=== PATIENT | male | born 1950 | race Caucasian/White ===

== ENCOUNTER 2021-04-14 07:21 | Emergency (ER) | payer OTHER, MEDICARE, SELFPAY ==
[2021-04-14 07:31] VITALS: BP 102/47; BP 138/64; PULSE 68; PULSE 86; RESP 16; TEMP 36.7; O2SAT 94; O2SAT 96; BMI 29.5
--- NOTE | 2021-04-14 08:14 | ECG_ITS ---
Test Reason : CHEST PAIN Blood Pressure : / mmHG Vent. Rate : 064 BPM Atrial Rate : 064 BPM P-R Int : 140 ms QRS Dur : 134 ms QT Int : 452 ms P-R-T Axes : 007 241 -01 degrees QTc Int : 466 ms Sinus rhythm with marked sinus arrhythmia Right bundle branch block Abnormal ECG No previous ECGs available Referred By: Mildred Nina Electronically Signed By:Aime Winn
--- NOTE | 2021-04-14 08:14 | ED_ITS ---
HPI - Chest Pain General Chief Complaint: Chest Pain Stated Complaint: CHEEST PRESSURE Time Seen by Provider: 04/14/21 08:05 Source: patient and EMS Mode of arrival: EMS Limitations: no limitations History of Present Illness HPI narrative: patient comes emergency room complaining of chest pain /chest pressure. 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 Patient states he has had multiple episodes in the past, patient took immediately nitroglycerin which is prescribed to him. Patient called EMS, they gave him a 2nd dose of nitroglycerin and full-dose aspirin. At the time, patient states that the pressure is still present but feeling much better overall. patient states that he does feel mildly lightheaded Related Data Allergies Allergy/AdvReac Type Severity Reaction Status Date / Time povidone-iodine Allergy Unknown Unknown Verified 04/14/21 08:13 Review of Systems Review of Systems: Constitutional : No Weight loss, No Fever, No Chills, No Night Sweats, No Fatigue, No Malaise ENT/Mouth : No Hearing loss, No Ear Pain, No Nasal Congestion, No Sinus Pain, No Hoarseness, No sore throat, No Rhinorrhea, No Swallowing Difficulty Eyes: No Eye Pain, No Swelling, No Redness, No Foreign Body, No Discharge, No Vision Changes Cardiovascular : Complaining of Chest Pain, No SOB, No Dyspnea on Exertion, No Orthopnea, No Edema, No Palpitations Respiratory : No Cough, No Sputum, No Wheezing, No Smoke Exposure, No Dyspnea Gastrointestinal : No Nausea, No Vomiting, No Diarrhea, No Constipation, No abdominal Pain, No Hematochezia, No Melena Genitourinary : no irregular bleeding, No Dysuria, No Urinary Frequency, No Hematuria, No Urinary Incontinence, No Urgency, No Flank Pain, No Urinary Flow Changes, No Hesitancy Musculoskeletal : No joint pain, No Myalgias, No Joint Swelling Skin : No Skin Lesions, No rash Neuro : No Weakness, No Numbness, No Paresthesias, No Loss of Consciousness, No Dizziness, No Headache Psych : No Anxiety/Panic, No Depression, No SI/HI/AH/VH, No Social Issues, Heme/Lymph: No Bruising, No Bleeding,No Lymphadenopathy Endocrine : No Polyuria, No Polydipsia, No Temperature Intolerance [facility] Past Medical History Medical History (Updated 04/14/21 @ 12:17 by Mildred Nina MD) Anxiety Aortic stenosis Bipolar disorder Hypertension Social History Social History Alcohol intake: current Alcohol intake frequency: a few times a week Patient Tobacco Use Status: Never used Tobacco Use of substances other than those prescribed or required for medical reasons: No Advance Directives: No Advance Directives Information Provided: No Physical Exam Vital Signs: Vital Signs: Last Vital Signs Temp 98.1 F 04/14/21 07:31 Pulse 59 04/14/21 08:55 Resp 15 04/14/21 08:55 BP 117/45 L 04/14/21 08:55 Pulse Ox 98 04/14/21 08:55 BMI result Body Mass Index 29.5 Const: Other: Appearance: Alert. Oriented X3. No acute distress. well-appearing Eyes: Pupils equal, round and reactive to light. ENT: Pharynx normal. Neck: Normal inspection. Neck supple. No lymph nodes noted. No crepitus CVS: Normal heart rate and rhythm. Pulses normal. Normal S1 and S2, loud systolic murmur, right sternal border Respiratory: No respiratory distress. Breath sounds normal. No Wheezing. No rales Abdomen: Soft and nontender. No rigidity. No distention. good BS x4 Skin: Skin warm and dry. Normal skin color. Normal skin turgor. Extremities: No lower extremity edema. No lower extremity edema. No Lacerations . No Rash Neuro: Oriented X 3. No motor deficit. No sensory deficit. Moving all extermities. No slurred speech. Course Course Course Narrative: Patient is asymptomatic, troponin 2. Is less than delta 50. patient states that he feels well, has no chest pain/pressure. Likely patient had muscu loskeletal pain as he was changing a tire. 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 Patient would benefit from a stress test. Patient will be given information to follow-up with our tool and die maker/designer. I discussed with the patient that his EKG showed right bundle-branch block, patient states that he is known to have an RBBB for several years, we do not have previous EKGs for comparison MDM - Chest Pain Lab Data Result diagrams: 04/14/21 08:39 04/14/21 08:39 Labs: Lab Results 04/14/21 04/14/21 04/14/21 Range/Units 08:39 08:39 08:39 WBC 9.4 (4.8-10.8) X10*3/uL RBC 4.71 (4.60-5.80) X10*6/uL Hgb 13.9 L (14.0-18.0) g/dl Hct 40.5 L (42.0-52.0) % MCV 86.0 (80.0-98.0) fL MCH 29.5 (27.0-33.0) pg MCHC 34.3 (31.0-36.0) g/dl RDW 13.3 (11.0-16.0) % Plt Count 260 (160-400) X10*3/uL MPV 9.5 (9.4-12.4) fL Immature Gran % (Auto) 0.6 H (0.0-0.4) % Neut % (Auto) 77.5 H (45-73) % Lymph % (Auto) 9.0 L (20-40) % [place] % (Auto) 11.2 H (2-11) % Eos % (Auto) 1.4 (0-4) % Baso % (Auto) 0.3 (0-2) % Lymph # (Auto) 0.9 L (1.2-4.9) X10*3/uL [place] # (Auto) 1.1 (0.1-1.2) X10*3/uL Eos # (Auto) 0.1 (0.0-0.4) X10*3/uL Baso # (Auto) 0.0 (0.0-0.2) X10*3/uL Abs Immat Gran (auto) 0.06 H (0.00-0.03) X10*3/uL Absolute Neuts (auto) 7.3 (2.0-8.3) x10*3/uL Absolute Nucleated RBC 0.000 (0.0-0.012) X10*3/uL Nucleated RBC % (auto) 0.0 (0.0-0.2) /100WBC PT 14.4 H (9.9-13.0) SEC INR 1.3 H (0.9-1.1) Sodium 140 (135-145) mmol/L Potassium 4.0 (3.3-5.1) mmol/L Chloride 108 (96-108) mmol/L Carbon Dioxide 24 (22-29) mmol/L Anion Gap 12 (12-20) BUN 14 (9-16) mg/dL Creatinine 0.86 (0.5-1.4) mg/dL Estim Creat Clear Calc 87.6 Estimated GFR > 60 Random Glucose 120 H (60-115) mg/dL Calcium 9.4 (8.4-10.2) mg/dL Total Bilirubin 1.1 H (0.0-1.0) mg/dL Direct Bilirubin 0.5 (0.0-0.5) mg/dL AST 19 (5-37) U/L ALT 18 (0-40) U/L Alkaline Phosphatase 96 (39-117) U/L Troponin I High Sens (<3.5-35.0) ng/L Total Protein 5.9 L (6.5-8.0) g/dL Albumin 3.9 (3.5-5.0) g/dL 04/14/21 04/14/21 Range/Units 08:39 11:35 WBC (4.8-10.8) X10*3/uL RBC (4.60-5.80) X10*6/uL Hgb (14.0-18.0) g/dl Hct (42.0-52.0) % MCV (80.0-98.0) fL MCH (27.0-33.0) pg MCHC (31.0-36.0) g/dl RDW (11.0-16.0) % Plt Count (160-400) X10*3/uL MPV (9.4-12.4) fL Immature Gran % (Auto) (0.0-0.4) % Neut % (Auto) (45-73) % Lymph % (Auto) (20-40) % [place] % (Auto) (2-11) % Eos % (Auto) (0-4) % Baso % (Auto) (0-2) % Lymph # (Auto) (1.2-4.9) X10*3/uL [place] # (Auto) (0.1-1.2) X10*3/uL Eos # (Auto) (0.0-0.4) X10*3/uL Baso # (Auto) (0.0-0.2) X10*3/uL Abs Immat Gran (auto) (0.00-0.03) X10*3/uL Absolute Neuts (auto) (2.0-8.3) x10*3/uL Absolute Nucleated RBC (0.0-0.012) X10*3/uL Nucleated RBC % (auto) (0.0-0.2) /100WBC PT (9.9-13.0) SEC INR (0.9-1.1) Sodium (135-145) mmol/L Potassium (3.3-5.1) mmol/L Chloride (96-108) mmol/L Carbon Dioxide (22-29) mmol/L Anion Gap (12-20) BUN (9-16) mg/dL Creatinine (0.5-1.4) mg/dL Estim Creat Clear Calc Estimated GFR Random Glucose (60-115) mg/dL Calcium (8.4-10.2) mg/dL Total Bilirubin (0.0-1.0) mg/dL Direct Bilirubin (0.0-0.5) mg/dL AST (5-37) U/L ALT (0-40) U/L Alkaline Phosphatase (39-117) U/L Troponin I High Sens 8.0 11.2 (<3.5-35.0) ng/L Total Protein (6.5-8.0) g/dL Albumin (3.5-5.0) g/dL ECG Data ECG #1: Attestation: I personally reviewed and interpreted this ECG as follows: ( sinus rhythm, heart rate 64, right bundle branch block, QTC 466, nonspecific T- wave inversion in lead 3) Discharge Plan Discharge Clinical Impression: Atypical chest pain Patient Disposition: Home, Self-Care Instructions: Chest Pain (DC) Additional Instructions: Please follow-up with your primary care physician tomorrow. If you have any worsening or new symptoms, please return to the emergency room or call 911 Referrals: Aime Winn MD [Physician] - 2 days
[2021-04-14 08:44] VITALS: BP 107/45; PULSE 57
[2021-04-14 08:44] LABS: MANUAL DIFF FLAG NO
[2021-04-14 08:49] LABS: Basophils Percent Auto 0.3 % (0-2); Eosinophils Absolute Auto 0.1 X10*3/uL (0.0-0.4); Eosinophils Percent Auto 1.4 % (0-4); Hematocrit 40.5 % (42.0-52.0); Hemoglobin 13.9 g/dl (14.0-18.0); Imm Gran Abs Auto 0.06 X10*3/uL (0.00-0.03); Imm Gran Pct Auto 0.6 % (0.0-0.4); Lymphocytes Absolute Auto 0.9 X10*3/uL (1.2-4.9); Mean Corpuscular HGB Conc 34.3 g/dl (31.0-36.0); Mean Corpuscular Hemoglobin 29.5 pg (27.0-33.0); Mean Platelet Volume 9.5 fL (9.4-12.4); Monocytes Absolute Auto 1.1 X10*3/uL (0.1-1.2); Monocytes Percent Auto 11.2 % (2-11); Neutrophils Absolute Auto 7.3 x10*3/uL (2.0-8.3); Neutrophils Percent Auto 77.5 % (45-73); Platelet Count 260 X10*3/uL (160-400); Red Blood Count 4.71 X10*6/uL (4.60-5.80); Red Cell Distribution Width 13.3 % (11.0-16.0); White Blood Count 9.4 X10*3/uL (4.8-10.8)
[2021-04-14 08:50] VITALS: BP 114/44; PULSE 62
[2021-04-14 08:52] VITALS: BP 117/45; PULSE 62
[2021-04-14 08:54] LABS: INTERNATIONAL NORM RATIO 1.3 (0.9-1.1); Prothrombin Time 14.4 SEC (9.9-13.0)
[2021-04-14 08:55] VITALS: BP 117/45; PULSE 59; RESP 15; O2SAT 98
[2021-04-14 09:03] LABS: Alanine Aminotransferase 18 U/L (0-40); Albumin Level 3.9 g/dL (3.5-5.0); Alkaline Phosphatase 96 U/L (39-117); Anion Gap 12 (12-20); Aspartate Amino Transferase 19 U/L (5-37); Bilirubin Direct 0.5 mg/dL (0.0-0.5); Bilirubin Total 1.1 mg/dL (0.0-1.0); Blood Urea Nitrogen 14 mg/dL (9-16); Calcium 9.4 mg/dL (8.4-10.2); Carbon Dioxide 24 mmol/L (22-29); Chloride 108 mmol/L (96-108); Creatinine Clr Calc Pharmacy 87.6; Estimated Glomerular Filt Rate > 60; Glucose Random 120 mg/dL (60-115); Sodium 140 mmol/L (135-145); Total Protein 5.9 g/dL (6.5-8.0)
[2021-04-14 11:58] LABS: Troponin-I High Sensitivity 11.2 ng/L (<3.5-35.0)
== END 2021-04-14 12:31 | disposition home or self-care (01) ==
PROVIDERS: Emergency Provider Emergency Medicine
DX: R07.89 Other chest pain (principal); Z79.899 Other long term (current) drug therapy
CPT/HCPCS: 36415; 80048; 80076; 84484; 85025; 85610; 93005; 99284; 99285

== ENCOUNTER → 2021-08-07 14:13 | Outpatient (BNVA) | payer OTHER, MEDICARE, SELFPAY | PROVIDERS: Visit Provider Internal Medicine Cardiovascular Disease | DX: R07.9 Chest pain, unspecified (principal); I35.0 Nonrheumatic aortic (valve) stenosis; I45.10 Unspecified right bundle-branch block | CPT/HCPCS: 93005 ==

== ENCOUNTER → 2021-10-10 10:58 | Outpatient (REF) | payer OTHER, SELFPAY ==
--- NOTE | 2021-10-10 11:05 | CA_ITS ---
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 The calculated ejection fraction is 66% by biplane method. - The basal inferior segment is hypokinetic. - There is moderate to severe aortic valve stenosis. Findings Left Ventricle Normal left ventricular cavity size. There is mildly increased left ventricular wall thickness. The left ventricular systolic function is normal. The calculated ejection fraction is 66% by biplane method. E/E prime ratio is >15, consistent with elevated filling pressures. Evidence suggests grade II (moderate) diastolic dysfunction. Wall Motion Rest Echo Findings The basal inferior segment is hypokinetic. Right Ventricle Normal right ventricular cavity size and systolic function. Atria Both atria are normal in size. Aortic Valve There is moderate calcification of the aortic valve. There is moderate to severe aortic valve stenosis. The mean gradient is 37 mmHg. The aortic valve area is 0.84 cm2. There is trace (trivial) aortic valve regurgitation. Dimensionless index 0.25. Stroke volume index 42ml/m2. Mitral Valve The mitral valve appears normal. There is mild mitral annular calcification. There is trace mitral valve regurgitation. There is no mitral valve stenosis. Pulmonic Valve The pulmonic valve was not well visualized. Tricuspid Valve Normal tricuspid valve structure. There is trace tricuspid valve regurgitation. The right ventricular systolic pressure is 42 mmHg. Mild pulmonary hypertension is present. Great Vessels The asc aorta is normal in size. Venous The inferior vena cava is normal in size and collapses less than 50% with inspiration. Pericardium/Pleural There is no evidence of pericardial effusion. Prior Study Comparison No prior study available for comparison. Measurements 2D Linear Measurements IVSd: 1.20 0.6-0.9/0.6-1.0 cm LVIDd: 4.82 3.9-5.3/4.2-5.9 cm LVIDd Index: 2.35 2.4-3.2/2.2-3.1 cm/m2 LVIDs: 3.55 2.0-3.6 cm LVPWd: 1.11 0.7-1.1 cm LA Diam: 3.90 2.7-3.8/3.0-4.0 cm LAIDs Index: 1.90 1.5-2.3 cm/m2 LV Mass: 260.51 67-162/88-224 g LV Mass Index: 127.08 43-95/49-115 g/m2 LVOT Diam: 2.10 3.0+(-)1.3 cm 2D Systolic Function EF 4C: 62.20 >55% EF 2C: 69.40 >55% EF BiP: 66.40 >55% Mitral Valve MV Pk E: 1.03 MV PK A: 0.64 MV Decel Time: 232.00 E/A: 1.60 E'Lateral: 5.44 E'Medial: 5.55 E/E' Med: 18.60 E/E' Lat: 18.90 PHT: 68.00 MVA PHT: 3.24 Decel Sutter: 4.44 Aortic Valve AoV Pk Shen: 3.92 AoV Mn Shen: 2.88 AoV VTI: 1.02 AoV Pk Grad: 61.00 Aov Mn Grad: 37.00 KAREEM Cont.VTI: 0.84 LVOT LVOT Pk Shen: 0.98 LVOT Mn Shen: 0.58 LVOT VTI: 0.25 LVOT Pk Grad: 4.00 LVOT Mn Grad: 2.00 LVOT Diam: 2.10 LVOT Area: 3.46 Diastolic Function MV Pk E: 1.03 MV Pk A: 0.64 E/A: 1.60 E'Medial: 5.55 E/E' Med: 18.60 E' Laterial: 5.44 E/E' Lat: 18.90 Right Ventricle TAPSE (mm): 20.80 TVS' Shen: 9.03 Tricuspid Valve TR Pk Shen: 2.91 TR Pk Grad: 34.00 RA Press: 8.00 RVSP: 42.00 Great Vessels Aorta Sinus of Valsalva: 3.52 2.0-3.[address] [place]: 2.34 1.7-3.4 cm Ao Asc: 3.50 2.1-3.4 cm Updated in Other Vendor System with Status of Final Harpreet Sapp MD electronically signed on 10/12/2021 11:22:35 AM with status of Final
== END ==
LOC: HO.CARD 10:58
PROVIDERS: Visit Provider Internal Medicine Cardiovascular Disease
DX: I35.0 Nonrheumatic aortic (valve) stenosis (principal)
CPT/HCPCS: 93306

== ENCOUNTER 2021-11-05 08:27 | Outpatient (REF) | payer OTHER, SELFPAY ==
[2021-11-05 09:18] LABS: Hematocrit 49.4 % (42.0-52.0); Hemoglobin 15.8 g/dl (14.0-18.0); Mean Corpuscular Hemoglobin 27.3 pg (27.0-33.0); Mean Corpuscular Volume 85.5 fL (80.0-98.0); Mean Platelet Volume 9.7 fL (9.4-12.4); Platelet Count 264 X10*3/uL (160-400); Red Blood Count 5.78 X10*6/uL (4.60-5.80); Red Cell Distribution Width 13.4 % (11.0-16.0); White Blood Count 8.6 X10*3/uL (4.8-10.8)
[2021-11-05 09:24] LABS: INTERNATIONAL NORM RATIO 1.1 (0.9-1.1)
[2021-11-05 09:44] LABS: Anion Gap 15 (12-20); Blood Urea Nitrogen 20 mg/dL (9-16); Calcium 9.5 mg/dL (8.4-10.2); Carbon Dioxide 26 mmol/L (22-29); Chloride 107 mmol/L (96-108); Estimated Glomerular Filt Rate > 60; Glucose Random 97 mg/dL (60-115); Potassium 4.8 mmol/L (3.3-5.1); Sodium 143 mmol/L (135-145)
== END 2021-11-05 08:28 | disposition home or self-care (01) ==
LOC: HO.LAB 08:27
PROVIDERS: Visit Provider Internal Medicine Cardiovascular Disease
DX: R07.9 Chest pain, unspecified (principal); I45.10 Unspecified right bundle-branch block; I35.0 Nonrheumatic aortic (valve) stenosis
CPT/HCPCS: 36415; 80048; 83880; 85027; 85610

== ENCOUNTER 2021-11-16 10:15 | Inpatient (IN) | payer OTHER, SELFPAY ==
--- NOTE | 2021-11-16 08:08 | ECG_ITS ---
Test Reason : REFER OM ORDERFOR DIRECTION/FREQUENCY/TIMIMG Blood Pressure : / mmHG Vent. Rate : 063 BPM Atrial Rate : 063 BPM P-R Int : 156 ms QRS Dur : 142 ms QT Int : 454 ms P-R-T Axes : 028 081 006 degrees QTc Int : 464 ms Sinus rhythm with frequent Premature ventricular complexes Right bundle branch block Abnormal ECG When compared with ECG of 16-NOV-2021 10:18, No significant change was found Referred By: Toñito Suarez Electronically Signed By:SHANTA LAGOS
[2021-11-16 10:17] VITALS: BP 104/58; PULSE 60; RESP 18; TEMP 36.1; O2SAT 99; BMI 28.6
--- NOTE | 2021-11-16 10:19 | ECG_ITS ---
Test Reason : chest pain Blood Pressure : / mmHG Vent. Rate : 063 BPM Atrial Rate : 063 BPM P-R Int : 162 ms QRS Dur : 144 ms QT Int : 444 ms P-R-T Axes : 036 072 008 degrees QTc Int : 454 ms Sinus rhythm with frequent Premature ventricular complexes Right bundle branch block Abnormal ECG When compared with ECG of 14-APR-2021 08:14, Premature ventricular complexes are now Present Questionable change in QRS axis Referred By: Generic ED Physician Electronically Signed By:SHANTA LAGOS
--- NOTE | 2021-11-16 10:56 | ED.CHESTPAIN ---
HPI - Chest Pain General Chief Complaint: Chest Pain Stated Complaint: chest pain sob Time Seen by Provider: 11/16/21 10:56 Source: patient Mode of arrival: ambulatory Limitations: no limitations History of Present Illness HPI narrative: Patient is 71 years old with history of hypertension, hyperlipidemia, right bundle-branch block, aortic stenosis with multivessel disease status post angiogram done on 11/14 which showed severe 2 vessel disease with calcification in RCA and LAD plan for CABG/AVR vs TAVR/PCI been having chest pain off and on with exertional dyspnea today around 10:00 while sitting at rest noticed similar pain which was more severe than the past took nitroglycerin sublingual which subsided the pain significantly but still has some pain also complaining of shortness of breath on arrival patient blood pressure was 104/58 saturating 99% at room air with pulse rate of 60 Related Data Home Medications Medication Instructions Recorded Confirmed aspirin 81 mg chewable tablet 81 mg PO DAILY 08/07/21 11/16/21 atorvastatin 80 mg tablet 80 mg PO BEDTIME 08/07/21 11/16/21 clonazepam 0.5 mg tablet 1.5 mg PO BEDTIME 08/07/21 11/16/21 diazepam 2 mg tablet 2 mg PO DAILY PRN Anxiety 08/07/21 11/16/21 lamotrigine 150 mg tablet 150 mg PO BID 08/07/21 11/16/21 levothyroxine 125 mcg capsule 125 mcg PO DAILY@0600 08/07/21 11/16/21 methylphenidate HCl 20 mg tablet 40 mg PO DAILY 08/07/21 11/16/21 metoprolol succinate 50 mg 50 mg PO DAILY 08/07/21 11/16/21 tablet,extended release 24 hr nitroglycerin 0.3 mg sublingual 0.3 mg sublingual Q5M PRN Chest 08/07/21 11/16/21 tablet Pain quetiapine 25 mg tablet (Seroquel) 75 mg PO BEDTIME 08/07/21 11/16/21 ramipril 10 mg capsule 10 mg PO DAILY 08/07/21 11/16/21 cholecalciferol (vitamin D3) 50 100 mcg PO DAILY 11/16/21 11/16/21 mcg (2,000 unit) tablet (Vitamin D3) epinephrine 0.3 mg/0.3 mL 0.3 mg IM ONCE PRN Anaphylaxis 11/16/21 11/16/21 injection, auto-injector ibuprofen 200 mg tablet 400 mg PO Q8H PRN Pain 11/16/21 11/16/21 lactobacillus comb no.10 20 20,000 mmu cells PO DAILY 11/16/21 11/16/21 billion cell capsule (Probiotic) vitamin B comp and C no.3 15 mg-10 1 cap PO DAILY 11/16/21 11/16/21 mg-50 mg-5 mg-300 mg capsule (B Complex Plus Vitamin C) Allergies Allergy/AdvReac Type Severity Reaction Status Date / Time povidone-iodine Allergy Unknown Unknown Verified 08/07/21 14:46 seafood Allergy Unknown Verified 11/16/21 14:21 [facility] Past Medical History Medical History (Updated 11/16/21 @ 13:53 by Toñito Suarez MD) Anxiety Aortic stenosis Bipolar disorder Hypertension Surgical History (Updated 08/07/21 @ 15:07 by Ileana Emerson) History of left shoulder replacement History of total right knee replacement Hx of appendectomy Hx of cardiac catheterization Hx of colonoscopy Hx of endoscopy Hx of radical prostatectomy Hx of repair of right rotator cuff Hx of vasectomy Family History Family History (Updated 08/07/21 @ 15:12 by Ileana Emerson) Sister Heart attack Coronary artery disease Arthritis Lupus Sleep apnea Mother Lupus Heart attack Father Heart attack Coronary artery disease Social History Social History (Updated 08/07/21 @ 15:12 by Ileana Emerson) Household Members: Family Alcohol intake: current Alcohol intake frequency: a few times a week Patient Tobacco Use Status: Never used Tobacco Use of substances other than those prescribed or required for medical reasons: No Advance Directives: Yes Advance Directives Information Provided: No Advance Directives on File: No Physical Exam Vital Signs: Vital Signs: Last Vital Signs Temp 97 F 11/16/21 10:17 Pulse 59 11/16/21 13:13 Resp 18 11/16/21 13:13 BP 160/62 H 11/16/21 13:13 Pulse Ox 99 11/16/21 10:17 O2 Del Method 11/16/21 10:17 BMI result Body Mass Index 29.8 MDM - Chest Pain MDM Narrative Medical decision making narrative: 1400 Patient with resting angina with history of aortic stenosis with significant 2 vessel coronary artery disease plan to admit IV heparin plan for transfer to [facility] for plastic parts designer Dr. Johnson likely tomorrow. For now patient will be admitted started on heparin drip and Cardiology will follow patient does not have any chest pain at this time Medical Records Data Attestation: I reviewed the patient's medical records. Lab Data Attestation: I reviewed the patient's lab results. Result diagrams: 11/16/21 11:12 11/16/21 11:12 Labs: Lab Results 11/16/21 11/16/21 11/16/21 Range/Units 11:12 11:12 11:12 WBC 6.9 (4.8-10.8) X10*3/uL RBC 5.07 (4.60-5.80) X10*6/uL Hgb 13.7 L (14.0-18.0) g/dl Hct 42.0 (42.0-52.0) % MCV 82.8 (80.0-98.0) fL MCH 27.0 (27.0-33.0) pg MCHC 32.6 (31.0-36.0) g/dl RDW 13.2 (11.0-16.0) % Plt Count 207 (160-400) X10*3/uL MPV 9.9 (9.4-12.4) fL Immature Gran % (Auto) 0.7 H (0.0-0.4) % Neut % (Auto) 67.0 (45-73) % Lymph % (Auto) 18.0 L (20-40) % [place] % (Auto) 10.5 (2-11) % Eos % (Auto) 3.2 (0-4) % Baso % (Auto) 0.6 (0-2) % Lymph # (Auto) 1.2 (1.2-4.9) X10*3/uL [place] # (Auto) 0.7 (0.1-1.2) X10*3/uL Eos # (Auto) 0.2 (0.0-0.4) X10*3/uL Baso # (Auto) 0.0 (0.0-0.2) X10*3/uL Abs Immat Gran (auto) 0.05 H (0.00-0.03) X10*3/uL Absolute Neuts (auto) 4.6 (2.0-8.3) x10*3/uL Absolute Nucleated RBC 0.000 (0.0-0.012) X10*3/uL Nucleated RBC % (auto) 0.0 (0.0-0.2) /100WBC PT (10.0-13.1) SEC INR (0.9-1.1) APTT (26.0-36.4) SEC Sodium 142 (135-145) mmol/L Potassium 4.5 (3.3-5.1) mmol/L Chloride 108 (96-108) mmol/L Carbon Dioxide 24 (22-29) mmol/L Anion Gap 15 (12-20) BUN 19 H (9-16) mg/dL Creatinine 0.84 (0.5-1.4) mg/dL Estim Creat Clear Calc 87.2 Estimated GFR > 60 Random Glucose 110 (60-115) mg/dL Calcium 8.5 D (8.4-10.2) mg/dL Total Bilirubin 0.6 (0.0-1.0) mg/dL AST 24 (5-37) U/L ALT 23 (0-40) U/L Alkaline Phosphatase 93 (39-117) U/L Troponin I High Sens 7.2 (<3.5-35.0) ng/L B-Natriuretic Peptide (<100) pg/mL Total Protein 5.6 L (6.5-8.0) g/dL Albumin 3.7 (3.5-5.0) g/dL COVID-19 (ELIDA) (Negative) COVID-19 Clin Com 11/16/21 11/16/21 11/16/21 Range/Units 11:36 11:47 11:47 WBC (4.8-10.8) X10*3/uL RBC (4.60-5.80) X10*6/uL Hgb (14.0-18.0) g/dl Hct (42.0-52.0) % MCV (80.0-98.0) fL MCH (27.0-33.0) pg MCHC (31.0-36.0) g/dl RDW (11.0-16.0) % Plt Count (160-400) X10*3/uL MPV (9.4-12.4) fL Immature Gran % (Auto) (0.0-0.4) % Neut % (Auto) (45-73) % Lymph % (Auto) (20-40) % [place] % (Auto) (2-11) % Eos % (Auto) (0-4) % Baso % (Auto) (0-2) % Lymph # (Auto) (1.2-4.9) X10*3/uL [place] # (Auto) (0.1-1.2) X10*3/uL Eos # (Auto) (0.0-0.4) X10*3/uL Baso # (Auto) (0.0-0.2) X10*3/uL Abs Immat Gran (auto) (0.00-0.03) X10*3/uL Absolute Neuts (auto) (2.0-8.3) x10*3/uL Absolute Nucleated RBC (0.0-0.012) X10*3/uL Nucleated RBC % (auto) (0.0-0.2) /100WBC PT 13.2 H (10.0-13.1) SEC INR 1.1 (0.9-1.1) APTT 32.5 (26.0-36.4) SEC Sodium (135-145) mmol/L Potassium (3.3-5.1) mmol/L Chloride (96-108) mmol/L Carbon Dioxide (22-29) mmol/L Anion Gap (12-20) BUN (9-16) mg/dL Creatinine (0.5-1.4) mg/dL Estim Creat Clear Calc Estimated GFR Random Glucose (60-115) mg/dL Calcium (8.4-10.2) mg/dL Total Bilirubin (0.0-1.0) mg/dL AST (5-37) U/L ALT (0-40) U/L Alkaline Phosphatase (39-117) U/L Troponin I High Sens (<3.5-35.0) ng/L B-Natriuretic Peptide 228 H (<100) pg/mL Total Protein (6.5-8.0) g/dL Albumin (3.5-5.0) g/dL COVID-19 (ELIDA) Negative (Negative) COVID-19 Clin Com See Note ECG Data ECG #1: Attestation: I personally reviewed and interpreted this ECG as follows: Interpretation: Normal sinus rhythm with frequent PVCs heart rate of 63 beats per minute red-brown block no acute ST T wave changes no acute ischemia as compared to old EKG PVC are new Critical Care Time Critical Care Time Critical Care Time: Yes Total Critical Care Time: 55 Attestation: I spent 55 minutes of critical care, with interventions, assessments, speaking to patient, consultants, and family. Discharge Plan Discharge Clinical Impression: Unstable angina pectoris, Aortic stenosis Patient Disposition: Admitted As Inpatient
[2021-11-16 11:15] LABS: MANUAL DIFF FLAG NO
[2021-11-16 11:24] LABS: Basophils Percent Auto 0.6 % (0-2); Eosinophils Absolute Auto 0.2 X10*3/uL (0.0-0.4); Eosinophils Percent Auto 3.2 % (0-4); Hemoglobin 13.7 g/dl (14.0-18.0); Imm Gran Abs Auto 0.05 X10*3/uL (0.00-0.03); Imm Gran Pct Auto 0.7 % (0.0-0.4); Lymphocytes Absolute Auto 1.2 X10*3/uL (1.2-4.9); Mean Corpuscular HGB Conc 32.6 g/dl (31.0-36.0); Mean Corpuscular Volume 82.8 fL (80.0-98.0); Mean Platelet Volume 9.9 fL (9.4-12.4); Monocytes Absolute Auto 0.7 X10*3/uL (0.1-1.2); Monocytes Percent Auto 10.5 % (2-11); Neutrophils Absolute Auto 4.6 x10*3/uL (2.0-8.3); Platelet Count 207 X10*3/uL (160-400); Red Blood Count 5.07 X10*6/uL (4.60-5.80); Red Cell Distribution Width 13.2 % (11.0-16.0); White Blood Count 6.9 X10*3/uL (4.8-10.8)
[2021-11-16 11:39] LABS: Alanine Aminotransferase 23 U/L (0-40); Albumin Level 3.7 g/dL (3.5-5.0); Alkaline Phosphatase 93 U/L (39-117); Anion Gap 15 (12-20); Aspartate Amino Transferase 24 U/L (5-37); Bilirubin Total 0.6 mg/dL (0.0-1.0); Blood Urea Nitrogen 19 mg/dL (9-16); Calcium 8.5 mg/dL (8.4-10.2); Carbon Dioxide 24 mmol/L (22-29); Chloride 108 mmol/L (96-108); Creatinine Clr Calc Pharmacy 87.2; Estimated Glomerular Filt Rate > 60; Glucose Random 110 mg/dL (60-115); Potassium 4.5 mmol/L (3.3-5.1); Sodium 142 mmol/L (135-145); Total Protein 5.6 g/dL (6.5-8.0)
[2021-11-16 11:45] LABS: Troponin-I High Sensitivity 7.2 ng/L (<3.5-35.0)
[2021-11-16 11:51] VITALS: BP 138/58; PULSE 58
[2021-11-16] MEDS: Nitroglycerin 2 % Oint 1 GM Packet 1 INCH TRANSDERMA (11:51)
[2021-11-16] MEDS: Heparin Sodium,Porcine 5,000 UNIT/ML VIAL 5000 UNIT IVPUSH (11:53)
[2021-11-16 11:58] LABS: COVID-19 Test Negative (Negative)
[2021-11-16 12:05] VITALS: BMI 29.5
[2021-11-16 12:05] LABS: INTERNATIONAL NORM RATIO 1.1 (0.9-1.1); Prothrombin Time 13.2 SEC (10.0-13.1)
[2021-11-16 12:07] LABS: Partial Thromboplastin Time 32.5 SEC (26.0-36.4)
[2021-11-16 12:27] LABS: B Type Natriuretic Peptide 228 pg/mL (<100)
[2021-11-16 13:08] VITALS: BMI 29.8
[2021-11-16 13:13] VITALS: BP 160/62; PULSE 59; RESP 18
[2021-11-16] MEDS: Heparin Sodium,Porcine/1/2NS 25,000 UNIT/250 ML IV.SOLN 10 UNIT IVCONT (13:19)
--- NOTE | 2021-11-16 13:51 | PC.NURSE ---
t/w completed pt med rec- medication list sent to pharmacy to review
--- NOTE | 2021-11-16 14:38 | PHA.MEDREC ---
Pharmacy Consult ? Medication Reconciliation Pharmacy has completed the medication reconciliation. Used med list acquired from nurse (Marilu) and claim history to verify meds. Spoke with patient as well to confirm ibuprofen (400 mg po q8h prn) and lamotrigine (150mg po bid) doses.
--- NOTE | 2021-11-16 15:05 | PM.IMHP ---
History of Present Illness Date of Service: 11/16/21 Chief Complaint: Chest pain, sob 71-year-old man presenting with complaints of chest pain on and off with exertional dyspnea while at rest. He took sublingual nitroglycerin which did help the pain subside significantly but could still persist and he also had some shortness of breath. He has known coronary artery disease and as a matter fact had a CABG consult on 11/12/2021 at [facility] it appears that the plan is to do 2 vessel bypass. His labs are all within acceptable limits, vital signs are stable. Bank Note Designer is aware and has recommended starting patient on IV heparin drip and plan for transfer to [facility] tomorrow or Thursday. The IV heparin drip was started in the ER and he also received topical nitroglycerin. He will be admitted for further management and treatment of unstable angina Review of Systems Review of Systems: Denies any recent fever chills or decrease in appetite respiratory denies any shortness of breath coverage production cardiovascular see above/HPI gastrointestinal denies any dysphagia abdominal pain nausea vomiting or diarrhea genitourinary denies any dysuria frequency or hematuria musculoskeletal denies any joint pain or swelling neuropsych denies any weakness or seizures all other systems reviewed are negative [facility] Medical History (Updated 11/16/21 @ 15:40 by Merary Drake NP) Anxiety Aortic stenosis Bipolar disorder Hypertension Prostate cancer Pulmonary hypertension TIA (transient ischemic attack) Family History (Updated 08/07/21 @ 15:12 by Ileana Emerson) Sister Heart attack Coronary artery disease Arthritis Lupus Sleep apnea Mother Lupus Heart attack Father Heart attack Coronary artery disease Surgical History (Updated 11/16/21 @ 15:40 by Merary Drake NP) History of left shoulder replacement History of total right knee replacement Hx of appendectomy Hx of cardiac catheterization Hx of colonoscopy Hx of endoscopy Hx of radical prostatectomy Hx of repair of right rotator cuff Hx of tonsillectomy Hx of vasectomy Social History (Updated 08/07/21 @ 15:12 by Ileana Emerson) Household Members: Family Alcohol intake: current Alcohol intake frequency: a few times a week Patient Tobacco Use Status: Never used Tobacco Use of substances other than those prescribed or required for medical reasons: No Advance Directives: Yes Advance Directives Information Provided: No Advance Directives on File: No Meds Allergies Allergy/AdvReac Type Severity Reaction Status Date / Time povidone-iodine Allergy Unknown Unknown Verified 08/07/21 14:46 seafood Allergy Unknown Verified 11/16/21 14:21 Active Medications: Current Medications Acetaminophen (Acetaminophen 325 Mg Tablet) 650 mg PO Q6H PRN PRN Reason: Pain, Mild (Pain Scale 1-3) Aspirin (Aspirin 81 Mg Tab.Chew) 81 mg PO DAILY [facility] Atorvastatin Calcium (Atorvastatin Calcium 80 Mg Tablet) 80 mg PO BEDTIME [facility] Clonazepam (Clonazepam 0.5 Mg Tablet) 1.5 mg PO BEDTIME [facility] Diazepam (Diazepam 2 Mg Tablet) 2 mg PO DAILY PRN PRN Reason: Anxiety Heparin Sodium (Porcine) (Heparin Sodium,Porcine 5,000 Unit/Ml Vial) 3,700 unit 40 unit/kg (3700 unit) IVPUSH PROTOCOL BOLUS PRN; Protocol PRN Reason: 40 unit/kg - Heparin Protocol Heparin Sodium (Porcine) (Heparin Sodium,Porcine 5,000 Unit/Ml Vial) 7,300 unit 80 unit/kg (7300 unit) IVPUSH PROTOCOL BOLUS PRN; Protocol PRN Reason: 80 unit/kg - Heparin Protocol Heparin Sodium/Sodium Chloride (Heparin Sodium,Porcine/1/2ns) 25,000 unit in 250 mls @ 0 mls/hr IVCONT .Q0M [facility]; Protocol Last Admin: 11/16/21 13:19 Dose: 10.92 units/kg/hr, 10 mls/hr Lamotrigine (Lamotrigine 25 Mg Tablet) 150 mg PO BID [facility] Levothyroxine Sodium (Levothyroxine Sodium 125 Mcg Tablet) 125 mcg PO DAILY@0600 [facility] Methylphenidate HCl (Methylphenidate Hcl 5 Mg Tablet) 40 mg PO DAILY [facility] Metoprolol Succinate (Metoprolol Succinate Er 50 Mg Tab.Er.24h) 50 mg PO DAILY [facility]; Protocol Non-Formulary Medication (Ramipril) 10 mg PO DAILY [facility] Ondansetron HCl (Ondansetron Hcl 4 Mg/2 Ml Vial) 4 mg IVPUSH Q8H PRN PRN Reason: Nausea and Vomiting Pharmacy Consult (Consult Rx Perform Med Rec) 1 each MISCELLANE ONCE PRN PRN Reason: Consult order Pharmacy Consult (Consult Rx Perform Med Rec) 1 each MISCELLANE ONCE PRN PRN Reason: Consult order Quetiapine Fumarate (Quetiapine Fumarate 25 Mg Tablet) 75 mg PO BEDTIME [facility] Sodium Chloride (0.9 % Sodium Chloride Flush 3 Ml Syringe) 3 ml IVFLUSH QSHIFT [facility] Vitamin D (Cholecalciferol (Vitamin D3) 25 Mcg Tablet) 100 mcg PO DAILY [facility] Home Medications Medication Instructions Recorded Confirmed Last Taken Type aspirin 81 mg chewable tablet 81 mg PO DAILY 08/07/21 11/16/21 11/16/21 09:00 History atorvastatin 80 mg tablet 80 mg PO BEDTIME 08/07/21 11/16/21 11/15/21 20:30 History clonazepam 0.5 mg tablet 1.5 mg PO BEDTIME 08/07/21 11/16/21 11/15/21 22:30 History diazepam 2 mg tablet 2 mg PO DAILY PRN Anxiety 08/07/21 11/16/21 Unknown History lamotrigine 150 mg tablet 150 mg PO BID 08/07/21 11/16/21 11/16/21 08:00 History levothyroxine 125 mcg capsule 125 mcg PO DAILY@0600 08/07/21 11/16/21 11/16/21 06:00 History methylphenidate HCl 20 mg tablet 40 mg PO DAILY 08/07/21 11/16/21 11/16/21 08:00 History metoprolol succinate 50 mg 50 mg PO DAILY 08/07/21 11/16/21 11/16/21 09:00 History tablet,extended release 24 hr nitroglycerin 0.3 mg sublingual 0.3 mg sublingual Q5M PRN Chest 08/07/21 11/16/21 11/16/21 09:00 History tablet Pain quetiapine 25 mg tablet (Seroquel) 75 mg PO BEDTIME 08/07/21 11/16/21 11/15/21 22:30 History ramipril 10 mg capsule 10 mg PO DAILY 08/07/21 11/16/21 11/16/21 09:00 History cholecalciferol (vitamin D3) 50 100 mcg PO DAILY 11/16/21 11/16/21 11/16/21 History mcg (2,000 unit) tablet (Vitamin D3) epinephrine 0.3 mg/0.3 mL 0.3 mg IM ONCE PRN Anaphylaxis 11/16/21 11/16/21 Unknown History injection, auto-injector ibuprofen 200 mg tablet 400 mg PO Q8H PRN Pain 11/16/21 11/16/21 Unknown History lactobacillus comb no.10 20 20,000 mmu cells PO DAILY 11/16/21 11/16/21 Unknown History billion cell capsule (Probiotic) vitamin B comp and C no.3 15 mg-10 1 cap PO DAILY 11/16/21 11/16/21 Unknown History mg-50 mg-5 mg-300 mg capsule (B Complex Plus Vitamin C) Physical Exam Vital Signs and Narrative: Vital Signs: Last Vital Signs Temp 97 F 11/16/21 10:17 Pulse 59 11/16/21 13:13 Resp 18 11/16/21 13:13 BP 160/62 H 11/16/21 13:13 Pulse Ox 99 11/16/21 10:17 O2 Del Method 11/16/21 10:17 BMI result Body Mass Index 29.8 Appearing in no acute distress head is normocephalic atraumatic eyes pupils are PERRLA sclera is anicteric mouth throat mucous membranes are intact and moist neck is supple no lymphadenopathy, no JVD noted lung sounds are clear to auscultation heart regular rate rhythm, clear S1, S2 positive bowel sounds, abdomen is soft, nontender neuro patient is alert x3, no focal deficits Results Labs CBC and Chem 7: 11/17/21 04:15 11/17/21 04:15 Labs: Laboratory Results - last 24 hr 11/16/21 11/16/21 11/16/21 11:12 11:12 11:36 MCV 82.8 MCH 27.0 MCHC 32.6 RDW 13.2 Plt Count 207 MPV 9.9 Immature Gran % (Auto) 0.7 H Neut % (Auto) 67.0 Lymph % (Auto) 18.0 L [place] % (Auto) 10.5 Eos % (Auto) 3.2 Baso % (Auto) 0.6 Lymph # (Auto) 1.2 [place] # (Auto) 0.7 Eos # (Auto) 0.2 Baso # (Auto) 0.0 Abs Immat Gran (auto) 0.05 H Absolute Neuts (auto) 4.6 Absolute Nucleated RBC 0.000 Nucleated RBC % (auto) 0.0 PT INR APTT Anion Gap 15 Estim Creat Clear Calc 87.2 Estimated GFR > 60 Random Glucose 110 Calcium 8.5 D Total Bilirubin 0.6 AST 24 ALT 23 Alkaline Phosphatase 93 B-Natriuretic Peptide Total Protein 5.6 L Albumin 3.7 COVID-19 (ELIDA) Negative COVID-19 Clin Com See Note 11/16/21 11/16/21 11:47 11:47 MCV MCH MCHC RDW Plt Count MPV Immature Gran % (Auto) Neut % (Auto) Lymph % (Auto) [place] % (Auto) Eos % (Auto) Baso % (Auto) Lymph # (Auto) [place] # (Auto) Eos # (Auto) Baso # (Auto) Abs Immat Gran (auto) Absolute Neuts (auto) Absolute Nucleated RBC Nucleated RBC % (auto) PT 13.2 H INR 1.1 APTT 32.5 Anion Gap Estim Creat Clear Calc Estimated GFR Random Glucose Calcium Total Bilirubin AST ALT Alkaline Phosphatase B-Natriuretic Peptide 228 H Total Protein Albumin COVID-19 (ELIDA) COVID-19 Clin Com Assessment and Plan (1) Unstable angina pectoris: Status: Acute Plan 71-year-old man admitted with chest pain and shortness of breath along with dyspnea with exertion likely related to unstable angina history of coronary artery disease Unstable angina/NSTEMI Will start heparin drip Continue aspirin, statin, beta-camille Cardiology aware Plan will likely be for transfer to [facility] at some point Mental health Continue home medications DVT prophylaxis with IV heparin Attending Dr. Thomas Full code Patient likely requires 2 midnights in the hospitalfor treatment of unstable angina NSTEMI requiring IV heparin and likely transfer to tertiary facility Quality Stroke Does the patient have a stroke diagnosis?: No VTE Prior VTE?: No VTE Risk Level:: Medical - moderate - high VTE Device Contraindication: Treatment Not Indicated VTE Drug Contraindication: N/A - Med Ordered
[2021-11-16 17:15] VITALS: BP 122/49; PULSE 56; RESP 12; O2SAT 98
[2021-11-16] MEDS: 0.9 % Sodium Chloride Flush 3 ML SYRINGE IVFLUSH (17:18)
[2021-11-16] MEDS: Acetaminophen 325 MG TABLET 650 MG PO (18:21)
[2021-11-16 20:01] VITALS: BP 131/58; PULSE 53; RESP 18; O2SAT 96
[2021-11-16 20:04] LABS: PTT Heparin Drip 127.9 SEC (53-77.9)
[2021-11-16] MEDS: QUEtiapine Fumarate 25 MG TABLET 75 MG PO (21:15)
[2021-11-16] MEDS: lamoTRIgine 25 MG TABLET 150 MG PO (21:15)
[2021-11-16] MEDS: clonazePAM 0.5 MG TABLET 1.5 MG PO (21:17)
[2021-11-16] MEDS: Atorvastatin Calcium 80 MG TABLET PO (21:17)
[2021-11-16 21:47] LABS: PTT Heparin Drip 63.8 SEC (53-77.9)
--- NOTE | 2021-11-16 22:05 | PC.NURSE ---
Contact made to Lab regarding PTTHD result time being over an hour. Per Margot- lab is extended. Further contact made to pharmacy. in argeement to continue to hold heparin gtt.
--- NOTE | 2021-11-16 22:14 | ECG_ITS ---
Test Reason : REPEAT Blood Pressure : / mmHG Vent. Rate : 048 BPM Atrial Rate : 048 BPM P-R Int : 148 ms QRS Dur : 142 ms QT Int : 492 ms P-R-T Axes : 032 085 013 degrees QTc Int : 439 ms Sinus bradycardia Right bundle branch block Abnormal ECG When compared with ECG of 16-NOV-2021 11:05, Premature ventricular complexes are no longer Present Heart rate has decreased Referred By: Roshan Pagan Electronically Signed By:SHANTA LAGOS
--- NOTE | 2021-11-16 22:16 | PC.NURSE ---
REPORTED SUDDEN ONSET OF CP. NIGHT HOSPITALIST TO BEDSIDE. PLAN ORDER STAT EKG, NITRO X 3 SUB LINGUAL, STAT TROP
--- NOTE | 2021-11-16 22:25 | PC.NURSE ---
1ST NITRO ADMINISTRATION 154/61, hr 50 SPO2 97% RA. VERBAL ORDER FROM DR. ALATORRE
--- NOTE | 2021-11-16 22:26 | PC.NURSE ---
PT REPORTS IMMEDIATE RELIEF OF CP S/P NITRO ADMINISTRATION .
[2021-11-16 22:27] VITALS: BP 153/51; PULSE 50; RESP 18; O2SAT 96
[2021-11-17] VITALS (9 sets, daily range): BP systolic 115–159; BP diastolic 41–70; PULSE 53–68; RESP 15–16; TEMP 36.4–36.8; O2SAT 95–99
[2021-11-17] MEDS: 0.9 % Sodium Chloride Flush 3 ML SYRINGE IVFLUSH ×2 (02:04→08:09)
[2021-11-17 04:20] LABS: MANUAL DIFF FLAG NO
[2021-11-17 04:21] LABS: Basophils Percent Auto 0.4 % (0-2); Eosinophils Absolute Auto 0.3 X10*3/uL (0.0-0.4); Eosinophils Percent Auto 4.4 % (0-4); Hematocrit 40.2 % (42.0-52.0); Hemoglobin 13.1 g/dl (14.0-18.0); Imm Gran Abs Auto 0.04 X10*3/uL (0.00-0.03); Imm Gran Pct Auto 0.6 % (0.0-0.4); Lymphocytes Absolute Auto 2.1 X10*3/uL (1.2-4.9); Lymphocytes Percent Auto 30.2 % (20-40); Mean Corpuscular HGB Conc 32.6 g/dl (31.0-36.0); Mean Corpuscular Volume 82.9 fL (80.0-98.0); Mean Platelet Volume 9.8 fL (9.4-12.4); Monocytes Absolute Auto 0.7 X10*3/uL (0.1-1.2); Monocytes Percent Auto 9.7 % (2-11); Neutrophils Absolute Auto 3.7 x10*3/uL (2.0-8.3); Neutrophils Percent Auto 54.7 % (45-73); Platelet Count 201 X10*3/uL (160-400); Red Blood Count 4.85 X10*6/uL (4.60-5.80); Red Cell Distribution Width 13.2 % (11.0-16.0); White Blood Count 6.8 X10*3/uL (4.8-10.8)
[2021-11-17 04:32] LABS: PTT Heparin Drip 65.4 SEC (53-77.9)
[2021-11-17 04:41] LABS: Anion Gap 12 (12-20); Blood Urea Nitrogen 12 mg/dL (9-16); Calcium 8.5 mg/dL (8.4-10.2); Carbon Dioxide 25 mmol/L (22-29); Chloride 110 mmol/L (96-108); Creatinine Clr Calc Pharmacy 94.5; Estimated Glomerular Filt Rate > 60; Glucose Random 100 mg/dL (60-115); Potassium 3.8 mmol/L (3.3-5.1); Sodium 143 mmol/L (135-145)
--- NOTE | 2021-11-17 04:42 | PC.NURSE ---
PTT HD juan at 4:10 by a sueding machine operator-65.4-no change in rate o heparin drip indicted at this time-continue heparin drip at 6.92 unit/kg/hr per protocol.
[2021-11-17] MEDS: Levothyroxine Sodium 125 MCG TABLET PO (07:18)
[2021-11-17] MEDS: Aspirin 81 MG TAB.CHEW PO (08:06)
[2021-11-17] MEDS: Methylphenidate HCl 10 MG TABLET 40 MG PO (08:07)
[2021-11-17] MEDS: Cholecalciferol (Vitamin D3) 25 MCG TABLET 100 MCG PO (08:07)
[2021-11-17] MEDS: Metoprolol Succinate ER 50 MG TAB.ER.24H PO (08:08)
[2021-11-17] MEDS: lamoTRIgine 25 MG TABLET 150 MG PO (08:08)
[2021-11-17] MEDS: lisinopriL 40 MG TABLET PO (08:09)
--- NOTE | 2021-11-17 10:20 | PC.NURSE ---
Patient reporting chest tightness to this RN and is requesting PRN Tylenol. SECURITY AUDITOR Merary Drake made aware.
[2021-11-17] MEDS: Acetaminophen 325 MG TABLET 650 MG PO (10:24)
[2021-11-17 10:27] LABS: PTT Heparin Drip 59.5 SEC (53-77.9)
--- NOTE | 2021-11-17 10:29 | P.PNIM_ITS ---
Subjective Subjective Date of Service: 11/17/21 Review of Systems Follow-up chest pain/unstable angina Still with chest heaviness across his chest Denies shortness breath, nausea, vomiting, diarrhea Physical Exam Vital Signs: Vital Signs: Last Vital Signs Temp 97.6 F 11/17/21 08:05 Pulse 68 11/17/21 09:39 Resp 16 11/17/21 09:39 BP 147/65 H 11/17/21 09:39 Pulse Ox 98 11/17/21 09:39 O2 Del Method 11/17/21 09:39 BMI result Body Mass Index 29.8 Appearing in no acute distress lung sounds are clear to auscultation heart regular rate rhythm, clear S1, S2 positive bowel sounds, abdomen is soft, nontender neuro patient is alert x3, no focal deficits Objective Data Active Medications Acetaminophen (Acetaminophen 325 Mg Tablet) 650 mg PO Q6H PRN PRN Reason: Pain, Mild (Pain Scale 1-3) Last Admin: 11/17/21 10:24 Dose: 650 mg Documented By: FRANCINE Aspirin (Aspirin 81 Mg Tab.Chew) 81 mg PO DAILY [facility] Last Admin: 11/17/21 08:06 Dose: 81 mg Documented By: REJI Atorvastatin Calcium (Atorvastatin Calcium 80 Mg Tablet) 80 mg PO BEDTIME [facility] Last Admin: 11/16/21 21:17 Dose: 80 mg Documented By: JORGE LUIS Clonazepam (Clonazepam 0.5 Mg Tablet) 1.5 mg PO BEDTIME [facility] Last Admin: 11/16/21 21:17 Dose: 1.5 mg Documented By: JORGE LUIS Diazepam (Diazepam 2 Mg Tablet) 2 mg PO DAILY PRN PRN Reason: Anxiety Heparin Sodium (Porcine) (Heparin Sodium,Porcine 5,000 Unit/Ml Vial) 3,700 unit 40 unit/kg (3700 unit) IVPUSH PROTOCOL BOLUS PRN; Protocol PRN Reason: 40 unit/kg - Heparin Protocol Heparin Sodium (Porcine) (Heparin Sodium,Porcine 5,000 Unit/Ml Vial) 7,300 unit 80 unit/kg (7300 unit) IVPUSH PROTOCOL BOLUS PRN; Protocol PRN Reason: 80 unit/kg - Heparin Protocol Heparin Sodium/Sodium Chloride (Heparin Sodium,Porcine/1/2ns) 25,000 unit in 250 mls @ 0 mls/hr IVCONT .Q0M [facility]; Protocol Last Titration: 11/16/21 22:10 Dose: 6.92 units/kg/hr, 6.34 mls/hr Documented By: JORGE LUIS Co-signed By: ASHLEY Lamotrigine (Lamotrigine 25 Mg Tablet) 150 mg PO BID [facility] Last Admin: 11/17/21 08:08 Dose: 150 mg Documented By: REJI Levothyroxine Sodium (Levothyroxine Sodium 125 Mcg Tablet) 125 mcg PO DAILY@0600 [facility] Last Admin: 11/17/21 07:18 Dose: 125 mcg Documented By: FRANCINE Lisinopril (Lisinopril 40 Mg Tablet) 40 mg PO DAILY [facility] Last Admin: 11/17/21 08:09 Dose: 40 mg Documented By: REJI Methylphenidate HCl (Methylphenidate Hcl 10 Mg Tablet) 40 mg PO DAILY [facility] Last Admin: 11/17/21 08:07 Dose: 40 mg Documented By: REJI Metoprolol Succinate (Metoprolol Succinate Er 50 Mg Tab.Er.24h) 50 mg PO DAILY [facility]; Protocol Last Admin: 11/17/21 08:08 Dose: 50 mg Documented By: REJI Nitroglycerin (Nitroglycerin 0.4 Mg Tab.Subl) 0.4 mg SUBLINGUAL Q5MX3 PRN PRN Reason: Chest Pain Ondansetron HCl (Ondansetron Hcl 4 Mg/2 Ml Vial) 4 mg IVPUSH Q8H PRN PRN Reason: Nausea and Vomiting Pharmacy Consult (Consult Rx Perform Med Rec) 1 each MISCELLANE ONCE PRN PRN Reason: Consult order Quetiapine Fumarate (Quetiapine Fumarate 25 Mg Tablet) 75 mg PO BEDTIME [facility] Last Admin: 11/16/21 21:15 Dose: 75 mg Documented By: JORGE LUIS Sodium Chloride (0.9 % Sodium Chloride Flush 3 Ml Syringe) 3 ml IVFLUSH QSHIFT [facility] Last Admin: 11/17/21 08:09 Dose: 3 ml Documented By: REJI Vitamin D (Cholecalciferol (Vitamin D3) 25 Mcg Tablet) 100 mcg PO DAILY [facility] Last Admin: 11/17/21 08:07 Dose: 100 mcg Documented By: REJI Labs CBC & Chem 7: 11/17/21 04:15 11/17/21 04:15 Labs: Laboratory Results - last 24 hr 11/16/21 11/16/21 11/16/21 11:12 11:12 11:36 MCV 82.8 MCH 27.0 MCHC 32.6 RDW 13.2 Plt Count 207 MPV 9.9 Immature Gran % (Auto) 0.7 H Neut % (Auto) 67.0 Lymph % (Auto) 18.0 L [place] % (Auto) 10.5 Eos % (Auto) 3.2 Baso % (Auto) 0.6 Lymph # (Auto) 1.2 [place] # (Auto) 0.7 Eos # (Auto) 0.2 Baso # (Auto) 0.0 Abs Immat Gran (auto) 0.05 H Absolute Neuts (auto) 4.6 Absolute Nucleated RBC 0.000 Nucleated RBC % (auto) 0.0 PT INR APTT aPTT Heparin Protocol Anion Gap 15 Estim Creat Clear Calc 87.2 Estimated GFR > 60 Random Glucose 110 Calcium 8.5 D Total Bilirubin 0.6 AST 24 ALT 23 Alkaline Phosphatase 93 B-Natriuretic Peptide Total Protein 5.6 L Albumin 3.7 COVID-19 (ELIDA) Negative COVID-19 Clin Com See Note 11/16/21 11/16/21 11/16/21 11:47 11:47 19:20 MCV MCH MCHC RDW Plt Count MPV Immature Gran % (Auto) Neut % (Auto) Lymph % (Auto) [place] % (Auto) Eos % (Auto) Baso % (Auto) Lymph # (Auto) [place] # (Auto) Eos # (Auto) Baso # (Auto) Abs Immat Gran (auto) Absolute Neuts (auto) Absolute Nucleated RBC Nucleated RBC % (auto) PT 13.2 H INR 1.1 APTT 32.5 aPTT Heparin Protocol 127.9 H* Anion Gap Estim Creat Clear Calc Estimated GFR Random Glucose Calcium Total Bilirubin AST ALT Alkaline Phosphatase B-Natriuretic Peptide 228 H Total Protein Albumin COVID-19 (ELIDA) COVID-19 Clin Com 11/16/21 11/17/21 11/17/21 21:04 04:15 04:15 MCV 82.9 MCH 27.0 MCHC 32.6 RDW 13.2 Plt Count 201 MPV 9.8 Immature Gran % (Auto) 0.6 H Neut % (Auto) 54.7 Lymph % (Auto) 30.2 [place] % (Auto) 9.7 Eos % (Auto) 4.4 H Baso % (Auto) 0.4 Lymph # (Auto) 2.1 [place] # (Auto) 0.7 Eos # (Auto) 0.3 Baso # (Auto) 0.0 Abs Immat Gran (auto) 0.04 H Absolute Neuts (auto) 3.7 Absolute Nucleated RBC 0.000 Nucleated RBC % (auto) 0.0 PT INR APTT aPTT Heparin Protocol 63.8 D Anion Gap 12 Estim Creat Clear Calc 94.5 Estimated GFR > 60 Random Glucose 100 Calcium 8.5 Total Bilirubin AST ALT Alkaline Phosphatase B-Natriuretic Peptide Total Protein Albumin COVID-19 (ELIDA) COVID-19 Clin Com 11/17/21 11/17/21 04:15 10:14 MCV MCH MCHC RDW Plt Count MPV Immature Gran % (Auto) Neut % (Auto) Lymph % (Auto) [place] % (Auto) Eos % (Auto) Baso % (Auto) Lymph # (Auto) [place] # (Auto) Eos # (Auto) Baso # (Auto) Abs Immat Gran (auto) Absolute Neuts (auto) Absolute Nucleated RBC Nucleated RBC % (auto) PT INR APTT aPTT Heparin Protocol 65.4 59.5 Anion Gap Estim Creat Clear Calc Estimated GFR Random Glucose Calcium Total Bilirubin AST ALT Alkaline Phosphatase B-Natriuretic Peptide Total Protein Albumin COVID-19 (ELIDA) COVID-19 Clin Com Assessment and Plan (1) Unstable angina pectoris: Status: Acute Plan 71-year-old man admitted with chest pain and shortness of breath along with dyspnea with exertion likely related to unstable angina history of coronary artery disease Unstable angina/NSTEMI History of coronary artery disease Will start heparin drip Continue aspirin, statin, beta-camille Cardiology aware Plan will likely be for transfer to [facility] at some point Mental health Continue home medications Hypothyroidism Continue levothyroxine DVT prophylaxis with IV heparin Attending Dr. Thomas Full code Patient requires continued hospitalization for treatment of unstable angina NSTEMI requiring IV heparin and likely transfer to tertiary facility Quality Stroke Does the patient have a stroke diagnosis?: No VTE Prior VTE?: No VTE Risk Level:: Medical - moderate - high VTE Device Contraindication: Treatment Not Indicated VTE Drug Contraindication: N/A - Med Ordered
[2021-11-17] MEDS: Morphine Sulfate 2 MG/ML CARTRIDGE IVPUSH (11:02)
--- NOTE | 2021-11-17 11:04 | P.DS_ITS ---
DS: Providers Provider Date of Service: 11/17/21 Date of admission: 11/16/21 14:52 Primary care physician: Kizzy Willingham MD Consults: 11/16/21 14:52 Consult to Cardiology Routine Consulting Provider: Alec Johnson Reason for consultation: unstable angina Has provider been notified: No Attending physician on discharge: Shay Thomas Discharging clinician: Merary Drake DS: Diagnosis Discharge Diagnosis (1) Unstable angina pectoris: Status: Acute DS: Summary Hospital Course Hospital Course: 71-year-old man presenting with complaints of chest pain on and off with exertional dyspnea while at rest.? He took sublingual nitroglycerin which did help the pain subside significantly but could still persist and he also had some shortness of breath.? He has known coronary artery disease and as a matter fact had a CABG consult on 11/12/2021 at [facility] it appears that the plan is to do 2 vessel bypass.? His labs are all within acceptable limits, vital signs are stable.? 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 The IV heparin drip was started in the ER and he also received topical nitroglycerin.? He will be admitted for further management and treatment of unstable angina Unstable angina/NSTEMI History of coronary artery disease Started on heparin drip Continued with chest heaviness, discussed with supervisor blueprinting and photocopy, started on nitroglycerin drip continued on aspirin, statin beta-camille Stable blood pressure Plan to transfer to [facility] NPO Mental health Continue home medications Hypothyroidism Continue levothyroxine Time Spent with Patient Time attestation: Total time spent providing and/or coordinating discharge services: Discharge coordination time: Greater than 30 minutes Quality: Safe Use of Opioids Does Pt have an Active Cancer Diagnosis on the Problem List?: No Quality: Stroke Does the patient have a stroke diagnosis?: No Physical Exam Vital Signs: Vital Signs: Last Vital Signs Temp 97.6 F 11/17/21 08:05 Pulse 68 11/17/21 09:39 Resp 15 11/17/21 11:02 BP 147/65 H 11/17/21 09:39 Pulse Ox 98 11/17/21 09:39 O2 Del Method 11/17/21 09:39 BMI result Body Mass Index 29.8 DS: Data Data Completed and Pending Labs on day of discharge: Laboratory Results - last 24 hr 11/16/21 11/16/21 11/16/21 11:12 11:12 11:12 WBC 6.9 RBC 5.07 Hgb 13.7 L Hct 42.0 MCV 82.8 MCH 27.0 MCHC 32.6 RDW 13.2 Plt Count 207 MPV 9.9 Immature Gran % (Auto) 0.7 H Neut % (Auto) 67.0 Lymph % (Auto) 18.0 L [place] % (Auto) 10.5 Eos % (Auto) 3.2 Baso % (Auto) 0.6 Lymph # (Auto) 1.2 [place] # (Auto) 0.7 Eos # (Auto) 0.2 Baso # (Auto) 0.0 Abs Immat Gran (auto) 0.05 H Absolute Neuts (auto) 4.6 Absolute Nucleated RBC 0.000 Nucleated RBC % (auto) 0.0 PT INR APTT aPTT Heparin Protocol Sodium 142 Potassium 4.5 Chloride 108 Carbon Dioxide 24 Anion Gap 15 BUN 19 H Creatinine 0.84 Estim Creat Clear Calc 87.2 Estimated GFR > 60 Random Glucose 110 Calcium 8.5 D Total Bilirubin 0.6 AST 24 ALT 23 Alkaline Phosphatase 93 Troponin I High Sens 7.2 B-Natriuretic Peptide Total Protein 5.6 L Albumin 3.7 COVID-19 (ELIDA) COVID-[employer] PAC 11/16/21 11/16/21 11/16/21 11:36 11:47 11:47 WBC RBC Hgb Hct MCV MCH MCHC RDW Plt Count MPV Immature Gran % (Auto) Neut % (Auto) Lymph % (Auto) [place] % (Auto) Eos % (Auto) Baso % (Auto) Lymph # (Auto) [place] # (Auto) Eos # (Auto) Baso # (Auto) Abs Immat Gran (auto) Absolute Neuts (auto) Absolute Nucleated RBC Nucleated RBC % (auto) PT 13.2 H INR 1.1 APTT 32.5 aPTT Heparin Protocol Sodium Potassium Chloride Carbon Dioxide Anion Gap BUN Creatinine Estim Creat Clear Calc Estimated GFR Random Glucose Calcium Total Bilirubin AST ALT Alkaline Phosphatase Troponin I High Sens B-Natriuretic Peptide 228 H Total Protein Albumin COVID-19 (ELIDA) Negative COVID-[employer] Com See Note 11/16/21 11/16/21 11/16/21 19:20 21:04 22:25 WBC RBC Hgb Hct MCV MCH MCHC RDW Plt Count MPV Immature Gran % (Auto) Neut % (Auto) Lymph % (Auto) [place] % (Auto) Eos % (Auto) Baso % (Auto) Lymph # (Auto) [place] # (Auto) Eos # (Auto) Baso # (Auto) Abs Immat Gran (auto) Absolute Neuts (auto) Absolute Nucleated RBC Nucleated RBC % (auto) PT INR APTT aPTT Heparin Protocol 127.9 H* 63.8 D Sodium Potassium Chloride Carbon Dioxide Anion Gap BUN Creatinine Estim Creat Clear Calc Estimated GFR Random Glucose Calcium Total Bilirubin AST ALT Alkaline Phosphatase Troponin I High Sens 7.0 B-Natriuretic Peptide Total Protein Albumin COVID-19 (ELIDA) COVID-19 [employer] Com 11/17/21 11/17/21 11/17/21 04:15 04:15 04:15 WBC 6.8 RBC 4.85 Hgb 13.1 L Hct 40.2 L MCV 82.9 MCH 27.0 MCHC 32.6 RDW 13.2 Plt Count 201 MPV 9.8 Immature Gran % (Auto) 0.6 H Neut % (Auto) 54.7 Lymph % (Auto) 30.2 [place] % (Auto) 9.7 Eos % (Auto) 4.4 H Baso % (Auto) 0.4 Lymph # (Auto) 2.1 [place] # (Auto) 0.7 Eos # (Auto) 0.3 Baso # (Auto) 0.0 Abs Immat Gran (auto) 0.04 H Absolute Neuts (auto) 3.7 Absolute Nucleated RBC 0.000 Nucleated RBC % (auto) 0.0 PT INR APTT aPTT Heparin Protocol 65.4 Sodium 143 Potassium 3.8 Chloride 110 H Carbon Dioxide 25 Anion Gap 12 BUN 12 Creatinine 0.79 Estim Creat Clear Calc 94.5 Estimated GFR > 60 Random Glucose 100 Calcium 8.5 Total Bilirubin AST ALT Alkaline Phosphatase Troponin I High Sens B-Natriuretic Peptide Total Protein Albumin COVID-19 (ELIDA) COVID-19 [employer] Com 11/17/21 10:14 WBC RBC Hgb Hct MCV MCH MCHC RDW Plt Count MPV Immature Gran % (Auto) Neut % (Auto) Lymph % (Auto) [place] % (Auto) Eos % (Auto) Baso % (Auto) Lymph # (Auto) [place] # (Auto) Eos # (Auto) Baso # (Auto) Abs Immat Gran (auto) Absolute Neuts (auto) Absolute Nucleated RBC Nucleated RBC % (auto) PT INR APTT aPTT Heparin Protocol 59.5 Sodium Potassium Chloride Carbon Dioxide Anion Gap BUN Creatinine Estim Creat Clear Calc Estimated GFR Random Glucose Calcium Total Bilirubin AST ALT Alkaline Phosphatase Troponin I High Sens B-Natriuretic Peptide Total Protein Albumin COVID-19 (ELIDA) COVID-19 Clin Com Discharge Plan Discharge Anticipated Discharge Date/Time: 11/17/21 14:57 Patient Disposition: Xfer Acute [facility] Discharge Diagnosis: Unstable angina Referrals: Kizzy Willingham MD [Primary Care Provider] - 1 Week Discharge Medications: New heparin(porcine) in 0.45% NaCl 25,000 unit/250 mL Parenteral Solution 25,000 unit continuous IV infusion .Q0M Qty: 250 0RF nitroglycerin in 5 % dextrose 100 mg/250 mL (400 mcg/mL) Solution See Rx Instructions .ROUTE .COMPLEX Qty: 250 0RF Rx Instructions: 100 mg in 250ml Continued epinephrine 0.3 mg/0.3 mL auto-injector 0.3 mg IM ONCE PRN (Reason: Anaphylaxis) B Complex Plus Vitamin C [id number] mg Capsule 1 cap PO DAILY Rx Instructions: give with food (meal/snack) cholecalciferol (vitamin D3) [Vitamin D3] 50 mcg (2,000 unit) Tablet 100 mcg PO DAILY Probiotic 20 billion cell Capsule 20,000 mmu cells PO DAILY Rx Instructions: administer with a meal ibuprofen 200 mg Tablet 400 mg PO Q8H PRN (Reason: Pain) lamotrigine 150 mg tablet 150 mg PO BID methylphenidate HCl 20 mg tablet 40 mg PO DAILY clonazepam 0.5 mg tablet 1.5 mg PO BEDTIME Rx Instructions: administer 30 minutes before bedtime quetiapine [Seroquel] 25 mg tablet 75 mg PO BEDTIME diazepam 2 mg tablet 2 mg PO DAILY PRN (Reason: Anxiety) ramipril 10 mg capsule 10 mg PO DAILY metoprolol succinate 50 mg tablet extended release 24 hr 50 mg PO DAILY nitroglycerin 0.3 mg tablet, sublingual 0.3 mg sublingual Q5M PRN (Reason: Chest Pain) Rx Instructions: do not exceed 3 doses per episode atorvastatin 80 mg tablet 80 mg PO BEDTIME aspirin 81 mg tablet,chewable 81 mg PO DAILY levothyroxine 125 mcg capsule 125 mcg PO DAILY@0600 Discharge Orders: Discharge Order (Routine); Ordered 11/17/21 Ordered By: Merary Drake Diet: NPO Activity on Discharge: As tolerated Stand Alone Forms: Patient Portal Discharge page Care Plan Goals: Transfer to tertiary facility Health Concerns: Unstable angina Plan of Treatment: Plan to transfer to [facility] due to continued chest tightness with history of coronary artery disease and evaluation by Cardiac surgery team at [facility] last week. Eventual plan was to undergo 2 vessel CABG and valve placement. Patient admitted and started on IV heparin drip, continue on Payam, beta-camille, statin, as needed nitroglycerin and morphine. Started on nitroglycerin IV, plan to transfer with these medications continued. Assessment: See discharge summary Discharge Date/Time: 11/17/21 15:07
[2021-11-17] MEDS: Nitroglycerin/D5W 100 MG/250 ML INFUS..BTL IVCONT (11:10)
--- NOTE | 2021-11-17 11:21 | PC.NURSE ---
Dr. Mays instructed to start nitro drip at 10 mcg. Titrate every10 min for chest tightness if systolic over 100
--- NOTE | 2021-11-17 11:57 | PM.CNCAR ---
History of Present Illness History of Present Illness Date of Service: 11/17/21 Requesting physician: Merary Drake Consult reason: other (Unstable angina) Chief complaint: Unstable Angina Narrative: I was consulted to see Jarrett in cardiology consultation today for progressive symptoms of angina including angina at rest yesterday. He is 71-year-old male with prior history of coronary artery disease by cardiac catheterization 2019 in [place] along with moderate aortic stenosis. Since April had 1 episode of chest discomfort while changing a tire and since then has been having progressive anginal and shortness of breath symptoms. Echocardiogram at shown severe aortic stenosis. Last week because of his symptoms he has undergone cardiac catheterization by Dr. Zan Mishra as he echo also showed inferior wall motion abnormality. This showed severe 2 vessel disease with LAD 70% stenosis with markedly positive IFR as well as significant RCA disease that did not undergo IFR evaluation. He also did not have evaluation hemodynamic of his aortic valve. Since then he has been having some progressive exertional symptoms and then yesterday morning he developed retrosternal chest tightness pressure which was 10/10 intensity and he came to the emergency room. EKG did not show any significant ischemia is heart rate is stable showed frequent PVCs he has right bundle-branch block. His troponins are negative his symptoms subsided with medical therapy but this morning again started with 5/10 chest tightness. EKG again does not show any significant ischemic changes. We start him on IV nitroglycerin and morphine. Plan to transfer him to [facility] for further treatment, most likely surgical revascularization. He was awaiting and had been seen by Cardiothoracic surgery and was awaiting dental clearance as well as carotid ultrasound. This has not taken place as yet. Review of Systems Constitutional: Constitutional: Reports no additional constitutional complaints Eyes: Eyes: Reports no additional eye complaints Cardiovascular: Cardiovascular: Reports chest pain at rest, Denies syncope, Denies lightheadedness, Denies Loss of Consciousness, Denies palpitations, Denies dyspnea and Reports dyspnea on exertion Respiratory: Respiratory: Reports no additional respiratory complaints, Denies dyspnea and Reports dyspnea on exertion Gastrointestinal: Gastrointestinal: Reports no additional gastrointestinal complaints Genitourinary: Genitourinary: Reports no additional male genitourinary complaints Musculoskeletal: Musculoskeletal: Reports no additional musculoskeletal complaints Integumentary/Breasts: Skin/Breast: Reports system reviewed and no additional complaints, except as docu Neurologic: Reports system reviewed and no additional complaints, except as documented and Denies syncope Psychiatric: Psychiatric: Reports no additional psychiatric complaints Endocrine: Endocrine: Reports no additional endocrine complaints and Denies palpitations Hematologic/Lymphatic: Hematologic/Lymphatic: Reports no additional hematologic/lymphatic complaints Allergic/Immunologic: Allergic/Immunologic: Reports no additional allergic/immunologic complaints [facility] Past Medical History Medical History Anxiety Aortic stenosis Bipolar disorder Hypertension Prostate cancer Pulmonary hypertension TIA (transient ischemic attack) Family History Family History Sister Heart attack Coronary artery disease Arthritis Lupus Sleep apnea Mother Lupus Heart attack Father Heart attack Coronary artery disease Surgical History Surgical History History of left shoulder replacement History of total right knee replacement Hx of appendectomy Hx of cardiac catheterization Hx of colonoscopy Hx of endoscopy Hx of radical prostatectomy Hx of repair of right rotator cuff Hx of tonsillectomy Hx of vasectomy Social History Social History Household Members: Family Alcohol intake: current Alcohol intake frequency: a few times a week Patient Tobacco Use Status: Never used Tobacco Use of substances other than those prescribed or required for medical reasons: No Advance Directives: Yes Advance Directives Information Provided: No Advance Directives on File: No Meds Allergies Allergy/AdvReac Type Severity Reaction Status Date / Time povidone-iodine Allergy Unknown Unknown Verified 08/07/21 14:46 seafood Allergy Unknown Verified 11/16/21 14:21 Active Medications: Current Medications Acetaminophen (Acetaminophen 325 Mg Tablet) 650 mg PO Q6H PRN PRN Reason: Pain, Mild (Pain Scale 1-3) Last Admin: 11/17/21 10:24 Dose: 650 mg Aspirin (Aspirin 81 Mg Tab.Chew) 81 mg PO DAILY ABRAHAM Last Admin: 11/17/21 08:06 Dose: 81 mg Atorvastatin Calcium (Atorvastatin Calcium 80 Mg Tablet) 80 mg PO BEDTIME ABRAHAM Last Admin: 11/16/21 21:17 Dose: 80 mg Clonazepam (Clonazepam 0.5 Mg Tablet) 1.5 mg PO BEDTIME ABRAHAM Last Admin: 11/16/21 21:17 Dose: 1.5 mg Diazepam (Diazepam 2 Mg Tablet) 2 mg PO DAILY PRN PRN Reason: Anxiety Heparin Sodium (Porcine) (Heparin Sodium,Porcine 5,000 Unit/Ml Vial) 3,700 unit 40 unit/kg (3700 unit) IVPUSH PROTOCOL BOLUS PRN; Protocol PRN Reason: 40 unit/kg - Heparin Protocol Heparin Sodium (Porcine) (Heparin Sodium,Porcine 5,000 Unit/Ml Vial) 7,300 unit 80 unit/kg (7300 unit) IVPUSH PROTOCOL BOLUS PRN; Protocol PRN Reason: 80 unit/kg - Heparin Protocol Heparin Sodium/Sodium Chloride (Heparin Sodium,Porcine/1/2ns) 25,000 unit in 250 mls @ 0 mls/hr IVCONT .Q0M ABRAHAM; Protocol Last Titration: 11/16/21 22:10 Dose: 6.92 units/kg/hr, 6.34 mls/hr Nitroglycerin/Dextrose (Nitroglycerin/D5w) 100 mg in 250 mls @ 1.5 mls/hr IVCONT .Q24H ABRAHAM; Protocol Last Admin: 11/17/21 11:10 Dose: 10 mcg/min, 1.5 mls/hr Lamotrigine (Lamotrigine 25 Mg Tablet) 150 mg PO BID [facility] Last Admin: 11/17/21 08:08 Dose: 150 mg Levothyroxine Sodium (Levothyroxine Sodium 125 Mcg Tablet) 125 mcg PO DAILY@0600 [facility] Last Admin: 11/17/21 07:18 Dose: 125 mcg Lisinopril (Lisinopril 40 Mg Tablet) 40 mg PO DAILY [facility] Last Admin: 11/17/21 08:09 Dose: 40 mg Methylphenidate HCl (Methylphenidate Hcl 10 Mg Tablet) 40 mg PO DAILY [facility] Last Admin: 11/17/21 08:07 Dose: 40 mg Metoprolol Succinate (Metoprolol Succinate Er 50 Mg Tab.Er.24h) 50 mg PO DAILY [facility]; Protocol Last Admin: 11/17/21 08:08 Dose: 50 mg Morphine Sulfate (Morphine Sulfate 2 Mg/Ml Cartridge) 2 mg IVPUSH Q3H PRN; Protocol PRN Reason: chest pain Last Admin: 11/17/21 11:02 Dose: 2 mg Nitroglycerin (Nitroglycerin 0.4 Mg Tab.Subl) 0.4 mg SUBLINGUAL Q5MX3 PRN PRN Reason: Chest Pain Ondansetron HCl (Ondansetron Hcl 4 Mg/2 Ml Vial) 4 mg IVPUSH Q8H PRN PRN Reason: Nausea and Vomiting Pharmacy Consult (Consult Rx Perform Med Rec) 1 each MISCELLANE ONCE PRN PRN Reason: Consult order Quetiapine Fumarate (Quetiapine Fumarate 25 Mg Tablet) 75 mg PO BEDTIME [facility] Last Admin: 11/16/21 21:15 Dose: 75 mg Sodium Chloride (0.9 % Sodium Chloride Flush 3 Ml Syringe) 3 ml IVFLUSH QSHIFT [facility] Last Admin: 11/17/21 08:09 Dose: 3 ml Vitamin D (Cholecalciferol (Vitamin D3) 25 Mcg Tablet) 100 mcg PO DAILY [facility] Last Admin: 11/17/21 08:07 Dose: 100 mcg Home Medications Medication Instructions Recorded Confirmed Last Taken Type aspirin 81 mg chewable tablet 81 mg PO DAILY 08/07/21 11/16/21 11/16/21 09:00 History atorvastatin 80 mg tablet 80 mg PO BEDTIME 08/07/21 11/16/21 11/15/21 20:30 History clonazepam 0.5 mg tablet 1.5 mg PO BEDTIME 08/07/21 11/16/21 11/15/21 22:30 History diazepam 2 mg tablet 2 mg PO DAILY PRN Anxiety 08/07/21 11/16/21 Unknown History lamotrigine 150 mg tablet 150 mg PO BID 08/07/21 11/16/21 11/16/21 08:00 History levothyroxine 125 mcg capsule 125 mcg PO DAILY@0600 08/07/21 11/16/21 11/16/21 06:00 History methylphenidate HCl 20 mg tablet 40 mg PO DAILY 08/07/21 11/16/21 11/16/21 08:00 History metoprolol succinate 50 mg 50 mg PO DAILY 08/07/21 11/16/21 11/16/21 09:00 History tablet,extended release 24 hr nitroglycerin 0.3 mg sublingual 0.3 mg sublingual Q5M PRN Chest 08/07/21 11/16/21 11/16/21 09:00 History tablet Pain quetiapine 25 mg tablet (Seroquel) 75 mg PO BEDTIME 08/07/21 11/16/21 11/15/21 22:30 History ramipril 10 mg capsule 10 mg PO DAILY 08/07/21 11/16/21 11/16/21 09:00 History cholecalciferol (vitamin D3) 50 100 mcg PO DAILY 11/16/21 11/16/21 11/16/21 History mcg (2,000 unit) tablet (Vitamin D3) epinephrine 0.3 mg/0.3 mL 0.3 mg IM ONCE PRN Anaphylaxis 11/16/21 11/16/21 Unknown History injection, auto-injector ibuprofen 200 mg tablet 400 mg PO Q8H PRN Pain 11/16/21 11/16/21 Unknown History lactobacillus comb no.10 20 20,000 mmu cells PO DAILY 11/16/21 11/16/21 Unknown History billion cell capsule (Probiotic) vitamin B comp and C no.3 15 mg-10 1 cap PO DAILY 11/16/21 11/16/21 Unknown History mg-50 mg-5 mg-300 mg capsule (B Complex Plus Vitamin C) Physical Exam Vital Signs: Vital Signs: Last Vital Signs Temp 97.6 F 11/17/21 08:05 Pulse 58 11/17/21 11:10 Resp 15 11/17/21 11:02 BP 159/58 H 11/17/21 11:10 Pulse Ox 98 11/17/21 09:39 O2 Del Method 11/17/21 09:39 BMI result Body Mass Index 29.8 Const: General: cooperative, comfortable, alert, awake and in distress mild and other (Chest pain); No diaphoretic or ill appearing Nutritional Appearance: overweight Orientation/consciousness: patient oriented x3 Limitations: no limitations HEENT: Head: Yes normocephalic and Yes atraumatic Neck: Neck: Yes trachea midline, Yes supple and Yes no JVD Carotids: delayed carotid upstroke Resp: Effort & Inspection: normal respiratory effort Auscultation: clear to auscultation bilaterally Cardio: Jugular venous distension: no JVD Palpation: heave Rate: regular rate Rhythm: regular rhythm Heart sounds: S1 normal heart sound present, no click, no gallops, Murmur heart sound present systolic late, decrescendo and crescendo and Other heart sounds present (Absent S2) GI: Auscultation: normal bowel sounds Skin: General skin exam: no rashes or lesions noted Neuro: General: patient oriented x3 and no focal motor deficits Extrem: General: Yes no clubbing, cyanosis or edema Objective Labs and Meds Result diagrams: 11/17/21 04:15 11/17/21 04:15 Lab results: Laboratory Results - last 24 hr 11/16/21 11/16/21 11/16/21 11:36 11:47 11:47 WBC RBC Hgb Hct MCV MCH MCHC RDW Plt Count MPV Immature Gran % (Auto) Neut % (Auto) Lymph % (Auto) [place] % (Auto) Eos % (Auto) Baso % (Auto) Lymph # (Auto) [place] # (Auto) Eos # (Auto) Baso # (Auto) Abs Immat Gran (auto) Absolute Neuts (auto) Absolute Nucleated RBC Nucleated RBC % (auto) PT 13.2 H INR 1.1 APTT 32.5 aPTT Heparin Protocol Sodium Potassium Chloride Carbon Dioxide Anion Gap BUN Creatinine Estim Creat Clear Calc Estimated GFR Random Glucose Calcium Troponin I High Sens B-Natriuretic Peptide 228 H COVID-19 (ELIDA) Negative COVID-19 Clin Com See Note 11/16/21 11/16/21 11/16/21 19:20 21:04 22:25 WBC RBC Hgb Hct MCV MCH MCHC RDW Plt Count MPV Immature Gran % (Auto) Neut % (Auto) Lymph % (Auto) [place] % (Auto) Eos % (Auto) Baso % (Auto) Lymph # (Auto) [place] # (Auto) Eos # (Auto) Baso # (Auto) Abs Immat Gran (auto) Absolute Neuts (auto) Absolute Nucleated RBC Nucleated RBC % (auto) PT INR APTT aPTT Heparin Protocol 127.9 H* 63.8 D Sodium Potassium Chloride Carbon Dioxide Anion Gap BUN Creatinine Estim Creat Clear Calc Estimated GFR Random Glucose Calcium Troponin I High Sens 7.0 B-Natriuretic Peptide COVID-19 (ELIDA) COVID-19 Clin Com 11/17/21 11/17/21 11/17/21 04:15 04:15 04:15 WBC 6.8 RBC 4.85 Hgb 13.1 L Hct 40.2 L MCV 82.9 MCH 27.0 MCHC 32.6 RDW 13.2 Plt Count 201 MPV 9.8 Immature Gran % (Auto) 0.6 H Neut % (Auto) 54.7 Lymph % (Auto) 30.2 [place] % (Auto) 9.7 Eos % (Auto) 4.4 H Baso % (Auto) 0.4 Lymph # (Auto) 2.1 [place] # (Auto) 0.7 Eos # (Auto) 0.3 Baso # (Auto) 0.0 Abs Immat Gran (auto) 0.04 H Absolute Neuts (auto) 3.7 Absolute Nucleated RBC 0.000 Nucleated RBC % (auto) 0.0 PT INR APTT aPTT Heparin Protocol 65.4 Sodium 143 Potassium 3.8 Chloride 110 H Carbon Dioxide 25 Anion Gap 12 BUN 12 Creatinine 0.79 Estim Creat Clear Calc 94.5 Estimated GFR > 60 Random Glucose 100 Calcium 8.5 Troponin I High Sens B-Natriuretic Peptide COVID-19 (ELIDA) COVID-19 Clin Com 11/17/21 10:14 WBC RBC Hgb Hct MCV MCH MCHC RDW Plt Count MPV Immature Gran % (Auto) Neut % (Auto) Lymph % (Auto) [place] % (Auto) Eos % (Auto) Baso % (Auto) Lymph # (Auto) [place] # (Auto) Eos # (Auto) Baso # (Auto) Abs Immat Gran (auto) Absolute Neuts (auto) Absolute Nucleated RBC Nucleated RBC % (auto) PT INR APTT aPTT Heparin Protocol 59.5 Sodium Potassium Chloride Carbon Dioxide Anion Gap BUN Creatinine Estim Creat Clear Calc Estimated GFR Random Glucose Calcium Troponin I High Sens B-Natriuretic Peptide COVID-19 (ELIDA) COVID-19 Clin Com Assessment and Plan (1) Unstable angina pectoris: Status: Acute Patient present with symptoms that are progressive and at rest and suggestive of unstable angina. Patient is currently having recurrent symptoms. Troponins are negative. EKG does not show any significant changes. However his progressive symptoms symptoms of rate. Very concerning and most likely suggestive of myocardial ischemia related to unstable coronary disease. He does have underlying aortic stenosis. I think he requires urgent evaluation by Cardiothoracic surgery and surgical revascularization as well as valve replacement. This was discussed with him in details. Will start him on IV nitroglycerin drip and given p.r.n. morphine to improve his anginal symptoms. Continue full disclosure cardiac monitoring. His heart rate is stable and continue current antianginal therapy including aspirin, statins and also continue IV heparin for now. Discussed with Dr. Kingston Mehta at [facility] does the CCU attending there and has accepted the patient to his service kindly. Will require surgical evaluation once he gets to [facility]. Management was discussed both with patient and patient's in detail. They understand agree. Inpatient workup for carotid stenosis will be performed at [facility]. Continue current medical management and transfer to [facility]. Greater than 45 minutes was spent in managing his complex care. Procedures Date of Service Date of Service: 11/17/21
--- NOTE | 2021-11-17 13:46 | MHC.CM.PN ---
Met with patient and in regards to d/c planning. Patient lives with his , ambulates independently and had no services prior to coming to the hospital. PCP verified. Patient has received 4 Moderna vaccines. Copy of HCP has been requested from [facility]. IMM explained and signed. Patient and aware patient will be transferred to [facility] when bed available. Continue to monitor for d/c needs.
--- NOTE | 2021-11-17 14:35 | PC.NURSE ---
nitro drip increased for c/o 6/10 CP.
== END 2021-11-17 15:07 | disposition short-term general hospital (02) | DRG 303 ==
LOC: HO.ED 13:53 → HO.EDOVER 15:03
PROVIDERS: Hospitalist; Admitting Provider Nurse Practitioner Acute Care; Emergency Provider Internal Medicine; PCP Internal Medicine; Visit Provider Nurse Practitioner Acute Care
DX: I25.110 Atherosclerotic heart disease of native coronary artery with unstable angina pectoris (principal); F41.9 Anxiety disorder, unspecified; E78.5 Hyperlipidemia, unspecified; I45.10 Unspecified right bundle-branch block; I35.0 Nonrheumatic aortic (valve) stenosis; Z20.822 Contact with and (suspected) exposure to COVID-19; Z96.612 Presence of left artificial shoulder joint; Z96.651 Presence of right artificial knee joint; Z98.52 Vasectomy status; Z91.013 Allergy to seafood; Z79.890 Hormone replacement therapy; Z79.899 Other long term (current) drug therapy
CPT/HCPCS: 36415; 80048; 80053; 83880; 84484; 85025; 85610; 85730; 87635; 93005; 96365; 96375; 99285; J2270

== ENCOUNTER 2022-05-05 09:49 | Emergency (ER) | payer OTHER, SELFPAY ==
[2022-02-13 10:00] VITALS: BP 120/68; BP 136/68
[2022-04-09 12:42] VITALS: BP 122/70; BMI 27.1
--- NOTE | 2022-05-05 | ECG_ITS ---
Test Reason : DIZZY Blood Pressure : / mmHG Vent. Rate : 079 BPM Atrial Rate : 079 BPM P-R Int : 136 ms QRS Dur : 128 ms QT Int : 414 ms P-R-T Axes : 047 149 037 degrees QTc Int : 474 ms Normal sinus rhythm Right bundle branch block Abnormal ECG When compared with ECG of 16-NOV-2021 22:20, Vent. rate has increased BY 31 BPM Referred By: Generic ED Physician Electronically Signed By:MARY CROSS
--- NOTE | ~2022-05-05 | XR_ITS ---
EXAMINATION: XR CHEST CLINICAL INFORMATION: Chest pain COMPARISON: None TECHNIQUE: 2 views of the chest were obtained. FINDINGS: There is elevation left hemidiaphragm with some crowding of the bronchovascular markings left base. There is no lobar or segmental airspace consolidation or atelectasis. No pneumothorax or pleural reaction. No effusion. The costophrenic sulci are clear. The heart is normal in size and the vascularity is normal. There are postsurgical changes with aortic valve replacement, mediastinal clips, sternotomy wires, and orthopedic hardware and prosthesis left shoulder. XR/XR chest 2V IMPRESSION: -Postsurgical changes. Mild elevation left diaphragm. -No pneumothorax, airspace consolidation, or effusion.
[2022-05-05 09:56] VITALS: BP 141/55; PULSE 79; RESP 20; TEMP 36.2; O2SAT 97; BMI 26.4
[2022-05-05 10:14] LABS: MANUAL DIFF FLAG NO
[2022-05-05 10:16] LABS: Basophils Percent Auto 0.7 % (0-2); Eosinophils Absolute Auto 0.2 X10*3/uL (0.0-0.4); Eosinophils Percent Auto 4.2 % (0-4); Hematocrit 44.8 % (42.0-52.0); Hemoglobin 14.3 g/dl (14.0-18.0); Imm Gran Abs Auto 0.04 X10*3/uL (0.00-0.03); Imm Gran Pct Auto 0.7 % (0.0-0.4); Lymphocytes Absolute Auto 1.2 X10*3/uL (1.2-4.9); Lymphocytes Percent Auto 21.6 % (20-40); Mean Corpuscular HGB Conc 31.9 g/dl (31.0-36.0); Mean Corpuscular Volume 78.3 fL (80.0-98.0); Mean Platelet Volume 9.3 fL (9.4-12.4); Monocytes Absolute Auto 0.6 X10*3/uL (0.1-1.2); Monocytes Percent Auto 10.6 % (2-11); Neutrophils Absolute Auto 3.6 x10*3/uL (2.0-8.3); Neutrophils Percent Auto 62.2 % (45-73); Platelet Count 248 X10*3/uL (160-400); Red Blood Count 5.72 X10*6/uL (4.60-5.80); Red Cell Distribution Width 16.3 % (11.0-16.0); White Blood Count 5.8 X10*3/uL (4.8-10.8)
[2022-05-05 10:29] LABS: Anion Gap 12 (12-20); Blood Urea Nitrogen 22 mg/dL (9-16); Calcium 8.8 mg/dL (8.4-10.2); Carbon Dioxide 25 mmol/L (22-29); Chloride 109 mmol/L (96-108); Creatinine Clr Calc Pharmacy 81.4; Estimated Glomerular Filt Rate > 60; Glucose Random 114 mg/dL (60-115); Potassium 4.2 mmol/L (3.3-5.1); Sodium 142 mmol/L (135-145)
[2022-05-05 10:37] LABS: Troponin-I High Sensitivity 3.9 ng/L (<3.5-35.0)
[2022-05-05 15:01] VITALS: BP 132/61; PULSE 65; RESP 17; O2SAT 100
--- NOTE | 2022-05-05 15:17 | ED.CHESTPAIN ---
HPI - Chest Pain General Chief Complaint: Chest Pain Stated Complaint: Chest pain/Dizziness sent from cardiology Time Seen by Provider: 05/05/22 15:11 Source: patient Mode of arrival: ambulatory Limitations: no limitations History of Present Illness HPI narrative: 71-year-old male presents with chest pain. Chest pain was substernal and radiated across his chest. This occurred while he was at cardiac rehab. The pain was described as sharp and moderate in nature. It lasted approximately 8 seconds in duration. He immediately let the nurses and techs no at cardiac rehab what had happened. They took his vital signs and was found to be otherwise unremarkable. He was then sent to the emergency department for evaluation. Patient notes that symptoms started yesterday which included some shortness of breath with exertion after [place] He is normally able to walk without any significant issues. Today he feels increasingly fatigued and took a long nap while in the waiting room. This is not abnormal for him. Patient denies any lower extremity edema, orthopnea, PND. He is currently asymptomatic and overall feels well. Patient did have recent aortic valve replacement and 2 vessel bypass. He is currently on clopidogrel. Related Data Home Medications Medication Instructions Recorded Confirmed aspirin 81 mg chewable tablet 81 mg PO DAILY 08/07/21 12/25/21 atorvastatin 80 mg tablet 80 mg PO BEDTIME 08/07/21 12/25/21 clonazepam 0.5 mg tablet 1.5 mg PO BEDTIME 08/07/21 12/25/21 lamotrigine 150 mg tablet 150 mg PO BID 08/07/21 12/25/21 levothyroxine 125 mcg capsule 125 mcg PO DAILY@0600 08/07/21 12/25/21 methylphenidate HCl 20 mg tablet 40 mg PO DAILY 08/07/21 12/25/21 quetiapine 25 mg tablet (Seroquel) 75 mg PO BEDTIME 08/07/21 12/25/21 cholecalciferol (vitamin D3) 50 100 mcg PO DAILY 11/16/21 12/25/21 mcg (2,000 unit) tablet (Vitamin D3) epinephrine 0.3 mg/0.3 mL 0.3 mg IM ONCE PRN Anaphylaxis 11/16/21 12/25/21 injection, auto-injector ibuprofen 200 mg tablet 400 mg PO Q8H PRN Pain 11/16/21 12/25/21 lactobacillus comb no.10 20 20,000 mmu cells PO DAILY 11/16/21 12/25/21 billion cell capsule (Probiotic) vitamin B comp and C no.3 15 mg-10 1 cap PO DAILY 11/16/21 12/25/21 mg-50 mg-5 mg-300 mg capsule (B Complex Plus Vitamin C) Previous Rx's Medication Instructions Recorded ramipril 10 mg capsule 10 mg PO DAILY #90 caps 11/27/21 clopidogrel 75 mg tablet 75 mg PO DAILY #90 tabs 12/25/21 metoprolol succinate 50 mg 50 mg PO DAILY #90 tabs 12/25/21 tablet,extended release 24 hr Allergies Allergy/AdvReac Type Severity Reaction Status Date / Time povidone-iodine Allergy Unknown Unknown Verified 12/25/21 09:00 seafood Allergy Unknown Verified 12/25/21 09:00 Review of Systems Review of Systems: CONSTITUTIONAL: Denies weight loss, fever and chills. HEENT: Denies changes in vision and hearing. RESPIRATORY: Positive SOB negative cough. CV: Denies palpitations positive CP. GI: Denies abdominal pain, nausea, vomiting and diarrhea. : Denies dysuria and urinary frequency. MSK: Denies myalgia and joint pain. SKIN: Denies rash and pruritus. NEUROLOGICAL: Denies headache and syncope. PSYCHIATRIC: Denies recent changes in mood. Denies anxiety and depression. All other ROS are negative unless in HPI [facility] Past Medical History Medical History Anxiety Aortic stenosis Bipolar disorder Hypertension Prostate cancer Pulmonary hypertension TIA (transient ischemic attack) Surgical History Aortic valve replaced History of left shoulder replacement History of total right knee replacement Hx of appendectomy Hx of cardiac catheterization Hx of colonoscopy Hx of endoscopy Hx of radical prostatectomy Hx of repair of right rotator cuff Hx of tonsillectomy Hx of vasectomy Status post double vessel coronary artery bypass Family History Family History Sister Heart attack Coronary artery disease Arthritis Lupus Sleep apnea Mother Lupus Heart attack Father Heart attack Coronary artery disease Social History Social History Household Members: Family Alcohol intake: current Alcohol intake frequency: 3 or more drinks per day Alcohol type: hard liquor Patient Tobacco Use Status: Never used Tobacco Smoked in Last 30 Days: No Use of substances other than those prescribed or required for medical reasons: No Any prior treatment program specific to substance use: No Advance Directives: Yes Advance Directives on File: Yes Advance Directives Date on File: 11/17/21 service: No Current occupational status: retired Physical Exam Vital Signs: Vital Signs: Last Vital Signs Temp 97.2 F 05/05/22 09:56 Pulse 65 05/05/22 15:01 Resp 17 05/05/22 15:01 BP 132/61 05/05/22 15:01 Pulse Ox 100 05/05/22 15:01 O2 Del Method 05/05/22 15:01 BMI result Body Mass Index 26.4 GEN: Well developed, no acute distress, alert, oriented HEENT: Normocephalic, atraumatic, normal external ears, nose appears normal, no oropharyngeal edema or exudates Eyes: Normal to appearance Neck: Supple, no lymphadenopathy Respiratory: Talks in complete sentences, no respiratory distress, clear to auscultation bilaterally Cardiovascular: Regular rate and rhythm, no murmurs rubs or gallops Abdomen: Soft, nontender, nondistended, no guarding, no rebound Back: No CVA tenderness Extremities: No clubbing cyanosis or edema Neurologic: No focal neurologic deficits, cranial nerves 2-12 intact, strength is 5/5 bilaterally, gait normal Skin: No rash Course Course Course Narrative: 71-year-old male with strong cardiac history status post aortic valve replacement and 2 vessel CABG presents with sharp substernal chest pain radiating across his chest during cardiac rehabilitation today. Currently asymptomatic. Examination was unremarkable. EKG revealed right bundle branch block which was unchanged from 2021. Initial lab work has already return including 1 set of cardiac enzymes which was negative. Chest x-ray did not reveal any acute. Story is somewhat atypical, however, patient does have a strong cardiac history. I am not familiar with his coronary anatomy in which he may have other possible significant blockages. I am reassured that his 1st set of cardiac enzymes are negative and his EKG is by enlarged unchanged from 2021. Once I receive his 2nd set of cardiac enzymes, I will contact the patient's cable worker helper to determine appropriate disposition. Reevaluation(s) Reevaluation #1: Patient remains asymptomatic. Second set of cardiac enzymes are negative. Pain is still somewhat atypical. We discussed all results. I also contacted his primary cable worker helper as well as Dr. Sapp who is on-call and on consult service today. At this point, we will discharge the patient with strict instructions to return for any recurrence or worrisome symptoms. Otherwise he will contact his primary cable worker helper tomorrow to discuss returning to cardiac rehabilitation. Time: 16:35 Medical Decision Making Medical Decision Making [facility] Narrative: 71-year-old male with strong cardiac history status post aortic valve replacement and 2 vessel CABG presents with sharp substernal chest pain radiating across his chest during cardiac rehabilitation today. Currently asymptomatic. Examination was unremarkable. EKG revealed right bundle branch block which was unchanged from 2021. Initial lab work has already return including 1 set of cardiac enzymes which was negative. Chest x-ray did not reveal any acute. Story is somewhat atypical, however, patient does have a strong cardiac history. I am not familiar with his coronary anatomy in which he may have other possible significant blockages. I am reassured that his 1st set of cardiac enzymes are negative and his EKG is by enlarged unchanged from 2021. Once I receive his 2nd set of cardiac enzymes, I will contact the patient's cable worker helper to determine appropriate disposition. Differential Diagnosis Differential Diagnoses: The differential diagnosis associated with the presentation includes (Chest pain, atypical chest pain, angina, NSTEMI, pneumothorax, pneumonia, CHF, musculoskeletal chest pain) Chest pain, coronary artery disease Admission/Observation Consideration of admission/observation: Escalation of care including admission/observation considered Consult Healthcare Provider Management of the patient was discussed with: Tobacco Curer (Patient's cable worker helper) Lab Data [facility] Lab Attestation statement: I reviewed the patient's lab results. 05/05/22 10:08 05/05/22 10:08 Labs: Lab Results 05/05/22 05/05/22 05/05/22 Range/Units 10:08 10:08 10:08 WBC 5.8 (4.8-10.8) X10*3/uL RBC 5.72 (4.60-5.80) X10*6/uL Hgb 14.3 (14.0-18.0) g/dl Hct 44.8 (42.0-52.0) % MCV 78.3 L (80.0-98.0) fL MCH 25.0 L (27.0-33.0) pg MCHC 31.9 (31.0-36.0) g/dl RDW 16.3 H (11.0-16.0) % Plt Count 248 (160-400) X10*3/uL MPV 9.3 L (9.4-12.4) fL Immature Gran % (Auto) 0.7 H (0.0-0.4) % Neut % (Auto) 62.2 (45-73) % Lymph % (Auto) 21.6 (20-40) % [place] % (Auto) 10.6 (2-11) % Eos % (Auto) 4.2 H (0-4) % Baso % (Auto) 0.7 (0-2) % Lymph # (Auto) 1.2 (1.2-4.9) X10*3/uL [place] # (Auto) 0.6 (0.1-1.2) X10*3/uL Eos # (Auto) 0.2 (0.0-0.4) X10*3/uL Baso # (Auto) 0.0 (0.0-0.2) X10*3/uL Abs Immat Gran (auto) 0.04 H (0.00-0.03) X10*3/uL Absolute Neuts (auto) 3.6 (2.0-8.3) x10*3/uL Absolute Nucleated RBC 0.000 (0.0-0.012) X10*3/uL Nucleated RBC % (auto) 0.0 (0.0-0.2) /100WBC Sodium 142 (135-145) mmol/L Potassium 4.2 (3.3-5.1) mmol/L Chloride 109 H (96-108) mmol/L Carbon Dioxide 25 (22-29) mmol/L Anion Gap 12 (12-20) BUN 22 H (9-16) mg/dL Creatinine 0.82 (0.5-1.4) mg/dL Estim Creat Clear Calc 81.4 Estimated GFR > 60 Random Glucose 114 (60-115) mg/dL Calcium 8.8 (8.4-10.2) mg/dL Troponin I High Sens 3.9 (<3.5-35.0) ng/L 05/05/22 Range/Units 15:11 WBC (4.8-10.8) X10*3/uL RBC (4.60-5.80) X10*6/uL Hgb (14.0-18.0) g/dl Hct (42.0-52.0) % MCV (80.0-98.0) fL MCH (27.0-33.0) pg MCHC (31.0-36.0) g/dl RDW (11.0-16.0) % Plt Count (160-400) X10*3/uL MPV (9.4-12.4) fL Immature Gran % (Auto) (0.0-0.4) % Neut % (Auto) (45-73) % Lymph % (Auto) (20-40) % [place] % (Auto) (2-11) % Eos % (Auto) (0-4) % Baso % (Auto) (0-2) % Lymph # (Auto) (1.2-4.9) X10*3/uL [place] # (Auto) (0.1-1.2) X10*3/uL Eos # (Auto) (0.0-0.4) X10*3/uL Baso # (Auto) (0.0-0.2) X10*3/uL Abs Immat Gran (auto) (0.00-0.03) X10*3/uL Absolute Neuts (auto) (2.0-8.3) x10*3/uL Absolute Nucleated RBC (0.0-0.012) X10*3/uL Nucleated RBC % (auto) (0.0-0.2) /100WBC Sodium (135-145) mmol/L Potassium (3.3-5.1) mmol/L Chloride (96-108) mmol/L Carbon Dioxide (22-29) mmol/L Anion Gap (12-20) BUN (9-16) mg/dL Creatinine (0.5-1.4) mg/dL Estim Creat Clear Calc Estimated GFR Random Glucose (60-115) mg/dL Calcium (8.4-10.2) mg/dL Troponin I High Sens 3.6 (<3.5-35.0) ng/L Independent Interpretation I performed an independent interpretation of an: EKG (Normal sinus rhythm heart rate 79, right bundle branch block, evidence of LVH, no significant changes compared to 11/16/2021) and Plain X-Ray (No acute cardiopulmonary disease noted on chest x-ray) Radiology Impression Discussion of test interpretation with radiology: I have reviewed the radiologist's reading. (71-year-old male with strong cardiac history status post aortic valve replacement and 2 vessel CABG presents with sharp substernal chest pain radiating across his chest during cardiac rehabilitation today. Currently asymptomatic. Examination was unremarkable. EKG revealed right bundle branch bloc) Independent Historian Clinical information obtained from an independent historian. History obtained from or confirmed by: Spouse External Record Review External record reviewed: Office record (Cardiology note from 12/25/2021) and Prior outpatient labs Prescription Management I considered prescription management with: Pain Medication Chronic Conditions Patient?s care impacted by: Hypertension and Other (Coronary artery disease) Discharge Plan Discharge Clinical Impression: Acute chest pain, S/P AVR, S/P CABG (coronary artery bypass graft) Patient Disposition: Home, Self-Care Instructions: Chest Pain (ED) Additional Instructions: Should her chest pain recur, change in any way, increasing shortness of breath, swelling in the lower extremities, please return immediately to the emergency department. Prescriptions: No Action ramipril 10 mg capsule 10 mg PO DAILY Qty: 90 3RF epinephrine 0.3 mg/0.3 mL auto-injector 0.3 mg IM ONCE PRN (Reason: Anaphylaxis) B Complex Plus Vitamin C 45-99-98-5-300 mg Capsule 1 cap PO DAILY Rx Instructions: give with food (meal/snack) cholecalciferol (vitamin D3) [Vitamin D3] 50 mcg (2,000 unit) Tablet 100 mcg PO DAILY Probiotic 20 billion cell Capsule 20,000 mmu cells PO DAILY Rx Instructions: administer with a meal ibuprofen 200 mg Tablet 400 mg PO Q8H PRN (Reason: Pain) lamotrigine 150 mg tablet 150 mg PO BID methylphenidate HCl 20 mg tablet 40 mg PO DAILY clonazepam 0.5 mg tablet 1.5 mg PO BEDTIME Rx Instructions: administer 30 minutes before bedtime quetiapine [Seroquel] 25 mg tablet 75 mg PO BEDTIME atorvastatin 80 mg tablet 80 mg PO BEDTIME aspirin 81 mg tablet,chewable 81 mg PO DAILY levothyroxine 125 mcg capsule 125 mcg PO DAILY@0600 clopidogrel 75 mg tablet 75 mg PO DAILY Qty: 90 3RF metoprolol succinate 50 mg tablet extended release 24 hr 50 mg PO DAILY Qty: 90 3RF Referrals: Aime Winn MD [Physician] - 2 days
[2022-05-05 15:43] LABS: Troponin-I High Sensitivity 3.6 ng/L (<3.5-35.0)
--- NOTE | 2022-05-05 16:33 | PC.NURSE ---
skin wpd, sr on monitorw occasional pvc, nad, no pain, tired , aware of care plan
== END 2022-05-05 16:57 | disposition home or self-care (01) ==
PROVIDERS: Emergency Provider Emergency Medicine; PCP Hospitalist
DX: R07.9 Chest pain, unspecified (principal); Z95.2 Presence of prosthetic heart valve; Z95.1 Presence of aortocoronary bypass graft; Z79.899 Other long term (current) drug therapy; Z79.82 Long term (current) use of aspirin; Z79.02 Long term (current) use of antithrombotics/antiplatelets
CPT/HCPCS: 36415; 71046; 80048; 84484; 85025; 93005; 99283; 99284

== ENCOUNTER → 2022-05-20 14:20 | Outpatient (BNVA) | payer OTHER, SELFPAY ==
[2022-02-13 10:00] VITALS: BP 120/68; BP 136/68
[2022-05-06 07:57] VITALS: BP 108/56; BMI 27.1
== END ==
PROVIDERS: PCP Hospitalist; Visit Provider Nurse Practitioner Family
DX: R07.9 Chest pain, unspecified (principal); I45.10 Unspecified right bundle-branch block; Z95.1 Presence of aortocoronary bypass graft; Z95.2 Presence of prosthetic heart valve
CPT/HCPCS: 93005

== ENCOUNTER → 2022-05-27 09:32 | Outpatient (REF) | payer OTHER, SELFPAY ==
[2022-02-13 10:00] VITALS: BP 120/68; BP 136/68
[2022-05-06 07:57] VITALS: BP 108/56; BMI 27.1
--- NOTE | 2022-05-27 09:37 | CA_ITS ---
Transthoracic Echocardiogram Patient (Last, First, Middle): Jarrett Jean, Gender: Male Date of : 1950 Age: 71 Procedure Date: 05/27/2022 Procedure Type: Transthoracic Echocardiogram Location: OP Height: 175.26 cm Weight: 81.65 kg BSA: 1.98 m2 Heart Rate: 79 bpm BP: 128 / 72 mmHg Audio Production Engineer: SB Referring MD: Estelle Garcia ROOMING HOUSE OPERATOR-Andrew Symptoms: Z95.2 - Presence of prosthetic heart valve Study Quality: Adequate w contrast ECG Rhythm: Sinus Conclusions: - The left ventricular systolic function is normal. The calculated ejection fraction is 66% by biplane method. - A bioprosthetic aortic valve is present. The prosthetic aortic valve appears to be functioning normally. Findings Procedure Information Contrast agent, definity, is being given per protocol without apparent complications. Left Ventricle Normal left ventricular cavity size. The left ventricular systolic function is normal. The calculated ejection fraction is 66% by biplane method. There is no evidence of regional wall motion abnormalities. E/E prime ratio is >15, consistent with elevated filling pressures. Evidence suggests grade I (mild) diastolic dysfunction. Focal hypertrophy of the basal septum. Right Ventricle Normal right ventricular cavity size. There is mildly decreased right ventricular systolic function. Atria The left atrium is mildly dilated. The right atrium is normal in size. Aortic Valve A bioprosthetic aortic valve is present. The prosthetic aortic valve appears to be functioning normally. The mean gradient is 9 mmHg. There is no aortic valve regurgitation. Mitral Valve The mitral valve appears normal. There is trace mitral valve regurgitation. There is no mitral valve stenosis. Pulmonic Valve The pulmonic valve is likely normal. Tricuspid Valve Normal tricuspid valve structure. There is trace tricuspid valve regurgitation. There is no evidence of pulmonary hypertension. Great Vessels The asc aorta and aortic arch are normal in size. Venous The inferior vena cava is normal in size and collapses greater than 50% with inspiration. Pericardium/Pleural There is no evidence of pericardial effusion. Prior Study Comparison Changes noted compared to prior study dated: 10/10/2021. s/p AVR. Wall motion finding not obvious. Measurements 2D Linear Measurements IVSd: 0.92 0.6-0.9/0.6-1.0 cm LVIDd: 4.23 3.9-5.3/4.2-5.9 cm LVIDd Index: 2.14 2.4-3.2/2.2-3.1 cm/m2 LVIDs: 2.56 2.0-3.6 cm LVPWd: 0.93 0.7-1.1 cm LA Diam: 4.40 2.7-3.8/3.0-4.0 cm LAIDs Index: 2.22 1.5-2.3 cm/m2 LV Mass: 154.92 67-162/88-224 g LV Mass Index: 78.24 43-95/49-115 g/m2 LVOT Diam: 2.10 3.0+(-)1.3 cm 2D Systolic Function EF 4C: 78.70 >55% EF 2C: 53.60 >55% EF BiP: 65.50 >55% Mitral Valve MV Pk E: 0.99 MV PK A: 0.96 MV Decel Time: 228.00 E/A: 1.00 E'Lateral: 5.33 E'Medial: 5.87 E/E' Med: 16.90 E/E' Lat: 18.60 PHT: 67.00 MVA PHT: 3.28 Decel [place]: 4.35 Aortic Valve AoV Pk Shen: 2.06 AoV Mn Shen: 1.40 AoV VTI: 0.42 AoV Pk Grad: 17.00 Aov Mn Grad: 9.00 KAREEM Cont.VTI: 1.80 LVOT LVOT Pk Shen: 1.04 LVOT Mn Shen: 0.67 LVOT VTI: 0.22 LVOT Pk Grad: 4.00 LVOT Mn Grad: 3.00 LVOT Diam: 2.10 LVOT Area: 3.46 Diastolic Function MV Pk E: 0.99 MV Pk A: 0.96 E/A: 1.00 E'Medial: 5.87 E/E' Med: 16.90 E' Laterial: 5.33 E/E' Lat: 18.60 Right Ventricle TAPSE (mm): 13.10 TVS' Shen: 8.27 Tricuspid Valve TR Pk Shen: 2.35 TR Pk Grad: 22.00 RA Press: 3.00 RVSP: 25.00 Great Vessels Aorta Ao Asc: 3.70 2.1-3.4 cm Ao Arch: 2.60 Pulmonary Veins Pulm Vein S/D 1.30 Pulmonary Valve PV Pk Shen: 1.09 Peak PV Grad: 5.00 Updated in Other Vendor System with Status of Final Harpreet Sapp MD electronically signed on 05/28/2022 10:52:25 AM with status of Final
== END ==
LOC: HO.CARD 09:32
PROVIDERS: PCP Hospitalist; Visit Provider Internal Medicine Cardiovascular Disease
DX: R07.9 Chest pain, unspecified (principal); Z95.1 Presence of aortocoronary bypass graft; Z95.2 Presence of prosthetic heart valve
CPT/HCPCS: 93306; Q9957

== ENCOUNTER → 2022-09-03 12:30 | Outpatient (BNVA) | payer OTHER, SELFPAY ==
[2022-08-29 15:38] VITALS: BP 120/52; BP 144/56; BMI 27.3
== END ==
PROVIDERS: Visit Provider Internal Medicine Cardiovascular Disease

== ENCOUNTER 2022-12-19 13:02 | Outpatient (AMB) | payer OTHER, SELFPAY ==
[2022-08-29 15:38] VITALS: BP 120/52; BP 144/56; BMI 27.3
[2022-12-19 13:15] VITALS: BP 118/62; PULSE 67; RESP 13; TEMP 36.4; O2SAT 98; BMI 27.2
--- NOTE | 2022-12-19 13:15 | A.OFFPC_ITS ---
Vital Signs 12/19/22 13:15 Height 5 ft 9 in Weight 184 lb 6 oz BMI 27.2 BP 118/62 Blood Pressure Location Lt brachial Position Sitting Respiration 13 Pulse 67 Pulse Source Pulse Oximeter Temp 97.5 F Temp Source Temporal Artery Scan Pulse Oximetry (%) 98 Intake Visit Reasons: Transfer of care - htn, hypothyroidism Intake Note: Patikent would like to be referred t someone who can deal with the hematoma on his left big toe. 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 Accompanied by: Self / Same As Patient Allergies povidone-iodine Allergy (Unknown, Verified 12/19/22 13:52) Unknown seafood Allergy (Verified 12/19/22 13:52) Unknown Medication List - Last Reconciled 12/19/22 by Mikey Feliciano CNP aspirin 81 mg PO DAILY atorvastatin 80 mg PO BEDTIME cholecalciferol (vitamin D3) (Vitamin D3) 100 mcg PO DAILY clonazepam 1.5 mg PO BEDTIME epinephrine 0.3 mg IM ONCE PRN ibuprofen 400 mg PO Q8H PRN lactobacillus comb no.10 (Probiotic) 20,000 mmu cells PO DAILY lamotrigine ER 250 mg PO DAILY levothyroxine 100 mcg PO DAILY methylphenidate HCl 40 mg PO DAILY metoprolol succinate ER 50 mg PO DAILY quetiapine (Seroquel) 75 mg PO BEDTIME ramipril 10 mg PO DAILY vitamin B comp and C no.3 (B Complex Plus Vitamin C) 1 cap PO DAILY Tobacco use date assessed: 06/18/22 Fall risk assessment: No Falls in past year Last assessed Fall Risk: 12/19/22 Dental Screening Dental Screen Date: 12/19/22 Did you have a dental visit in the last 12 months?: Yes Did you have a dental problem in the last 6 months where you did not have access to dental care?: No Was dental information given to patient?: Patient has dentist HPI HPI Comments History of Present Illness Details 72-year-old male presents for transfer o f care. His former PCP was IVETT who is no longer with the practice. He was last seen in May 2022. His last blood work was in April 2022. Results were unremarkable. No record of lipid or thyroid levels. He has medical history significant for hypertension, HLD, hypothyroidism, aortic stenosis, CABG x2 (2021), bipolar 2 disorder, ADD, and anxiety. History of left shoulder replacement and right total knee replacement. He notes that he has been his medications as prescribed with no adverse symptoms. Reports chronic left lower back pain which has recently been persistent. More severe in the morning but improves as the day progresses. Responds well to Tylenol and cool compresses. He states he has been going for cardiac rehab at [facility] 3 times a week since last January. He is followed by a psychiatrist monthly. His psychiatrist manages his psychotropic medications. He is followed by [facility] cardiology He is also followed by podiatry. His last visit was in 10/2022. He notes that he was diagnosed with subungal hematoma of the left great toe and was advised to follow up with podiatry. He denies harding, swelling, or discomfort. He states that he is up-to-date on his shingles, pneumonia, covid-19, and influenza vaccines. His last colonoscopy was 2019: normal. Due in 2028 [facility] Medical History Prostate cancer Pulmonary hypertension TIA (transient ischemic attack) Aortic stenosis Hypertension Anxiety Bipolar disorder Surgical History Status post double vessel coronary artery bypass Aortic valve replaced Hx of tonsillectomy Hx of appendectomy Hx of vasectomy Hx of endoscopy Hx of colonoscopy Hx of cardiac catheterization Hx of radical prostatectomy History of left shoulder replacement History of total right knee replacement Hx of repair of right rotator cuff Family History Sister Heart attack Coronary artery disease Arthritis Lupus Sleep apnea Mother Lupus Heart attack Father Heart attack Coronary artery disease Social History Household Members: Family Housing: Apartment Alcohol intake: current Alcohol intake frequency: a few times a week Alcohol type: hard liquor Patient Tobacco Use Status: Never used Tobacco e-Cigarette/Vaping Use: Never Used Advance Directives Date on File: 11/17/21 service: No Current occupational status: retired Cognitive needs: No Hearing needs: Yes Vision needs: No Questionnaire PHQ-9 Over the last 2 weeks, how often have you been bothered by any of the following problems? 1. Little interest or pleasure in doing things: not at all 2. Feeling down, depressed, or hopeless: not at all 3. Trouble falling or staying asleep, or sleeping too much: more than half the days 4. Feeling tired or having little energy: several days 5. Poor appetite or overeating: not at all 6. Feeling bad about yourself - or that you are a failure or have let yourself or your family down: not at all 7. Trouble concentrating on things, such as reading the newspaper or watching television: not at all 8. Moving or speaking so slowly that other people could have noticed. Or the opposite - being so fidgety or restless that you have been moving around a lot more than usual: not at all 9. Thoughts that you would be better off or of hurting yourself in some way: not at all Total score: 3 Depression Screening Interpretation: Negative Depression Screening Done: Yes Source: Developed by Drs. Josh Everett, Cindy Loco, Marcial Castillo and colleagues, with an educational alli from [employer]. Thrive Questionnaire Date Thrive assessed: 06/18/22 LYNDON-7 AMB Questionnaire LYNDON-7 Date LYNDON - 7 assessed: 12/19/22 Feeling nervous, anxious, or on edge: 1 = Several days Not being able to stop or control worryin = Not at all Worrying too much about different things: 0 = Not at all Trouble relaxin = Not at all Being so restless that it is hard to sit still: 0 = Not at all Becoming easily annoyed or irritable: 0 = Not at all Feeling afraid as if something awful might happen: 0 = Not at all Total LYNDON-7 score (0-4 normal; 5-9 mild; 10-14 moderate; 15-21 severe): 1 Source: Developed by Drs. Josh Everett, Cindy Loco, Marcial Castillo and colleagues, with an educational alli from [employer]. Review of Systems Const Details: Const Denies chills, Denies fatigue, Denies fever(s), Denies headache(s) and Denies weakness ENT Denies dizziness and Denies headache(s) Card Denies chest pain, Denies lightheadedness, Denies dyspnea and Denies other (Palpitations) Resp Denies cough, Denies dyspnea, Denies wheezing and Denies other ( shortness of breath) GI Denies abdominal pain, Denies melena, Denies hematochezia, Denies change in maeve wel habits, Denies dyspepsia and Denies nausea Denies hematuria and Denies dysuria Musc Denies abnormal gait, Denies myalgias, Denies arthralgias, Denies numbness and Denies tingling Skin/Breast Denies rash, Denies unusual bruising and Denies wounds Neuro Denies abnormal gait, Denies dizziness, Denies headache(s), Denies memory loss, Denies numbness, Denies Sensory deficit (Neuro), Denies tingling and Denies weakness Psych Denies anxiety, Denies depression, Denies memory loss Endo Denies cold intolerance, Denies fatigue, Denies heat intolerance, Denies polydipsia and Denies polyuria Aller/Immun Denies wheezing Physical exam (Primary Care) Vital Signs: Last Vital Signs Temp 97.5 F 12/19/22 13:15 Pulse 67 12/19/22 13:15 Resp 13 12/19/22 13:15 BP 118/62 12/19/22 13:15 Pulse Ox 98 12/19/22 13:15 BMI result Body Mass Index 27.2 Tobacco/Smoking Status: Tobacco use Status Tobacco use date assessed 06/18/22 12/19/22 13:29 Patient Tobacco Use Status Never used Tobacco 12/19/22 13:29 e-Cigarette/Vaping Use Never Used 12/19/22 13:29 Depression Screening Interpretation: Negative Thrive Assessment: Date of Thrive Assessment Date Thrive assessed 06/18/22 12/19/22 13:29 Const Other: General: no acute distress and well developed Nutritional Appearance: well nourished Orientation/consciousness: patient oriented x3 [facility] Head: Yes normocephalic and Yes atraumatic Eyes General: appearance normal, both eyes and all related structures Pupils: Equal, round and reactive pupils present EOM: EOMs intact bilaterally Resp Effort & Inspection: normal respiratory effort Auscultation: clear to auscultation bilaterally Cardio Rate: regular rate Rhythm: regular rhythm Heart sounds: S1 normal heart sound present, S2 normal heart sound present, no gallops, no murmurs and no rubs GI Palpation (GI): No Abdominal aortic bruit present, Soft to palpation, nontender, No hepatosplenomegaly present and No Rebound tenderness present Auscultation: normal bowel sounds General: Yes no CVA tenderness Back/Spine/Pelvis Back: no CVA tenderness Cervical Spine: cervical ROM normal and No Cervical spine tenderness Thoracic/Lumbar Spine: thoraco-lumbar ROM normal, No pain with thoraco-lumbar ROM, No thoracic spinal tenderness and No lumbar spinal tenderness Extrem General: Yes normal to inspection, No edema and No calf tenderness Skin General: warm and dry. Normal skin color. Normal skin turgor Lesions: no lesions Rashes: no rashes Trauma: no lacerations or abrasions Wounds: no wounds Nails: normal Neuro General: patient oriented x3, gait normal and no focal neuro deficit Cranial nerves: Yes Equal, round and reactive pupils present Cognition (Neuro): normal cognition Gait exam (Neuro): Normal gait present Sensory Exam: No Sensory deficit (Neuro) Psych Appearance: grossly normal Affect: normal affect Attitude: cooperative Thought process: Normal thought process present Assessment and Plan Assessment & Plan (1) Normal physical examination, routine: Code(s): Z00.00 - Encounter for general adult medical examination without abnormal findings Plan: No significant physical restrictions or limitations noted Advised to get TSH and fasting lipid panel blood work done and follow-up in 1 month for hypothyroidism, hyperlipidemia, HTN, and labs review Return sooner with symptoms or concerns Verbalized understanding and agreed with treatment plan (2) Hypertension: Code(s): I10 - Essential (primary) hypertension Qualifiers: Hypertension type: primary hypertension Qualified Code(s): I10 - Essential (primary) hypertension Plan: Blood pressure is controlled, 118/62, within goal of less than 140/90 Continue with current treatment regimen Low-sodium diet encouraged Continue with cardiac rehab Follow-up in 1 month or return sooner with symptoms or concerns Verbalized understanding and agreed with treatment plan (3) Hyperlipidemia: Code(s): E78.5 - Hyperlipidemia, unspecified Plan: His last blood work was in April 2022. Results were unremarkable. No record of lipid or thyroid level. Will check lipid panel and TSH level Advised to fast for 10-12 hours before getting blood work done Follow-up in 1 month or return sooner with symptoms or concerns Verbalized understanding and agreed with treatment plan. (4) Hypothyroidism: Code(s): E03.9 - Hypothyroidism, unspecified Plan: As above (5) Anxiety and depression: Code(s): F41.9 - Anxiety disorder, unspecified; F32.A - Depression, unspecified Plan: PHQ-9 and LYNDON-7 scores are normal Continue with current treatment regimen Continue follow-up with psychiatrist as planned Return with symptoms or concerns Verbalized understanding and agreed with treatment plan. (6) Bipolar disorder: Code(s): F31.9 - Bipolar disorder, unspecified Plan: As above (7) ADD (attention deficit disorder): Code(s): F98.8 - Other specified behavioral and emotional disorders with onset usually occurring in childhood and adolescence Plan: As above (8) Low back pain without sciatica: Code(s): M54.50 - Low back pain, unspecified Plan: Reports chronic left lower back pain which has recently been persistent. More severe in the morning but improves as the day progresses. Responds well to Tylenol and cool compresses. Tenderness to palpation of the left lower back. Likely musculoskeletal. Arthritis is also possible Continue current treatment regimen Return with worsening or new symptoms. Would order x-ray and referred to PT Verbalized understanding and agreed with treatment plan. Orders: Orders Lipid Panel Today E78.5 - Hyperlipidemia, unspecified TSH reflex Free T4 Today E03.9 - Hypothyroidism, unspecified Coding Level of Care Code Est Pt Prev Care >65y(07834) Diagnoses Normal physical examination, routine Z00.00 Primary hypertension I10 Hypertension type: primary hypertension Hyperlipidemia E78.5 Hypothyroidism E03.9 Anxiety and depression F41.9; F32.A Bipolar disorder F31.9 ADD (attention deficit disorder) F98.8 Low back pain without sciatica M54.50
== END 2022-12-19 14:22 | disposition home or self-care (01) ==
PROVIDERS: PCP Hospitalist; Visit Provider Nurse Practitioner Family
DX: Z00.00 Encounter for general adult medical examination without abnormal findings (principal); I10 Essential (primary) hypertension; E78.5 Hyperlipidemia, unspecified; F31.9 Bipolar disorder, unspecified; E03.9 Hypothyroidism, unspecified; F41.9 Anxiety disorder, unspecified; F32.A Depression, unspecified; F98.8 Other specified behavioral and emotional disorders with onset usually occurring in childhood and adolescence; M54.50 Low back pain, unspecified
CPT/HCPCS: 99397

== ENCOUNTER 2023-01-12 10:40 | Outpatient (AMB) | payer OTHER, SELFPAY ==
[2022-08-29 15:38] VITALS: BP 120/52; BP 144/56; BMI 27.3
--- NOTE | 2023-01-12 10:44 | A.OFFVIS_ITS ---
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 Accompanied by: Spouse Allergies bee venom protein (honey bee) Allergy (Severe, Verified 12/26/22 10:17) Anaphylaxis povidone-iodine Allergy (Unknown, Verified 12/19/22 13:52) Unknown seafood Allergy (Verified 12/19/22 13:52) Unknown Medication List - Last Reconciled 01/12/23 by Aime Winn MD aspirin 81 mg PO DAILY atorvastatin 80 mg PO BEDTIME cholecalciferol (vitamin D3) (Vitamin D3) 100 mcg PO DAILY clonazepam 1.5 mg PO BEDTIME epinephrine 0.3 mg IM ONCE PRN ibuprofen 400 mg PO Q8H PRN lactobacillus comb no.10 (Probiotic) 20,000 mmu cells PO DAILY lamotrigine ER 250 mg PO DAILY levothyroxine 100 mcg PO DAILY methylphenidate HCl 40 mg PO DAILY metoprolol succinate ER 50 mg PO DAILY quetiapine (Seroquel) 75 mg PO BEDTIME ramipril 10 mg PO DAILY vitamin B comp and C no.3 (B Complex Plus Vitamin C) 1 cap PO DAILY HPI HPI Comments History of Present Illness Details 71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 He has background history of right bundle-branch block and aortic stenosis. He had echocardiography which showed evidence of severe aortic stenosis. He was complaining of dyspnea and chest discomfort. He underwent cardiac catheterization which showed 2 vessel disease. He was admitted after the cardiac catheterization for chest pain and a decision was made to do surgery sooner. He underwent CABG and AVR. He has made good recovery since then. 09/03/22: He is here for follow-up. He h as been doing well. He had 1 episode of right-sided sharp chest pain lasting for 3 minutes while at cardiac rehabilitation. He said he has not had further episodes of chest discomfort despite doing physical activity. He is going to be to some dental workup and is asking whether he can get amoxicillin script. He has lower back pain which is limiting him from exercising specially in the morning when he has a lot of stiffness. Previously had some early satiety but it improved after stopping his amiodarone. He is taking medications regularly. He has no exertional symptoms at this point. 01/12/23: He returns for follow-up. He has been doing well. He is physically active. Occasionally gets dyspnea and chest tightness. This usually happens when he is out in cold weather. He is not a smoker. He does not have any history of asthma. He is asking whether he should see pulmonology. He is exercising at cardiac rehabilitation and doing well. He does not have any consistent exertional symptoms. [facility] Medical History Prostate cancer Pulmonary hypertension TIA (transient ischemic attack) Aortic stenosis Hypertension Anxiety Bipolar disorder Surgical History Status post double vessel coronary artery bypass Aortic valve replaced Hx of tonsillectomy Hx of appendectomy Hx of vasectomy Hx of endoscopy Hx of colonoscopy Hx of cardiac catheterization Hx of radical prostatectomy History of left shoulder replacement History of total right knee replacement Hx of repair of right rotator cuff Family History Sister Heart attack Coronary artery disease Arthritis Lupus Sleep apnea Mother Lupus Heart attack Father Heart attack Coronary artery disease Social History Household Members: Family Housing: Apartment Alcohol intake: current Alcohol intake frequency: a few times a week Alcohol type: hard liquor Patient Tobacco Use Status: Never used Tobacco e-Cigarette/Vaping Use: Never Used Advance Directives Date on File: 11/17/21 service: No Current occupational status: retired Cognitive needs: No Hearing needs: Yes Vision needs: No Review of Systems Const Denies weakness ENT Denies dizziness Card Denies chest pain, Denies chest pain with activity, Denies syncope, Denies rapid heart rate, Denies pedal edema, Denies edema, Denies leg edema, Denies lightheadedness, Denies palpitations, Denies dyspnea, Denies dyspnea on exertion and Denies orthopnea Resp Denies cough, Denies dyspnea and Denies dyspnea on exertion GI Denies hematochezia and Denies change in stool character Musc Denies abnormal gait, Denies muscle cramps, Denies muscle weakness, Denies numbness, Denies radiating pain into limb and Denies tingling Neuro Denies abnormal gait, Denies dizziness, Denies syncope, Denies numbness, Denies tingling and Denies weakness Endo Denies palpitations Physical Exam Vital Signs: Last Vital Signs Pulse 77 01/12/23 10:48 BP 100/60 01/12/23 10:48 BMI result Body Mass Index 27.3 GENERAL APPEARANCE: in no acute distress, pleasant. NECK: no carotid bruit, no jugular venous distention. SKIN: no suspicious lesions, warm and dry. HEART: Regular rate and rhythm. Grade 1/6 systolic murmur aortic area. LUNGS: clear to auscultation bilaterally. ABDOMEN: soft, nontender. EXTREMITIES: no edema. PERIPHERAL PULSES: equal. NEUROLOGIC: No gross deficits, AAO X 3 Assessment & Plan Assessment & Plan (1) RBBB: Code(s): I45.10 - Unspecified right bundle-branch block (2) S/P CABG (coronary artery bypass graft): Comment: 11/22/2022, adames to mid LAD, SVG to distal RCA Code(s): Z95.1 - Presence of aortocoronary bypass graft (3) S/P AVR: Comment: 11/22/2022 AVR, 23 mm Inspiris bioprosthetic Code(s): Z95.2 - Presence of prosthetic heart valve (4) HORNE (dyspnea on exertion): Code(s): R06.09 - Other forms of dyspnea Plan 72-year-old gentleman who is here for follow-up. He has background history of severe aortic valve stenosis and multivessel disease. He underwent bypass surgery as well as aortic valve replacement. He has been doing well since then. Occasionally gets chest discomfort and shortness of breath. He also gets chest tightness when he is out in cold weather. Referring him for pulmonary function testing. Will also refer him for pulmonology evaluation. Blood pressure control is good. Otherwise clinically stable. See us back in 6 months. Thank you for allowing me to participate in the care of your patient. Please feel free to contact me if you have any questions. Orders: Orders PFT pulmonary function test Today R06.09 - Other forms of dyspnea Referrals Pulmonary Medicine Referral R06.09 - Other forms of dyspnea Medications: Changed From ramipril 10 mg PO DAILY 90 caps 3RF To ramipril 10 mg PO DAILY Coding Level of Care Code Est Pt Level 4 (32437) Diagnoses RBBB I45.10 S/P CABG (coronary artery bypass graft) Z95.1 S/P AVR Z95.2 HORNE (dyspnea on exertion) R06.09
[2023-01-12 10:48] VITALS: BP 100/60; PULSE 77; BMI 27.3
== END 2023-01-12 11:08 | disposition home or self-care (01) ==
PROVIDERS: PCP Hospitalist; Visit Provider Internal Medicine Cardiovascular Disease
DX: I45.10 Unspecified right bundle-branch block (principal); Z95.1 Presence of aortocoronary bypass graft; Z95.2 Presence of prosthetic heart valve; R06.09 Other forms of dyspnea
CPT/HCPCS: 99214

== ENCOUNTER → 2023-01-12 10:40 | Outpatient (BNVA) | payer OTHER, SELFPAY ==
[2022-08-29 15:38] VITALS: BP 120/52; BP 144/56; BMI 27.3
== END ==
PROVIDERS: PCP Hospitalist; Visit Provider Internal Medicine Cardiovascular Disease

== ENCOUNTER 2023-01-13 08:15 | Outpatient (REF) | payer OTHER, SELFPAY ==
[2022-08-29 15:38] VITALS: BP 120/52; BP 144/56; BMI 27.3
[2023-01-13 09:42] LABS: Cholesterol 146 mg/dL (<200); HDL Cholesterol 51 mg/dL (>40); LDL Cholesterol Calculated 84 mg/dL (<100); Triglycerides 59 mg/dL (<150)
== END 2023-01-13 08:16 | disposition home or self-care (01) ==
LOC: HO.LAB 08:15
PROVIDERS: PCP Nurse Practitioner Family; Visit Provider Nurse Practitioner Family
DX: E78.5 Hyperlipidemia, unspecified (principal); E03.9 Hypothyroidism, unspecified
CPT/HCPCS: 36415; 80061; 84443

== ENCOUNTER 2023-01-16 09:43 | Outpatient (REF) | payer OTHER, SELFPAY ==
[2022-08-29 15:38] VITALS: BP 120/52; BP 144/56; BMI 27.3
[2023-01-20 23:38] LABS: PSA, Ultra Sensitive <0.02 ng/mL
== END 2023-01-16 09:44 | disposition home or self-care (01) ==
LOC: HO.LAB 09:43
PROVIDERS: PCP Nurse Practitioner Family; Visit Provider Nurse Practitioner Family
DX: Z00.00 Encounter for general adult medical examination without abnormal findings (principal); Z12.5 Encounter for screening for malignant neoplasm of prostate
CPT/HCPCS: 36415; 84153

== ENCOUNTER 2023-01-19 12:01 | Outpatient (AMB) | payer OTHER, SELFPAY ==
[2022-08-29 15:38] VITALS: BP 120/52; BP 144/56; BMI 27.3
[2023-01-19 12:21] VITALS: BP 118/56; PULSE 84; RESP 13; O2SAT 97; BMI 27.6
--- NOTE | 2023-01-19 12:21 | A.OFFPC_ITS ---
Vital Signs 01/19/23 12:21 Height 5 ft 9 in Weight 187 lb BMI 27.6 BP 118/56 L Blood Pressure Location Lt brachial Position Sitting Respiration 13 Pulse 84 Pulse Source Pulse Oximeter Pulse Oximetry (%) 97 Oxygen Delivery Method Room Air Intake Visit Reasons: HTN, HLD, hypothyroidism labs review Intake Note: Patient is here to review labs. Patient reports he has concerns for coughing and choking which he attributes to chronic sinusitis. Patient reports sight effects specialist referred him to pulmonary for a baseline. Patient reports he needs a refill on Levothyroxine. 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 Accompanied by: Self / Same As Patient Allergies bee venom protein (honey bee) Allergy (Severe, Verified 01/19/23 12:39) Anaphylaxis povidone-iodine Allergy (Unknown, Verified 01/19/23 12:39) Unknown seafood Allergy (Verified 01/19/23 12:39) Unknown Medication List - Last Reconciled 01/19/23 by Mikey Feliciano CNP aspirin 81 mg PO DAILY atorvastatin 80 mg PO BEDTIME cholecalciferol (vitamin D3) (Vitamin D3) 100 mcg PO DAILY clonazepam 1.5 mg PO BEDTIME epinephrine 0.3 mg IM ONCE PRN ibuprofen 400 mg PO Q8H PRN lactobacillus comb no.10 (Probiotic) 20,000 mmu cells PO DAILY lamotrigine ER 250 mg PO DAILY levothyroxine 100 mcg PO DAILY methylphenidate HCl 40 mg PO DAILY metoprolol succinate ER 50 mg PO DAILY quetiapine (Seroquel) 75 mg PO BEDTIME ramipril 10 mg PO DAILY vitamin B comp and C no.3 (B Complex Plus Vitamin C) 1 cap PO DAILY Tobacco use date assessed: 01/19/23 HPI HPI Comments History of Present Illness Details 72-year-old male presents for hypothyroi dism, hyperlipidemia, HTN, and review of recent labs follow-up He recently had lipids and thyroid blood work done He admits to taking his medications as prescribed He reports intermittent cough with clear phlegm for the past 3-4 months. No associated symptoms. He was referred to pulmonology by Cardiology. He has an appointment with pulmonology in 2 weeks. He denies cigarette smoking or vaping. [facility] Medical History Prostate cancer Pulmonary hypertension TIA (transient ischemic attack) Aortic stenosis Hypertension Anxiety Bipolar disorder Surgical History Status post double vessel coronary artery bypass Aortic valve replaced Hx of tonsillectomy Hx of appendectomy Hx of vasectomy Hx of endoscopy Hx of colonoscopy Hx of cardiac catheterization Hx of radical prostatectomy History of left shoulder replacement History of total right knee replacement Hx of repair of right rotator cuff Family History Sister Heart attack Coronary artery disease Arthritis Lupus Sleep apnea Mother Lupus Heart attack Father Heart attack Coronary artery disease Social History Household Members: Family Housing: Apartment Alcohol intake: current Alcohol intake frequency: a few times a week Alcohol type: hard liquor Patient Tobacco Use Status: Never used Tobacco e-Cigarette/Vaping Use: Never Used Advance Directives Date on File: 11/17/21 service: No Current occupational status: retired Cognitive needs: No Hearing needs: Yes Vision needs: No Questionnaire Thrive Questionnaire Date Thrive assessed: 06/18/22 LYNDON-7 AMB Questionnaire LYNDON-7 Date LYNDON - 7 assessed: 12/19/22 Source: Developed by Drs. Josh Everett, Cindy Loco, Marcial Castillo and colleagues, with an educational alli from [facility]. Review of Systems Const Details: Const Denies chills, Denies fatigue, Denies fever(s), Denies headache(s) and Denies weakness ENT Denies dizziness and Denies headache(s) Card Denies chest pain, Denies lightheadedness, Denies dyspnea and Denies other (Palpitations) Resp Reports cough, Denies dyspnea, Denies wheezing and Denies other ( shortness of breath) GI Denies abdominal pain, Denies melena, Denies hematochezia, Denies change in bowel habits, Denies dyspepsia and Denies nausea Denies hematuria and Denies dysuria Musc Denies abnormal gait, Denies myalgias, Denies arthralgias, Denies numbness and Denies tingling Skin/Breast Denies rash, Denies unusual bruising and Denies wounds Neuro Denies abnormal gait, Denies dizziness, Denies headache(s), Denies memory loss, Denies numbness, Denies Sensory deficit (Neuro), Denies tingling and Denies weakness Psych Denies anxiety, Denies depression, Denies memory loss Endo Denies cold intolerance, Denies fatigue, Denies heat intolerance, Denies polydipsia and Denies polyuria Aller/Immun Denies wheezing Physical exam (Primary Care) Vital Signs: Last Vital Signs Pulse 84 01/19/23 12:21 Resp 13 01/19/23 12:21 BP 118/56 L 01/19/23 12:21 Pulse Ox 97 01/19/23 12:21 Oxygen Delivery Method Room Air 01/19/23 12:21 BMI result Body Mass Index 27.6 Tobacco/Smoking Status: Tobacco use Status Tobacco use date assessed 01/19/23 01/19/23 12:29 Patient Tobacco Use Status Never used Tobacco 01/19/23 12:27 e-Cigarette/Vaping Use Never Used 01/19/23 12:27 Thrive Assessment: Date of Thrive Assessment Date Thrive assessed 06/18/22 01/19/23 12:27 Const Other: General: no acute distress and well developed Nutritional Appearance: well nourished Orientation/consciousness: patient oriented x3 HENMT Head: Yes normocephalic and Yes atraumatic Eyes General: appearance normal, both eyes and all related structures Pupils: Equal, round and reactive pupils present EOM: EOMs intact bilaterally Resp Effort & Inspection: normal respiratory effort Auscultation: clear to auscultation bilaterally Cardio Rate: regular rate Rhythm: regular rhythm Heart sounds: S1 normal heart sound present, S2 normal heart sound present, no gallops, no murmurs and no rubs GI Palpation (GI): No Abdominal aortic bruit present, Soft to palpation, nontender, No hepatosplenomegaly present and No Rebound tenderness present Auscultation: normal bowel sounds General: Yes no CVA tenderness Back/Spine/Pelvis Back: no CVA tenderness Cervical Spine: cervical ROM normal and No Cervical spine tenderness Thoracic/Lumbar Spine: thoraco-lumbar ROM normal, No pain with thoraco-lumbar ROM, No thoracic spinal tenderness and No lumbar spinal tenderness Extrem General: Yes normal to inspection, No edema and No calf tenderness Skin General: warm and dry. Normal skin color. Normal skin turgor Neuro General: patient oriented x3, gait normal and no focal neuro deficit Cranial nerves: Yes Equal, round and reactive pupils present Cognition (Neuro): normal cognition Gait exam (Neuro): Normal gait present Sensory Exam: No Sensory deficit (Neuro) Psych Appearance: grossly normal Affect: normal affect Attitude: cooperative Thought process: Normal thought process present Assessment and Plan Assessment & Plan (1) Hypertension: Code(s): I10 - Essential (primary) hypertension Qualifiers: Hypertension type: primary hypertension Qualified Code(s): I10 - Essential (primary) hypertension Plan: Blood pressure is controlled, 118/56, within goal of less than 130/80 Continue with current treatment regimen Continue follow-up with cardiology as planned Follow-up in 3 months or return sooner with symptoms or concerns Verbalized understanding and agreed with treatment plan. (2) Hyperlipidemia: Code(s): E78.5 - Hyperlipidemia, unspecified Plan: Recent lab results reviewed with the patient Lipids levels are normal Continue current treatment regimen Advised to limit foods high in saturated fat and avoid foods high trans fat Routine exercise encouraged Will recheck lipid levels in 3 months. Advised to fast for 10-12 hours, may drink water only, before getting blood work Follow-up in 3 months Verbalized understanding and agreed with treatment plan. (3) Hypothyroidism: Code(s): E03.9 - Hypothyroidism, unspecified Plan: Recent TSH level was normal Continue to take levothyroxine as prescribed Will recheck TSH levels in 6 months Verbalized understanding and agreed with treatment plan. (4) Cough: Code(s): R05.9 - Cough, unspecified Plan: Reports intermittent cough with clear phlegm for the past 3-4 months. No associated symptoms. He was referred to pulmonology by Cardiology. He has an appointment with pulmonology in 2 weeks. He denies cigarette smoking or vaping Lung sound clear bilaterally Chest x-ray ordered Follow-up with pulmonology as planned Return with worsening or new symptoms Verbalized understanding and agreed with treatment plan. Orders: Orders XR chest 2V Today R05.9 - Cough, unspecified Lipid Panel 3 Months E78.5 - Hyperlipidemia, unspecified Medications: Changed From levothyroxine 100 mcg PO DAILY To levothyroxine 100 mcg PO DAILY 90 tabs 1RF 90 days Coding Level of Care Code Est Pt Level 4 (48506) Diagnoses Primary hypertension I10 Hypertension type: primary hypertension Hyperlipidemia E78.5 Hypothyroidism E03.9 Cough R05.9
== END 2023-01-19 12:50 | disposition home or self-care (01) ==
PROVIDERS: PCP Hospitalist; Visit Provider Nurse Practitioner Family
DX: I10 Essential (primary) hypertension (principal); E78.5 Hyperlipidemia, unspecified; E03.9 Hypothyroidism, unspecified; R05.9 Cough, unspecified
CPT/HCPCS: 99214

== ENCOUNTER 2023-02-11 10:03 | Outpatient (REF) | payer OTHER, SELFPAY ==
[2022-08-29 15:38] VITALS: BP 120/52; BP 144/56; BMI 27.3
--- NOTE | ~2023-02-11 | XR_ITS ---
EXAMINATION: XR CHEST CLINICAL INFORMATION: Cough unspecified. COMPARISON: May 05, 2022 TECHNIQUE: 2 views of the chest were obtained. FINDINGS: There is no gross pneumothorax. Redemonstration of postsurgical changes in the left shoulder. Median sternotomy wires with prosthetic valve and postsurgical changes. Persistent asymmetric elevation of the left lung base. Mild streaky opacities at the left lung base likely represent atelectasis/scar, although pneumonia could contribute to this appearance. Heart size is normal. XR/XR chest 2V IMPRESSION: Persistent asymmetric elevation of the left lung base. Persistent mild streaky opacities at the left lung base likely represent atelectasis/scar, although pneumonia could contribute to this appearance.
== END 2023-02-11 10:04 | disposition home or self-care (01) ==
LOC: HO.XRAY 10:03
PROVIDERS: PCP Nurse Practitioner Family; Visit Provider Nurse Practitioner Family
DX: R05.9 Cough, unspecified (principal)
CPT/HCPCS: 71046

== ENCOUNTER 2023-02-17 15:42 | Outpatient (REF) | payer OTHER, SELFPAY ==
[2022-08-29 15:38] VITALS: BP 120/52; BP 144/56; BMI 27.3
--- NOTE | 2023-02-17 16:07 | PFT_ITS ---
Spirometry [] FVC 104%, FEV1 100 AND AT 6%, FEV1/FVC RATIO= 77 FEF 07/19/2074 129% AND MVV 72% POST BRONCHODILATOR THERAPY THERE IS NO SIGNIFICANT CHANGE. Lung Volumes [] TOTAL LUNG CAPACITY 84% RESIDUAL VOLUME 64% Diffusion Capacity [] DLCO 78% Methacholine Challenge [] Flow Volume Loops [] MVV [] MIP/MEP(Max inspiratory pressure/Max expiratory pressure) [] 6 Minute Walk Test [] ABG [] Interpretation [] NORMAL PULMONARY FUNCTION TEST. NO EVIDENCE OF OBSTRUCTIVE OR RESTRICTIVE PULMONARY DISORDER. CLINICAL CORRELATION IS RECOMMENDED. MTDD
== END 2023-02-17 15:43 | disposition home or self-care (01) ==
LOC: HO.RESP 15:42
PROVIDERS: PCP Nurse Practitioner Family; Visit Provider Internal Medicine Cardiovascular Disease
DX: R06.09 Other forms of dyspnea (principal)
CPT/HCPCS: 94010; 94727; 94729

== ENCOUNTER → 2023-02-17 16:07 | Outpatient (BNV) | payer OTHER, SELFPAY ==
[2022-08-29 15:38] VITALS: BP 120/52; BP 144/56; BMI 27.3
== END ==
PROVIDERS: PCP Nurse Practitioner Family; Visit Provider Internal Medicine
DX: R06.09 Other forms of dyspnea (principal)
CPT/HCPCS: 94060; 94727; 94729

== ENCOUNTER 2023-02-27 08:28 | Outpatient (REF) | payer OTHER, SELFPAY ==
[2022-08-29 15:38] VITALS: BP 120/52; BP 144/56; BMI 27.3
[2023-02-27 10:51] LABS: Cholesterol 137 mg/dL (<200); HDL Cholesterol 62 mg/dL (>40); LDL Cholesterol Calculated 67 mg/dL (<100); Triglycerides 41 mg/dL (<150)
== END 2023-02-27 08:29 | disposition home or self-care (01) ==
LOC: HO.LAB 08:28
PROVIDERS: PCP Nurse Practitioner Family; Visit Provider Nurse Practitioner Family
DX: E78.5 Hyperlipidemia, unspecified (principal)
CPT/HCPCS: 36415; 80061

== ENCOUNTER 2023-03-04 08:08 | Outpatient (AMB) | payer OTHER, SELFPAY ==
[2022-08-29 15:38] VITALS: BP 120/52; BP 144/56; BMI 27.3
[2023-03-04 08:37] VITALS: BP 128/64; PULSE 60; RESP 13; TEMP 36.6; O2SAT 99; BMI 27.7
--- NOTE | 2023-03-04 08:37 | A.OFFPC_ITS ---
Vital Signs 03/04/23 08:37 Height 5 ft 9 in Weight 187 lb 8 oz BMI 27.7 BP 128/64 Blood Pressure Location Rt brachial Position Sitting Respiration 13 Pulse 60 Pulse Source Pulse Oximeter Temp 97.9 F Temp Source Temporal Artery Scan Pulse Oximetry (%) 99 Oxygen Delivery Method Room Air Intake Visit Reasons: cpe Intake Note: Patient states that hes had sinus drainage for almost 2 years now. Patient states that when hes weating food and tries to swallow he chokes. Patient also states that hes been also experiencing loose stool as well. Patient would like to know if his chest x-rays results are accurate and if anything further needs to be done. 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 Accompanied by: Self / Same As Patient Allergies bee venom protein (honey bee) Allergy (Severe, Verified 03/04/23 08:47) Anaphylaxis povidone-iodine Allergy (Unknown, Verified 03/04/23 08:47) Unknown seafood Allergy (Verified 03/04/23 08:47) Unknown Medication List - Last Reconciled 03/04/23 by Mikey Feliciano CNP aspirin 81 mg PO DAILY atorvastatin 80 mg PO BEDTIME cholecalciferol (vitamin D3) (Vitamin D3) 100 mcg PO DAILY clonazepam 1 mg PO BEDTIME epinephrine 0.3 mg IM ONCE PRN ibuprofen 400 mg PO Q8H PRN lactobacillus comb no.10 (Probiotic) 20,000 mmu cells PO DAILY lamotrigine ER 250 mg PO DAILY levothyroxine 100 mcg PO DAILY 90 days methylphenidate HCl 40 mg PO DAILY metoprolol succinate ER 50 mg PO DAILY quetiapine (Seroquel) 50 mg PO BEDTIME ramipril 5 mg PO DAILY vitamin B comp and C no.3 (B Complex Plus Vitamin C) 1 cap PO DAILY Tobacco use date assessed: 03/04/23 Fall risk assessment: No Falls in past year Last assessed Fall Risk: 03/04/23 Dental Screening Dental Screen Date: 03/04/23 Did you have a dental visit in the last 12 months?: Yes Did you have a dental problem in the last 6 months where you did not have access to dental care?: No Was dental information given to patient?: Patient has dentist HPI HPI Comments History of Present Illness Details 72-year-old male presents for hypertensi on, hyperlipidemia, and hypothyroidism follow-up He admits to taking his medications as prescribed without adverse reactions He was recently prescribed Azithromycin for possible pneumonia. He notes he never took the medication He notes that he continues to cough, especially while swallowing food; he reports choking sensation He is followed by Cardiology. She has an appointment to establish care with pulmonology to more [facility] Medical History Prostate cancer Pulmonary hypertension TIA (transient ischemic attack) Aortic stenosis Hypertension Anxiety Bipolar disorder Surgical History Status post double vessel coronary artery bypass Aortic valve replaced Hx of tonsillectomy Hx of appendectomy Hx of vasectomy Hx of endoscopy Hx of colonoscopy Hx of cardiac catheterization Hx of radical prostatectomy History of left shoulder replacement History of total right knee replacement Hx of repair of right rotator cuff Family History Sister Heart attack Coronary artery disease Arthritis Lupus Sleep apnea Mother Lupus Heart attack Father Heart attack Coronary artery disease Social History Household Members: Family Housing: Apartment Alcohol intake: current Alcohol intake frequency: a few times a week Alcohol type: hard liquor Patient Tobacco Use Status: Never used Tobacco e-Cigarette/Vaping Use: Never Used Advance Directives Date on File: 11/17/21 service: No Current occupational status: retired Cognitive needs: No Hearing needs: Yes Vision needs: No Questionnaire PHQ-9 Over the last 2 weeks, how often have you been bothered by any of the following problems? 1. Little interest or pleasure in doing things: several days 2. Feeling down, depressed, or hopeless: more than half the days 3. Trouble falling or staying asleep, or sleeping too much: several days 4. Feeling tired or having little energy: more than half the days 5. Poor appetite or overeating: several days 6. Feeling bad about yourself - or that you are a failure or have let yourself or your family down: several days 7. Trouble concentrating on things, such as reading the newspaper or watching television: several days 8. Moving or speaking so slowly that other people could have noticed. Or the opposite - being so fidgety or restless that you have been moving around a lot more than usual: several days 9. Thoughts that you would be better off or of hurting yourself in some way: several days Total score: 11 Depression Screening Interpretation: Positive Depression Screening Done: Yes 80342 - PHQ-9 Billing: Yes Source: Developed by Drs. Josh Everett, Cindy Loco, Marcial Castillo and colleagues, with an educational alli from [employer]. Thrive Questionnaire Date Thrive assessed: 03/04/23 I am a: Patient What is your living situation today?: I have a steady place to live Within the past 12 months, did the food you bought not last and you didn't have the money to get more?: Never true Within the past 12 months, did you worry whether your food would run out before you got money to buy more?: Never true Do you have trouble paying for medicines?: No Do you have trouble getting transportation to medical appointments?: No Do you have trouble paying your heating and electricity bill?: No Do you have trouble taking care of your child, family member or friend?: No Do you have trouble with day-to-day activities such as bathing, preparing meals, shopping, managing finances, etc.?: No Are you currently unemployed and looking for a job?: No Are you interested in more education?: Yes Please select the resources that you would like help with: None Currently or been in a relationship where the following occur: no concerns reported AUDIT C Alcohol Use Questionnaire (AUDIT-C) 1. How often do you have a drink containing alcohol?: 2-3 times a week 2. How many drinks containing alcohol do you have on a typical day when you are drinking?: 1 or 2 3. How often do you have six or more drinks on one occasion?: Never Total Score: 3 LYNDON-7 AMB Questionnaire LYNDON-7 Date LYNDON - 7 assessed: 03/04/23 Feeling nervous, anxious, or on edge: 2 = More than half the days Not being able to stop or control worryin = Several days Worrying too much about different things: 1 = Several days Trouble relaxin = Several days Being so restless that it is hard to sit still: 1 = Several days Becoming easily annoyed or irritable: 1 = Several days Feeling afraid as if something awful might happen: 1 = Several days Total LYNDON-7 score (0-4 normal; 5-9 mild; 10-14 moderate; 15-21 severe): 8 Source: Developed by Drs. Josh Everett, Cindy Loco, Marcial Castillo and colleagues, with an educational alli from [employer]. LYNDON-7 Assessment Billing LYNDON-7 Assessment Tool: LYNDON-7 Assessment 92331 Review of Systems Const Details: Const Denies chills, Denies fatigue, Denies fever(s), Denies headache(s) and Denies weakness ENT Denies dizziness and Denies headache(s) Card Denies chest pain, Denies lightheadedness, Denies dyspnea and Denies other (Palpitations) Resp Denies cough, Denies dyspnea, Denies wheezing and Denies other ( shortness of breath) GI Denies abdominal pain, Denies melena, Denies hematochezia, Denies change in shannan l habits, Denies dyspepsia and Denies nausea Denies hematuria and Denies dysuria Musc Denies abnormal gait, Denies myalgias, Denies arthralgias, Denies numbness and Denies tingling Skin/Breast Denies rash, Denies unusual bruising and Denies wounds Neuro Denies abnormal gait, Denies dizziness, Denies headache(s), Denies memory loss, Denies numbness, Denies Sensory deficit (Neuro), Denies tingling and Denies weakness Psych Denies anxiety, Denies depression, Denies memory loss Endo Denies cold intolerance, Denies fatigue, Denies heat intolerance, Denies polydipsia and Denies polyuria Aller/Immun Denies wheezing Physical exam (Primary Care) Vital Signs: Last Vital Signs Temp 97.9 F 03/04/23 08:37 Pulse 60 03/04/23 08:37 Resp 13 03/04/23 08:37 BP 128/64 03/04/23 08:37 Pulse Ox 99 03/04/23 08:37 Oxygen Delivery Method Room Air 03/04/23 08:37 BMI result Body Mass Index 27.7 Tobacco/Smoking Status: Tobacco use Status Tobacco use date assessed 01/19/23 01/19/23 12:29 Patient Tobacco Use Status Never used Tobacco 01/19/23 12:27 e-Cigarette/Vaping Use Never Used 01/19/23 12:27 Depression Screening Interpretation: Positive Thrive Assessment: Date of Thrive Assessment Date Thrive assessed 06/18/22 01/19/23 12:27 Currently or been in a relationship where the following occur: no concerns reported Const Other: General: no acute distress and well developed Nutritional Appearance: well nourished Orientation/consciousness: patient oriented x3 [facility] Head: Yes normocephalic and Yes atraumatic Eyes General: appearance normal, both eyes and all related structures Pupils: Equal, round and reactive pupils present EOM: EOMs intact bilaterally Resp Effort & Inspection: normal respiratory effort Auscultation: clear to auscultation bilaterally Cardio Rate: regular rate Rhythm: regular rhythm Heart sounds: S1 normal heart sound present, S2 normal heart sound present, no gallops, no murmurs and no rubs GI Palpation (GI): No Abdominal aortic bruit present, Soft to palpation, nontender, No hepatosplenomegaly present and No Rebound tenderness present Auscultation: normal bowel sounds General: Yes no CVA tenderness Back/Spine/Pelvis Back: no CVA tenderness Cervical Spine: cervical ROM normal and No Cervical spine tenderness Thoracic/Lumbar Spine: thoraco-lumbar ROM normal, No pain with thoraco-lumbar ROM, No thoracic spinal tenderness and No lumbar spinal tenderness Extrem General: Yes normal to inspection, No edema and No calf tenderness Skin General: warm and dry. Normal skin color. Normal skin turgor Lesions: no lesions Rashes: no rashes Trauma: no lacerations or abrasions Wounds: no wounds Nails: normal Neuro General: patient oriented x3, gait normal and no focal neuro deficit Cranial nerves: Yes Equal, round and reactive pupils present Cognition (Neuro): normal cognition Gait exam (Neuro): Normal gait present Sensory Exam: No Sensory deficit (Neuro) Psych Appearance: grossly normal Affect: normal affect Attitude: cooperative Thought process: Normal thought process present Assessment and Plan Assessment & Plan (1) Hypertension: Code(s): I10 - Essential (primary) hypertension Qualifiers: Hypertension type: primary hypertension Qualified Code(s): I10 - Essential (primary) hypertension Plan: Resting blood pressure is 128/64, within goal of less than 130/80 Continue current treatment regimen Low-sodium diet encouraged Follow-up in 3 months or return sooner with symptoms or concerns Verbalized understanding and agreed with treatment plan (2) Hyperlipidemia: Code(s): E78.5 - Hyperlipidemia, unspecified Plan: Recent labs reviewed with the patient. Triglycerides, total cholesterol, LDL, and HDL levels are normal, 41, 137, 67, and 62 respectively LDL is within goal of less than 70 Continue current treatment regimen Advised to limits foods high in saturated fat and avoid foods high trans Routine exercise encouraged Will recheck lipid panel in 3 months. Advised to get fasting blood work done before his next visit Follow-up in 3 months Verbalized understanding and agreed with treatment plan (3) Hypothyroidism: Code(s): E03.9 - Hypothyroidism, unspecified Plan: Recent TSH is normal Continue current treatment regimen Will recheck TSH/T4 in 3 months. Advised to get blood work done before his next visit Follow-up in 3 months Verbalized understanding and agreed with treatment plan (4) Cough: Code(s): R05.9 - Cough, unspecified Plan: Positive cough, especially while swallowing food; choking sensation He has an appointment with pulmonology tomorrow. Advised to follow-up as planned He has not taking azithromycin was prescribed for he has not taking azithromycin that was prescribed for possible pneumonia; he notes that he plans on taking the medication Advised to follow-up with pulmonology as planned Return with worsening or new symptoms Verbalized understanding and agreed with treatment plan Orders: Orders TSH reflex Free T4 3 Months E03.9 - Hypothyroidism, unspecified Lipid Panel 3 Months E78.5 - Hyperlipidemia, unspecified Coding Level of Care Code Est Pt Level 3 (42154) Diagnoses Primary hypertension I10 Hypertension type: primary hypertension Hyperlipidemia E78.5 Hypothyroidism E03.9 Cough R05.9 Additional Codes LYNDON-7 Assessment Billing - LYNDON-7 Assessment Tool: LYNDON-7 Assessment [id number] ([id number])
== END 2023-03-04 09:04 | disposition home or self-care (01) ==
PROVIDERS: PCP Nurse Practitioner Family; Visit Provider Nurse Practitioner Family
DX: I10 Essential (primary) hypertension (principal); E78.5 Hyperlipidemia, unspecified; E03.9 Hypothyroidism, unspecified; R05.9 Cough, unspecified
CPT/HCPCS: 99213

== ENCOUNTER 2023-03-05 13:19 | Outpatient (AMB) | payer OTHER, SELFPAY ==
[2022-08-29 15:38] VITALS: BP 120/52; BP 144/56; BMI 27.3
[2023-03-05 13:39] VITALS: BP 138/60; PULSE 67; O2SAT 96; BMI 27.8
--- NOTE | 2023-03-05 13:39 | MHC.OFFVIS ---
Intake Vital Signs 03/05/23 13:39 Height 5 ft 9 in Weight 188 lb 7.924 oz BMI 27.8 BP 138/60 Blood Pressure Location Rt brachial Position Sitting Pulse 67 Pulse Source Pulse Oximeter Pulse Oximetry (%) 96 Oxygen Delivery Method Room Air Intake Visit Reasons: Other forms of dyspnea Lead Loader Required: No Allergies bee venom protein (honey bee) Allergy (Severe, Verified 03/05/23 13:42) Anaphylaxis povidone-iodine Allergy (Unknown, Verified 03/05/23 13:42) Unknown seafood Allergy (Verified 03/05/23 13:42) Unknown HPI HPI Comments History of Present Illness Details The patient is here for pulmonary evaluation. The patient is a 72-year-old gentleman with a chronic cough. Apparently was in his usual state health until many years ago when he started developing does cough. Although seems to be getting worse the last year or so. The patient had been evaluating the past and was noted to have a elevated left hemidiaphragm. Therefore he underwent a sniff study demonstrated normal movement of the diaphragms. This ruled out a paralyzed diaphragm. Subsequently after that the patient underwent open heart surgery for his aortic valve and also coronary artery bypass. This happened back in the fall of 2021. postoperatively the patient did have a left-sided pleural effusion and significant atelectasis to the left lung. His surgery went well. Now he is recovering at cardiac rehab. The patient states that his cough is more significant. The coughing spells are significant where he can not stop and ultimately ends up either having dry heaves or vomiting. The patient denies any syncopal episodes. Sometimes he is able to expectorate some phlegm. He did undergo a recent chest x-ray which I personally reviewed demonstrating much improved aeration of both lungs. The pleural effusion has subsided and the atelectasis as well. In addition to that the patient did undergo pulmonary function studies which were personally by me. It appears that the during the post bronchodilator numbers the patient became obstructed and then limited airflow movement also appreciated primarily in the inspiratory flow. The suggest that due to the maneuvers it may have exacerbated an obstructive process now with an obstruction suggesting a mild obstruction in addition to some degree of vocal cord dysfunction or laryngeal spasm. On examination he does have some wheezing as well. the patient also complains of a nasal congestion and postnasal drip. This is also contributing to his very sensitive larynx. Will go ahead and treat him for the wheezing with respiratory inhalers. The patient also will have nasal therapy. Will undergo blood work in addition to allergy testing. I do believe that we settled on the cough so will try Tessalon Perles during daytime. If the patient continues to cough will consider speech therapy and also an ENT consultation. [facility] Medical History (Updated 03/05/23 @ 20:23 by Skip Drake MD) Obstructive airway disease Chronic allergic rhinitis Allergy Prostate cancer Pulmonary hypertension TIA (transient ischemic attack) Aortic stenosis Hypertension Anxiety Bipolar disorder Surgical History Status post double vessel coronary artery bypass Aortic valve replaced Hx of tonsillectomy Hx of appendectomy Hx of vasectomy Hx of endoscopy Hx of colonoscopy Hx of cardiac catheterization Hx of radical prostatectomy History of left shoulder replacement History of total right knee replacement Hx of repair of right rotator cuff Family History Sister Heart attack Coronary artery disease Arthritis Lupus Sleep apnea Mother Lupus Heart attack Father Heart attack Coronary artery disease Social History Household Members: Family Housing: Apartment Alcohol intake: current Alcohol intake frequency: a few times a week Alcohol type: hard liquor Patient Tobacco Use Status: Never used Tobacco e-Cigarette/Vaping Use: Never Used Advance Directives Date on File: 11/17/21 service: No Current occupational status: retired Cognitive needs: No Hearing needs: Yes Vision needs: No Review of Systems Const Denies fever(s) ENT Reports dysphagia, Reports nasal congestion, Reports nasal discharge, Reports post nasal drip and Denies throat swelling Card Denies chest pain Resp Reports chest congestion, Reports cough and Denies hemoptysis GI Reports dysphagia Musc Reports no additional complaints Skin/Breast Denies rash Neuro Reports no additional complaints Ross/Lymph Denies easy bleeding, Denies easy bruising and Denies lymphadenopathy Aller/Immun Denies throat swelling Physical Exam Vital Signs: Last Vital Signs Pulse 67 03/05/23 13:39 BP 138/60 03/05/23 13:39 Pulse Ox 96 03/05/23 13:39 Oxygen Delivery Method Room Air 03/05/23 13:39 BMI result Body Mass Index 27.8 Const General: comfortable HEENT Head: Yes normocephalic Neck Neck: Yes supple Chest Chest palpation & inspection: normal inspection of the chest Resp Effort & Inspection: normal respiratory effort and prolonged expiratory phase Auscultation: wheezes and diminished lung sounds Cardio Heart sounds: S1 normal heart sound present and S2 normal heart sound present GI Palpation (GI): Soft to palpation Skin General skin exam: no rashes or lesions noted Extrem General: Yes no clubbing, cyanosis or edema Assessment & Plan Assessment & Plan (1) Cough: Comment: Obstructive physiology/wheezing, laryngospasms, post nasal drip, MEDHAT related cough Code(s): R05.9 - Cough, unspecified Qualifiers: Cough type: chronic Qualified Code(s): R05.3 - Chronic cough (2) Chronic allergic rhinitis: Code(s): J30.9 - Allergic rhinitis, unspecified (3) Allergy: Code(s): T78.40XA - Allergy, unspecified, initial encounter Qualifiers: Encounter type: initial encounter Qualified Code(s): T78.40XA - Allergy, unspecified, initial encounter (4) Obstructive airway disease: Code(s): J44.9 - Chronic obstructive pulmonary disease, unspecified (5) HORNE (dyspnea on exertion): Code(s): R06.09 - Other forms of dyspnea Plan start Symbicort daily start Tessalon pearls start fluticasone nasal spray change MEDHAT to ARB Bloodwork/Allergy testing consider speech therapy and ENT eval F/U 2-3 months Orders: Orders Immunoglobulin E Today J30.9 - Allergic rhinitis, unspecified, R05.9 - Cough, unspecified, T78.40XA - Allergy, unspecified, initial encounter Rast Allergen Today J30.9 - Allergic rhinitis, unspecified, T78.40XA - Allergy, unspecified, initial encounter Complete Blood Count Auto Diff Today J30.9 - Allergic rhinitis, unspecified, R05.9 - Cough, unspecified, T78.40XA - Allergy, unspecified, initial encounter Erythrocyte Sedimentation Rate Today J30.9 - Allergic rhinitis, unspecified, R05.9 - Cough, unspecified, T78.40XA - Allergy, unspecified, initial encounter Medications: New budesonide-formoterol 160-4.5 mcg/actuation (Symbicort) 2 puffs inhalation BID 30 days 10.2 grams 11RF J44.89 - Other specified chronic obstructive pulmonary disease fluticasone propionate 50 mcg/actuation 2 sprays intranasal DAILY 30 days 15.8 mL 11RF J31.0 - Chronic rhinitis Coding Level of Care Code New Pt Level 4 (08036) Diagnoses Chronic cough R05.3 Cough type: chronic Chronic allergic rhinitis J30.9 Allergy, initial encounter T78.40XA Encounter type: initial encounter Obstructive airway disease J44.9 HORNE (dyspnea on exertion) R06.09 Time Spent (min) 40
== END 2023-03-05 14:17 | disposition home or self-care (01) ==
PROVIDERS: PCP Nurse Practitioner Family; Visit Provider Hospitalist
DX: R05.3 Chronic cough (principal); J30.9 Allergic rhinitis, unspecified; T78.40XA Allergy, unspecified, initial encounter; J44.9 Chronic obstructive pulmonary disease, unspecified; R06.09 Other forms of dyspnea
CPT/HCPCS: 99204

== ENCOUNTER → 2023-03-05 13:19 | Outpatient (BNVA) | payer OTHER, SELFPAY ==
[2022-08-29 15:38] VITALS: BP 120/52; BP 144/56; BMI 27.3
== END ==
PROVIDERS: PCP Nurse Practitioner Family; Visit Provider Hospitalist

== ENCOUNTER 2023-04-22 09:48 | Outpatient (REF) | payer OTHER, SELFPAY ==
[2022-08-29 15:38] VITALS: BP 120/52; BP 144/56; BMI 27.3
[2023-04-22 10:19] LABS: MANUAL DIFF FLAG NO
[2023-04-22 10:43] LABS: Basophils Absolute Auto 0.1 X10*3/uL (0.0-0.2); Basophils Percent Auto 0.8 % (0-2); Eosinophils Absolute Auto 0.3 X10*3/uL (0.0-0.4); Eosinophils Percent Auto 2.8 % (0-4); Hematocrit 49.8 % (42.0-52.0); Hemoglobin 16.7 g/dl (14.0-18.0); Imm Gran Abs Auto 0.06 X10*3/uL (0.00-0.03); Imm Gran Pct Auto 0.6 % (0.0-0.4); Lymphocytes Absolute Auto 1.2 X10*3/uL (1.2-4.9); Lymphocytes Percent Auto 12.3 % (20-40); Mean Corpuscular HGB Conc 33.5 g/dl (31.0-36.0); Mean Corpuscular Hemoglobin 28.7 pg (27.0-33.0); Mean Corpuscular Volume 85.6 fL (80.0-98.0); Mean Platelet Volume 9.8 fL (9.4-12.4); Monocytes Absolute Auto 0.7 X10*3/uL (0.1-1.2); Monocytes Percent Auto 7.7 % (2-11); Neutrophils Absolute Auto 7.3 x10*3/uL (2.0-8.3); Neutrophils Percent Auto 75.8 % (45-73); Platelet Count 272 X10*3/uL (160-400); Red Blood Count 5.82 X10*6/uL (4.60-5.80); Red Cell Distribution Width 13.2 % (11.0-16.0); White Blood Count 9.6 X10*3/uL (4.8-10.8)
[2023-04-22 11:35] LABS: Erythrocyte Sedimentation Rate 1 MM/HR (0-15)
[2023-04-23 21:57] LABS: Class Alternaria alternata 0; Class Aspergillus fumigatus 0; Class Bermuda Grass 0; Class Birch 0; Class Cat Dander 0; Class Cladosporium herbarum 0; Class Cockroach 0; Class Common Ragweed 0; Class Cottonwood 0; Class Derm. pterony 0; Class Dermatophagoides farinae 0; Class Dog Dander 0; Class Elm 0; Class Maple Box Elder 0; Class Mountain Cedar 0; Class Mouse Urine Protein 0; Class Mugwort 0; Class Oak 0; Class Penicillium crysogenum 0; Class Rough Pigweed 0; Class Sheep Sorrel 0; Class Sycamore 0; Class Timothy Grass 0; Class Walnut Tree 0; Class White Ash 0; Class White Mulberry 0; D001 IgE D pteronyssinus <0.10 kU/L; D002 - IgE D farinae <0.10 kU/L; E001 - IgE Cat Dander <0.10 kU/L; E005 - IgE Dog Dander <0.10 kU/L; E072-IgE Mouse Urine <0.10 kU/L; G002 IgE Bermuda Grass <0.10 kU/L; G006 - IgE Timothy Grass <0.10 kU/L; I006-IgE Cockroach, German <0.10 kU/L; Immunoglobulin E 6 kU/L (<OR=114); M001 IgE Penicillium chrysogen <0.10 kU/L; M002 - IgE Cladosporium herbar <0.10 kU/L; M003 - IgE Aspergillus fumigat <0.10 kU/L; M006 - IgE Alternaria alternat <0.10 kU/L; T001 IgE Maple/Box Elder <0.10 kU/L; T003 IgE Common Silver Birch <0.10 kU/L; T006 - IgE Cedar, Mountain <0.10 kU/L; T007 - IgE Oak, White <0.10 kU/L; T008 IgE Elm, American <0.10 kU/L; T010 - IgE Walnut <0.10 kU/L; T011 - IgE Maple Leaf Sycamore <0.10 kU/L; T014 - IgE Cottonwood <0.10 kU/L; T015 - IgE Ash, White <0.10 kU/L; T070 - IgE White Mulberry <0.10 kU/L; W001 - IgE Ragweed, Short <0.10 kU/L; W006 - IgE Mugwort <0.10 kU/L; W014 IgE Pigweed, Common <0.10 kU/L; W018 IgE Sheep Sorrel <0.10 kU/L
== END 2023-04-22 09:49 | disposition home or self-care (01) ==
LOC: HO.LAB 09:48
PROVIDERS: Visit Provider Hospitalist
DX: J30.9 Allergic rhinitis, unspecified (principal); T78.40XA Allergy, unspecified, initial encounter; R05.3 Chronic cough
CPT/HCPCS: 36415; 82785; 85025; 85652; 86003

== ENCOUNTER 2023-04-27 09:53 | Outpatient (AMB) | payer OTHER, SELFPAY ==
[2022-08-29 15:38] VITALS: BP 120/52; BP 144/56; BMI 27.3
[2023-04-27 10:38] VITALS: BP 120/52; PULSE 66; BMI 27.7
--- NOTE | 2023-04-27 10:38 | MHC.OFFVIS ---
Intake Vital Signs 04/27/23 10:38 Height 5 ft 9 in Weight 187 lb 13.341 oz BMI 27.7 BP 120/52 L Blood Pressure Location Lt brachial Position Sitting Pulse 66 Intake Visit Reasons: 3 mth fu Intake Note: pt its here for a 3 mnth f/up, pt states hat he its doing fine. have some tightness but its come and goes. Program Technician Required: No Accompanied by: Self / Same As Patient Allergies bee venom protein (honey bee) Allergy (Severe, Verified 03/05/23 13:42) Anaphylaxis povidone-iodine Allergy (Unknown, Verified 03/05/23 13:42) Unknown seafood Allergy (Verified 03/05/23 13:42) Unknown lisinopril Adverse Reaction (Intermediate, Verified 04/27/23 12:40) Cough Medication List - Last Reconciled 04/27/23 by Aime Winn MD aspirin 81 mg PO DAILY atorvastatin 80 mg PO BEDTIME benzonatate 200 mg PO BID PRN 30 days budesonide-formoterol 160-4.5 mcg/actuation (Symbicort) 2 puffs inhalation BID 30 days cholecalciferol (vitamin D3) (Vitamin D3) 100 mcg PO DAILY clonazepam 1 mg PO BEDTIME epinephrine 0.3 mg IM ONCE PRN fluticasone propionate 50 mcg/actuation 2 sprays intranasal DAILY 30 days ibuprofen 400 mg PO Q8H PRN lactobacillus comb no.10 (Probiotic) 20,000 mmu cells PO DAILY lamotrigine ER 250 mg PO DAILY levothyroxine 100 mcg PO DAILY 90 days losartan 25 mg PO DAILY methylphenidate HCl 40 mg PO DAILY metoprolol succinate ER 50 mg PO DAILY quetiapine (Seroquel) 50 mg PO BEDTIME vitamin B comp and C no.3 (B Complex Plus Vitamin C) 1 cap PO DAILY HPI HPI Comments History of Present Illness Details 72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 He has background history of right bundle-branch block and aortic stenosis. He had echocardiography which showed evidence of severe aortic stenosis. He was complaining of dyspnea and chest discomfort. He underwent cardiac catheterization which showed 2 vessel disease. He was admitted after the cardiac catheterization for chest pain and a decision was made to do surgery sooner. He underwent CABG and AVR. He has made good recovery since then. 09/03/22: He is here for follow-up. He has been doing well. He had 1 episode of right-sided sharp chest pain lasting for 3 minutes while at cardiac rehabilitation. He said he has not had further episodes of chest discomfort despite doing physical activity. He is going to be to some dental workup and is asking whether he can get amoxicillin script. He has lower back pain which is limiting him from exercising specially in the morning when he has a lot of stiffness. Previously had some early satiety but it improved after stopping his amiodarone. He is taking medications regularly. He has no exertional symptoms at this point. 01/12/23: He returns for follow-up. He has been doing well. He is physically active. Occasionally gets dyspnea and chest tightness. This usually happens when he is out in cold weather. He is not a smoker. He does not have any history of asthma. He is asking whether he should see pulmonology. He is exercising at cardiac rehabilitation and doing well. He does not have any consistent exertional symptoms. 04/27/2023: He returns for follow-up. He is complaining of fatigue and lethargy ongoing for 2 months. He is saying that he has to take a nap during the day and feels tired quite frequently. He has been using methylphenidate for long time and the dose has not changed. He saw his psychiatrist and his clonazepam and Seroquel dose was decreased. I reviewed his blood workup and his hemoglobin is 16.7 with RBCs of 5.82. Hematocrit is 49.8. Hemoglobin has increased over the last year from 14.3-68.7. [facility] Medical History (Updated 04/27/23 @ 12:34 by Aime Winn MD) Obstructive airway disease Chronic allergic rhinitis Allergy Prostate cancer Pulmonary hypertension TIA (transient ischemic attack) Aortic stenosis Hypertension Anxiety Bipolar disorder Surgical History Status post double vessel coronary artery bypass Aortic valve replaced Hx of tonsillectomy Hx of appendectomy Hx of vasectomy Hx of endoscopy Hx of colonoscopy Hx of cardiac catheterization Hx of radical prostatectomy History of left shoulder replacement History of total right knee replacement Hx of repair of right rotator cuff Family History Sister Heart attack Coronary artery disease Arthritis Lupus Sleep apnea Mother Lupus Heart attack Father Heart attack Coronary artery disease Social History Household Members: Family Housing: Apartment Alcohol intake: current Alcohol intake frequency: a few times a week Alcohol type: hard liquor Patient Tobacco Use Status: Never used Tobacco e-Cigarette/Vaping Use: Never Used Advance Directives Date on File: 11/17/21 service: No Current occupational status: retired Cognitive needs: No Hearing needs: Yes Vision needs: No Review of Systems Const Denies chills, Denies fatigue, Denies fever(s), Denies frequent falls, Denies weakness, Denies weight gain and Denies weight loss ENT Denies dizziness Card Denies chest pain, Denies leg edema, Denies lightheadedness, Denies palpitations, Denies dyspnea and Denies dyspnea on exertion Resp Denies cough, Denies dyspnea and Denies dyspnea on exertion GI Denies hematochezia Musc Denies abnormal gait, Denies muscle weakness, Denies numbness, Denies radiating pain into limb and Denies tingling Neuro Denies abnormal gait, Denies dizziness, Denies frequent falls, Denies numbness, Denies tingling and Denies weakness Endo Denies fatigue and Denies palpitations Physical Exam Vital Signs: Last Vital Signs Pulse 66 04/27/23 10:38 BP 120/52 L 04/27/23 10:38 BMI result Body Mass Index 27.7 GENERAL APPEARANCE: in no acute distress, pleasant. NECK: no carotid bruit, no jugular venous distention. SKIN: no suspicious lesions, warm and dry. HEART: Regular rate and rhythm. Grade 1/6 systolic murmur aortic area. LUNGS: clear to auscultation bilaterally. ABDOMEN: soft, nontender. EXTREMITIES: no edema. PERIPHERAL PULSES: equal. NEUROLOGIC: No gross deficits, AAO X 3 Office Procedures EKG Details: Sinus rhythm 66 beats per minute, normal axis, right bundle-branch block, QRS interval 140 milliseconds, QTC 450 milliseconds. [id number], Complete Assessment & Plan Assessment & Plan (1) Erythrocytosis: Code(s): D75.1 - Secondary polycythemia (2) Hyperlipidemia: Code(s): E78.5 - Hyperlipidemia, unspecified (3) Hypertension: Code(s): I10 - Essential (primary) hypertension Qualifiers: Hypertension type: primary hypertension Qualified Code(s): I10 - Essential (primary) hypertension (4) S/P CABG (coronary artery bypass graft): Comment: 11/22/2022, adames to mid LAD, SVG to distal RCA Code(s): Z95.1 - Presence of aortocoronary bypass graft (5) S/P AVR: Comment: 11/22/2022 AVR, 23 mm Inspiris bioprosthetic Code(s): Z95.2 - Presence of prosthetic heart valve Plan Pleasant 72 year gentleman is here for follow-up. He is status post CABG AVR. He was doing fine but over the last 2 months he has been experiencing some increasing fatigue and lethargy. He has erythrocytosis on his blood workup which is new. None of his medications explain this. He has a nonsmoker. Given the fact that he is feeling fatigue and lethargy I am referring him to Hematology for further workup. From cardiovascular point of view otherwise he is stable. He is saying he is going to cardiac rehabilitation and exercising without any chest discomfort or significant shortness of breath. Blood pressure is well controlled on losartan. He could not tolerate lisinopril in the past due to significant cough. Thank you for allowing me to participate in the care of your patient. Please feel free to contact me if you have any questions. Orders: Referrals Hematology & Oncology Referral D75.1 - Secondary polycythemia Coding Level of Care Code Est Pt Level 4 (15484) Diagnoses Erythrocytosis D75.1 Hyperlipidemia E78.5 Primary hypertension I10 Hypertension type: primary hypertension S/P CABG (coronary artery bypass graft) Z95.1 S/P AVR Z95.2 CPT Codes EKG - CPT: 48657-[id number], Complete ([id number])
== END 2023-04-27 11:04 | disposition home or self-care (01) ==
PROVIDERS: PCP Hospitalist; Visit Provider Internal Medicine Cardiovascular Disease
DX: D75.1 Secondary polycythemia (principal); E78.5 Hyperlipidemia, unspecified; I10 Essential (primary) hypertension; Z95.1 Presence of aortocoronary bypass graft; Z95.2 Presence of prosthetic heart valve
CPT/HCPCS: 93010; 99214

== ENCOUNTER → 2023-04-27 09:53 | Outpatient (BNVA) | payer OTHER, SELFPAY ==
[2022-08-29 15:38] VITALS: BP 120/52; BP 144/56; BMI 27.3
== END ==
PROVIDERS: PCP Hospitalist; Visit Provider Internal Medicine Cardiovascular Disease
DX: I10 Essential (primary) hypertension (principal); E78.5 Hyperlipidemia, unspecified; D75.1 Secondary polycythemia; Z95.1 Presence of aortocoronary bypass graft; Z95.2 Presence of prosthetic heart valve
CPT/HCPCS: 93005

== ENCOUNTER 2023-05-06 10:25 | Outpatient (AMB) | payer OTHER, SELFPAY ==
[2022-08-29 15:38] VITALS: BP 120/52; BP 144/56; BMI 27.3
[2023-05-06 10:36] VITALS: BP 128/60; PULSE 60; O2SAT 97; BMI 27.2
--- NOTE | 2023-05-06 10:36 | MHC.OFFVIS ---
Intake Vital Signs 05/06/23 10:36 Height 5 ft 9 in Weight 184 lb 6 oz BMI 27.2 BP 128/60 Blood Pressure Location Lt brachial Position Sitting Pulse 60 Pulse Source Pulse Oximeter Pulse Oximetry (%) 97 Oxygen Delivery Method Room Air Intake Visit Reasons: Dyspnea Production Director Required: No Allergies bee venom protein (honey bee) Allergy (Severe, Verified 05/06/23 10:38) Anaphylaxis povidone-iodine Allergy (Unknown, Verified 05/06/23 10:38) Unknown seafood Allergy (Verified 05/06/23 10:38) Unknown lisinopril Adverse Reaction (Intermediate, Verified 05/06/23 10:38) Cough HPI HPI Comments History of Present Illness Details The patient is a 72-year-old gentleman with a chronic cough. Apparently was in his usual state health until many years ago when he started developing does cough. Although seems to be getting worse the last year or so. The patient had been evaluating the past and was noted to have a elevated left hemidiaphragm. Therefore he underwent a sniff study demonstrated normal movement of the diaphragms. This ruled out a paralyzed diaphragm. Subsequently after that the patient underwent open heart surgery for his aortic valve and also coronary artery bypass. This happened back in the fall of 2021. postoperatively the patient did have a left-sided pleural effusion and significant atelectasis to the left lung. His surgery went well. Now he is recovering at cardiac rehab. The patient states that his cough is more significant. The coughing spells are significant where he can not stop and ultimately ends up either having dry heaves or vomiting. The patient denies any syncopal episodes. Sometimes he is able to expectorate some phlegm. He did undergo a recent chest x-ray which I personally reviewed demonstrating much improved aeration of both lungs. The pleural effusion has subsided and the atelectasis as well. In addition to that the patient did undergo pulmonary function studies which were personally by me. It appears that the during the post bronchodilator numbers the patient became obstructed and then limited airflow movement also appreciated primarily in the inspiratory flow. The suggest that due to the maneuvers it may have exacerbated an obstructive process now with an obstruction suggesting a mild obstruction in addition to some degree of vocal cord dysfunction or laryngeal spasm. On examination he does have some wheezing as well. the patient also complains of a nasal congestion and postnasal drip. This is also contributing to his very sensitive larynx. Will go ahead and treat him for the wheezing with respiratory inhalers. The patient also will have nasal therapy. Will undergo blood work in addition to allergy testing. I do believe that we settled on the cough so will try Tessalon Perles during daytime. If the patient continues to cough will consider speech therapy and also an ENT consultation. 05/06/2023 the patient is here for a pulmonary follow-up visit. The patient overall has been doing a lot better. He is responded well to the Symbicort inhaler. He also has a rescue inhaler. Overall doing a lot better. We again reviewed his imaging studies. 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 Some chronic atelectasis after his heart surgery. Clinically he sounds better he is also and rehabilitation. He is exercising well without any respiratory limitations. His exam is also reassuring. Will go ahead and repeat his chest x-ray in the fall. If he has any worsening symptoms prior to that he will call the office. We also reviewed his allergy testing is all negative. Therefore there isn't any need for any allergy therapies at this time. If the patient has any issues prior to his next visit he will call the office for an earlier assessment. [facility] Medical History (Updated 04/27/23 @ 12:34 by Aime Winn MD) Obstructive airway disease Chronic allergic rhinitis Allergy Prostate cancer Pulmonary hypertension TIA (transient ischemic attack) Aortic stenosis Hypertension Anxiety Bipolar disorder Surgical History Status post double vessel coronary artery bypass Aortic valve replaced Hx of tonsillectomy Hx of appendectomy Hx of vasectomy Hx of endoscopy Hx of colonoscopy Hx of cardiac catheterization Hx of radical prostatectomy History of left shoulder replacement History of total right knee replacement Hx of repair of right rotator cuff Family History Sister Heart attack Coronary artery disease Arthritis Lupus Sleep apnea Mother Lupus Heart attack Father Heart attack Coronary artery disease Social History Household Members: Family Housing: Apartment Alcohol intake: current Alcohol intake frequency: a few times a week Alcohol type: hard liquor Patient Tobacco Use Status: Never used Tobacco e-Cigarette/Vaping Use: Never Used Advance Directives Date on File: 11/17/21 service: No Current occupational status: retired Cognitive needs: No Hearing needs: Yes Vision needs: No Review of Systems Const Denies fever(s) ENT Reports dysphagia, Reports nasal congestion, Reports nasal discharge, Reports post nasal drip and Denies throat swelling Card Denies chest pain Resp Denies chest congestion, Reports cough and Denies hemoptysis GI Reports dysphagia Musc Reports no additional complaints Skin/Breast Denies rash Neuro Reports no additional complaints Ross/Lymph Denies easy bleeding, Denies easy bruising and Denies lymphadenopathy Aller/Immun Denies throat swelling Physical Exam Vital Signs: Last Vital Signs Pulse 60 05/06/23 10:36 BP 128/60 05/06/23 10:36 Pulse Ox 97 05/06/23 10:36 Oxygen Delivery Method Room Air 05/06/23 10:36 BMI result Body Mass Index 27.2 Const General: comfortable HEENT Head: Yes normocephalic Neck Neck: Yes supple Chest Chest palpation & inspection: normal inspection of the chest Resp Effort & Inspection: normal respiratory effort and No prolonged expiratory phase Auscultation: no wheezes and diminished lung sounds Cardio Heart sounds: S1 normal heart sound present and S2 normal heart sound present GI Palpation (GI): Soft to palpation Skin General skin exam: no rashes or lesions noted Extrem General: Yes no clubbing, cyanosis or edema Assessment & Plan Assessment & Plan (1) Cough: Comment: Obstructive physiology/wheezing, laryngospasms, post nasal drip, MEDHAT related cough Code(s): R05.9 - Cough, unspecified Qualifiers: Cough type: chronic Qualified Code(s): R05.3 - Chronic cough (2) Chronic allergic rhinitis: Code(s): J30.9 - Allergic rhinitis, unspecified (3) Allergy: Code(s): T78.40XA - Allergy, unspecified, initial encounter Qualifiers: Encounter type: initial encounter Qualified Code(s): T78.40XA - Allergy, unspecified, initial encounter (4) Obstructive airway disease: Code(s): J44.9 - Chronic obstructive pulmonary disease, unspecified (5) HORNE (dyspnea on exertion): Code(s): R06.09 - Other forms of dyspnea Plan continue Symbicort daily continue Tessalon pearls continue fluticasone nasal spray F/U 12 months Coding Level of Care Code Est Pt Level 4 (43683) Diagnoses Chronic cough R05.3 Cough type: chronic Chronic allergic rhinitis J30.9 Allergy, initial encounter T78.40XA Encounter type: initial encounter Obstructive airway disease J44.9 HORNE (dyspnea on exertion) R06.09 Time Spent (min) 17
== END 2023-05-06 11:01 | disposition home or self-care (01) ==
PROVIDERS: PCP Nurse Practitioner Family; Visit Provider Hospitalist
DX: R05.3 Chronic cough (principal); J30.9 Allergic rhinitis, unspecified; T78.40XA Allergy, unspecified, initial encounter; J44.9 Chronic obstructive pulmonary disease, unspecified; R06.09 Other forms of dyspnea
CPT/HCPCS: 99214

== ENCOUNTER → 2023-05-06 10:25 | Outpatient (BNVA) | payer OTHER, SELFPAY ==
[2022-08-29 15:38] VITALS: BP 120/52; BP 144/56; BMI 27.3
== END ==
PROVIDERS: PCP Nurse Practitioner Family; Visit Provider Hospitalist
DX: J44.89 Other specified chronic obstructive pulmonary disease (principal); T78.40XA Allergy, unspecified, initial encounter; J30.9 Allergic rhinitis, unspecified; J31.0 Chronic rhinitis; R05.9 Cough, unspecified

== ENCOUNTER → 2023-05-28 13:04 | Outpatient (BNV) | payer OTHER, SELFPAY ==
[2022-08-29 15:38] VITALS: BP 120/52; BP 144/56; BMI 27.3
== END ==
PROVIDERS: PCP Nurse Practitioner Family; Visit Provider Internal Medicine Medical Oncology
DX: D75.1 Secondary polycythemia (principal)
CPT/HCPCS: 99204; 99213

== ENCOUNTER 2023-06-05 12:04 | Outpatient (AMB) | payer OTHER, SELFPAY ==
[2022-08-29 15:38] VITALS: BP 120/52; BP 144/56; BMI 27.3
--- NOTE | 2023-06-05 12:11 | MHC.PC.OV ---
Intake Visit Reasons: 3 mos HTN, HLD, hypothyroidism Allergies bee venom protein (honey bee) Allergy (Severe, Verified 05/28/23 13:17) Anaphylaxis povidone-iodine Allergy (Unknown, Verified 05/28/23 13:17) Unknown seafood Allergy (Verified 05/28/23 13:17) Unknown lisinopril Adverse Reaction (Intermediate, Verified 05/28/23 13:17) Cough Tobacco use date assessed: 03/04/23 Dental Screening Dental Screen Date: 03/04/23 [facility] Medical History (Updated 05/28/23 @ 13:53 by Coy Mcneal MD) Obstructive airway disease Chronic allergic rhinitis Allergy Prostate cancer Pulmonary hypertension TIA (transient ischemic attack) Aortic stenosis Hypertension Anxiety Bipolar disorder Surgical History Status post double vessel coronary artery bypass Aortic valve replaced Hx of tonsillectomy Hx of appendectomy Hx of vasectomy Hx of endoscopy Hx of colonoscopy Hx of cardiac catheterization Hx of radical prostatectomy History of left shoulder replacement History of total right knee replacement Hx of repair of right rotator cuff Family History Sister Heart attack Coronary artery disease Arthritis Lupus Sleep apnea Mother Lupus Heart attack Father Heart attack Coronary artery disease Social History Household Members: Family Housing: Apartment Alcohol intake: current Alcohol intake frequency: a few times a week Alcohol type: hard liquor Patient Tobacco Use Status: Never used Tobacco e-Cigarette/Vaping Use: Never Used Advance Directives Date on File: 11/17/21 service: No Current occupational status: retired Cognitive needs: No Hearing needs: Yes Vision needs: No Questionnaire Thrive Questionnaire Date Thrive assessed: 03/04/23 LYNDON-7 AMB Questionnaire LYNDON-7 Date LYNDNO - 7 assessed: 03/04/23 Source: Developed by Drs. Josh Everett, Cindy Loco, Marcial Castillo and colleagues, with an educational alli from [employer]. Physical exam (Primary Care) Tobacco/Smoking Status: Tobacco use Status Tobacco use date assessed 03/04/23 03/04/23 08:48 Patient Tobacco Use Status Never used Tobacco 01/03/24 08:44 e-Cigarette/Vaping Use Never Used 03/04/23 08:44 Thrive Assessment: Date of Thrive Assessment Date Thrive assessed 03/04/23 03/04/23 08:48 Coding
--- NOTE | 2023-06-05 12:13 | MHC.PC.OV ---
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: No Accompanied by: Self / Same As Patient Allergies bee venom protein (honey bee) Allergy (Severe, Verified 06/05/23 12:44) Anaphylaxis povidone-iodine Allergy (Unknown, Verified 06/05/23 12:44) Unknown seafood Allergy (Verified 06/05/23 12:44) Unknown lisinopril Adverse Reaction (Intermediate, Verified 06/05/23 12:44) Cough Medication List - Last Reconciled 06/05/23 by Mikey Feliciano CNP amoxicillin 2,000 mg PO DAILY PRN aspirin 81 mg PO DAILY atorvastatin 80 mg PO BEDTIME 90 days benzonatate 200 mg PO BID PRN 30 days budesonide-formoterol 160-4.5 mcg/actuation (Symbicort) 2 puffs inhalation BID 30 days cholecalciferol (vitamin D3) (Vitamin D3) 100 mcg PO DAILY clonazepam 1 mg PO BEDTIME epinephrine 0.3 mg IM ONCE PRN fluticasone propionate 50 mcg/actuation 2 sprays intranasal DAILY 30 days ibuprofen 400 mg PO Q8H PRN lactobacillus comb no.10 (Probiotic) 20,000 mmu cells PO DAILY lamotrigine ER 250 mg PO DAILY levothyroxine 100 mcg PO DAILY 90 days losartan 25 mg PO DAILY methylphenidate HCl 40 mg PO DAILY metoprolol succinate ER 50 mg PO DAILY quetiapine (Seroquel) 50 mg PO BEDTIME vitamin B comp and C no.3 (B Complex Plus Vitamin C) 1 cap PO DAILY Tobacco use date assessed: 03/04/23 Fall risk assessment: No Falls in past year Last assessed Fall Risk: 06/05/23 Dental Screening Dental Screen Date: 06/05/23 Did you have a dental visit in the last 12 months?: Yes Did you have a dental problem in the last 6 months where you did not have access to dental care?: No Was dental information given to patient?: Patient has dentist HPI HPI Comments History of Present Illness Details 72-year-old male presents for hypertension, hyperlipidemia, and hypothyroidism follow-up He notes that he forget to get lipid panel and TSH blood work done He admits to taking his medications as prescribed without adverse reactions He states that he has been checking his blood pressure daily with controlled readings He offers no complaints and denies acute symptoms at this time [facility] Medical History Obstructive airway disease Chronic allergic rhinitis Allergy Prostate cancer Pulmonary hypertension TIA (transient ischemic attack) Aortic stenosis Hypertension Anxiety Bipolar disorder Surgical History Status post double vessel coronary artery bypass Aortic valve replaced Hx of tonsillectomy Hx of appendectomy Hx of vasectomy Hx of endoscopy Hx of colonoscopy Hx of cardiac catheterization Hx of radical prostatectomy History of left shoulder replacement History of total right knee replacement Hx of repair of right rotator cuff Family History (Updated 06/05/23 @ 12:28 by BROWN Myers) Sister Heart attack Coronary artery disease Arthritis Lupus Sleep apnea Mother Lupus Heart attack Father Heart attack Coronary artery disease Other Mental health disorder Social History Household Members: Family Housing: Apartment Alcohol intake: current Alcohol intake frequency: a few times a week Alcohol type: hard liquor Patient Tobacco Use Status: Never used Tobacco e-Cigarette/Vaping Use: Never Used Advance Directives Date on File: 11/17/21 service: No Current occupational status: retired Cognitive needs: No Hearing needs: No Vision needs: No Questionnaire Thrive Questionnaire Date Thrive assessed: 03/04/23 LYNDON-7 AMB Questionnaire LYNDON-7 Date LYNDON - 7 assessed: 03/04/23 Source: Developed by Drs. Josh Everett, Cindy Loco, Marcial Castillo and colleagues, with an educational alli from [employer]. Review of Systems Const Details: Const Denies chills, Denies fatigue, Denies fever(s), Denies headache(s) and Denies weakness ENT Denies dizziness and Denies headache(s) Card Denies chest pain, Denies lightheadedness, Denies dyspnea and Denies other (Palpitations) Resp Denies cough, Denies dyspnea, Denies wheezing and Denies other ( shortness of breath) GI Denies abdominal pain, Denies melena, Denies hematochezia, Denies change in bowel habits, Denies dyspepsia and Denies nausea Denies hematuria and Denies dysuria Musc Denies abnormal gait, Denies myalgias, Denies arthralgias, Denies numbness and Denies tingling Skin/Breast Denies rash, Denies unusual bruising and Denies wounds Neuro Denies abnormal gait, Denies dizziness, Denies headache(s), Denies memory loss, Denies numbness, Denies Sensory deficit (Neuro), Denies tingling and Denies weakness Psych Denies anxiety, Denies depression, Denies memory loss Endo Denies cold intolerance, Denies fatigue, Denies heat intolerance, Denies polydipsia and Denies polyuria Aller/Immun Denies wheezing Physical exam (Primary Care) Vital Signs: Last Vital Signs Temp 97.6 F 06/05/23 12:16 Pulse 83 06/05/23 12:16 Resp 13 06/05/23 12:16 BP 128/64 06/05/23 12:16 Pulse Ox 99 06/05/23 12:16 Oxygen Delivery Method Room Air 06/05/23 12:16 BMI result Body Mass Index 27.7 Tobacco/Smoking Status: Tobacco use Status Tobacco use date assessed 03/04/23 06/05/23 12:28 Patient Tobacco Use Status Never used Tobacco 06/05/23 12:28 e-Cigarette/Vaping Use Never Used 06/05/23 12:28 Thrive Assessment: Date of Thrive Assessment Date Thrive assessed 03/04/23 06/05/23 12:28 Const Other: General: no acute distress and well developed Nutritional Appearance: well nourished Orientation/consciousness: patient oriented x3 HENMT Head: Yes normocephalic and Yes atraumatic Eyes General: appearance normal, both eyes and all related structures Pupils: Equal, round and reactive pupils present EOM: EOMs intact bilaterally Resp Effort & Inspection: normal respiratory effort Auscultation: clear to auscultation bilaterally Cardio Rate: regular rate Rhythm: regular rhythm Heart sounds: S1 normal heart sound present, S2 normal heart sound present, no gallops, no murmurs and no rubs GI Palpation (GI): No Abdominal aortic bruit present, Soft to palpation, nontender, No hepatosplenomegaly present and No Rebound tenderness present Auscultation: normal bowel sounds General: Yes no CVA tenderness Back/Spine/Pelvis Back: no CVA tenderness Cervical Spine: cervical ROM normal and No Cervical spine tenderness Thoracic/Lumbar Spine: thoraco-lumbar ROM normal, No pain with thoraco-lumbar ROM, No thoracic spinal tenderness and No lumbar spinal tenderness Extrem General: Yes normal to inspection, No edema and No calf tenderness Skin General: warm and dry. Normal skin color. Normal skin turgor Neuro General: patient oriented x3, gait normal and no focal neuro deficit Cranial nerves: Yes Equal, round and reactive pupils present Cognition (Neuro): normal cognition Gait exam (Neuro): Normal gait present Sensory Exam: No Sensory deficit (Neuro) Psych Appearance: grossly normal Affect: normal affect Attitude: cooperative Thought process: Normal thought process present Assessment and Plan Assessment & Plan (1) Hypertension: Code(s): I10 - Essential (primary) hypertension Qualifiers: Hypertension type: primary hypertension Qualified Code(s): I10 - Essential (primary) hypertension Plan: Blood pressure is controlled, 124/64 Continue current treatment regimen Low-sodium diet and routine exercise encouraged Follow-up in 4 months or return sooner with symptoms or concerns Verbalized understanding and agreed with treatment plan (2) Hyperlipidemia: Code(s): E78.5 - Hyperlipidemia, unspecified Plan: He forgot to get blood work done but intends to do so with the next 2 days Will review results and make changes as needed Continue current treatment regimen Advised to limit foods high in saturated fat and avoid foods high in trans fat Routine exercise encouraged Verbalized understanding and agreed with treatment plan (3) Hypothyroidism: Code(s): E03.9 - Hypothyroidism, unspecified Plan: Plan as above Coding Level of Care Code Est Pt Level 3 (49030) Diagnoses Primary hypertension I10 Hypertension type: primary hypertension Hyperlipidemia E78.5 Hypothyroidism E03.9
[2023-06-05 12:16] VITALS: BP 128/64; PULSE 83; RESP 13; TEMP 36.4; O2SAT 99; BMI 27.7
== END 2023-06-05 12:55 | disposition home or self-care (01) ==
PROVIDERS: PCP Nurse Practitioner Family; Visit Provider Nurse Practitioner Family
DX: I10 Essential (primary) hypertension (principal); E78.5 Hyperlipidemia, unspecified; E03.9 Hypothyroidism, unspecified
CPT/HCPCS: 99213

== ENCOUNTER 2023-06-08 07:50 | Outpatient (REF) | payer OTHER, SELFPAY ==
[2022-08-29 15:38] VITALS: BP 120/52; BP 144/56; BMI 27.3
[2023-06-08 08:43] LABS: Cholesterol 145 mg/dL (<200); HDL Cholesterol 66 mg/dL (>40); LDL Cholesterol Calculated 67 mg/dL (<100); Triglycerides 63 mg/dL (<150)
[2023-06-08 08:59] LABS: TSH reflex Free T4 2.88 uIU/mL (0.32-4.0)
== END 2023-06-08 07:51 | disposition home or self-care (01) ==
LOC: HO.LAB 07:50
PROVIDERS: PCP Nurse Practitioner Family; Visit Provider Nurse Practitioner Family
DX: E03.9 Hypothyroidism, unspecified (principal); E78.5 Hyperlipidemia, unspecified
CPT/HCPCS: 36415; 80061; 84443

== ENCOUNTER 2023-09-21 09:43 | Outpatient (AMB) | payer OTHER, SELFPAY ==
[2022-08-29 15:38] VITALS: BP 120/52; BP 144/56; BMI 27.3
--- NOTE | 2023-09-21 09:47 | MHC.OFFVIS ---
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: No Accompanied by: Self / Same As Patient Allergies bee venom protein (honey bee) Allergy (Severe, Verified 08/28/23 10:58) Anaphylaxis povidone-iodine Allergy (Unknown, Verified 08/28/23 10:58) Unknown seafood Allergy (Verified 08/28/23 10:58) Unknown lisinopril Adverse Reaction (Intermediate, Verified 08/28/23 10:58) Cough Medication List - Last Reconciled 09/21/23 by Aime Winn MD amoxicillin 2,000 mg PO DAILY PRN aspirin 81 mg PO DAILY atorvastatin 80 mg PO BEDTIME 90 days benzonatate 200 mg PO BID PRN 30 days budesonide-formoterol 160-4.5 mcg/actuation (Symbicort) 2 puffs inhalation BID 30 days cholecalciferol (vitamin D3) (Vitamin D3) 100 mcg PO DAILY clonazepam 1 mg PO BEDTIME epinephrine 0.3 mg IM ONCE PRN fluticasone propionate 50 mcg/actuation 2 sprays intranasal DAILY 30 days ibuprofen 400 mg PO Q8H PRN lactobacillus comb no.10 (Probiotic) 20,000 mmu cells PO DAILY lamotrigine ER 250 mg PO DAILY levothyroxine 100 mcg PO DAILY 90 days losartan 25 mg PO DAILY methylphenidate HCl 40 mg PO DAILY metoprolol succinate ER 50 mg PO DAILY quetiapine (Seroquel) 50 mg PO BEDTIME vitamin B comp and C no.3 (B Complex Plus Vitamin C) 1 cap PO DAILY HPI Comments Details: 72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 He has background history of right bundle-branch block and aortic stenosis. He had echocardiography which showed evidence of severe aortic stenosis. He was complaining of dyspnea and chest discomfort. He underwent cardiac catheterization which showed 2 vessel disease. He was admitted after the cardiac catheterization for chest pain and a decision was made to do surgery sooner. He underwent CABG and AVR. He has made good recovery since then. 09/03/22: He is here for follow-up. He has been doing well. He had 1 episode of right-sided sharp chest pain lasting for 3 minutes while at cardiac rehabilitation. He said he has not had further episodes of chest discomfort despite doing physical activity. He is going to be to some dental workup and is asking whether he can get amoxicillin script. He has lower back pain which is limiting him from exercising specially in the morning when he has a lot of stiffness. Previously had some early satiety but it improved after stopping his amiodarone. He is taking medications regularly. He has no exertional symptoms at this point. 01/12/23: He returns for follow-up. He has been doing well. He is physically active. Occasionally gets dyspnea and chest tightness. This usually happens when he is out in cold weather. He is not a smoker. He does not have any history of asthma. He is asking whether he should see pulmonology. He is exercising at cardiac rehabilitation and doing well. He does not have any consistent exertional symptoms. 04/27/2023: He returns for follow-up. He is complaining of fatigue and lethargy ongoing for 2 months. He is saying that he has to take a nap during the day and feels tired quite frequently. He has been using methylphenidate for long time and the dose has not changed. He saw his psychiatrist and his clonazepam and Seroquel dose was decreased. I reviewed his blood workup and his hemoglobin is 16.7 with RBCs of 5.82. Hematocrit is 49.8. Hemoglobin has increased over the last year from 14.3-68.7. 09/21/23: He is here for follow-up. He was referred to hematology and is currently being monitored for erythrocytosis. His JAK2 mutation was negative. He is complaining of heartburn and has been using Tums. He also has been experiencing some chest discomfort which happens randomly. No clear exertional discomfort. No shortness of breath. Echocardiography last year in 05/19/2022 did not show any wall motion abnormality and ejection fraction was completely normal with a normal functioning bioprosthetic aortic valve. [facility] Medical History Obstructive airway disease Chronic allergic rhinitis Allergy Prostate cancer Pulmonary hypertension TIA (transient ischemic attack) Aortic stenosis Hypertension Anxiety Bipolar disorder Surgical History Status post double vessel coronary artery bypass Aortic valve replaced Hx of tonsillectomy Hx of appendectomy Hx of vasectomy Hx of endoscopy Hx of colonoscopy Hx of cardiac catheterization Hx of radical prostatectomy History of left shoulder replacement History of total right knee replacement Hx of repair of right rotator cuff Family History Sister Heart attack Coronary artery disease Arthritis Lupus Sleep apnea Mother Lupus Heart attack Father Heart attack Coronary artery disease Other Mental health disorder Social History Household Members: Family Housing: Apartment Alcohol intake: current Alcohol intake frequency: a few times a week Alcohol type: hard liquor Patient Tobacco Use Status: Never used Tobacco e-Cigarette/Vaping Use: Never Used Advance Directives Date on File: 11/17/21 service: No Current occupational status: retired Cognitive needs: No Hearing needs: No Vision needs: No Review of Systems Const Denies chills, Denies fatigue, Denies fever(s), Denies frequent falls, Denies weakness, Denies weight gain and Denies weight loss ENT Denies dizziness Card Denies chest pain, Denies leg edema, Denies lightheadedness, Denies palpitations, Denies dyspnea and Denies dyspnea on exertion Resp Denies cough, Denies dyspnea and Denies dyspnea on exertion GI Denies hematochezia Musc Denies abnormal gait, Denies muscle weakness, Denies numbness, Denies radiating pain into limb and Denies tingling Neuro Denies abnormal gait, Denies dizziness, Denies frequent falls, Denies numbness, Denies tingling and Denies weakness Endo Denies fatigue and Denies palpitations Physical Exam Vital Signs: Last Vital Signs Pulse 63 09/21/23 09:48 BP 130/62 09/21/23 09:48 BMI result Body Mass Index 27.6 GENERAL APPEARANCE: in no acute distress, pleasant. NECK: no carotid bruit, no jugular venous distention. SKIN: no suspicious lesions, warm and dry. HEART: Regular rate and rhythm. Grade 1/6 systolic murmur aortic area. LUNGS: clear to auscultation bilaterally. ABDOMEN: soft, nontender. EXTREMITIES: no edema. PERIPHERAL PULSES: equal. NEUROLOGIC: No gross deficits, AAO X 3 Assessment & Plan Assessment & Plan (1) S/P CABG (coronary artery bypass graft): Comment: 11/22/2022, adames to mid LAD, SVG to distal RCA Code(s): Z95.1 - Presence of aortocoronary bypass graft Category: Surgical (2) S/P AVR: Comment: 11/22/2022 AVR, 23 mm Inspiris bioprosthetic Code(s): Z95.2 - Presence of prosthetic heart valve Category: Surgical (3) Erythrocytosis: Code(s): D75.1 - Secondary polycythemia Category: Medical (4) GERD (gastroesophageal reflux disease): Code(s): K21.9 - Gastro-esophageal reflux disease without esophagitis Category: Medical Plan Pleasant 72 year gentleman who is here for follow-up. He has background history of CABG and aortic valve replacement. Last echocardiogram was last year with preserved LV function and normally functioning bioprosthetic valve in aortic position. He has been experiencing some fatigue. He has erythrocytosis and has been following with Hematology closely. JAK2 mutation was negative. Also has been experiencing some chest pain and acid reflux symptoms. He should not be using any ibuprofen. Adding PPI. No weight loss or any high-risk features currently. If symptoms do not improve then we will refer him to gastroenterology. Thank you for allowing me to participate in the care of your patient. Please feel free to contact me if you have any questions. Medications: New lansoprazole 30 mg PO DAILY 90 caps 3RF K21.9 - Gastro-esophageal reflux disease without esophagitis Coding Level of Care Code Est Pt Level 4 (54525) Diagnoses S/P CABG (coronary artery bypass graft) Z95.1 S/P AVR Z95.2 Erythrocytosis D75.1 GERD (gastroesophageal reflux disease) K21.9
[2023-09-21 09:48] VITALS: BP 130/62; PULSE 63; BMI 27.6
== END 2023-09-21 10:14 | disposition home or self-care (01) ==
PROVIDERS: Visit Provider Internal Medicine Cardiovascular Disease
DX: Z95.1 Presence of aortocoronary bypass graft (principal); Z95.2 Presence of prosthetic heart valve; D75.1 Secondary polycythemia; K21.9 Gastro-esophageal reflux disease without esophagitis
CPT/HCPCS: 99214

== ENCOUNTER → 2023-09-21 09:43 | Outpatient (BNVA) | payer OTHER, SELFPAY ==
[2022-08-29 15:38] VITALS: BP 120/52; BP 144/56; BMI 27.3
== END ==
PROVIDERS: PCP Hospitalist; Visit Provider Internal Medicine Cardiovascular Disease

== ENCOUNTER 2023-09-29 08:16 | Outpatient (REF) | payer OTHER, SELFPAY ==
[2022-08-29 15:38] VITALS: BP 120/52; BP 144/56; BMI 27.3
--- NOTE | ~2023-09-29 | XR_ITS ---
EXAMINATION: XR CHEST CLINICAL INFORMATION: Chronic cough. COMPARISON: 02/11/2023, 05/05/2022. TECHNIQUE: 2 views of the chest were obtained. FINDINGS: Redemonstration of postsurgical changes with median sternotomy wires, mediastinal clips, and prosthetic heart valve. Orthopedic hardware, prosthesis left shoulder. Heart size normal. Redemonstration of asymmetric elevation of the left lung base. Increased left basilar patchy opacities may represent atelectasis/scar, although an infectious/inflammatory process should also be considered in the appropriate clinical setting. Retrocardiac lucency may be related to gastric bubble versus a lucency such as hiatal hernia. CT scan could be considered for further evaluation. XR/XR chest 2V IMPRESSION: 1. Increased left basilar patchy opacities may represent atelectasis/scar, although an infectious/inflammatory process should also be considered in the appropriate clinical setting. 2. Retrocardiac lucency may be related to gastric bubble versus a lucency such as hiatal hernia. CT scan could be considered for further evaluation. This study was presented to me on October 19 2023 for interpretation. PSA staff will provide results to referring provider at this time.
[2023-09-30 20:23] LABS: Immunoglobulin E 5 kU/L (<OR=114)
== END 2023-09-29 08:17 | disposition home or self-care (01) ==
LOC: HO.LAB 08:16
PROVIDERS: PCP Nurse Practitioner Family; Visit Provider Hospitalist
DX: R05.3 Chronic cough (principal); J30.9 Allergic rhinitis, unspecified; T78.40XA Allergy, unspecified, initial encounter; R06.09 Other forms of dyspnea
CPT/HCPCS: 36415; 71046; 82785

== ENCOUNTER 2023-10-05 13:00 | Outpatient (AMB) | payer OTHER, SELFPAY ==
[2022-08-29 15:38] VITALS: BP 120/52; BP 144/56; BMI 27.3
[2023-10-05 13:14] VITALS: PULSE 71; O2SAT 95; BMI 27.5
--- NOTE | 2023-10-05 13:14 | A.OFFVIS_ITS ---
Vital Signs 10/05/23 13:14 Height 5 ft 9 in Weight 186 lb 2 oz BMI 27.5 Pulse 71 Pulse Source Pulse Oximeter Pulse Oximetry (%) 95 Oxygen Delivery Method Room Air Intake Visit Reasons: Dyspnea Bingo Caller Required: No Allergies bee venom protein (honey bee) Allergy (Severe, Verified 10/05/23 13:15) Anaphylaxis povidone-iodine Allergy (Unknown, Verified 10/05/23 13:15) Unknown seafood Allergy (Verified 10/05/23 13:15) Unknown lisinopril Adverse Reaction (Intermediate, Verified 10/05/23 13:15) Cough HPI Comments Details: The patient is a 72-year-old gentleman with a chronic cough. Apparently was in his usual state health until many years ago when he started developing does cough. Although seems to be getting worse the last year or so. The patient had been evaluating the past and was noted to have a elevated left hemidiaphragm. Therefore he underwent a sniff study demonstrated normal movement of the diaphragms. This ruled out a paralyzed diaphragm. Subsequently after that the patient underwent open heart surgery for his aortic valve and also coronary artery bypass. This happened back in the fall of 2021. postoperatively the patient did have a left-sided pleural effusion and significant atelectasis to the left lung. His surgery went well. Now he is recovering at cardiac rehab. The patient states that his cough is more significant. The coughing spells are significant where he can not stop and ultimately ends up either having dry heaves or vomiting. The patient denies any syncopal episodes. Sometimes he is able to expectorate some phlegm. He did undergo a recent chest x-ray which I personally reviewed demonstrating much improved aeration of both lungs. The pleural effusion has subsided and the atelectasis as well. In addition to that the patient did undergo pulmonary function studies which were personally by me. It appears that the during the post bronchodilator numbers the patient became obstructed and then limited airflow movement also appreciated primarily in the inspiratory flow. The suggest that due to the maneuvers it may have exacerbated an obstructive process now with an obstruction suggesting a mild obstruction in addition to some degree of vocal cord dysfunction or laryngeal spasm. On examination he does have some wheezing as well. the patient also complains of a nasal congestion and postnasal drip. This is also contributing to his very sensitive larynx. Will go ahead and treat him for the wheezing with respiratory inhalers. The patient also will have nasal therapy. Will undergo blood work in addition to allergy testing. I do believe that we settled on the cough so will try Tessalon Perles during daytime. If the patient continues to cough will consider speech therapy and also an ENT consultation. 05/06/2023 the patient is here for a pulmonary follow-up visit. The patient overall has been doing a lot better. He is responded well to the Symbicort inhaler. He also has a rescue inhaler. Overall doing a lot better. We again reviewed his imaging studies. 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 Some chronic atelectasis after his heart surgery. Clinically he sounds better he is also and rehabilitation. He is exercising well without any respiratory limitations. His exam is also reassuring. Will go ahead and repeat his chest x-ray in the fall. If he has any worsening symptoms prior to that he will call the office. We also reviewed his allergy testing is all negative. Therefore there isn't any need for any allergy therapies at this time. If the patient has any issues prior to his next visit he will call the office for an earlier assessment. 10/05/2023 the patient is here for a pulmonary follow-up visit. Overall he is doing well. Still has a cough. [id number] severity. Does use Symbicort with good response. Still has a postnasal drip. We did talk about nasal rinsing with Neti bottle. He has use it before. I did emphasize the use of distilled water. In addition to that will try to optimize her use his nasal therapy. He did have a chest x-ray which I personally reviewed. Still has an elevation of the left hemidiaphragm but seems to be stable if not a little better. Which is reassuring. He is participating in the cardiac rehabilitation which is excellent continue with Symbicort as this has been helpful. Once a day is fine. If the patient does need twice a day should increase it. Otherwise follow-up in the springtime. If any other issues he will call for an earlier assessment. [facility] Medical History Obstructive airway disease Chronic allergic rhinitis Allergy Prostate cancer Pulmonary hypertension TIA (transient ischemic attack) Aortic stenosis Hypertension Anxiety Bipolar disorder Surgical History Status post double vessel coronary artery bypass Aortic valve replaced Hx of tonsillectomy Hx of appendectomy Hx of vasectomy Hx of endoscopy Hx of colonoscopy Hx of cardiac catheterization Hx of radical prostatectomy History of left shoulder replacement History of total right knee replacement Hx of repair of right rotator cuff Family History Sister Heart attack Coronary artery disease Arthritis Lupus Sleep apnea Mother Lupus Heart attack Father Heart attack Coronary artery disease Other Mental health disorder Social History Household Members: Family Housing: Apartment Alcohol intake: current Alcohol intake frequency: a few times a week Alcohol type: hard liquor Patient Tobacco Use Status: Never used Tobacco e-Cigarette/Vaping Use: Never Used Advance Directives Date on File: 11/17/21 service: No Current occupational status: retired Cognitive needs: No Hearing needs: No Vision needs: No Review of Systems Const Denies fever(s) ENT Reports dysphagia, Reports nasal congestion, Reports nasal discharge, Reports post nasal drip and Denies throat swelling Card Denies chest pain Resp Denies chest congestion, Reports cough and Denies hemoptysis GI Reports dysphagia Musc Reports no additional complaints Skin/Breast Denies rash Neuro Reports no additional complaints Ross/Lymph Denies easy bleeding, Denies easy bruising and Denies lymphadenopathy Aller/Immun Denies throat swelling Physical Exam Vital Signs: Last Vital Signs Pulse 71 10/05/23 13:14 Pulse Ox 95 10/05/23 13:14 Oxygen Delivery Method Room Air 10/05/23 13:14 BMI result Body Mass Index 27.5 Const General: comfortable HEENT Head: Yes normocephalic Neck Neck: Yes supple Chest Chest palpation & inspection: normal inspection of the chest Resp Effort & Inspection: normal respiratory effort and No prolonged expiratory phase Auscultation: no wheezes and diminished lung sounds Cardio Heart sounds: S1 normal heart sound present and S2 normal heart sound present GI Palpation (GI): Soft to palpation Skin General skin exam: no rashes or lesions noted Extrem General: Yes no clubbing, cyanosis or edema Assessment & Plan Assessment & Plan (1) Cough: Comment: Obstructive physiology/wheezing, laryngospasms, post nasal drip, MEDHAT related cough Code(s): R05.9 - Cough, unspecified Category: Medical Qualifiers: Cough type: chronic Qualified Code(s): R05.3 - Chronic cough (2) Chronic allergic rhinitis: Code(s): J30.9 - Allergic rhinitis, unspecified Category: Medical (3) Allergy: Code(s): T78.40XA - Allergy, unspecified, initial encounter Category: Medical Qualifiers: Encounter type: initial encounter Qualified Code(s): T78.40XA - Allergy, unspecified, initial encounter (4) Obstructive airway disease: Code(s): J44.9 - Chronic obstructive pulmonary disease, unspecified Category: Medical (5) HORNE (dyspnea on exertion): Code(s): R06.09 - Other forms of dyspnea Category: Medical Plan continue Symbicort daily continue Tessalon pearls stop fluticasone nasal spray start Dymista neti bottle PM F/U 6-8 months Medications: New azelastine-fluticasone 137-50 mcg/spray (Dymista) administer into each nostril 1 spray intranasal BID 23 grams 11RF 30 days Coding Level of Care Code Est Pt Level 4 (68167) Diagnoses Chronic cough R05.3 Cough type: chronic Chronic allergic rhinitis J30.9 Allergy, initial encounter T78.40XA Encounter type: initial encounter Obstructive airway disease J44.9 HORNE (dyspnea on exertion) R06.09 Time Spent (min) 16
== END 2023-10-05 13:50 | disposition home or self-care (01) ==
PROVIDERS: PCP Nurse Practitioner Family; Visit Provider Hospitalist
DX: R05.3 Chronic cough (principal); J30.9 Allergic rhinitis, unspecified; T78.40XA Allergy, unspecified, initial encounter; J44.9 Chronic obstructive pulmonary disease, unspecified; R06.09 Other forms of dyspnea
CPT/HCPCS: 99214

== ENCOUNTER → 2023-10-05 13:00 | Outpatient (BNVA) | payer OTHER, SELFPAY ==
[2022-08-29 15:38] VITALS: BP 120/52; BP 144/56; BMI 27.3
== END ==
PROVIDERS: PCP Nurse Practitioner Family; Visit Provider Hospitalist

== ENCOUNTER 2023-10-13 12:21 | Outpatient (AMB) | payer OTHER, SELFPAY ==
[2022-08-29 15:38] VITALS: BP 120/52; BP 144/56; BMI 27.3
--- NOTE | 2023-10-13 12:40 | A.OFFPC_ITS ---
Vital Signs 10/13/23 12:47 Height 5 ft 9 in Weight 190 lb 6 oz BMI 28.1 BP 122/60 Blood Pressure Location Lt brachial Position Sitting Respiration 14 Pulse 66 Pulse Source Pulse Oximeter Pulse Oximetry (%) 97 Oxygen Delivery Method Room Air Intake Visit Reasons: 4 mos HTN Intake Note: Follow hypertension. Strike Plate Attacher Required: No Accompanied by: Spouse Allergies bee venom protein (honey bee) Allergy (Severe, Verified 10/13/23 12:50) Anaphylaxis povidone-iodine Allergy (Unknown, Verified 10/13/23 12:50) Unknown seafood Allergy (Verified 10/13/23 12:50) Unknown lisinopril Adverse Reaction (Intermediate, Verified 10/13/23 12:50) Cough Medication List - Last Reconciled 10/13/23 by Mikey Feliciano CNP amoxicillin 2,000 mg PO DAILY PRN aspirin 81 mg PO DAILY atorvastatin 80 mg PO BEDTIME 90 days azelastine-fluticasone 137-50 mcg/spray (Dymista) 1 spray intranasal BID 30 days benzonatate 200 mg PO BID PRN 30 days budesonide-formoterol 160-4.5 mcg/actuation (Symbicort) 2 puffs inhalation BID 30 days cholecalciferol (vitamin D3) (Vitamin D3) 100 mcg PO DAILY cholecalciferol (vitamin D3) 50 mcg PO DAILY clonazepam 1 mg PO BEDTIME epinephrine 0.3 mg IM ONCE PRN fluticasone propionate 50 mcg/actuation 2 sprays intranasal DAILY 30 days ibuprofen 200 mg PO Q6H PRN lactobacillus comb no.10 (Probiotic) 20,000 mmu cells PO DAILY lamotrigine ER 250 mg PO DAILY lansoprazole 30 mg PO DAILY levothyroxine 100 mcg PO DAILY 90 days losartan 25 mg PO DAILY methylphenidate HCl 40 mg PO DAILY metoprolol succinate ER 50 mg PO DAILY psyllium husk (Metamucil) 0.4 grams PO DAILY quetiapine (Seroquel) 50 mg PO BEDTIME vitamin B comp and C no.3 (B Complex Plus Vitamin C) 1 cap PO DAILY Tobacco use date assessed: 03/04/23 Dental Screening Dental Screen Date: 06/05/23 HPI HPI Comments History of Present Illness Details 72-year-old male, accompanied by his wif e, presents for hypertension follow-up He admits to taking his medications as prescribed without adverse reactions He offers no complaints and denies acute symptoms at this time [facility] Medical History Obstructive airway disease Chronic allergic rhinitis Allergy Prostate cancer Pulmonary hypertension TIA (transient ischemic attack) Aortic stenosis Hypertension Anxiety Bipolar disorder Surgical History Status post double vessel coronary artery bypass Aortic valve replaced Hx of tonsillectomy Hx of appendectomy Hx of vasectomy Hx of endoscopy Hx of colonoscopy Hx of cardiac catheterization Hx of radical prostatectomy History of left shoulder replacement History of total right knee replacement Hx of repair of right rotator cuff Family History Sister Heart attack Coronary artery disease Arthritis Lupus Sleep apnea Mother Lupus Heart attack Father Heart attack Coronary artery disease Other Mental health disorder Social History Household Members: Family Housing: Apartment Alcohol intake: current Alcohol intake frequency: a few times a week Alcohol type: hard liquor Patient Tobacco Use Status: Never used Tobacco e-Cigarette/Vaping Use: Never Used Advance Directives Date on File: 11/17/21 service: No Current occupational status: retired Cognitive needs: No Hearing needs: No Vision needs: No Questionnaire PHQ-9 Over the last 2 weeks, how often have you been bothered by any of the following problems? 1. Little interest or pleasure in doing things: not at all 2. Feeling down, depressed, or hopeless: not at all 3. Trouble falling or staying asleep, or sleeping too much: not at all 4. Feeling tired or having little energy: more than half the days 5. Poor appetite or overeating: not at all 6. Feeling bad about yourself - or that you are a failure or have let yourself or your family down: not at all 7. Trouble concentrating on things, such as reading the newspaper or watching television: not at all 8. Moving or speaking so slowly that other people could have noticed. Or the opposite - being so fidgety or restless that you have been moving around a lot more than usual: not at all 9. Thoughts that you would be better off or of hurting yourself in some way: not at all Total score: 2 Depression Screening Interpretation: Negative Depression Screening Done: Yes 42554 - PHQ-9 Billing: Yes Source: Developed by Drs. Josh Everett, Cindy Loco, Marcial Castillo and colleagues, with an educational alli from [employer]. Thrive Questionnaire Date Thrive assessed: 03/04/23 LYNDON-7 AMB Questionnaire LYNDON-7 Date LYNDON - 7 assessed: 03/04/23 Feeling nervous, anxious, or on edge: 2 = More than half the days Not being able to stop or control worryin = Not at all Worrying too much about different things: 0 = Not at all Trouble relaxin = Not at all Being so restless that it is hard to sit still: 0 = Not at all Becoming easily annoyed or irritable: 0 = Not at all Feeling afraid as if something awful might happen: 0 = Not at all Total LYNDON-7 score (0-4 normal; 5-9 mild; 10-14 moderate; 15-21 severe): 2 Source: Developed by Drs. Josh Everett, Cindy Loco, Marcial Castillo and colleagues, with an educational alli from [employer]. LYNDON-7 Assessment Billing LYNDON-7 Assessment Tool: LYNDON-7 Assessment 35969 Review of Systems Const Details: Const Denies chills, Denies fatigue, Denies fever(s), Denies headache(s) and Denies weakness ENT Denies dizziness and Denies headache(s) Card Denies chest pain, Denies lightheadedness, Denies dyspnea and Denies other (Palpitations) Resp Denies cough, Denies dyspnea, Denies wheezing and Denies other ( shortness of breath) GI Denies abdominal pain, Denies melena, Denies hematochezia, Denies change in bowel habits, Denies dyspepsia and Denies nausea Denies hematuria and Denies dysuria Musc Denies abnormal gait, Denies myalgias, Denies arthralgias, Denies numbness and Denies tingling Skin/Breast Denies rash, Denies unusual bruising and Denies wounds Neuro Denies abnormal gait, Denies dizziness, Denies headache(s), Denies memory loss, Denies numbness, Denies Sensory deficit (Neuro), Denies tingling and Denies weakness Psych Denies anxiety, Denies depression, Denies memory loss Endo Denies cold intolerance, Denies fatigue, Denies heat intolerance, Denies polydipsia and Denies polyuria Aller/Immun Denies wheezing Physical exam (Primary Care) Vital Signs: Last Vital Signs Pulse 66 10/13/23 12:47 Resp 14 10/13/23 12:47 BP 122/60 10/13/23 12:47 Pulse Ox 97 10/13/23 12:47 Oxygen Delivery Method Room Air 10/13/23 12:47 BMI result Body Mass Index 28.1 Tobacco/Smoking Status: Tobacco use Status Tobacco use date assessed 03/04/23 10/13/23 12:45 Patient Tobacco Use Status Never used Tobacco 10/13/23 12:45 e-Cigarette/Vaping Use Never Used 10/13/23 12:45 Depression Screening Interpretation: Negative Thrive Assessment: Date of Thrive Assessment Date Thrive assessed 03/04/23 10/13/23 12:45 Const Other: General: no acute distress and well developed Nutritional Appearance: well nourished Orientation/consciousness: patient oriented x3 HENMT Head: Yes normocephalic and Yes atraumatic Eyes General: appearance normal, both eyes and all related structures Pupils: Equal, round and reactive pupils present EOM: EOMs intact bilaterally Resp Effort & Inspection: normal respiratory effort Auscultation: clear to auscultation bilaterally Cardio Rate: regular rate Rhythm: regular rhythm Heart sounds: S1 normal heart sound present, S2 normal heart sound present, no gallops, no murmurs and no rubs GI Palpation (GI): No Abdominal aortic bruit present, Soft to palpation, nontender, No hepatosplenomegaly present and No Rebound tenderness present Auscultation: normal bowel sounds General: Yes no CVA tenderness Back/Spine/Pelvis Back: no CVA tenderness Cervical Spine: cervical ROM normal and No Cervical spine tenderness Thoracic/Lumbar Spine: thoraco-lumbar ROM normal, No pain with thoraco-lumbar ROM, No thoracic spinal tenderness and No lumbar spinal tenderness Extrem General: Yes normal to inspection, No edema and No calf tenderness Skin General: warm and dry. Normal skin color. Normal skin turgor Neuro General: patient oriented x3, gait normal and no focal neuro deficit Cranial nerves: Yes Equal, round and reactive pupils present Cognition (Neuro): normal cognition Gait exam (Neuro): Normal gait present Sensory Exam: No Sensory deficit (Neuro) Psych Appearance: grossly normal Affect: normal affect Attitude: cooperative Thought process: Normal thought process present Assessment and Plan Assessment & Plan (1) Hypertension: Code(s): I10 - Essential (primary) hypertension Qualifiers: Hypertension type: primary hypertension Qualified Code(s): I10 - Essential (primary) hypertension Plan: Resting blood pressure is 122/60, within goal of less than 130/80 Continue current treatment regimen Low-sodium diet encouraged Follow-up in 10 weeks for an extended physical exam or sooner with symptoms or concerns Verbalized understanding and agreed with the treatment plan (2) Hyperlipidemia: Code(s): E78.5 - Hyperlipidemia, unspecified Plan: Recent lipid panel level is normal Continue current treatment regimen Advised to limit foods high in saturated fat and avoid foods high in trans fat Routine exercise encouraged Advised to fast for 10-12 hours, may drink water only, and get blood work done before his next visit Verbalized understanding and agreed with the plan (3) Hypothyroidism: Code(s): E03.9 - Hypothyroidism, unspecified Plan: Recent labs reviewed with the patient; TSH was normal Continue current treatment regimen Advised to get TSH/T4 blood work done a few days before his next visit Verbalized understanding and agreed with the plan Orders: Orders TSH reflex Free T4 Today E03.9 - Hypothyroidism, unspecified Microalbumin, Random (w Creat) Today Z00.00 - Encounter for general adult medical examination without abnormal findings PSA, Ultra Sensitive Today Z00.00 - Encounter for general adult medical examination without abnormal findings Lipid Panel Today E78.5 - Hyperlipidemia, unspecified Coding Level of Care Code Est Pt Level 4 (15179) Diagnoses Primary hypertension I10 Hypertension type: primary hypertension Hyperlipidemia E78.5 Hypothyroidism E03.9 Additional Codes LYNDON-7 Assessment Billing - LYNDON-7 Assessment Tool: LYNDON-7 Assessment [id number] ([id number])
[2023-10-13 12:47] VITALS: BP 122/60; PULSE 66; RESP 14; O2SAT 97; BMI 28.1
== END 2023-10-13 13:18 | disposition home or self-care (01) ==
PROVIDERS: PCP Nurse Practitioner Family; Visit Provider Nurse Practitioner Family
DX: I10 Essential (primary) hypertension (principal); E78.5 Hyperlipidemia, unspecified; E03.9 Hypothyroidism, unspecified
CPT/HCPCS: 99214

== ENCOUNTER 2023-11-16 15:28 | Outpatient (AMB) | payer OTHER, SELFPAY ==
[2022-08-29 15:38] VITALS: BP 120/52; BP 144/56; BMI 27.3
--- NOTE | 2023-11-16 15:32 | MHC.PC.OV ---
Vital Signs 11/16/23 15:41 Height 5 ft 9 in Weight 190 lb 6 oz BMI 28.1 BP 128/60 Blood Pressure Location Lt brachial Position Sitting Respiration 16 Pulse 79 Pulse Source Pulse Oximeter Temp 97.8 F Temp Source Oral Pulse Oximetry (%) 97 Oxygen Delivery Method Room Air Intake Visit Reasons: Diarrhea Intake Note: patient here c/o diarrhia Technical Administrative Assistant Required: No Allergies bee venom protein (honey bee) Allergy (Severe, Verified 11/16/23 15:50) Anaphylaxis povidone-iodine Allergy (Unknown, Verified 11/16/23 15:50) Unknown seafood Allergy (Verified 11/16/23 15:50) Unknown lisinopril Adverse Reaction (Intermediate, Verified 11/16/23 15:50) Cough Medication List - Last Reconciled 11/16/23 by Mikey Feliciano CNP amoxicillin 2,000 mg PO DAILY PRN aspirin 81 mg PO DAILY atorvastatin 80 mg PO BEDTIME 90 days azelastine-fluticasone 137-50 mcg/spray (Dymista) 1 spray intranasal BID 30 days benzonatate 200 mg PO BID PRN 30 days budesonide-formoterol 160-4.5 mcg/actuation (Symbicort) 2 puffs inhalation BID 30 days cholecalciferol (vitamin D3) 50 mcg PO DAILY clonazepam 1 mg PO BEDTIME epinephrine 0.3 mg IM ONCE PRN ibuprofen 200 mg PO Q6H PRN lactobacillus comb no.10 (Probiotic) 20,000 mmu cells PO DAILY lamotrigine ER 250 mg PO DAILY lansoprazole 30 mg PO DAILY levothyroxine 100 mcg PO DAILY 90 days losartan 25 mg PO DAILY methylphenidate HCl 40 mg PO DAILY metoprolol succinate ER 50 mg PO DAILY quetiapine (Seroquel) 50 mg PO BEDTIME vitamin B comp and C no.3 (B Complex Plus Vitamin C) 1 cap PO DAILY Tobacco use date assessed: 03/04/23 Fall risk assessment: No Falls in past year Last assessed Fall Risk: 11/16/23 Dental Screening Dental Screen Date: 11/16/23 Did you have a dental visit in the last 12 months?: Yes Did you have a dental problem in the last 6 months where you did not have access to dental care?: No Was dental information given to patient?: Patient has dentist HPI HPI Comments History of Present Illness Details 73-year-old male presents with complaints of nonbloody diarrhea for the past 7 days. He notes 3 episodes daily within 1-2 hours apart. He denies n/v or abdominal pain. No fever, chills, body aches, fatigue, or weakness. He denies introducing new foods to his diet. He denies alcohol or caffeine consumption. He has been taking immodium with improvement but not resolution. He notes that he has been maintaining a bland diet and drinking pedialyte since his diarrhea started. He has also been maintaining adequate hydration. He denies flatulence. [facility] Medical History Obstructive airway disease Chronic allergic rhinitis Allergy Prostate cancer Pulmonary hypertension TIA (transient ischemic attack) Aortic stenosis Hypertension Anxiety Bipolar disorder Surgical History Status post double vessel coronary artery bypass Aortic valve replaced Hx of tonsillectomy Hx of appendectomy Hx of vasectomy Hx of endoscopy Hx of colonoscopy Hx of cardiac catheterization Hx of radical prostatectomy History of left shoulder replacement History of total right knee replacement Hx of repair of right rotator cuff Family History Sister Heart attack Coronary artery disease Arthritis Lupus Sleep apnea Mother Lupus Heart attack Father Heart attack Coronary artery disease Other Mental health disorder Social History Household Members: Family Housing: Apartment Alcohol intake: current Alcohol intake frequency: a few times a week Alcohol type: hard liquor Patient Tobacco Use Status: Never used Tobacco e-Cigarette/Vaping Use: Never Used Advance Directives Date on File: 11/17/21 service: No Current occupational status: retired Cognitive needs: No Hearing needs: No Vision needs: No Questionnaire Thrive Questionnaire Date Thrive assessed: 03/04/23 LYNDON-7 AMB Questionnaire LYNDON-7 Date LYNDON - 7 assessed: 03/04/23 Source: Developed by Drs. Josh Everett, Cindy Loco, Marcial Castillo and colleagues, with an educational alli from [employer]. Review of Systems Const Details: Const Denies chills, Denies fatigue, Denies fever(s), Denies headache(s) and Denies weakness ENT Denies dizziness and Denies headache(s) Card Denies chest pain, Denies lightheadedness, Denies dyspnea and Denies other (Palpitations) Resp Denies cough, Denies dyspnea, Denies wheezing and Denies other ( shortness of breath) GI Denies abdominal pain, Denies melena, Denies hematochezia, Denies dyspepsia and Denies nausea Denies hematuria and Denies dysuria Musc Denies abnormal gait, Denies myalgias, Denies arthralgias, Denies numbness and Denies tingling Skin/Breast Denies rash, Denies unusual bruising and Denies wounds Neuro Denies abnormal gait, Denies dizziness, Denies headache(s), Denies memory loss, Denies numbness, Denies Sensory deficit (Neuro), Denies tingling and Denies weakness Psych Denies anxiety, Denies depression, Denies memory loss Endo Denies cold intolerance, Denies fatigue, Denies heat intolerance, Denies polydipsia and Denies polyuria Aller/Immun Denies wheezing Physical exam (Primary Care) Vital Signs: Last Vital Signs Temp 97.8 F 11/16/23 15:41 Pulse 79 11/16/23 15:41 Resp 16 11/16/23 15:41 BP 128/60 11/16/23 15:41 Pulse Ox 91 L 11/16/23 15:41 Oxygen Delivery Method Room Air 11/16/23 15:41 BMI result Body Mass Index 28.1 Tobacco/Smoking Status: Tobacco use Status Tobacco use date assessed 03/04/23 11/16/23 15:35 Patient Tobacco Use Status Never used Tobacco 11/16/23 15:35 e-Cigarette/Vaping Use Never Used 11/16/23 15:35 Thrive Assessment: Date of Thrive Assessment Date Thrive assessed 03/04/23 11/16/23 15:35 Const Other: General: no acute distress and well developed Nutritional Appearance: well nourished Orientation/consciousness: patient oriented x3 HENMT Head: Yes normocephalic and Yes atraumatic Eyes General: appearance normal, both eyes and all related structures Pupils: Equal, round and reactive pupils present EOM: EOMs intact bilaterally Resp Effort & Inspection: normal respiratory effort Auscultation: clear to auscultation bilaterally Cardio Rate: regular rate Rhythm: regular rhythm Heart sounds: S1 normal heart sound present, S2 normal heart sound present, no gallops, no murmurs and no rubs GI Palpation (GI): No Abdominal aortic bruit present, Soft to palpation, nontender, No hepatosplenomegaly present and No Rebound tenderness present Auscultation: Hyperactive bowel sounds x4 General: Yes no CVA tenderness Back/Spine/Pelvis Back: no CVA tenderness Cervical Spine: cervical ROM normal and No Cervical spine tenderness Thoracic/Lumbar Spine: thoraco-lumbar ROM normal, No pain with thoraco-lumbar ROM, No thoracic spinal tenderness and No lumbar spinal tenderness Extrem General: Yes normal to inspection, No edema and No calf tenderness Skin General: warm and dry. Normal skin color. Normal skin turgor Neuro General: patient oriented x3, gait normal and no focal neuro deficit Cranial nerves: Yes Equal, round and reactive pupils present Cognition (Neuro): normal cognition Gait exam (Neuro): Normal gait present Sensory Exam: No Sensory deficit (Neuro) Psych Appearance: grossly normal Affect: normal affect Attitude: cooperative Thought process: Normal thought process present Assessment and Plan Assessment & Plan (1) Diarrhea: Code(s): R19.7 - Diarrhea, unspecified Plan: Nonbloody diarrhea x7 days. No nausea, vomiting, abdominal pain. No fever, chills, body aches. No new foods to his diet Abdomen is soft, nontender, nondistended, hyperactive bowel sounds x4 Unlikely bacterial or viral illness May continue to take Imodium as needed Metamucil ordered. Advised to take as prescribed Adequate hydration encouraged Follow-up with worsening or new symptoms Verbalized understanding and agreed with the treatment plan Medications: New psyllium husk (Metamucil) mix into at least 8 oz of water or juice before administering May take twice daily as needed 1 tbsp PO DAILY 660 grams 0RF Coding Level of Care Code Est Pt Level 3 (48133) Diagnoses Diarrhea R19.7
[2023-11-16 15:41] VITALS: BP 128/60; PULSE 79; RESP 16; TEMP 36.6; O2SAT 97; BMI 28.1
== END 2023-11-16 16:07 | disposition home or self-care (01) ==
PROVIDERS: PCP Nurse Practitioner Family; Visit Provider Nurse Practitioner Family
DX: R19.7 Diarrhea, unspecified (principal)

== ENCOUNTER → 2023-11-16 15:28 | Outpatient (BNVA) | payer OTHER, SELFPAY ==
[2022-08-29 15:38] VITALS: BP 120/52; BP 144/56; BMI 27.3
== END ==
PROVIDERS: PCP Nurse Practitioner Family; Visit Provider Nurse Practitioner Family
DX: R19.7 Diarrhea, unspecified (principal)

== ENCOUNTER 2023-11-26 08:12 | Outpatient (REF) | payer OTHER, SELFPAY ==
[2022-08-29 15:38] VITALS: BP 120/52; BP 144/56; BMI 27.3
[2023-11-26 08:23] LABS: MANUAL DIFF FLAG NO
[2023-11-26 08:28] LABS: Basophils Absolute Auto 0.1 X10*3/uL (0.0-0.2); Basophils Percent Auto 0.7 % (0-2); Eosinophils Absolute Auto 0.3 X10*3/uL (0.0-0.4); Eosinophils Percent Auto 2.6 % (0-4); Hematocrit 45.7 % (42.0-52.0); Hemoglobin 15.7 g/dl (14.0-18.0); Imm Gran Abs Auto 0.14 X10*3/uL (0.00-0.03); Imm Gran Pct Auto 1.5 % (0.0-0.4); Lymphocytes Absolute Auto 1.4 X10*3/uL (1.2-4.9); Lymphocytes Percent Auto 14.9 % (20-40); Mean Corpuscular HGB Conc 34.4 g/dl (31.0-36.0); Mean Corpuscular Hemoglobin 28.9 pg (27.0-33.0); Mean Corpuscular Volume 84.2 fL (80.0-98.0); Mean Platelet Volume 8.8 fL (9.4-12.4); Monocytes Absolute Auto 0.8 X10*3/uL (0.1-1.2); Monocytes Percent Auto 8.2 % (2-11); Neutrophils Absolute Auto 6.9 x10*3/uL (2.0-8.3); Neutrophils Percent Auto 72.1 % (45-73); Platelet Count 249 X10*3/uL (160-400); Red Blood Count 5.43 X10*6/uL (4.60-5.80); Red Cell Distribution Width 13.2 % (11.0-16.0); White Blood Count 9.6 X10*3/uL (4.8-10.8)
[2023-11-26 08:43] LABS: Alanine Aminotransferase 19 U/L (0-40); Albumin Level 4.2 g/dL (3.5-5.0); Alkaline Phosphatase 100 U/L (39-117); Anion Gap 13 (12-20); Aspartate Amino Transferase 31 U/L (5-37); Bilirubin Total 1.4 mg/dL (0.0-1.0); Blood Urea Nitrogen 15 mg/dL (9-16); Calcium 9.8 mg/dL (8.4-10.2); Carbon Dioxide 26 mmol/L (22-29); Chloride 109 mmol/L (96-108); Estimated Glomerular Filt Rate > 60; Glucose Random 86 mg/dL (60-115); Potassium 3.9 mmol/L (3.3-5.1); Sodium 144 mmol/L (135-145); Total Protein 6.8 g/dL (6.5-8.0)
== END 2023-11-26 08:13 | disposition home or self-care (01) ==
LOC: HO.LAB 08:12
PROVIDERS: PCP Nurse Practitioner Family; Visit Provider Internal Medicine Medical Oncology
DX: D75.1 Secondary polycythemia (principal)
CPT/HCPCS: 36415; 80053; 85025

== ENCOUNTER 2023-12-03 08:45 | Outpatient (REF) | payer OTHER, SELFPAY ==
[2022-08-29 15:38] VITALS: BP 120/52; BP 144/56; BMI 27.3
[2023-12-04 09:03] LABS: OBS Int Ctl Valid YES; OBS1 NEGATIVE (NEGATIVE); OBS2 NEGATIVE (NEGATIVE); OBS3 NEGATIVE (NEGATIVE)
[2023-12-04 09:04] LABS: OBS Lot 504220 1L
== END 2023-12-03 08:46 | disposition home or self-care (01) ==
LOC: HO.LNP 08:45
PROVIDERS: Visit Provider Internal Medicine Medical Oncology
DX: R19.7 Diarrhea, unspecified (principal); R11.2 Nausea with vomiting, unspecified
CPT/HCPCS: 82270

== ENCOUNTER 2023-12-18 14:13 | Outpatient (AMB) | payer OTHER, SELFPAY ==
[2022-08-29 15:38] VITALS: BP 120/52; BP 144/56; BMI 27.3
--- NOTE | 2023-12-18 14:24 | MHC.OFFVIS ---
Vital Signs 12/18/23 14:26 Height 5 ft 9 in Weight 191 lb 12.835 oz BMI 28.3 BP 142/64 H Blood Pressure Location Lt brachial Position Sitting Pulse 70 Pulse Source Pulse Oximeter Pulse Oximetry (%) 96 Oxygen Delivery Method Room Air Intake Visit Reasons: Anemia Intake Note: Relevant Flags or Indicators ? Requires Top Knitter? Fredy Jarrett presents in office today for a scheduled initial assessment -- frequent diarrhea, anemia, question need for colo. Has tried imodium for sx treatment which did seem to help. They cannot seem to identify the trigger however. CC; Since last visit; labs ordered ? via PCP. Rx ordered ? no. Diagnostics/images ordered ? none. Relevant GI Sx as reported per pt? Reflux ? Fecal abnormalities o?? Diarrhea -- denies presence of any melena ? Hx of any recent surgeries? None Allergies bee venom protein (honey bee) Allergy (Severe, Verified 12/18/23 14:24) Anaphylaxis povidone-iodine Allergy (Unknown, Verified 12/18/23 14:24) Unknown seafood Allergy (Verified 12/18/23 14:24) Unknown lisinopril Adverse Reaction (Intermediate, Verified 12/18/23 14:24) Cough HPI HPI Anemia: Details: 73-year-old male with past medical history of right bundle branch block, hypertension, status post CABG x2 and AVR in 2021, history of prostate cancer status post radical prostatectomy, osteoarthritis, TIA at age 62 and 66, bipolar, ADD, anxiety, hypothyroidism, diarrhea taking Imodium is here today for initial consultation. Patient was sent to us by his tool analyst. Patient experienced in the month of October diarrhea that lasted 21 days. Patient denies having episodes lasting as long as this one. Diarrhea since June of 2016, however able to control with Imodium. Patient reports that longer and more significant symptoms of loose stools specially postprandially 2 to 3 times a year. This episode lasted the longest. Patient reports that Imodium help and patient was able to have better bowel movements. On the off side patient does admit that he was constipated. Patient reports that he is not eating a lot of fiber, however he states that he has been taking Metamucil. When symptoms of diarrhea started patient stopped taking the Metamucil and just restarted taking it again. Patient denies any melena, hematochezia, unintentional weight loss or ribbon like stools. Reports to have colonoscopy last one was done in [facility] in [place], [place]. Patient had no polyps then, multiple nonbleeding diverticula seen in the sigmoid colon. Previous colonoscopy 3 years prior showed tubular adenoma. Patient does not have family history of CRC (grandfather). Patient denies any dyspepsia, dysphagia or odynophagia. Patient denies feeling bloated after meals. No recent travel, no one else in the household with similar symptoms. Patient is accompanied by his who also helped with some of the history [facility] Medical History Obstructive airway disease Chronic allergic rhinitis Allergy Prostate cancer Pulmonary hypertension TIA (transient ischemic attack) Aortic stenosis Hypertension Anxiety Bipolar disorder Surgical History Status post double vessel coronary artery bypass Aortic valve replaced Hx of tonsillectomy Hx of appendectomy Hx of vasectomy Hx of endoscopy Hx of colonoscopy Hx of cardiac catheterization Hx of radical prostatectomy History of left shoulder replacement History of total right knee replacement Hx of repair of right rotator cuff Family History Sister Heart attack Coronary artery disease Arthritis Lupus Sleep apnea Mother Lupus Heart attack Father Heart attack Coronary artery disease Other Mental health disorder Social History Household Members: Family Housing: Apartment Alcohol intake: current Alcohol intake frequency: a few times a week Alcohol type: hard liquor Patient Tobacco Use Status: Never used Tobacco e-Cigarette/Vaping Use: Never Used Advance Directives Date on File: 11/17/21 service: No Current occupational status: retired Cognitive needs: No Hearing needs: No Vision needs: No Review of Systems Const Denies weight gain and Denies weight loss ENT Reports no additional complaints, Denies dysphagia and Denies odynophagia Card Reports no additional complaints Resp Reports no additional complaints GI Denies abdominal pain, Denies belching, Denies melena, Denies bloating, Denies dysphagia, Denies excessive flatus, Denies dyspepsia, Denies heartburn, Reports diarrhea, Reports loose stools, Denies nausea, Denies odynophagia and Denies vomiting Reports no additional complaints Musc Reports no additional complaints Neuro Reports no additional complaints Psych Reports no additional complaints Endo Reports no additional complaints Physical Exam Vital Signs: Last Vital Signs Pulse 70 12/18/23 14:26 BP 142/64 H 12/18/23 14:26 Pulse Ox 96 12/18/23 14:26 Oxygen Delivery Method Room Air 12/18/23 14:26 BMI result Body Mass Index 28.3 Const General: healthy appearing, no acute distress and well developed Nutritional Appearance: well nourished Orientation/consciousness: patient oriented x3 Resp Effort & Inspection: normal respiratory effort, able to speak in complete sentences, no tracheal deviation and symmetric chest movement Auscultation: clear to auscultation bilaterally Cardio Rate: regular rate GI Inspection: Yes normal to inspection and Yes distended Palpation (GI): Soft to palpation, not firm, nontender and No hepatosplenomegaly present Auscultation: Hyperactive bowel sounds present General: Yes no CVA tenderness Back/Spine/Pelvis Back: no CVA tenderness Skin General skin exam: elasticity normal, turgor normal and dry skin Neuro General: patient oriented x3 Psych Appearance: grossly normal Mental Status: mental status grossly normal Assessment & Plan Assessment & Plan (1) Diarrhea: Code(s): R19.7 - Diarrhea, unspecified Category: Medical Qualifiers: Diarrhea type: functional diarrhea Qualified Code(s): K59.1 - Functional diarrhea (2) GERD (gastroesophageal reflux disease): Code(s): K21.9 - Gastro-esophageal reflux disease without esophagitis Category: Medical Qualifiers: Esophagitis presence: esophagitis presence not specified Qualified Code(s): K21.9 - Gastro-esophageal reflux disease without esophagitis (3) Postprandial abdominal bloating: Code(s): R14.0 - Abdominal distension (gaseous) (4) Postprandial diarrhea: Code(s): K52.9 - Noninfective gastroenteritis and colitis, unspecified (5) Diverticulosis: Code(s): K57.90 - Diverticulosis of intestine, part unspecified, without perforation or abscess without bleeding Plan Patient is not taking currently lansoprazole, stopped taking it as he feels like that might have contributed to his diarrhea. Will look into source/reason for patient has diarrhea. Will order GI panel. Will rule out malabsorption. Possible that the diverticulosis is more advanced (diagnosed with moderate diverticulosis of the sigmoid colon on colonoscopy in 2019) and needs more fiber to help him bulk the stools. Most likely patient is not emptying his bowels completely. Will check CRP and calprotectin to rule out inflammatory bowel disease. Patient does have a family history of psoriatic arthritis and lupus in his sister and his son, so there is a possibility for inflammatory bowel disease. Patient denies any melena, hematochezia. Will be sending him for colonoscopy as he is due at this time. Most likely I will send him also for upper endoscopy. Patient does admit to have trouble swallowing at times history of sinusitis there is a possibility for eosinophilia and lick esophagitis that could be causing him to have trouble swallowing at times.. Currently is not taking any PPI we will hold off on starting him on anything at this time. I will send him for upper GI series with small-bowel study to rule out reflux, esophageal dysmotility, achalasia, Schatzki ring. Long discussion with patient and his about the symptoms and also diet. Avoid dietary triggers and late night snacking. Discussed with patient also low FODMAP diet. List of food recommended as well as list of food to avoid given to patient. Patient will return in 3 months, sooner on as needed basis. Both patient and his are agreeable to current plan of care and verbalizes understanding of instructions. They were given the opportunity to ask questions and all questions answered. Thank you for allowing me to participate in his care Orders: Orders Lipase Today R10.9 - Unspecified abdominal pain Liver Panel Today R74.01 - Elevation of levels of liver transaminase levels Vitamin D 25-OH (D2 and D3) Today E55.9 - Vitamin D deficiency, unspecified C Reactive Protein Today K58.9 - Irritable bowel syndrome, unspecified Calprotectin, Fecal Today R15.9 - Full incontinence of feces TSH reflex Free T4 Today K59.00 - Constipation, unspecified Vitamin B12 and Folate Today R19.7 - Diarrhea, unspecified GI Panel Today R19.7 - Diarrhea, unspecified FL upper GI small bowel Today R13.10 - Dysphagia, unspecified Medications: New sennosides (Natural Senna Laxative) 8.6 mg PO BEDTIME 90 tabs 3RF constipation K59.00 - Constipation, unspecified Discontinued lansoprazole Discontinued Reason: Patient no longer taking 30 mg PO DAILY 90 caps 3RF K21.9 - Gastro-esophageal reflux disease without esophagitis Coding Level of Care Code New Pt Level 4 (67950) Diagnoses Functional diarrhea K59.1 Diarrhea type: functional diarrhea Gastroesophageal reflux disease, unspecified whether esophagitis present K21.9 Esophagitis presence: esophagitis presence not specified Postprandial abdominal bloating R14.0 Postprandial diarrhea K52.9 Diverticulosis K57.90 Time Spent (min) 50 Comment 30 minutes spent with patient and additional 20 minutes spent reviewing his records
[2023-12-18 14:26] VITALS: BP 142/64; PULSE 70; O2SAT 96; BMI 28.3
== END 2023-12-18 15:09 | disposition home or self-care (01) ==
PROVIDERS: PCP Nurse Practitioner Family; Visit Provider Nurse Practitioner Family
DX: K52.9 Noninfective gastroenteritis and colitis, unspecified (principal); K21.9 Gastro-esophageal reflux disease without esophagitis; R14.0 Abdominal distension (gaseous); K57.90 Diverticulosis of intestine, part unspecified, without perforation or abscess without bleeding
CPT/HCPCS: 99204; 99214

== ENCOUNTER → 2023-12-18 14:13 | Outpatient (BNVA) | payer OTHER, SELFPAY ==
[2022-08-29 15:38] VITALS: BP 120/52; BP 144/56; BMI 27.3
== END ==
PROVIDERS: PCP Nurse Practitioner Family; Visit Provider Nurse Practitioner Family

== ENCOUNTER 2023-12-28 07:34 | Outpatient (REF) | payer OTHER, SELFPAY ==
[2022-08-29 15:38] VITALS: BP 120/52; BP 144/56; BMI 27.3
[2023-12-28 08:56] LABS: Creatinine Urine 225.21 mg/dL; Microalbum/Creatinine Ratio Ur 6.6 ug/mg cr (<30)
[2023-12-28 08:58] LABS: Alanine Aminotransferase 27 U/L (0-40); Albumin Level 4.2 g/dL (3.5-5.0); Alkaline Phosphatase 109 U/L (39-117); Aspartate Amino Transferase 32 U/L (5-37); Bilirubin Direct 0.4 mg/dL (0.0-0.5); C Reactive Protein < 0.10 mg/dL (< or = 0.50); Cholesterol 138 mg/dL (<200); HDL Cholesterol 65 mg/dL (>40); LDL Cholesterol Calculated 63 mg/dL (<100); Lipase 41 U/L (8-78); Total Protein 6.6 g/dL (6.5-8.0); Triglycerides 53 mg/dL (<150)
[2023-12-28 09:17] LABS: TSH reflex Free T4 2.59 uIU/mL (0.32-4.0)
[2023-12-28 09:31] LABS: Folate 12.4 ng/mL (> or = 4.0); Vitamin B12 523 pg/mL (200-900)
[2024-01-01 14:28] LABS: Vitamin D 25-OH, D2 <4 ng/mL; Vitamin D 25-OH, D3 22 ng/mL; Vitamin D 25-OH, Total 22 ng/mL (30-100)
[2024-01-08 20:13] LABS: PSA, Ultra Sensitive <0.02 ng/mL
== END 2023-12-28 07:35 | disposition home or self-care (01) ==
LOC: HO.LAB 07:34
PROVIDERS: Absent Provider Nurse Practitioner Family; PCP Nurse Practitioner Family; Visit Provider Nurse Practitioner Family
DX: Z00.00 Encounter for general adult medical examination without abnormal findings (principal); R10.9 Unspecified abdominal pain; Z12.5 Encounter for screening for malignant neoplasm of prostate; E78.5 Hyperlipidemia, unspecified; K59.00 Constipation, unspecified; R19.7 Diarrhea, unspecified; E55.9 Vitamin D deficiency, unspecified; R74.01 Elevation of levels of liver transaminase levels
CPT/HCPCS: 36415; 80061; 80076; 82043; 82306; 82570; 82607; 82746; 83690; 84153; 84443; 86140

== ENCOUNTER 2023-12-29 07:24 | Outpatient (REF) | payer OTHER, SELFPAY ==
[2022-08-29 15:38] VITALS: BP 120/52; BP 144/56; BMI 27.3
--- NOTE | ~2023-12-29 | FL_ITS ---
EXAMINATION: FL UPPER GI SERIES WITH SMALL BOWEL CLINICAL INFORMATION: Dysphagia. Chronic diarrhea. COMPARISON: None TECHNIQUE: Fluoroscopic air contrast upper GI examination was performed utilizing standard techniques with thin and thick barium and effervescent granules. Numerous spot images were obtained. Several fluoroscopic image hold cine sequences were also obtained. This was followed by small bowel series using standard overhead radiographic techniques at specified intervals until contrast was seen in the right colon. Fluoroscopic spot radiographs were then obtained of the terminal ileum and any abnormal findings in the small bowel. FINDINGS: Lateral cine images of the oropharynx and hypopharynx demonstrate normal swallow mechanism with normal epiglottic inversion and soft palate elevation. There is laryngeal penetration with thick barium to the level of the true vocal cords. No tracheal penetration, glottic or subglottic aspiration identified. No nasopharyngeal reflux present. Hypopharyngeal structures appear normal without evidence of mass or diverticulum. There was no significant cricopharyngeal achalasia. Dual and single contrast images of the esophagus demonstrate normal caliber, contour, and mucosal pattern. No evidence of stricture, mass, or ulcerations identified. There is to and fro motion of the barium column, with nonpropulsive tertiary contractions noted throughout the esophagus.. No evidence of hiatus hernia identified. No significant gastroesophageal reflux was seen during the course of the examination and on reflux views. Dual contrast and single contrast images of the stomach demonstrated a redundant and elongated stomach. There are multiple foci of contrast pooling in the body and fundus the stomach that may represent small mucosal ulcerations. No masses are present. Contrast freely passed into the gastric antrum and duodenal bulb without delay. Single and air-contrast images of the duodenal bulb demonstrate no abnormality. The duodenal sweep has a normal appearance, course, and mucosal fold appearance. SMALL BOWEL SERIES: Drupal Programmer view demonstrates a normal/nonspecific bowel gas pattern. Mild degenerative arthritis right greater than left hip joints. There is a gentle dextroconvex thoracolumbar scoliosis. Median sternotomy hardware incidentally noted. Aortic valve replacement. Lung bases clear. No organomegaly. No suspicious bone lesions. There are vascular calcifications present. Calcification of the vas deferens within the pelvis suggests diabetes. Sequential imaging of the jejunum and ileum have normal caliber, fold pattern, and appearance without evidence of mass, stricture, or abnormal dilatation. Spot imaging of the terminal ileum demonstrates no abnormality. No dilution of contrast noted through progression. Contrast was seen in the right colon after 30 minutes. FLUOROSCOPY TIME: 5 minutes 10 seconds Number of Spot Images: 10 Number of Cine: 18 DOSE AREA PRODUCT: [id number] uGy-m2 (microgray-meter squared) FL/FL upper GI small bowel IMPRESSION: 1. Laryngeal penetration is seen with thick barium to level the true vocal cords. No subglottic aspiration was observed. 2. Esophageal dysmotility. 3. Mildly redundant and elongated stomach. There are multiple foci of contrast pooling in the body and fundus the stomach that may represent small superficial aphthous ulcers. Recommend correlation with EGD. 4. Rapid transit of the barium column, with contrast seen in the right colon after 30 minutes. Etiology is unclear. 5. Status post aortic valve replacement. This procedure was performed by Sarath Sabillon PA-C, and supervised by Dr. Espana Electronically signed by: Joe Espana MD 12/31/2023 04:25 PM EDT
== END 2023-12-29 07:25 | disposition home or self-care (01) ==
LOC: HO.XRAY 07:24
PROVIDERS: PCP Nurse Practitioner Family; Visit Provider Nurse Practitioner Family
DX: R13.10 Dysphagia, unspecified (principal)
CPT/HCPCS: 74240; 74248

== ENCOUNTER → 2023-12-29 07:26 | Outpatient (BNV) | payer OTHER, SELFPAY ==
[2022-08-29 15:38] VITALS: BP 120/52; BP 144/56; BMI 27.3
== END ==
PROVIDERS: PCP Nurse Practitioner Family; Visit Provider Physician Assistant Surgical
DX: R13.10 Dysphagia, unspecified (principal)
CPT/HCPCS: 74246; 74248

== ENCOUNTER 2024-01-05 10:58 | Outpatient (REF) | payer OTHER, SELFPAY ==
[2022-08-29 15:38] VITALS: BP 120/52; BP 144/56; BMI 27.3
[2024-01-06 09:21] LABS: Adenovirus F 40/41 Not Detected (Not Detect.); Astrovirus Not Detected (Not Detect.); Campylobacter Not Detected (Not Detect.); Cryptosporidium Not Detected (Not Detect.); Cyclospora cayetanensis Not Detected (Not Detect.); E. coli EAEC Not Detected (Not Detect.); E. coli EPEC Not Detected (Not Detect.); E. coli ETEC Not Detected (Not Detect.); E. coli STEC Not Detected (Not Detect.); Entamoeba histolytica Not Detected (Not Detect.); Giardia lamblia Not Detected (Not Detect.); Norovirus GI/GII Not Detected (Not Detect.); Plesiomonas shigelloides Not Detected (Not Detect.); Rotavirus A Not Detected (Not Detect.); Salmonella Not Detected (Not Detect.); Sapovirus Not Detected (Not Detect.); Shigella sp./EIEC Not Detected (Not Detect.); Vibrio Not Detected (Not Detect.); Vibrio Cholerae Not Detected (Not Detect.); Yersinia enterocolitica Not Detected (Not Detect.)
[2024-01-13 20:24] LABS: Calprotectin, Fecal 39 mcg/g
== END 2024-01-05 10:59 | disposition home or self-care (01) ==
LOC: HO.LNP 10:58
PROVIDERS: Visit Provider Nurse Practitioner Family
DX: R15.9 Full incontinence of feces (principal); R19.7 Diarrhea, unspecified
CPT/HCPCS: 83993; 87507

== ENCOUNTER 2024-01-25 09:46 | Outpatient (AMB) | payer OTHER, SELFPAY ==
[2022-08-29 15:38] VITALS: BP 120/52; BP 144/56; BMI 27.3
[2024-01-25 10:13] VITALS: BP 110/60; PULSE 68; BMI 28.5
--- NOTE | 2024-01-25 10:13 | A.OFFVIS_ITS ---
Vital Signs 01/25/24 10:13 Height 5 ft 9 in Weight 192 lb 10.944 oz BMI 28.5 BP 110/60 Blood Pressure Location Lt brachial Position Sitting Pulse 68 Pulse Source Monitor Intake Visit Reasons: 4 mth f/up/ clear for colo/endo Intake Note: 4 mth f/up/colo/endo clearance Feed Blender Required: No Accompanied by: Self / Same As Patient Allergies bee venom protein (honey bee) Allergy (Severe, Verified 12/18/23 14:24) Anaphylaxis povidone-iodine Allergy (Unknown, Verified 12/18/23 14:24) Unknown seafood Allergy (Verified 12/18/23 14:24) Unknown lisinopril Adverse Reaction (Intermediate, Verified 12/18/23 14:24) Cough Medication List - Last Reconciled 01/25/24 by Aime Winn MD amoxicillin 2,000 mg PO DAILY PRN aspirin 81 mg PO DAILY atorvastatin 80 mg PO BEDTIME 90 days azelastine-fluticasone 137-50 mcg/spray (Dymista) 1 spray intranasal BID 30 days benzonatate 200 mg PO BID PRN 30 days betamethasone dipropionate 0.05% topical budesonide-formoterol 160-4.5 mcg/actuation (Symbicort) 2 puffs inhalation BID 30 days cholecalciferol (vitamin D3) 50 mcg PO DAILY clonazepam 1 mg PO BEDTIME epinephrine (EpiPen 2-Ricardo) 0.3 mg (0.3 mL) IM Q10M PRN lamotrigine ER 250 mg PO DAILY levothyroxine 100 mcg PO DAILY 90 days losartan 25 mg PO DAILY 90 days methylphenidate HCl 40 mg PO DAILY metoprolol succinate ER 50 mg PO DAILY omeprazole 20 mg PO DAILY psyllium husk (with sugar) 3 gram/7 gram (Metamucil (with sugar)) 1 tsp PO DAILY quetiapine (Seroquel) 50 mg PO BEDTIME sennosides (Natural Senna Laxative) 8.6 mg PO BEDTIME vitamin B comp and C no.3 (B Complex Plus Vitamin C) 1 cap PO DAILY HPI Comments Details: 73-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 He has background history of right bundle-branch block and aortic stenosis. He had echocardiography which showed evidence of severe aortic stenosis. He was complaining of dyspnea and chest discomfort. He underwent cardiac catheterization which showed 2 vessel disease. He was admitted after the cardiac catheterization for chest pain and a decision was made to do surgery sooner. He underwent CABG and AVR. He has made good recovery since then. 09/03/22: He is here for follow-up. He has been doing well. He had 1 episode of right-sided sharp chest pain lasting for 3 minutes while at cardiac rehabilitation. He said he has not had further episodes of chest discomfort despite doing physical activity. He is going to be to some dental workup and is asking whether he can get amoxicillin script. He has lower back pain which is limiting him from exercising specially in the morning when he has a lot of stiffness. Previously had some early satiety but it improved after stopping his amiodarone. He is taking medications regularly. He has no exertional symptoms at this point. 01/12/23: He returns for follow-up. He has been doing well. He is physically active. Occasionally gets dyspnea and chest tightness. This usually happens when he is out in cold weather. He is not a smoker. He does not have any history of asthma. He is asking whether he should see pulmonology. He is exercising at cardiac rehabilitation and doing well. He does not have any consistent exertional symptoms. 04/27/2023: He returns for follow-up. He is complaining of fatigue and lethargy ongoing for 2 months. He is saying that he has to take a nap during the day and feels tired quite frequently. He has been using methylphenidate for long time and the dose has not changed. He saw his psychiatrist and his clonazepam and Seroquel dose was decreased. I reviewed his blood workup and his hemoglobin is 16.7 with RBCs of 5.82. Hematocrit is 49.8. Hemoglobin has increased over the last year from 14.3-68.7. 09/21/23: He is here for follow-up. He was referred to hematology and is currently being monitored for erythrocytosis. His JAK2 mutation was negative. He is complaining of heartburn and has been using Tums. He also has been experiencing some chest discomfort which happens randomly. No clear exertional discomfort. No shortness of breath. Echocardiography last year in 05/19/2022 did not show any wall motion abnormality and ejection fraction was completely normal with a normal functioning bioprosthetic aortic valve. 01/25/2024: He is here for follow-up. No chest pains but has been experiencing some shortness of breath. He also has ongoing diarrhea and will be undergoing colonoscopy. He also has some dental workup coming up in March. He is describing some orthopnea like episodes. No PND. [facility] Medical History Obstructive airway disease Chronic allergic rhinitis Allergy Prostate cancer Pulmonary hypertension TIA (transient ischemic attack) Aortic stenosis Hypertension Anxiety Bipolar disorder Surgical History Status post double vessel coronary artery bypass Aortic valve replaced Hx of tonsillectomy Hx of appendectomy Hx of vasectomy Hx of endoscopy Hx of colonoscopy Hx of cardiac catheterization Hx of radical prostatectomy History of left shoulder replacement History of total right knee replacement Hx of repair of right rotator cuff Family History Sister Heart attack Coronary artery disease Arthritis Lupus Sleep apnea Mother Lupus Heart attack Father Heart attack Coronary artery disease Other Mental health disorder Social History Household Members: Family Housing: Apartment Alcohol intake: current Alcohol intake frequency: a few times a week Alcohol type: hard liquor Patient Tobacco Use Status: Never used Tobacco e-Cigarette/Vaping Use: Never Used Advance Directives Date on File: 11/17/21 service: No Current occupational status: retired Cognitive needs: No Hearing needs: No Vision needs: No Review of Systems Const Denies chills, Denies fatigue, Denies fever(s), Denies frequent falls, Denies weakness, Denies weight gain and Denies weight loss ENT Denies dizziness Card Denies chest pain, Denies leg edema, Denies lightheadedness, Denies palpitations, Denies dyspnea and Denies dyspnea on exertion Resp Denies cough, Denies dyspnea and Denies dyspnea on exertion GI Denies hematochezia Musc Denies abnormal gait, Denies muscle weakness, Denies numbness, Denies radiating pain into limb and Denies tingling Neuro Denies abnormal gait, Denies dizziness, Denies frequent falls, Denies numbness, Denies tingling and Denies weakness Endo Denies fatigue and Denies palpitations Physical Exam Vital Signs: Last Vital Signs Pulse 68 01/25/24 10:13 BP 110/60 01/25/24 10:13 BMI result Body Mass Index 28.5 GENERAL APPEARANCE: in no acute distress, pleasant. NECK: no carotid bruit, mild jugular venous distention. SKIN: no suspicious lesions, warm and dry. HEART: Regular rate and rhythm. Grade 1/6 systolic murmur aortic area. LUNGS: clear to auscultation bilaterally. ABDOMEN: soft, nontender. EXTREMITIES: no edema. PERIPHERAL PULSES: equal. NEUROLOGIC: No gross deficits, AAO X 3 Office Procedures EKG Details: Sinus rhythm 68 beats per minute, normal axis, right bundle-branch block, QRS duration 152 milliseconds, QTC 452 milliseconds. [id number], Complete Assessment & Plan Assessment & Plan (1) S/P CABG (coronary artery bypass graft): Comment: 11/22/2022, adames to mid LAD, SVG to distal RCA Code(s): Z95.1 - Presence of aortocoronary bypass graft Category: Surgical (2) S/P AVR: Comment: 11/22/2022 AVR, 23 mm Inspiris bioprosthetic Code(s): Z95.2 - Presence of prosthetic heart valve Category: Surgical (3) HORNE (dyspnea on exertion): Code(s): R06.09 - Other forms of dyspnea Category: Medical Plan Pleasant 73 year gentleman who is here for follow-up. He has known history of CABG and aortic valve replacement in the past with bioprosthetic valve. He has been experiencing diarrhea and is undergoing colonoscopy. He is not high-risk for procedure. He also plans to have dental extraction with denture placement in March. I have advised him that he needs antibiotics before dental workup given bioprosthetic valve. He is complaining of some dyspnea with activities. This is not interrupting his day-to-day life. He has no orthopnea or PND. He has mild JVD. We will check a BNP level today. I will also repeat an echocardiogram on him. We will see him back in few months. Thank you for allowing me to participate in the care of your patient. Please feel free to contact me if you have any questions. Orders: Orders CA echo transthorac w con Today R06.09 - Other forms of dyspnea B Type Natriuretic Peptide Today R06.09 - Other forms of dyspnea Coding Level of Care Code Est Pt Level 4 (98061) Diagnoses S/P CABG (coronary artery bypass graft) Z95.1 S/P AVR Z95.2 HORNE (dyspnea on exertion) R06.09 CPT Codes EKG - CPT: 43927-[id number], Complete ([id number])
== END 2024-01-25 10:48 | disposition home or self-care (01) ==
PROVIDERS: Visit Provider Internal Medicine Cardiovascular Disease
DX: Z95.1 Presence of aortocoronary bypass graft (principal); Z95.2 Presence of prosthetic heart valve; R06.09 Other forms of dyspnea
CPT/HCPCS: 93010; 99214

== ENCOUNTER → 2024-01-25 09:46 | Outpatient (BNVA) | payer OTHER, SELFPAY ==
[2022-08-29 15:38] VITALS: BP 120/52; BP 144/56; BMI 27.3
== END ==
PROVIDERS: Visit Provider Internal Medicine Cardiovascular Disease
DX: R06.09 Other forms of dyspnea (principal); Z95.1 Presence of aortocoronary bypass graft; Z95.2 Presence of prosthetic heart valve
CPT/HCPCS: 93005

== ENCOUNTER 2024-01-27 08:53 | Outpatient (REF) | payer OTHER, SELFPAY ==
[2022-08-29 15:38] VITALS: BP 120/52; BP 144/56; BMI 27.3
[2024-01-27 10:06] LABS: B Type Natriuretic Peptide 131 pg/mL (<100)
[2024-01-27 10:25] LABS: TSH reflex Free T4 2.44 uIU/mL (0.32-4.0)
== END 2024-01-27 08:54 | disposition home or self-care (01) ==
LOC: HO.LAB 08:53
PROVIDERS: PCP Nurse Practitioner Family; Visit Provider Internal Medicine Cardiovascular Disease
DX: R06.09 Other forms of dyspnea (principal); E03.9 Hypothyroidism, unspecified
CPT/HCPCS: 36415; 83880; 84443

== ENCOUNTER 2024-02-09 08:25 | Outpatient (AMB) | payer OTHER, SELFPAY ==
[2022-08-29 15:38] VITALS: BP 120/52; BP 144/56; BMI 27.3
--- NOTE | 2024-02-09 08:26 | MHC.PC.OV ---
Vital Signs 02/09/24 08:32 02/09/24 08:47 Height 5 ft 9 in Weight 189 lb 2 oz BMI 27.9 BP 147/68 H 138/70 Blood Pressure Location Rt brachial Rt brachial Position Sitting Sitting Respiration 16 Pulse 65 Pulse Source Pulse Oximeter Temp 97.9 F Temp Source Temporal Artery Scan Pulse Oximetry (%) 100 Oxygen Delivery Method Room Air Intake Visit Reasons: 10 wks CPE Intake Note: patient here for CPE Felt Puller Required: No Allergies bee venom protein (honey bee) Allergy (Severe, Verified 02/09/24 08:40) Anaphylaxis povidone-iodine Allergy (Unknown, Verified 02/09/24 08:40) Unknown seafood Allergy (Verified 02/09/24 08:40) Unknown lisinopril Adverse Reaction (Intermediate, Verified 02/09/24 08:40) Cough Medication List - Last Reconciled 02/09/24 by Mikey Feliciano CNP amoxicillin 2,000 mg PO DAILY PRN aspirin 81 mg PO DAILY atorvastatin 80 mg PO BEDTIME 90 days azelastine-fluticasone 137-50 mcg/spray (Dymista) 1 spray intranasal BID 30 days benzonatate 200 mg PO BID PRN 30 days betamethasone dipropionate 0.05% topical budesonide-formoterol 160-4.5 mcg/actuation (Symbicort) 2 puffs inhalation BID 30 days cholecalciferol (vitamin D3) 50 mcg PO DAILY clonazepam 1 mg PO BEDTIME epinephrine (EpiPen 2-Ricardo) 0.3 mg (0.3 mL) IM Q10M PRN lamotrigine ER 250 mg PO DAILY levothyroxine 100 mcg PO DAILY 90 days losartan 25 mg PO DAILY 90 days methylphenidate HCl 40 mg PO DAILY metoprolol succinate ER 50 mg PO DAILY omeprazole 20 mg PO DAILY psyllium husk (with sugar) 3 gram/7 gram (Metamucil (with sugar)) 1 tsp PO DAILY quetiapine (Seroquel) 50 mg PO BEDTIME sennosides (Natural Senna Laxative) 8.6 mg PO BEDTIME vitamin B comp and C no.3 (B Complex Plus Vitamin C) 1 cap PO DAILY Tobacco use date assessed: 02/09/24 Fall risk assessment: No Falls in past year Last assessed Fall Risk: 02/09/24 Dental Screening Dental Screen Date: 02/09/24 Did you have a dental visit in the last 12 months?: Yes Did you have a dental problem in the last 6 months where you did not have access to dental care?: No Was dental information given to patient?: Patient has dentist HPI HPI Comments History of Present Illness Details 73-year-old male presents for an extended physical exam. He has past medical history significant for hypertension, hyperlipidemia, COPD, erythrocytosis, hypothyroidism, aortic stenosis, CABG x2 (2021), hard of hearing in both ears (uses hearing ai, bipolar 2 disorder, ADHD, and anxiety. He admits to taking his medications as prescribed without adverse reactions. He offers no complaints and denies acute symptoms at this time. Health Maintenance - Last eye exam was 6 months ago. He will sign a consent for his PCP to obtain his eye record. - Up-to-date with shingles and pneumonia vaccinations. - Received influenza vaccine for the current season. - Last tetanus vaccine was in 2023. - Colonoscopy screening planned by Gastroenterology; last one was in 2018. - Blood pressure management with monitoring recommended due to readings above target levels. - Encouraged continuous vitamin D supplementation due to documented deficiency (last level 22). - He is followed by [facility] cardiology, pulmonology, Gastroenterology, and Hematology Social History - No history of tobacco or recreational drug use. - Ceased alcohol consumption a month ago. - Involvement in cardiac rehabilitation and minimal weightlifting for exercise. - Reports consumption of a healthy diet with limited salt intake. - Planning oral surgery for complete upper denture in the next three months. [facility] Medical History Obstructive airway disease Chronic allergic rhinitis Allergy Prostate cancer Pulmonary hypertension TIA (transient ischemic attack) Aortic stenosis Hypertension Anxiety Bipolar disorder Surgical History Status post double vessel coronary artery bypass Aortic valve replaced Hx of tonsillectomy Hx of appendectomy Hx of vasectomy Hx of endoscopy Hx of colonoscopy Hx of cardiac catheterization Hx of radical prostatectomy History of left shoulder replacement History of total right knee replacement Hx of repair of right rotator cuff Family History Sister Heart attack Coronary artery disease Arthritis Lupus Sleep apnea Mother Lupus Heart attack Father Heart attack Coronary artery disease Other Mental health disorder Social History Household Members: Family Housing: Apartment Alcohol intake: current Alcohol intake frequency: a few times a week Alcohol type: hard liquor Patient Tobacco Use Status: Never used Tobacco e-Cigarette/Vaping Use: Never Used Advance Directives Date on File: 11/17/21 service: No Current occupational status: retired Cognitive needs: No Hearing needs: No Vision needs: No Questionnaire PHQ-9 Over the last 2 weeks, how often have you been bothered by any of the following problems? 1. Little interest or pleasure in doing things: not at all 2. Feeling down, depressed, or hopeless: several days 3. Trouble falling or staying asleep, or sleeping too much: several days 4. Feeling tired or having little energy: several days 5. Poor appetite or overeating: not at all 6. Feeling bad about yourself - or that you are a failure or have let yourself or your family down: not at all 7. Trouble concentrating on things, such as reading the newspaper or watching television: not at all 8. Moving or speaking so slowly that other people could have noticed. Or the opposite - being so fidgety or restless that you have been moving around a lot more than usual: not at all 9. Thoughts that you would be better off or of hurting yourself in some way: not at all Total score: 3 Depression Screening Interpretation: Negative Depression Screening Done: Yes 24250 - PHQ-9 Billing: Yes Source: Developed by Drs. Josh Everett, Cindy Loco, Marcial Castillo and colleagues, with an educational alli from [employer]. Thrive Questionnaire Date Thrive assessed: 02/09/24 I am a: Patient What is your living situation today?: I have a steady place to live Within the past 12 months, did the food you bought not last and you didn't have the money to get more?: Never true Within the past 12 months, did you worry whether your food would run out before you got money to buy more?: Never true Do you have trouble paying for medicines?: No Do you have trouble getting transportation to medical appointments?: No Do you have trouble paying your heating and electricity bill?: No Do you have trouble taking care of your child, family member or friend?: No Do you have trouble with day-to-day activities such as bathing, preparing meals, shopping, managing finances, etc.?: No Are you currently unemployed and looking for a job?: No Are you interested in more education?: No Currently or been in a relationship where the following occur: No concerns reported THRIVE Score: 0 AUDIT C Alcohol Use Questionnaire (AUDIT-C) 1. How often do you have a drink containing alcohol?: Monthly or less 2. How many drinks containing alcohol do you have on a typical day when you are drinking?: 1 or 2 3. How often do you have six or more drinks on one occasion?: Never Total Score: 1 Score Reviewed/Action Taken: Yes LYNDON-7 AMB Questionnaire LYNDON-7 Date LYNDON - 7 assessed: 02/09/24 Feeling nervous, anxious, or on edge: 0 = Not at all Not being able to stop or control worryin = Not at all Worrying too much about different things: 0 = Not at all Trouble relaxin = Not at all Being so restless that it is hard to sit still: 0 = Not at all Becoming easily annoyed or irritable: 0 = Not at all Feeling afraid as if something awful might happen: 0 = Not at all Total LYNDON-7 score (0-4 normal; 5-9 mild; 10-14 moderate; 15-21 severe): 0 Source: Developed by Drs. Josh Everett, Cindy Loco, Marcial Castillo and colleagues, with an educational alli from [employer]. LYNDON-7 Assessment Billing LYNDON-7 Assessment Tool: LYNDON-7 Assessment 85263 Review of Systems Const Details: Denies chills, Denies fatigue, Denies fever(s), Denies headache(s) and Denies weakness HEENT Denies change in vision, Denies dizziness, Denies headache(s), Denies hearing loss, Denies nasal congestion, Denies sinus pain, Denies sinus pressure and Denies sore throat Card Denies chest pain, Denies lightheadedness, Denies dyspnea and Denies other (palpitations) Resp Denies cough, Denies dyspnea and Denies wheezing GI Denies abdominal pain, Denies melena, Denies hematochezia, Denies change in bowel habits, Denies dyspepsia and Denies nausea Denies hematuria and Denies dysuria Musc Denies abnormal gait, Denies myalgias, Denies arthralgias, Denies numbness and Denies tingling Skin/Breast Denies rash, Denies unusual bruising and Denies wounds Neuro Denies abnormal gait, Denies dizziness, Denies headache(s), Denies memory loss, Denies numbness, Denies Sensory deficit (Neuro), Denies tingling and Denies weakness Psych Denies anxiety, Denies depression and Denies memory loss Endo Denies cold intolerance, Denies fatigue, Denies heat intolerance, Denies polydipsia and Denies polyuria Ross/Lymph Denies easy bleeding and Denies easy bruising Aller/Immun Denies wheezing Physical exam (Primary Care) Tobacco/Smoking Status: Tobacco use Status Tobacco use date assessed 03/04/23 02/09/24 08:28 Patient Tobacco Use Status Never used Tobacco 02/09/24 08:28 e-Cigarette/Vaping Use Never Used 02/09/24 08:28 Depression Screening Interpretation: Negative Thrive Assessment: Date of Thrive Assessment Date Thrive assessed 03/04/23 02/09/24 08:28 Currently or been in a relationship where the following occur: No concerns reported Const Other: General: no acute distress, well developed, alert and awake Nutritional Appearance: well nourished Orientation/consciousness: patient oriented x3 HENMT Head: Yes normocephalic and Yes atraumatic Ears: hearing grossly normal bilaterally and TM's normal bilaterally General nose exam: Normal external nose present and Normal nares present Mouth: Normal oral and palatal mucosa present and moist mucous membranes Teeth and gingiva: Several upper missing teeth with decay noted Throat: Yes oropharynx normal Eyes Pupils: Equal, round and reactive pupils present and Pupil accommodation reflex normal EOM: EOMs intact bilaterally Neck Neck: Yes normal visual inspection, Yes no lymphadenopathy and Yes trachea midline Thyroid: Thyroid normal Carotids: no bruits Lymphatic: no lymphadenopathy noted Chest Chest palpation & inspection: normal inspection of the chest Resp Effort & Inspection: normal respiratory effort Auscultation: clear to auscultation bilaterally Cardio Rate: regular rate Rhythm: regular rhythm Heart sounds: S1 normal heart sound present, S2 normal heart sound present, no gallops, no murmurs and no rubs Bruits: no abdominal aortic bruits and no carotid bruits GI Palpation (GI): No Abdominal aortic bruit present, Soft to palpation, nontender, No hepatosplenomegaly present and No Rebound tenderness present Auscultation: normal bowel sounds General: Yes no CVA tenderness Back/Spine/Pelvis Back: no CVA tenderness Cervical Spine: cervical ROM normal and No Cervical spine tenderness Thoracic/Lumbar Spine: thoraco-lumbar ROM normal, No pain with thoraco-lumbar ROM, No thoracic spinal tenderness and No lumbar spinal tenderness Skin General: warm and dry. Normal skin color. Normal skin turgor Lesions: no lesions Rashes: no rashes Trauma: no lacerations or abrasions Wounds: no wounds Nails: normal Neuro General: patient oriented x3, gait normal and CN's II-XI intact bilaterally Cranial nerves: Yes Equal, round and reactive pupils present Cognition (Neuro): normal cognition Gait exam (Neuro): Normal gait present Motor exam (neuro): 5/5 motor strength present throughout Sensory Exam: No Sensory deficit (Neuro) Deep tendon reflexes (DTR's): Right patellar reflex intensity grade: 2+ and Left patellar reflex intensity grade: 2+ Extrem General: Yes normal to inspection, No edema and No calf tenderness Psych Appearance: grossly normal Affect: normal affect Attitude: cooperative Thought process: Normal thought process present Coding Level of Care Code Est Pt Prev Care >65y(90601) Diagnoses Normal physical examination, routine Z00.00 Primary hypertension I10 Hypertension type: primary hypertension Vitamin D deficiency E55.9 Endodontic disease K04.90 Additional Codes LYNDON-7 Assessment Billing - LYNDON-7 Assessment Tool: LYNDON-7 Assessment 42092 ([id number]) PHQ-9 - 74923 - PHQ-9 Billing: Yes ([id number]) Assessment & Plan Assessment & Plan (1) Normal physical examination, routine: Code(s): Z00.00 - Encounter for general adult medical examination without abnormal findings Category: Medical Plan: No functional limitation noted. (2) Hypertension: Code(s): I10 - Essential (primary) hypertension Category: Medical Qualifiers: Hypertension type: primary hypertension Qualified Code(s): I10 - Essential (primary) hypertension Plan: Patient to follow up in two months for blood pressure management. Continue current anti-hypertensive regimen with emphasis on goal to reduce blood pressure below 130/70 mmHg. (3) Vitamin D deficiency: Code(s): E55.9 - Vitamin D deficiency, unspecified Category: Medical Plan: Reinforce compliance with vitamin D supplementation. Obtain vitamin D level lab work prior to next follow-up. (4) Endodontic disease: Code(s): K04.90 - Unspecified diseases of pulp and periapical tissues Category: Medical Plan During the visit, I emphasized the importance of continued compliance with medication, especially regarding vitamin D supplementation. We discussed the upcoming colonoscopy and the significance of maintaining healthier lifestyle habits, including reduced salt intake and regular cardiac rehabilitation activities. I encouraged the patient to sign the release for his eye doctor records to ensure comprehensive care. The patient was reminded to follow up in two months for blood pressure evaluation and urged to complete lab work for vitamin D before that visit. Orders: Orders Vitamin D 25-OH Total Today E55.9 - Vitamin D deficiency, unspecified Patient Instructions: - Continue current hypertension medication and lifestyle modifications targeting blood pressure control. Follow up in two months. - Reinforce daily vitamin D intake due to deficiency. - Complete lab work for vitamin D prior to the next follow-up appointment. - Attend scheduled colonoscopy and maintain follow-up with specialist. - Sign release for eye doctor records. - Contact healthcare provider with any changes in symptoms or concerns. Patient was informed and verbally consented to the use of an ambient scribe for clinic note documentation during this visit. Scribe Plan - Not visible on output: Oral surgery planned for full upper denture fitting.
[2024-02-09 08:32] VITALS: BP 147/68; PULSE 65; RESP 16; TEMP 36.6; O2SAT 100; BMI 27.9
[2024-02-09 08:47] VITALS: BP 138/70
== END 2024-02-09 08:54 | disposition home or self-care (01) ==
LOC: HO.HMCFM 08:25
PROVIDERS: PCP Nurse Practitioner Family; Visit Provider Nurse Practitioner Family
DX: Z00.00 Encounter for general adult medical examination without abnormal findings (principal); I10 Essential (primary) hypertension; E55.9 Vitamin D deficiency, unspecified; K04.90 Unspecified diseases of pulp and periapical tissues

== ENCOUNTER → 2024-02-09 08:25 | Outpatient (BNVA) | payer OTHER, SELFPAY ==
[2022-08-29 15:38] VITALS: BP 120/52; BP 144/56; BMI 27.3
== END ==
PROVIDERS: PCP Nurse Practitioner Family; Visit Provider Nurse Practitioner Family
DX: Z00.00 Encounter for general adult medical examination without abnormal findings (principal); I10 Essential (primary) hypertension; E55.9 Vitamin D deficiency, unspecified; K04.90 Unspecified diseases of pulp and periapical tissues
CPT/HCPCS: 96127

== ENCOUNTER → 2024-02-11 07:47 | Outpatient (REF) | payer OTHER, SELFPAY ==
[2022-08-29 15:38] VITALS: BP 120/52; BP 144/56; BMI 27.3
--- NOTE | 2024-02-11 07:51 | CA_ITS ---
Transthoracic Echocardiogram Patient (Last, First, Middle): Jarrett Jean, Gender: Male Date of : 1950 Age: 73 Procedure Date: 02/11/2024 Procedure Type: Transthoracic Echocardiogram Location: OP Height: 175. cm Weight: 84.37 kg BSA: 2.00 m2 Heart Rate: 83 bpm BP: 138 / 40 mmHg Insole Doubler: RADHA Hawkins MD: Aime Winn MD Recreational Vehicle Repairer: Alec Johnson MD Symptoms: R06.09 - Other forms of dyspnea Study Quality: Adequate w/Contrast ECG Rhythm: Sinus Conclusions: - 1. Normal LV ejection fraction 55-60% with impaired relaxation filling pattern 2. Normally function bioprosthetic aortic valve with mean gradient of 11 mm Hg 3. Normal RV systolic pressure 4. Upper limits of normal ascending aortic size 5. No pericardial effusion Findings Procedure Information Contrast agent, definity, is being given per protocol without apparent complications. Left Ventricle Normal left ventricular size, thickness, and systolic function. The visually estimated ejection fraction is between 55-60%. Spectral Doppler is indicative of an impaired relaxation filling pattern. E/E prime ratio is between 8 and 15 consistent with indeterminate filling pressures. Right Ventricle Normal right ventricular cavity size and systolic function. Atria Both atria are normal in size. Interatrial shunt cannot be excluded. Aortic Valve A bioprosthetic aortic valve is present. The prosthetic aortic valve appears to be functioning normally. The mean gradient is 11 mmHg. There is no aortic valve regurgitation. Mitral Valve There is mild anterior mitral leaflet thickening. There is mild mitral annular calcification. There is trace mitral valve regurgitation. There is no mitral valve stenosis. Pulmonic Valve The pulmonic valve was not well visualized. Tricuspid Valve Likely normal tricuspid valve structure and function. There is trace tricuspid valve regurgitation. The right ventricular systolic pressure is normal. The right ventricular systolic pressure is 22 mmHg. Normal right atrial pressure. There is no evidence of pulmonary hypertension. Great Vessels The aorta was not well visualized. The pulmonary artery was not well visualized. There is no dilatation of the ascending aorta measuring 3.60 cm. Venous The inferior vena cava is normal in size and collapses greater than 50% with inspiration. Pericardium/Pleural There is no evidence of pericardial effusion. Prior Study Comparison No significant change compared to prior study dated: 05/27/2022. Measurements 2D Linear Measurements IVSd: 1.14 0.6-0.9/0.6-1.0 cm LVIDd: 3.02 3.9-5.3/4.2-5.9 cm LVIDd Index: 1.51 2.4-3.2/2.2-3.1 cm/m2 LVIDs: 1.75 2.0-3.6 cm LVPWd: 0.91 0.7-1.1 cm LA Diam: 2.50 2.7-3.8/3.0-4.0 cm LAIDs Index: 1.25 1.5-2.3 cm/m2 LV Mass: 106.81 67-162/88-224 g LV Mass Index: 53.41 43-95/49-115 g/m2 LVOT Diam: 2.00 3.0+(-)1.3 cm 2D Systolic Function EF 4C: 57.40 >55% EF 2C: 60.80 >55% EF BiP: 58.80 >55% Mitral Valve MV Pk E: 1.06 MV PK A: 1.02 MV Decel Time: 218.00 E/A: 1.00 E'Lateral: 7.51 E'Medial: 4.57 E/E' Med: 23.20 E/E' Lat: 14.10 PHT: 64.00 MVA PHT: 3.44 Decel Rains: 4.86 Aortic Valve AoV Pk Shen: 2.15 AoV Mn Shen: 1.56 AoV VTI: 0.41 AoV Pk Grad: 18.00 Aov Mn Grad: 11.00 KAREEM Cont.VTI: 1.77 LVOT LVOT Pk Shen: 1.06 LVOT Mn Shen: 0.72 LVOT VTI: 0.23 LVOT Pk Grad: 4.00 LVOT Mn Grad: 2.00 LVOT Diam: 2.00 LVOT Area: 3.14 Diastolic Function MV Pk E: 1.06 MV Pk A: 1.02 E/A: 1.00 E'Medial: 4.57 E/E' Med: 23.20 E' Laterial: 7.51 E/E' Lat: 14.10 Right Ventricle TAPSE (mm): 12.60 TVS' Shen: 8.59 Tricuspid Valve TR Pk Shen: 2.16 TR Pk Grad: 19.00 RA Press: 3.00 RVSP: 22.00 Great Vessels Aorta Sinus of Valsalva: 3.30 2.0-3.5 cm Ao Asc: 3.60 2.1-3.4 cm Ao Arch: 2.90 Updated in Other Vendor System with Status of Final Alec Johnson MD electronically signed on 02/12/2024 3:21:35 PM with status of Final
== END ==
LOC: HO.CARD 07:47
PROVIDERS: PCP Nurse Practitioner Family; Visit Provider Internal Medicine Cardiovascular Disease
DX: R06.09 Other forms of dyspnea (principal)
CPT/HCPCS: 93306; Q9957

== ENCOUNTER → 2024-02-11 07:51 | Outpatient (BNV) | payer OTHER, SELFPAY ==
[2022-08-29 15:38] VITALS: BP 120/52; BP 144/56; BMI 27.3
== END ==
PROVIDERS: PCP Nurse Practitioner Family; Visit Provider Internal Medicine Cardiovascular Disease
DX: I42.8 Other cardiomyopathies (principal); I34.81 Nonrheumatic mitral (valve) annulus calcification; Z95.3 Presence of xenogenic heart valve
CPT/HCPCS: 93306

== ENCOUNTER 2024-03-14 14:09 | Outpatient (AMB) | payer OTHER, SELFPAY ==
[2022-08-29 15:38] VITALS: BP 120/52; BP 144/56; BMI 27.3
--- NOTE | 2024-03-14 14:30 | A.OFFVIS_ITS ---
Vital Signs 03/14/24 14:32 Height 5 ft 9 in Weight 189 lb BMI 27.9 BP 110/48 L Blood Pressure Location Lt brachial Position Sitting Pulse 61 Intake Visit Reasons: 3 month follow up Intake Note: Patient 3 month follow up for diarrhea and lab and Upper GI series results. Patient cc: diarrhea just about daily, abdominal discomfort/bloating on and off, and some dizziness. Plastic Installer Required: No Accompanied by: Self / Same As Patient Allergies bee venom protein (honey bee) Allergy (Severe, Verified 03/14/24 14:30) Anaphylaxis povidone-iodine Allergy (Unknown, Verified 03/14/24 14:30) Unknown seafood Allergy (Verified 03/14/24 14:30) Unknown lisinopril Adverse Reaction (Intermediate, Verified 03/14/24 14:30) Cough HPI HPI 3 month follow up: Details: LAST VISIT: Diarrhea GERD (gastroesophageal reflux disease) Postprandial abdominal bloating Postprandial diarrhea Diverticulosis Plan Patient is not taking currently lansoprazole, stopped taking it as he feels like that might have contributed to his diarrhea. Will look into source/reason for patient has diarrhea. Will order GI panel. Will rule out malabsorption. Possible that the diverticulosis is more advanced (diagnosed with moderate diverticulosis of the sigmoid colon on colonoscopy in 2019) and needs more fiber to help him bulk the stools. Most likely patient is not emptying his bowels completely. Will check CRP and calprotectin to rule out inflammatory bowel disease. Patient does have a family history of psoriatic arthritis and lupus in his sister and his son, so there is a possibility for inflammatory bowel disease. Patient denies any melena, hematochezia. Will be sending him for colonoscopy as he is due at this time. Most likely I will send him also for upper endoscopy. Patient does admit to have trouble swallowing at times history of sinusitis there is a possibility for eosinophilia and lick esophagitis that could be causing him to have trouble swallowing at times.. Currently is not taking any PPI we will hold off on starting him on anything at this time. I will send him for upper GI series with small-bowel study to rule out reflux, esophageal dysmotility, achalasia, Schatzki ring. Long discussion with patient and his about the symptoms and also diet. Avoid dietary triggers and late night snacking. Discussed with patient also low FODMAP diet. List of food recommended as well as list of food to avoid given to patient. Patient will return in 3 months, sooner on as needed basis. Both patient and his are agreeable to current plan of care and verbalizes understanding of instructions. They were given the opportunity to ask questions and all questions answered. ? Thank you for allowing me to participate in his care Orders Orders Lipase Today R10.9 Liver Panel Today R74.01 Vitamin D 25-OH (D2 and D3) Today E55.9 C Reactive Protein Today K58.9 Calprotectin, Fecal Today R15.9 TSH reflex Free T4 Today K59.00 Vitamin B12 and Folate Today R19.7 GI Panel Today R19.7 FL upper GI small bowel Today R13.10 Medications New sennosides (Natural Senna Laxative) 8.6 mg PO BEDTIME 90 tabs 3RF constipation K59.00 Discontinued lansoprazole Discontinued Reason: Patient no longer taking 30 mg PO DAILY 90 caps 3RF K21.9 TODAY'S VISIT Patient is here today for follow-up and to discuss lab results as well as upper GI series results. Patient continues with loose stools. Usually in the morning after breakfast and coffee he will have 2-3 bowel movements and they are all loose. Patient reports collar brown. He is taking fiber in the morning and 1 senna at night time. Patient reports that diarrhea has improved quite a bit, however still experiences and reports that he is losing appetite. Patient reports that he stopped drinking alcohol has not had any alcohol for few weeks. Patient denies melena, hematochezia, unintentional weight loss or ribbon like s tools. Patient had normal labs which included lipase lipid and liver profile, thyroid study, vitamin B12 and folate. GI profile negative for viral component. Mildly low vitamin-D level which patient was told to supplement and is taking it daily. Stool calprotectin was normal as well as CRP which tells me that this is not IBD. Upper GI series showed penetration in vocal cavity which patient co nfirms that occasionally if he eats fast he will have trouble swallowing. Esophageal dysmotility seen as well as elongated stomach with possible ulcers. Patient currently is taking omeprazole and feels like his symptoms are better. Rapid transit of the barium into right colon. Patient will be scheduled to go for colonoscopy and we will add upper endoscopy. Patient denies any cardiac or respiratory symptoms. Last visit with his grain origination specialist patient was cleared to go for procedure. Patient is on low-dose aspirin. No history of sleep apnea. No issues with anesthesia in the past. [facility] Medical History Obstructive airway disease Chronic allergic rhinitis Allergy Prostate cancer Pulmonary hypertension TIA (transient ischemic attack) Aortic stenosis Hypertension Anxiety Bipolar disorder Surgical History Status post double vessel coronary artery bypass Aortic valve replaced Hx of tonsillectomy Hx of appendectomy Hx of vasectomy Hx of endoscopy Hx of colonoscopy Hx of cardiac catheterization Hx of radical prostatectomy History of left shoulder replacement History of total right knee replacement Hx of repair of right rotator cuff Family History Sister Heart attack Coronary artery disease Arthritis Lupus Sleep apnea Mother Lupus Heart attack Father Heart attack Coronary artery disease Other Mental health disorder Social History Household Members: Family Housing: Apartment Alcohol intake: current Alcohol intake frequency: a few times a week Alcohol type: hard liquor Patient Tobacco Use Status: Never used Tobacco e-Cigarette/Vaping Use: Never Used Advance Directives Date on File: 11/17/21 service: No Current occupational status: retired Cognitive needs: No Hearing needs: No Vision needs: No Review of Systems Const Denies weight gain and Denies weight loss ENT Reports no additional complaints, Denies dysphagia and Denies odynophagia Card Reports no additional complaints Resp Reports no additional complaints GI Denies abdominal pain, Denies belching, Denies melena, Denies bloating, Denies dysphagia, Denies excessive flatus, Denies dyspepsia, Denies heartburn, Reports diarrhea, Reports loose stools, Denies nausea, Denies odynophagia and Denies vomiting Reports no additional complaints Musc Reports no additional complaints Neuro Reports no additional complaints Psych Reports no additional complaints Endo Reports no additional complaints Physical Exam Vital Signs: Last Vital Signs Pulse 61 03/14/24 14:32 BP 110/48 L 03/14/24 14:32 BMI result Body Mass Index 27.9 Const General: healthy appearing, no acute distress and well developed Nutritional Appearance: well nourished Orientation/consciousness: patient oriented x3 Resp Effort & Inspection: normal respiratory effort, able to speak in complete sentences, no tracheal deviation and symmetric chest movement Auscultation: clear to auscultation bilaterally Cardio Rate: regular rate GI Inspection: Yes normal to inspection and Yes distended Palpation (GI): Soft to palpation, not firm, nontender and No hepatosplenomegaly present Auscultation: Hyperactive bowel sounds present General: Yes no CVA tenderness Back/Spine/Pelvis Back: no CVA tenderness Skin General skin exam: elasticity normal, turgor normal and dry skin Neuro General: patient oriented x3 Psych Appearance: grossly normal Mental Status: mental status grossly normal Results Reviewed Results Reviewed: Laboratory Tests 01/05/24 09:00 Stool Calprotectin 39 Laboratory Tests 12/28/23 07:58 AST 32 ALT 27 Alkaline Phosphatase 109 C-Reactive Protein < 0.10 Triglycerides 53 Cholesterol 138 LDL Cholesterol, Calc 63 Vitamin B12 523 25-OH Vitamin D Total 22 L Folate 12.4 TSH 2.59 GI PANEL NEGATIVE UPPER GI SERIES IMPRESSION: 1. Laryngeal penetration is seen with thick barium to level the true vocal cords. No subglottic aspiration was observed. 2. Esophageal dysmotility. 3. Mildly redundant and elongated stomach. There are multiple foci of contrast pooling in the body and fundus the stomach that may represent small superficial aphthous ulcers. Recommend correlation with EGD. 4. Rapid transit of the barium column, with contrast seen in the right colon after 30 minutes. Etiology is unclear. 5. Status post aortic valve replacement. Assessment & Plan Assessment & Plan (1) Diarrhea: Code(s): R19.7 - Diarrhea, unspecified Category: Medical Qualifiers: Diarrhea type: functional diarrhea Qualified Code(s): K59.1 - Functional diarrhea (2) GERD (gastroesophageal reflux disease): Code(s): K21.9 - Gastro-esophageal reflux disease without esophagitis Category: Medical Qualifiers: Esophagitis presence: esophagitis presence not specified Qualified Code(s): K21.9 - Gastro-esophageal reflux disease without esophagitis (3) Postprandial abdominal bloating: Code(s): R14.0 - Abdominal distension (gaseous) (4) Postprandial diarrhea: Code(s): K52.9 - Noninfective gastroenteritis and colitis, unspecified (5) Diverticulosis: Code(s): K57.90 - Diverticulosis of intestine, part unspecified, without perforation or abscess without bleeding (6) Screen for colon cancer: Code(s): Z12.11 - Encounter for screening for malignant neoplasm of colon (7) Esophageal dysmotility: Code(s): K22.4 - Dyskinesia of esophagus Plan Patient will continue take fiber. Avoid dietary triggers and late night snacking. Low FODMAP diet discussed with patient. List of food recommended as well as list of food to avoid given to patient. Patient can take as needed loperamide. Will stop taking senna at night time. May increase fiber to 2 scoops versus 1 scoop daily. Esophageal dysmotility found as well as possible ulcers. Patient will be sent for upper endoscopy might need esophageal dilation. Continue omeprazole. May need to add sucralfate at bedtime. Avoid dietary triggers and late night snacking. Staying upright for minimum 3 hours after meals discussed with patient. Patient will go for colonoscopy as well. IBS versus IBD. Normal fecal calprotectin and normal CRP. Patient denies any cardiac or respiratory symptoms. Cleared by Cardiology. On low-dose aspirin. Patient denies any issues with anesthesia in the past. What to expect before during and after procedure discussed with patient. Stressed the importance of good bowel prep as well as clear liquid diet day before procedure. Message sent to surgical schedulers to book procedure for patient. Patient is agreeable to current plan of care and verbalizes understanding of instructions. He was given the opportunity to ask questions and all questions answered. Thank you for allowing me to participate in his care Medications: New loperamide (Imodium A-D) 2 mg PO Q6H PRN 60 caps 3RF loose stool R19.7 - Diarrhea, unspecified bisacodyl (Dulcolax (bisacodyl)) take 4 tabs at noon the day before your colonoscopy 20 mg (4 x 5 mg) PO ONCE 1 day 4 tabs 0RF Z12.11 - Encounter for screening for malignant neoplasm of colon polyethylene glycol 3350 (Miralax) As directed by gastroenterology department at [facility] 238 grams PO ONCE 238 grams 0RF Z12.11 - Encounter for screening for malignant neoplasm of colon Coding Level of Care Code Est Pt Level 4 (45306) Complex EM visit Add On G2211 Diagnoses Functional diarrhea K59.1 Diarrhea type: functional diarrhea Gastroesophageal reflux disease, unspecified whether esophagitis present K21.9 Esophagitis presence: esophagitis presence not specified Postprandial abdominal bloating R14.0 Postprandial diarrhea K52.9 Diverticulosis K57.90 Screen for colon cancer Z12.11 Esophageal dysmotility K22.4 Time Spent (min) 35 Comment 20 minutes spent with patient and additional 15 minutes spent reviewing his records
[2024-03-14 14:32] VITALS: BP 110/48; PULSE 61; BMI 27.9
== END 2024-03-14 15:50 | disposition home or self-care (01) ==
PROVIDERS: PCP Nurse Practitioner Family; Visit Provider Nurse Practitioner Family
DX: K52.9 Noninfective gastroenteritis and colitis, unspecified (principal); K21.9 Gastro-esophageal reflux disease without esophagitis; K57.90 Diverticulosis of intestine, part unspecified, without perforation or abscess without bleeding; K22.4 Dyskinesia of esophagus; Z12.11 Encounter for screening for malignant neoplasm of colon
CPT/HCPCS: 99214; G2211

== ENCOUNTER 2024-04-12 08:24 | Outpatient (AMB) | payer OTHER, SELFPAY ==
[2022-08-29 15:38] VITALS: BP 120/52; BP 144/56; BMI 27.3
--- NOTE | 2024-04-12 08:26 | A.OFFVIS_ITS ---
Intake Visit Reasons: Hypertension Intake Note: patient here for follow up on HTN Workers Compensation Defense Attorney Required: No Allergies bee venom protein (honey bee) Allergy (Severe, Verified 03/14/24 14:30) Anaphylaxis povidone-iodine Allergy (Unknown, Verified 03/14/24 14:30) Unknown seafood Allergy (Verified 03/14/24 14:30) Unknown lisinopril Adverse Reaction (Intermediate, Verified 03/14/24 14:30) Cough PFSH Medical History Obstructive airway disease Chronic allergic rhinitis Allergy Prostate cancer Pulmonary hypertension TIA (transient ischemic attack) Aortic stenosis Hypertension Anxiety Bipolar disorder Surgical History Status post double vessel coronary artery bypass Aortic valve replaced Hx of tonsillectomy Hx of appendectomy Hx of vasectomy Hx of endoscopy Hx of colonoscopy Hx of cardiac catheterization Hx of radical prostatectomy History of left shoulder replacement History of total right knee replacement Hx of repair of right rotator cuff Family History Sister Heart attack Coronary artery disease Arthritis Lupus Sleep apnea Mother Lupus Heart attack Father Heart attack Coronary artery disease Other Mental health disorder Social History Household Members: Family Housing: Apartment Alcohol intake: current Alcohol intake frequency: a few times a week Alcohol type: hard liquor Patient Tobacco Use Status: Never used Tobacco e-Cigarette/Vaping Use: Never Used Advance Directives Date on File: 11/17/21 service: No Current occupational status: retired Cognitive needs: No Hearing needs: No Vision needs: No Coding
--- NOTE | 2024-04-12 08:30 | MHC.PC.OV ---
Vital Signs 04/12/24 08:36 04/12/24 08:50 Height 5 ft 9 in Weight 191 lb BMI 28.2 BP 142/58 H 126/68 Blood Pressure Location Rt brachial Rt brachial Position Sitting Sitting Respiration 16 Pulse 66 Pulse Source Pulse Oximeter Temp 97.6 F Temp Source Oral Pulse Oximetry (%) 100 Oxygen Delivery Method Room Air Intake Visit Reasons: Hypertension Intake Note: patient here for follow up on HTN Database Architect Required: No Allergies bee venom protein (honey bee) Allergy (Severe, Verified 04/12/24 08:45) Anaphylaxis povidone-iodine Allergy (Unknown, Verified 04/12/24 08:45) Unknown seafood Allergy (Verified 04/12/24 08:45) Unknown lisinopril Adverse Reaction (Intermediate, Verified 04/12/24 08:45) Cough Medication List - Last Reconciled 04/12/24 by Mikey Felicaino CNP amoxicillin 2,000 mg PO DAILY PRN aspirin 81 mg PO DAILY atorvastatin 80 mg PO BEDTIME 90 days azelastine-fluticasone 137-50 mcg/spray (Dymista) 1 spray intranasal BID 30 days benzonatate 200 mg PO BID PRN 30 days bisacodyl (Dulcolax (bisacodyl)) 20 mg (4 x 5 mg) PO ONCE 1 day budesonide-formoterol 160-4.5 mcg/actuation (Symbicort) 2 puffs inhalation BID 30 days cholecalciferol (vitamin D3) 50 mcg PO DAILY clonazepam 1 mg PO BEDTIME epinephrine (EpiPen 2-Ricardo) 0.3 mg (0.3 mL) IM Q10M PRN lamotrigine ER 250 mg PO DAILY levothyroxine 100 mcg PO DAILY 90 days loperamide (Imodium A-D) 2 mg PO Q6H PRN losartan 25 mg PO DAILY 90 days methylphenidate HCl 40 mg PO DAILY metoprolol succinate ER 50 mg PO DAILY omeprazole 20 mg PO DAILY polyethylene glycol 3350 (Miralax) 238 grams PO ONCE psyllium husk (with sugar) 3 gram/7 gram (Metamucil (with sugar)) 1 tsp PO DAILY quetiapine (Seroquel) 50 mg PO BEDTIME sennosides (Natural Senna Laxative) 8.6 mg PO BEDTIME vitamin B comp and C no.3 (B Complex Plus Vitamin C) 1 cap PO DAILY Tobacco use date assessed: 04/12/24 Fall risk assessment: No Falls in past year Last assessed Fall Risk: 04/12/24 Dental Screening Dental Screen Date: 04/12/24 Did you have a dental visit in the last 12 months?: Yes Did you have a dental problem in the last 6 months where you did not have access to dental care?: No Was dental information given to patient?: Patient has dentist HPI HPI Comments History of Present Illness Details 73-year-old male presents for hypertension follow-up. He admits to taking his medications as prescribed without adverse reactions. However, he does not always remember to take his vitamin D3; he takes it 2-3 times per week. He offers no complaints and denies acute symptoms at this time. He did not get vitamin-D blood work done for this visit as planned. [facility] Medical History Obstructive airway disease Chronic allergic rhinitis Allergy Prostate cancer Pulmonary hypertension TIA (transient ischemic attack) Aortic stenosis Hypertension Anxiety Bipolar disorder Surgical History Status post double vessel coronary artery bypass Aortic valve replaced Hx of tonsillectomy Hx of appendectomy Hx of vasectomy Hx of endoscopy Hx of colonoscopy Hx of cardiac catheterization Hx of radical prostatectomy History of left shoulder replacement History of total right knee replacement Hx of repair of right rotator cuff Family History Sister Heart attack Coronary artery disease Arthritis Lupus Sleep apnea Mother Lupus Heart attack Father Heart attack Coronary artery disease Other Mental health disorder Social History Household Members: Family Housing: Apartment Alcohol intake: current Alcohol intake frequency: a few times a week Alcohol type: hard liquor Patient Tobacco Use Status: Never used Tobacco e-Cigarette/Vaping Use: Never Used Advance Directives Date on File: 11/17/21 service: No Current occupational status: retired Cognitive needs: No Hearing needs: No Vision needs: No Questionnaire PHQ-9 Over the last 2 weeks, how often have you been bothered by any of the following problems? 1. Little interest or pleasure in doing things: not at all 2. Feeling down, depressed, or hopeless: not at all 3. Trouble falling or staying asleep, or sleeping too much: not at all 4. Feeling tired or having little energy: not at all 5. Poor appetite or overeating: not at all 6. Feeling bad about yourself - or that you are a failure or have let yourself or your family down: not at all 7. Trouble concentrating on things, such as reading the newspaper or watching television: not at all 8. Moving or speaking so slowly that other people could have noticed. Or the opposite - being so fidgety or restless that you have been moving around a lot more than usual: not at all 9. Thoughts that you would be better off or of hurting yourself in some way: not at all Total score: 0 Depression Screening Interpretation: Negative Depression Screening Done: Yes Source: Developed by Drs. Josh Everett, Cindy Loco, Marcial Castillo and colleagues, with an educational alli from [employer]. Thrive Questionnaire Date Thrive assessed: 02/09/24 I am a: Patient What is your living situation today?: I have a steady place to live Within the past 12 months, did the food you bought not last and you didn't have the money to get more?: Never true Within the past 12 months, did you worry whether your food would run out before you got money to buy more?: Never true Do you have trouble paying for medicines?: No Do you have trouble getting transportation to medical appointments?: No Do you have trouble paying your heating and electricity bill?: No Do you have trouble taking care of your child, family member or friend?: No Do you have trouble with day-to-day activities such as bathing, preparing meals, shopping, managing finances, etc.?: No Are you currently unemployed and looking for a job?: No Are you interested in more education?: No Please select the resources that you would like help with: None Currently or been in a relationship where the following occur: No concerns reported THRIVE Score: 0 AUDIT C Alcohol Use Questionnaire (AUDIT-C) 1. How often do you have a drink containing alcohol?: Monthly or less 2. How many drinks containing alcohol do you have on a typical day when you are drinking?: 1 or 2 3. How often do you have six or more drinks on one occasion?: Never Total Score: 1 LYNDON-7 AMB Questionnaire LYNDON-7 Date LYNDON - 7 assessed: 02/09/24 Feeling nervous, anxious, or on edge: 1 = Several days Not being able to stop or control worryin = Not at all Worrying too much about different things: 0 = Not at all Trouble relaxin = Not at all Being so restless that it is hard to sit still: 0 = Not at all Becoming easily annoyed or irritable: 0 = Not at all Feeling afraid as if something awful might happen: 0 = Not at all Total LYNDON-7 score (0-4 normal; 5-9 mild; 10-14 moderate; 15-21 severe): 1 Source: Developed by Drs. Josh Everett, Cindy Loco, Marcial Castillo and colleagues, with an educational alli from [employer]. Review of Systems Const Details: Const Denies chills, Denies fatigue, Denies fever(s), Denies headache(s) and Denies weakness ENT Denies dizziness and Denies headache(s) Card Denies chest pain, Denies lightheadedness, Denies dyspnea and Denies other (Palpitations) Resp Denies cough, Denies dyspnea, Denies wheezing and Denies other ( shortness of breath) GI Denies abdominal pain, Denies melena, Denies hematochezia, Denies change in bowel habits, Denies dyspepsia and Denies nausea Denies hematuria and Denies dysuria Musc Denies abnormal gait, Denies myalgias, Denies arthralgias, Denies numbness and Denies tingling Skin/Breast Denies rash, Denies unusual bruising and Denies wounds Neuro Denies abnormal gait, Denies dizziness, Denies headache(s), Denies memory loss, Denies numbness, Denies Sensory deficit (Neuro), Denies tingling and Denies weakness Psych Denies anxiety, Denies depression, Denies memory loss Endo Denies cold intolerance, Denies fatigue, Denies heat intolerance, Denies polydipsia and Denies polyuria Aller/Immun Denies wheezing Physical exam (Primary Care) Vital Signs: Last Vital Signs Temp 97.6 F 04/12/24 08:36 Pulse 66 04/12/24 08:36 Resp 16 04/12/24 08:36 BP 142/58 H 04/12/24 08:36 Pulse Ox 100 04/12/24 08:36 Oxygen Delivery Method Room Air 04/12/24 08:36 BMI result Body Mass Index 28.2 Tobacco/Smoking Status: Tobacco use Status Tobacco use date assessed 04/12/24 04/12/24 08:33 Patient Tobacco Use Status Never used Tobacco 04/12/24 08:33 e-Cigarette/Vaping Use Never Used 04/12/24 08:33 PHQ-9: PHQ-9 Score PHQ-9: Total score 0 04/12/24 08:33 Depression Screening Interpretation: Negative Thrive Assessment: Date of Thrive Assessment Date Thrive assessed 02/09/24 04/12/24 08:33 Currently or been in a relationship where the following occur: No concerns reported Const Other: General: no acute distress and well developed Nutritional Appearance: well nourished Orientation/consciousness: patient oriented x3 HENMT Head: Yes normocephalic and Yes atraumatic Eyes General: appearance normal, both eyes and all related structures Pupils: Equal, round and reactive pupils present EOM: EOMs intact bilaterally Resp Effort & Inspection: normal respiratory effort Auscultation: clear to auscultation bilaterally Cardio Rate: regular rate Rhythm: regular rhythm Heart sounds: S1 normal heart sound present, S2 normal heart sound present, no gallops, no murmurs and no rubs GI Palpation (GI): No Abdominal aortic bruit present, Soft to palpation, nontender, No hepatosplenomegaly present and No Rebound tenderness present Auscultation: normal bowel sounds General: Yes no CVA tenderness Back/Spine/Pelvis Back: no CVA tenderness Cervical Spine: cervical ROM normal and No Cervical spine tenderness Thoracic/Lumbar Spine: thoraco-lumbar ROM normal, No pain with thoraco-lumbar ROM, No thoracic spinal tenderness and No lumbar spinal tenderness Extrem General: Yes normal to inspection, No edema and No calf tenderness Skin General: warm and dry. Normal skin color. Normal skin turgor Neuro General: patient oriented x3, gait normal and no focal neuro deficit Cranial nerves: Yes Equal, round and reactive pupils present Cognition (Neuro): normal cognition Gait exam (Neuro): Normal gait present Sensory Exam: No Sensory deficit (Neuro) Psych Appearance: grossly normal Affect: normal affect Attitude: cooperative Thought process: Normal thought process present Coding Level of Care Code Est Pt Level 4 (96294) Diagnoses Primary hypertension I10 Hypertension type: primary hypertension Vitamin D deficiency E55.9 Anxiety and depression F41.9; F32.A Bipolar disorder F31.9 Assessment & Plan Assessment & Plan (1) Hypertension: Code(s): I10 - Essential (primary) hypertension Category: Medical Qualifiers: Hypertension type: primary hypertension Qualified Code(s): I10 - Essential (primary) hypertension Plan: Resting blood pressure is 126/68, within goal of less than 130/80. Continue current treatment regimen. Follow-up in 3 months or sooner with symptoms or concerns. Verbalized understanding and agreed with treatment plan. (2) Vitamin D deficiency: Code(s): E55.9 - Vitamin D deficiency, unspecified Category: Medical Plan: Instructed on the importance of taking vitamin D3 as prescribed. Advised to get vitamin-D 3 blood work done a few days before his next visit. Verbalized understanding and agreed with the plan. (3) Anxiety and depression: Code(s): F41.9 - Anxiety disorder, unspecified; F32.A - Depression, unspecified Category: Medical Plan: Controlled symptoms. Continue current treatment regimen. Follow-up with symptoms or concerns. Verbalized understanding and agreed with the plan. (4) Bipolar disorder: Code(s): F31.9 - Bipolar disorder, unspecified Category: Medical Plan: Plans as above.
[2024-04-12 08:36] VITALS: BP 142/58; PULSE 66; RESP 16; TEMP 36.4; O2SAT 100; BMI 28.2
--- OUTSIDE RECORDS SUMMARY | 2024-04-12 08:41 | XMS_ITS | Patient Health Record ---
Author Organization [facility] tracie Address [address] [place] [address] Support Name Relationship Address Phone Love Verm[employer] Emergency Contact [address] [facility], [facility]. [address] [place] [phone] Jarrett Jean JR Guarantor Unknown [phone] ALLERGIES Allergen (clinical drug ingredient) Drug/Non Drug Allergy documented on EMR Reaction Allergy Type Onset Date Status bee/wasp stings (uncoded) Unknown Allergy Active Fish derivative (substance) fish (uncoded) Unknown Allergy Active povidone-iodine Betadine Unknown Drug Allergy A ctive Iodine Unknown Drug Allergy Active REASON FOR REFERRAL No Information MEDICATIONS Medication SIG (Take, Route, Frequency, Duration) Notes Start Date End Date Status Ramipril 10 mg 1 tablet Orally qAM Active Levothyroxine Sodium 100 MCG TAKE 1 TABL ET BY MOUTH EVERY DAY IN THE MORNING ON AN EMPTY STOMACH for 90 Active Tylenol 325 MG 1 to 2 Orally as nee ded (prn) Active Atorvastatin Calcium 80 MG 1 tablet Oral ly daily for 90 days Active Vitamin D 125 MCG (5000 UT) as directed Orally Active Probiotic - as directed Orally Active EpiPen 2-Ricardo 0.3 MG/0.3ML as directed In jection as directed for 325 days 10/29/2018 Active Metoprolol Succinate ER 50 MG 1 tablet Orally daily Active Aspirin 81 81 MG 1 tablet Orally Once a day for 30 day(s) Active SEROquel 25 MG 2-3 tabs Orally pm Active Amoxicillin 500 MG 4 capsules at one ti me Orally Once prior to dental work Active clonazePAM 0.5 MG 2-3 tablets Orally pm Active Clopidogrel Bisulfate 75 MG 1 tablet Orally daily Active Methylphenidate HCl 20 MG 2 tablets on a n empty stomach Orally Once a day Active lamoTRIgine 150 MG 1 tablet Orally Twic e a day Active Levothyroxine Sodium 125 MCG 1 tablet in the morning on an empty stomach Orally Once a day for 90 days Active IMMUNIZATIONS Vaccine Route Administration Date Status Comme nts Medicare Flucelvax [id number] IM Intramuscular 11/07/2020 Administered SOCIAL HISTORY Tobacco Use: Social History Observation Description Date Details (start date - stop date) Never Smoker NA - NA Sex Assigned At : Social History Observation Description Sex Assigned At Unknown Tobacco Use Question Answer Notes Are you a: never smoker Alcohol Screening: Question Answer Notes Did you have a drink contain ing alcohol in the past year? Yes How often did you have six o r more drinks on one occasion in the past year? Never (0 points) How many drinks did you have on a typical day when you were drinking in the past year? 1 or 2 (0 points) How often did you have a dri nk containing alcohol in the past year? Two to three times per week (3 points) Points 3 Interpretation Negative PROBLEMS Problem Type ICD Code Onset Dates Problem Status W/U Status Risk SNOMED Code Notes Problem Essential (primary) hypertension (I10) Active confirmed Essential hypertension (17378204) Problem Hyperlipidemia, unspecified (E78.5) Active confirmed Hyperlipidemia (41319638) Problem Hypothyroidism, unspecified (E03.9) Active confirmed Hypothyroidism (39080157) Problem Vitamin D deficiency, unspecified (E55.9) Active confirmed Vitamin D deficiency (90437870) Problem Unspecified hearing loss, bilateral (H91.93) Active confirmed Hearing loss (72007938) Problem Allergic rhinitis, unspecified (J30.9) Active confirmed Allergic rhinit is (88344721) Problem Inflammatory liver disease, unspecified (K75.9) Active confirmed Inflammatory liver disease (933429108) Problem Personal history of malignant neoplasm of prostate (Z85.46) Active confirmed History of malignant neoplasm of prostate (320300770) PLAN OF TREATMENT Pending Test Test Name Order Date Electrocardiogram (EKG) 10/31/2019 Electrocardiogram (EKG) 10/29/2018 Electrocardiogram (EKG) 11/07/2020 Electrocardiogram (EKG) 01/07/2022 GLUCOSE - GLU 01/07/2022 GLUCOSE - GLU 11/07/2020 GLUCOSE - GLU 10/31/2019 Urine Dip 11/07/2020 Urine Dip 10/29/2018 Urine Dip 10/31/2019 Urine Dip 01/07/2022 Fecal Occult 01/07/2022 Fecal Occult 10/31/2019 Fecal Occult 11/07/2020 CLOSTRIDIUM DIFFICILE TOXIN/GDH W/REFL T O PCR 09/07/2021 SALMONELLA/SHIGELLA CULT, CA MPY EIA AND SHIGA TOXIN W/RFL E. COLI O157 CULT 09/07/2021 Insurance Providers Payer Name Payer Address Payer Phone Subscriber Number Group Number Insured Name Patient Relationship to Insured Coverage Start Date Coverage [place] [address] [id number] Jarrett Jean JR Self - patient is the insured [employer] Plan [address] [address] [place] [address] [id number] Jarrett Jean JR Self - patient is the insured MEDICAL (GENERAL) HISTORY Medical History History ICD Code hypertension hyperlipidemia bipolar disorder [place] Palsy (possible strokes/TIAs) anxiety ADD prostate cancer Surgical History Surgery Date(Month/Year) Appendectomy 1964 left shoulder DuToit stapling 1982 left shoulder replacement 1984 right shoulder acromioplasty 1996 cardiac catheterization 1996 right knee arthroscopy, reconstruction 1 998 right knee replacement 2001 prostate biopsy 2019
[2024-04-12 08:50] VITALS: BP 126/68
== END 2024-04-12 08:54 | disposition home or self-care (01) ==
PROVIDERS: PCP Nurse Practitioner Family; Visit Provider Nurse Practitioner Family
DX: I10 Essential (primary) hypertension (principal); F31.9 Bipolar disorder, unspecified; E55.9 Vitamin D deficiency, unspecified; F41.9 Anxiety disorder, unspecified; F32.A Depression, unspecified

== ENCOUNTER 2024-05-04 09:33 | Outpatient (AMB) | payer OTHER, SELFPAY ==
[2022-08-29 15:38] VITALS: BP 120/52; BP 144/56; BMI 27.3
--- NOTE | 2024-05-04 09:59 | MHC.OFFVIS ---
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: No Accompanied by: Self / Same As Patient Allergies bee venom protein (honey bee) Allergy (Severe, Verified 04/12/24 08:45) Anaphylaxis povidone-iodine Allergy (Unknown, Verified 04/12/24 08:45) Unknown seafood Allergy (Verified 04/12/24 08:45) Unknown lisinopril Adverse Reaction (Intermediate, Verified 04/12/24 08:45) Cough Medication List - Last Reconciled 05/04/24 by Aime Winn MD amoxicillin 2,000 mg PO DAILY PRN aspirin 81 mg PO DAILY atorvastatin 80 mg PO BEDTIME 90 days azelastine-fluticasone 137-50 mcg/spray (Dymista) 1 spray intranasal BID 30 days benzonatate 200 mg PO BID PRN 30 days bisacodyl (Dulcolax (bisacodyl)) 20 mg (4 x 5 mg) PO ONCE 1 day budesonide-formoterol 160-4.5 mcg/actuation (Symbicort) 2 puffs inhalation BID 30 days cholecalciferol (vitamin D3) 50 mcg PO DAILY clonazepam 1 mg PO BEDTIME epinephrine (EpiPen 2-Ricardo) 0.3 mg (0.3 mL) IM Q10M PRN lamotrigine ER 250 mg PO DAILY levothyroxine 100 mcg PO DAILY 90 days loperamide (Imodium A-D) 2 mg PO Q6H PRN losartan 25 mg PO DAILY 90 days methylphenidate HCl 40 mg PO DAILY metoprolol succinate ER 50 mg PO DAILY omeprazole 20 mg PO DAILY polyethylene glycol 3350 (Miralax) 238 grams PO ONCE psyllium husk (with sugar) 3 gram/7 gram (Metamucil (with sugar)) 1 tsp PO DAILY quetiapine (Seroquel) 50 mg PO BEDTIME sennosides (Natural Senna Laxative) 8.6 mg PO BEDTIME vitamin B comp and C no.3 (B Complex Plus Vitamin C) 1 cap PO DAILY HPI Comments Details: 73-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 He has background history of right bundle-branch block and aortic stenosis. He had echocardiography which showed evidence of severe aortic stenosis. He was complaining of dyspnea and chest discomfort. He underwent cardiac catheterization which showed 2 vessel disease. He was admitted after the cardiac catheterization for chest pain and a decision was made to do surgery sooner. He underwent CABG and AVR. He has made good recovery since then. 09/03/22: He is here for follow-up. He has been doing well. He had 1 episode of right-sided sharp chest pain lasting for 3 minutes while at cardiac rehabilitation. He said he has not had further episodes of chest discomfort despite doing physical activity. He is going to be to some dental workup and is asking whether he can get amoxicillin script. He has lower back pain which is limiting him from exercising specially in the morning when he has a lot of stiffness. Previously had some early satiety but it improved after stopping his amiodarone. He is taking medications regularly. He has no exertional symptoms at this point. 01/12/23: He returns for follow-up. He has been doing well. He is physically active. Occasionally gets dyspnea and chest tightness. This usually happens when he is out in cold weather. He is not a smoker. He does not have any history of asthma. He is asking whether he should see pulmonology. He is exercising at cardiac rehabilitation and doing well. He does not have any consistent exertional symptoms. 04/27/2023: He returns for follow-up. He is complaining of fatigue and lethargy ongoing for 2 months. He is saying that he has to take a nap during the day and feels tired quite frequently. He has been using methylphenidate for long time and the dose has not changed. He saw his psychiatrist and his clonazepam and Seroquel dose was decreased. I reviewed his blood workup and his hemoglobin is 16.7 with RBCs of 5.82. Hematocrit is 49.8. Hemoglobin has increased over the last year from 14.3-68.7. 09/21/23: He is here for follow-up. He was referred to hematology and is currently being monitored for erythrocytosis. His JAK2 mutation was negative. He is complaining of heartburn and has been using Tums. He also has been experiencing some chest discomfort which happens randomly. No clear exertional discomfort. No shortness of breath. Echocardiography last year in 05/19/2022 did not show any wall motion abnormality and ejection fraction was completely normal with a normal functioning bioprosthetic aortic valve. 01/25/2024: He is here for follow-up. No chest pains but has been experiencing some shortness of breath. He also has ongoing diarrhea and will be undergoing colonoscopy. He also has some dental workup coming up in March. He is describing some orthopnea like episodes. No PND. 05/04/2024: He is here for follow-up. He had 1 episode of sharp chest pain 4 weeks ago. This lasted for few seconds. No exertional chest pains but he does get some shortness of breath with activities. No orthopnea or PND. No peripheral edema. Blood pressure is well controlled. He is being worked up for diarrhea alternating with constipation. He will need colonoscopy. COUNTS INCLUDE 234 BEDS AT THE [facility] Medical History (Updated 04/12/24 @ 08:59 by Mikey Feliciano CNP) History of rheumatic fever Obstructive airway disease Chronic allergic rhinitis Allergy Prostate cancer Pulmonary hypertension TIA (transient ischemic attack) Aortic stenosis Hypertension Anxiety Bipolar disorder Surgical History Status post double vessel coronary artery bypass Aortic valve replaced Hx of tonsillectomy Hx of appendectomy Hx of vasectomy Hx of endoscopy Hx of colonoscopy Hx of cardiac catheterization Hx of radical prostatectomy History of left shoulder replacement History of total right knee replacement Hx of repair of right rotator cuff Family History Sister Heart attack Coronary artery disease Arthritis Lupus Sleep apnea Mother Lupus Heart attack Father Heart attack Coronary artery disease Other Mental health disorder Social History Household Members: Family Housing: Apartment Alcohol intake: current Alcohol intake frequency: a few times a week Alcohol type: hard liquor Patient Tobacco Use Status: Never used Tobacco e-Cigarette/Vaping Use: Never Used Advance Directives Date on File: 11/17/21 service: No Current occupational status: retired Cognitive needs: No Hearing needs: No Vision needs: No Review of Systems Const Denies chills, Denies fatigue, Denies fever(s), Denies frequent falls, Denies weakness, Denies weight gain and Denies weight loss ENT Denies dizziness Card Denies chest pain, Denies leg edema, Denies lightheadedness, Denies palpitations, Denies dyspnea and Denies dyspnea on exertion Resp Denies cough, Denies dyspnea and Denies dyspnea on exertion GI Denies hematochezia Musc Denies abnormal gait, Denies muscle weakness, Denies numbness, Denies radiating pain into limb and Denies tingling Neuro Denies abnormal gait, Denies dizziness, Denies frequent falls, Denies numbness, Denies tingling and Denies weakness Endo Denies fatigue and Denies palpitations Physical Exam Vital Signs: Last Vital Signs Pulse 67 05/04/24 10:01 BP 110/60 05/04/24 10:01 BMI result Body Mass Index 30.8 GENERAL APPEARANCE: in no acute distress, pleasant. NECK: no carotid bruit, mild jugular venous distention. SKIN: no suspicious lesions, warm and dry. HEART: Regular rate and rhythm. Grade 1/6 systolic murmur aortic area. LUNGS: clear to auscultation bilaterally. ABDOMEN: soft, nontender. EXTREMITIES: no edema. PERIPHERAL PULSES: equal. NEUROLOGIC: No gross deficits, AAO X 3 Assessment & Plan Assessment & Plan (1) RBBB: Code(s): I45.10 - Unspecified right bundle-branch block Category: Medical (2) S/P AVR: Comment: 11/22/2022 AVR, 23 mm Inspiris bioprosthetic Code(s): Z95.2 - Presence of prosthetic heart valve Category: Medical (3) S/P CABG (coronary artery bypass graft): Comment: 11/22/2022, adames to mid LAD, SVG to distal RCA Code(s): Z95.1 - Presence of aortocoronary bypass graft Category: Medical (4) Hypertension: Code(s): I10 - Essential (primary) hypertension Category: Medical Qualifiers: Hypertension type: primary hypertension Qualified Code(s): I10 - Essential (primary) hypertension Plan Pleasant 73 year gentleman who is here for follow-up. He is status post bioprosthetic AVR and coronary artery bypass surgery in the past. Recent echocardiography has shown normal functioning bioprosthetic valve in aortic position with a mean gradient of 11 mm Hg. Normal biventricular function. Indeterminate filling pressures were noted. He has some dyspnea on exertion but he thinks this is related to being out of shape and lack of activity. Clinically not in heart failure. He has ongoing diarrhea and is being worked up by GI and will need a colonoscopy. He is intermediate risk for perioperative cardiovascular complications and can proceed. Follow-up with us in 4 months. Thank you for allowing me to participate in the care of your patient. Please feel free to contact me if you have any questions. Coding Level of Care Code Est Pt Level 4 (67311) Diagnoses RBBB I45.10 S/P AVR Z95.2 S/P CABG (coronary artery bypass graft) Z95.1 Primary hypertension I10 Hypertension type: primary hypertension
[2024-05-04 10:01] VITALS: BP 110/60; PULSE 67; BMI 30.8
--- OUTSIDE RECORDS SUMMARY | 2024-05-04 10:54 | XMS_ITS | Patient Health Record ---
Author Organization [facility] tracie Address [address] [place] [address] Support Name Relationship Address Phone Love Verma Emergency Contact [address] [facility], [facility]. [address] [place] [id number] Jarrett Jean JR Guarantor Unknown ALLERGIES Allergen (clinical drug ingredient) Drug/Non Drug [...] Administration Date Status Comme nts Medicare Flucelvax [id number] IM Intramuscular 11/07/2020 Administered SOCIAL HISTORY Tobacco [...] (primary) hypertension (I10) Active confirmed Essential hypertension (10716471) Problem Hyperlipidemia, unspecified (E78.5) Active confirmed Hyperlipidemia (96423504) Problem Hypothyroidism, unspecified (E03.9) Active confirmed Hypothyroidism (65473726) Problem Vitamin D deficiency, unspecified (E55.9) Active confirmed Vitamin D deficiency (86732187) Problem Unspecified hearing loss, bilateral (H91.93) Active confirmed Hearing loss (53866183) Problem Allergic rhinitis, unspecified (J30.9) Active confirmed Allergic rhinit is (67091369) Problem Inflammatory liver disease, unspecified (K75.9) Active confirmed Inflammatory liver disease (270218875) Problem Personal history of malignant neoplasm of prostate (Z85.46) Active confirmed History of malignant neoplasm of prostate (868588308) PLAN OF TREATMENT Pending Test Test Name [...] Date Coverage [place] [address] [id number] Jarrett Jean JR Self - patient is the insured [employer] [address] [address] [place] [address] [id number] Jarrett Jean JR Self - patient is the insured MEDICAL (GENERAL) HISTORY Medical History History ICD Code hypertension hyperlipidemia bipolar disorder [place] Palsy (possible strokes/TIAs) anxiety ADD prostate cancer Surgical History Surgery Date(Month/Year) Appendectomy 1964 left shoulder DuToit stapling 1982 left shoulder replacement 1984 right shoulder acromioplasty 1996 cardiac catheterization 1996 right knee arthroscopy, reconstruction 1 998 right knee replacement 2001 prostate biopsy 2019
== END 2024-05-04 10:20 | disposition home or self-care (01) ==
PROVIDERS: Visit Provider Internal Medicine Cardiovascular Disease
DX: I45.10 Unspecified right bundle-branch block (principal); Z95.2 Presence of prosthetic heart valve; Z95.1 Presence of aortocoronary bypass graft; I10 Essential (primary) hypertension
CPT/HCPCS: 99214

== ENCOUNTER 2024-05-27 10:04 | Outpatient (REF) | payer OTHER, SELFPAY ==
[2022-08-29 15:38] VITALS: BP 120/52; BP 144/56; BMI 27.3
[2024-05-27 10:18] LABS: MANUAL DIFF FLAG NO
[2024-05-27 11:23] LABS: Basophils Percent Auto 0.5 % (0-2); Eosinophils Absolute Auto 0.2 X10*3/uL (0.0-0.4); Hematocrit 44.2 % (42.0-52.0); Hemoglobin 14.8 g/dl (14.0-18.0); Imm Gran Pct Auto 1.2 % (0.0-0.4); Lymphocytes Percent Auto 12.9 % (20-40); Mean Corpuscular HGB Conc 33.5 g/dl (31.0-36.0); Mean Corpuscular Hemoglobin 28.4 pg (27.0-33.0); Mean Corpuscular Volume 84.8 fL (80.0-98.0); Mean Platelet Volume 9.8 fL (9.4-12.4); Monocytes Absolute Auto 0.7 X10*3/uL (0.1-1.2); Monocytes Percent Auto 8.3 % (2-11); Neutrophils Percent Auto 74.1 % (45-73); Platelet Count 256 X10*3/uL (160-400); Red Blood Count 5.21 X10*6/uL (4.60-5.80); Red Cell Distribution Width 13.3 % (11.0-16.0)
[2024-05-27 11:57] LABS: Alanine Aminotransferase 20 U/L (0-40); Alkaline Phosphatase 126 U/L (39-117); Anion Gap 10 (12-20); Aspartate Amino Transferase 23 U/L (5-37); Bilirubin Total 1.7 mg/dL (0.0-1.0); Blood Urea Nitrogen 13 mg/dL (9-16); Calcium 9.1 mg/dL (8.4-10.2); Carbon Dioxide 27 mmol/L (22-29); Chloride 108 mmol/L (96-108); Estimated Glomerular Filt Rate > 60; Glucose Random 106 mg/dL (60-115); Potassium 3.9 mmol/L (3.3-5.1); Sodium 141 mmol/L (135-145); Total Protein 6.4 g/dL (6.5-8.0)
[2024-05-27 12:14] LABS: Vitamin D 25-OH Total 38.7 ng/mL (>30)
== END 2024-05-27 10:05 | disposition home or self-care (01) ==
LOC: HO.LAB 10:04
PROVIDERS: Absent Provider Internal Medicine Medical Oncology; PCP Nurse Practitioner Family; Visit Provider Nurse Practitioner Family
DX: D75.1 Secondary polycythemia (principal); E55.9 Vitamin D deficiency, unspecified
CPT/HCPCS: 36415; 80053; 82306; 85025

== ENCOUNTER 2024-08-31 09:28 | Outpatient (AMB) | payer OTHER, SELFPAY ==
[2022-08-29 15:38] VITALS: BP 120/52; BP 144/56; BMI 27.3
--- NOTE | 2024-08-31 10:08 | A.OFFVIS_ITS ---
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 Accompanied by: Self / Same As Patient Allergies bee venom protein (honey bee) Allergy (Severe, Verified 05/30/24 11:24) Anaphylaxis povidone-iodine Allergy (Unknown, Verified 05/30/24 11:24) Unknown seafood Allergy (Verified 05/30/24 11:24) Unknown lisinopril Adverse Reaction (Intermediate, Verified 05/30/24 11:24) Cough Medication List - Last Reconciled 08/31/24 by Aime Winn MD amoxicillin 2,000 mg PO DAILY PRN aspirin 81 mg PO DAILY atorvastatin 80 mg PO BEDTIME 90 days azelastine-fluticasone 137-50 mcg/spray (Dymista) 1 spray intranasal BID 30 days bisacodyl (Dulcolax (bisacodyl)) 20 mg (4 x 5 mg) PO ONCE 1 day budesonide-formoterol 160-4.5 mcg/actuation (Symbicort) 2 puffs inhalation BID 30 days cholecalciferol (vitamin D3) 50 mcg PO DAILY clonazepam 1 mg PO BEDTIME epinephrine (EpiPen 2-Ricardo) 0.3 mg (0.3 mL) IM Q10M PRN lamotrigine ER 250 mg PO DAILY levothyroxine 100 mcg PO DAILY 90 days loperamide (Imodium A-D) 2 mg PO Q6H PRN losartan 25 mg PO DAILY 90 days methylphenidate HCl 40 mg PO DAILY metoprolol succinate ER 50 mg PO DAILY omeprazole 20 mg PO DAILY polyethylene glycol 3350 (Miralax) 238 grams PO ONCE psyllium husk (with sugar) 3 gram/7 gram (Metamucil (with sugar)) 1 tsp PO DAILY quetiapine (Seroquel) 50 mg PO BEDTIME sennosides (Natural Senna Laxative) 8.6 mg PO BEDTIME vitamin B comp and C no.3 (B Complex Plus Vitamin C) 1 cap PO DAILY zolpidem 5 mg PO BEDTIME HPI Comments Details: 73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 He has background history of right bundle-branch block and aortic stenosis. He had echocardiography which showed evidence of severe aortic stenosis. He was complaining of dyspnea and chest discomfort. He underwent cardiac catheterization which showed 2 vessel disease. He was admitted after the cardiac catheterization for chest pain and a decision was made to do surgery sooner. He underwent CABG and AVR. He has made good recovery since then. 09/03/22: He is here for follow-up. He has been doing well. He had 1 episode of right-sided sharp chest pain lasting for 3 minutes while at cardiac rehabilitation. He said he has not had further episodes of chest discomfort despite doing physical activity. He is going to be to some dental workup and is asking whether he can get amoxicillin script. He has lower back pain which is limiting him from exercising specially in the morning when he has a lot of stiffness. Previously had some early satiety but it improved after stopping his amiodarone. He is taking medications regularly. He has no exertional symptoms at this point. 01/12/23: He returns for follow-up. He has been doing well. He is physically active. Occasionally gets dyspnea and chest tightness. This usually happens when he is out in cold weather. He is not a smoker. He does not have any history of asthma. He is asking whether he should see pulmonology. He is exercising at cardiac rehabilitation and doing well. He does not have any consistent exertional symptoms. 04/27/2023: He returns for follow-up. He is complaining of fatigue and lethargy ongoing for 2 months. He is saying that he has to take a nap during the day and feels tired quite frequently. He has been using methylphenidate for long time and the dose has not changed. He saw his psychiatrist and his clonazepam and Seroquel dose was decreased. I reviewed his blood workup and his hemoglobin is 16.7 with RBCs of 5.82. Hematocrit is 49.8. Hemoglobin has increased over the last year from 14.3-68.7. 09/21/23: He is here for follow-up. He was referred to hematology and is currently being monitored for erythrocytosis. His JAK2 mutation was negative. He is complaining of heartburn and has been using Tums. He also has been experiencing some chest discomfort which happens randomly. No clear exertional discomfort. No shortness of breath. Echocardiography last year in 05/19/2022 did not show any wall motion abnormality and ejection fraction was completely normal with a normal functioning bioprosthetic aortic valve. 01/25/2024: He is here for follow-up. No chest pains but has been experiencing some shortness of breath. He also has ongoing diarrhea and will be undergoing colonoscopy. He also has some dental workup coming up in March. He is describing some orthopnea like episodes. No PND. 05/04/2024: He is here for follow-up. He had 1 episode of sharp chest pain 4 weeks ago. This lasted for few seconds. No exertional chest pains but he does get some shortness of breath with activities. No orthopnea or PND. No peripheral edema. Blood pressure is well controlled. He is being worked up for diarrhea alternating with constipation. He will need colonoscopy. 08/31/2024: He is here for follow-up. He said he could not do the colonoscopy because his got very sick and unfortunately had diverticulitis and pulmonary embolism and walk in the intensive care unit. She has recovered at this stage. He is saying that he has noticed over the last month or so that he gets chest tightness. These symptoms are not consistently exertional but he has been experiencing central chest tightness. He has anxiety and has been on clonazepam and the dose was decreased recently too. [facility] Medical History History of rheumatic fever Obstructive airway disease Chronic allergic rhinitis Allergy Prostate cancer Pulmonary hypertension TIA (transient ischemic attack) Aortic stenosis Hypertension Anxiety Bipolar disorder Surgical History Status post double vessel coronary artery bypass Aortic valve replaced Hx of tonsillectomy Hx of appendectomy Hx of vasectomy Hx of endoscopy Hx of colonoscopy Hx of cardiac catheterization Hx of radical prostatectomy History of left shoulder replacement History of total right knee replacement Hx of repair of right rotator cuff Family History Sister Heart attack Coronary artery disease Arthritis Lupus Sleep apnea Mother Lupus Heart attack Father Heart attack Coronary artery disease Other Mental health disorder Social History Household Members: Family Housing: Apartment Alcohol intake: current Alcohol intake frequency: a few times a week Alcohol type: hard liquor Patient Tobacco Use Status: Never used Tobacco e-Cigarette/Vaping Use: Never Used Advance Directives Date on File: 11/17/21 service: No Current occupational status: retired Cognitive needs: No Hearing needs: No Vision needs: No Review of Systems Const Denies chills, Denies fatigue, Denies fever(s), Denies frequent falls, Denies weakness, Denies weight gain and Denies weight loss ENT Denies dizziness Card Reports chest pain, Denies leg edema, Denies lightheadedness, Denies palpitations, Denies dyspnea and Denies dyspnea on exertion Resp Denies cough, Denies dyspnea and Denies dyspnea on exertion GI Denies hematochezia Musc Denies abnormal gait, Denies muscle weakness, Denies numbness, Denies radiating pain into limb and Denies tingling Neuro Denies abnormal gait, Denies dizziness, Denies frequent falls, Denies numbness, Denies tingling and Denies weakness Endo Denies fatigue and Denies palpitations Physical Exam Vital Signs: Last Vital Signs Pulse 71 08/31/24 10:09 BP 120/52 L 08/31/24 10:09 BMI result Body Mass Index 27.5 GENERAL APPEARANCE: in no acute distress, pleasant. NECK: Aortic murmur radiating to carotids. SKIN: no suspicious lesions, warm and dry. HEART: Regular rate and rhythm. Grade 1/6 systolic murmur aortic area. LUNGS: clear to auscultation bilaterally. ABDOMEN: soft, nontender. EXTREMITIES: no edema. PERIPHERAL PULSES: equal. NEUROLOGIC: No gross deficits, AAO X 3 Office Procedures EKG Details: Sinus rhythm 71 beats per minute, normal axis, right bundle-branch block, inferior infarct, QTC 447 milliseconds [id number], Complete Assessment & Plan Assessment & Plan (1) Hypertension: Code(s): I10 - Essential (primary) hypertension Category: Medical Qualifiers: Hypertension type: primary hypertension Qualified Code(s): I10 - Essential (primary) hypertension (2) S/P AVR: Comment: 11/22/2022 AVR, 23 mm Inspiris bioprosthetic Code(s): Z95.2 - Presence of prosthetic heart valve Category: Medical (3) Chest pain: Code(s): R07.9 - Chest pain, unspecified Category: Medical Plan [age] year gentleman who is here for follow-up. He is status post AVR and bypass surgery in the past. He has been under a lot of stress due to his 's illness. He is complaining of central chest tightness. These symptoms happen randomly. He has been taking medications regularly. Blood pressure is well controlled. We discussed about doing exercise stress test. We are going to arrange exercise stress Mibi. He will see us after the stress test. He needs extensive dental workup. He is aware to use amoxicillin before dental work. Overall he is intermediate risk for any surgical procedures and can proceed. Thank you for allowing me to participate in the care of your patient. Please feel free to contact me if you have any questions. Coding Level of Care Code Est Pt Level 4 (72999) Diagnoses Primary hypertension I10 Hypertension type: primary hypertension S/P AVR Z95.2 Chest pain R07.9 CPT Codes EKG - CPT: 82034-[id number], Complete ([id number])
[2024-08-31 10:09] VITALS: BP 120/52; PULSE 71; BMI 27.5
== END 2024-08-31 10:39 | disposition home or self-care (01) ==
LOC: HO.HCS 09:29
PROVIDERS: PCP Nurse Practitioner Family; Visit Provider Internal Medicine Cardiovascular Disease
DX: I10 Essential (primary) hypertension (principal); Z95.2 Presence of prosthetic heart valve; R07.9 Chest pain, unspecified
CPT/HCPCS: 93010; 99214

== ENCOUNTER → 2024-08-31 09:28 | Outpatient (BNVA) | payer OTHER, SELFPAY ==
[2022-08-29 15:38] VITALS: BP 120/52; BP 144/56; BMI 27.3
== END ==
PROVIDERS: PCP Nurse Practitioner Family; Visit Provider Internal Medicine Cardiovascular Disease
DX: I10 Essential (primary) hypertension (principal); R07.9 Chest pain, unspecified; Z95.2 Presence of prosthetic heart valve; R94.31 Abnormal electrocardiogram [ECG] [EKG]; I45.10 Unspecified right bundle-branch block; I51.7 Cardiomegaly
CPT/HCPCS: 93005

== ENCOUNTER → 2024-10-28 07:51 | Outpatient (REF) | payer OTHER, SELFPAY ==
[2022-08-29 15:38] VITALS: BP 120/52; BP 144/56; BMI 27.3
--- NOTE | ~2024-10-28 | NM_ITS ---
EXERCISE MYOCARDIAL PERFUSION STUDY INDICATION: Abnormal EKG, coronary artery disease TECHNIQUE: The patient was brought in for an exercise perfusion study on 10/28/2024. Patient performed exercise as per Mariano protocol and was injected 30 mCi of sestamibi once target heart rate was achieved. Images were obtained using the SPECT gamma camera interlaced with the gating device. Images were obtained in supine position. Resting perfusion study was performed on 11/02/2024. Patient was administered 30 mCi of sestamibi intravenously at rest. Images were then obtained in supine position. Total DLP 248 mGy-cm. Images were processed with the software and compared side to side in short axis, horizontal long axis and vertical long axis views. FINDINGS: Raw aquisition reviewed. Arms by the patient's side. The stress perfusion study showed no significant perfusion abnormality. Both uncorrected as well as CT attenuation corrected images were reviewed. The gated study shows normal LV systolic function with calculated LVEF of 67%. LV cavity is normal in size. The gated study shows normal wall thickening and contraction of segments. Resting study shows no significant perfusion abnormality. Gating at rest reveals normal wall motion with ejection fraction at 51%. The findings are consistent with no clear reversible or fixed perfusion abnormality. NM/NM cardiolite stress test IMPRESSION: 1. Myocardial perfusion imaging study shows normal myocardial perfusion. 2. Gated LVEF is 67% during stress and 51% during rest. 3. Transient ischemic dilatation not present. EKG component of the test reported separately. Electronically signed by: Harpreet Sapp MD 11/03/2024 12:32 PM EDT
--- OUTSIDE RECORDS SUMMARY | 2024-10-28 07:54 | XMS_ITS | Encounter Summary ---
Author Organization [facility] Address [address] [place] [address] Phone Care Team Providers Care Masonry Instructor Name Role Phone Kizzy Willingham MD Primary Care Provider + Encounter Details Date Type Department Care Team (Late st Contact Info) Description 05/29/2020 Telephone [facility] Otolaryngology General [address] [place] [address] Poli Willis Social History Tobacco Use Types Packs/Day Years Used Date Smoking Tobacco: Never Sex and Gender Information Value Date Recorded Sex Assigned at Not on file Legal Sex Male 2:45 PM EDT Gender Identity Not on file Sexual Orientation Not on file documented as of this encounter Plan of Treatment Not on file documented as of this encounter Visit Diagnoses Not on filedocumented in this encounter Care Teams Masonry Instructor Relationship Specialty Start Date End Date Kizzy Willingham MD [address] [place] [address] PCP - General Gastroenterology 05/22/20 documented as of this encounter Additional Source Comments The information contained in this document represents components of the legal health record. It is not the complete legal health record.[facility]
--- OUTSIDE RECORDS SUMMARY | 2024-10-28 07:54 | XMS_ITS | Clinical Summary ---
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 Active lamoTRIgine (LAMICTAL) 150 MG tablet Take 150 mg by mouth 2 (two) times a day. 2 Active clonazePAM (KLONOPIN) 1 MG tablet Take 0.5 mg by mouth nightly at bedtime. 2 Active QUEtiapine (SEROQUEL) 25 MG tablet Take 25 mg by mouth nightly at bedtime. Active ramipriL (ALTACE) 10 MG capsule Take 10 mg by mouth daily. Active atorvastatin (LIPITOR) 80 MG tablet Take 80 mg by mouth daily. Active levothyroxine (SYNTHROID, LEVOTHROID) 150 MCG tablet Take 150 mcg by mouth every morning. Active EPINEPHrine 0.3 mg/0.3 mL auto-injector Inject 0.3 mg into the muscle as needed for anaphylaxis. Active aspirin 81 MG EC tablet Take 81 mg by mouth daily. Active diazePAM (VALIUM) 2 MG tablet Take 4 mg by mouth every 6 (six) hours as needed for anxiety. 2 Active methylphenidate HCl (RITALIN) 20 MG tablet Take 20 mg by mouth 2 (two) times a day. 2 Active clopidogrel (PLAVIX) 75 mg tablet Take 75 mg by mouth daily. 2 Active nitroglycerin (NITROSTAT) 0.[address] 0.3 mg under the tongue every 5 (five) minutes as needed for chest pain. 11/29/19 Discontinu ed(No longer taking) buPROPion (WELLBUTRIN SR) 150 MG SR 12 hr tablet Take 150 mg by mouth 2 (two) times a day. 11/29/19 Discontinu ed(No longer taking) liothyronine (CYTOMEL) 5 MCG tablet Take 5 mcg by mouth daily. 11/29/19 22 Discontinu ed(No longer taking) amiodarone (PACERONE) 200 MG tablet Take 200 mg by mouth 2 (two) times a day. 2 01/01/20 22 Discontinu ed(Stop Taking at Discharge) Active Problems Problem Noted Date Diagnosed Date Sensorineural hearing loss of both ears 06/08/19 21 Assessment & Plan (06/07/2020 12:07 PM EDT): I had the pleasure of seeing Mr. Jean today for evaluation of hearing loss which has progressed over the past decade or so. He was found to have bilateral sensorineural hearing loss with some degree of asymmetry, particularly in the mid frequencies. The degree of hearing loss is sufficient to warrant amplification. He was encouraged to look into this. We also discussed communication strategies, avoidance of acoustic trauma and signs/symptoms that should be brought to medical attention. We also discussed the fact that there is some degree of asymmetry. We discussed the possibility of retrocochlear pathology such as acoustic neuroma. Overall, my suspicion is fairly low but we did discuss the possibility of MRI for optimal assessment. For now, we decided to follow things along. I plan to check him back in 1 year with a hearing test. If there is worsening asymmetry, I will likely recommend MRI. Tinnitus 06/07/2020 Assessment & Plan (06/07/2020 12:07 PM EDT): Patient describes a 20-year history of bilateral, high-pitched symmetric nonpulsatile tinnitus. He was assured that his ears appear healthy without evidence of fluid or infection. The tinnitus is of very unlikely clinical significance. We discussed masking techniques and signs/symptoms that should be brought to medical attention. We will continue to monitor. Bilateral impacted cerumen 06/07/2020 Assessment & Plan (06/07/2020 12:07 PM EDT): I also removed a significant mount of cerumen from his ear canals. We discussed methods prevent cerumen reaccumulation. He may require periodic cleaning. Hypercholesterolemia 07/16/2015 Overview (03/22/2016): Hypercholesterolemia Hypertensive disorder 07/16/2015 Overview (03/22/2016): Hypertension Bipolar disorder 07/16/2015 Overview (03/22/2016): Bipolar disorder Anxiety 07/16/2015 Overview (03/22/2016): Anxiety Attention deficit hyperactivity disorder 016 Overview (03/22/2016): Attention deficit hyperactivity disorder Hypothyroidism 07/16/2015 Overview (03/22/2016): Hypothyroidism; x 22 years last checked 05/2015 Depressive disorder 01/22/2009 Overview (04/22/2014): Depression; bipolar type 2, Sees Dr Rivera Thompson who rx psych meds. 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 carries epipen Erectile dysfunction 01/22/2009 Overview (04/22/2014): Erectile dysfunction Impaired glucose tolerance 01/22/2009 Overview (04/22/2014): Prediabetes Gastroesophageal reflux disease 01/22/2009 Overview (04/22/2014): Gastroesophageal reflux disease; Diagnosed 05/08, Last OGD 05/08 showed mild gastritis Hpylori neg. Hypothyroidism 01/22/2009 Overview (04/22/2014): Hypothyroidism; diagnosed 1993, takes levoxyl daily. Hyperlipidemia 01/22/2009 Overview (04/22/2014): Hyperlipidemia; diagnosed 2006, Hypertensive disorder 01/22/2009 Overview (04/22/2014): Hypertension; diagnosed 2007, ramipril daily. H/O type 2 diabetes mellitus 01/22/2009 Overview (04/22/2014): H/O Diabetes mellitus type 2; ? told had prediabetes after elevated sugar x1, denies taking meds. takes sugars q month and all nrml. Arteriosclerotic heart disease 01/22/2009 Overview (04/22/2014): Coronary artery disease; cardiac cath: age 30, 32, 38, 48, non obstructed per the pt. Stress test 08: achieved>85% of predicted heart rate for age, no ischemic changes occured at peak stress/ Myocardiac perfusion study 08: nrml L ventricular perfusion during stress. EF 50-60% History of rheumatic fever 01/22/2009 Overview (04/22/2014): H/O Rheumatic fever; 1954, since then had a murmur per pt. echo 08, sclerotic aortic valve and mild mitral regurge. Hiatal hernia 01/22/2009 Overview (04/22/2014): Hiatal hernia; small, revealed during endoscopy 08 Hemorrhoids 01/22/2009 Overview (04/22/2014): Hemorrhoids; internal discovered 07 during colonosocopy Colon polyp 01/22/2009 Overview (04/22/2014): Colonic polyps; colonoscopy 1999 - benign polyps colonoscopy 2006 - no polyps. Immunizations Immunization Administration Dates Next Due Pneumococcal polysaccharide PPSV23 01/22/2006 Td, unspecified formulation 01/22/2002 Family History Medical History Relation Comments Coronary artery disease Father coronary artery disease ; mi Colon cancer Maternal Grandfather Colon Cance r Coronary artery disease Mother coronary artery disease ; mi Lupus Mother Systemic lupus e rythematosus Stroke Mother cerebrovascular accident Coronary artery disease Sister coronary artery disease ; mi Relation Status Comments Father Maternal Grandfather Mother Sister Social History Tobacco Use Types Packs/Day Years Used Date Smoking Tobacco: Never Smokeless Tobacco: Never Alcohol Use Standard Drinks/Week Comments Yes 0 (1 standard drink = 0.6 oz pur e alcohol) Education Answer Date Recorded Are you interested in more education? Not on curly e 06/27/2022 Are you concerned about learning? Not on file 06/27/2022 No 06/27/2022 No 06/27/2022 Digital Access Answer Date Recorded No 07/26/2022 No 07/26/2022 Reliable internet access at home? Not on file 07/26/2022 Device with a working camera? Not on file Sex and Gender Information Value Date Recorded Sex Assigned at Not on file Legal Sex Male 2:45 PM EDT Gender Identity Not on file Sexual Orientation Not on file Last Filed Vital Signs Vital Sign Reading Time Taken Comments Blood Pressure 122/66 12/31/2021 12:16 PM EDT Pulse 78 12/31/2021 12:16 PM EDT Temperature 36.2 C (97.2 F) 12/31/2021 12:16 PM EDT Respiratory Rate 16 12/31/2021 12:16 PM EDT Oxygen Saturation 95% 12/20/2021 9:06 AM EDT Inhaled Oxygen Concentration - - Weight 81.5 kg (179 lb 9.6 oz) 12/20/2021 9:06 A M EDT Height 175.3 cm (5' 9 ) 06/07/2020 11:31 AM EDT Body Mass Index 26.52 06/07/2020 11:31 AM EDT Plan of Treatment Health Maintenance Due Date Last Done Comments CREATININE LEVEL 1949 POTASSIUM LEVEL 1949 TSH LEVEL 1949 DEPRESSION SCREENING 1961 HEPATITIS C SCREENING 11/05/1967 COLOGUARD 1994 COLONOSCOPY 1994 COLORECTAL CANCER SCREENING 1994 FIT TEST 1994 FOBT 1994 SIGMOIDOSCOPY 1994 VIRTUAL COLONOSCOPY 1994 PNEUMOCOCCAL VACCINES (50+ years) (2 of 2 - PCV) 01/22/2007 01/22/2006 Adult Td,Tdap Booster 01/23/2012 01/22/2002 BLOOD PRESSURE 06/30/2022 12/31/2021 COVID-19 VACCINE ( season) 2023 08/30/2021, 12/26/2020, 05/10/2020, Additional history exists RSV VACCINE (1 - 1-dose 75+ series) 2024 ZOSTER VACCINES Completed 01/26/2019, 11/25/2018 SMOKING STATUS SCREENING (Once After 26 Yrs) Completed 06/07/2020 HEPATITIS A VACCINES Aged Out No long er eligible based on patient's age to complete this topic HIB VACCINES Aged Out No longer eligi ble based on patient's age to complete this topic MENINGOCOCCAL VACCINES (ACWY) Aged Out No longer eligible based on patient's age to complete this topic MENINGOCOCCAL VACCINES (B) Aged Out N o longer eligible based on patient's age to complete this topic Medical Devices Not on file Insurance [facility] MED[facility] REPLACEMENT [employer] PPO MEDICARE REPLACEMENT [employer] PPO MEDICARE REPLACEMENT [employer] PPO MEDICARE REPLACEMENT [employer] PPO MEDICARE REPLACEMENT [employer] PPO MEDICARE REPLACEMENT [employer] PPO MEDICARE REPLACEMENT [employer] PPO MEDICARE REPLACEMENT [employer] PPO MEDICARE REPLACEMENT Care Teams 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 It is not the complete legal health record.[facility]
--- NOTE | 2024-10-28 07:59 | CA_ITS ---
Acquisition Time: 2024-10-28 08:12:05 Total Exercise Time: 00:07:41 Test Indications: Abnormal ECG RBBB CAD/CABG Medications: SEE H&P Protocol: LINA Max HR: 123 BPM 84% of Pred: 146 BPM Max BP: 138/70 mmHG Max Work Load: 8.5 METS Exercise stress test with exercise 7 mins 41 secs of Lina Protocol, achieving 85% MPHR, with reports of SOB and dizziness, no chest pain, with isolated PACs and PVCs, with normotensive response to exercise. Without any EKG changes meeting criteria for ischemia. In recovery, breathing and dizziness slowly improved to baseline. Nuclear images pending. Test reviewed with Dr. Sapp. Referred By: Aime Winn Electronically Signed By: Froilan Burns
== END ==
LOC: HO.CARD 07:51
PROVIDERS: PCP Nurse Practitioner Family; Visit Provider Internal Medicine Cardiovascular Disease
DX: R07.9 Chest pain, unspecified (principal)
CPT/HCPCS: 78452; 93017; A9500

== ENCOUNTER → 2024-10-28 07:59 | Outpatient (BNV) | payer OTHER, SELFPAY ==
[2022-08-29 15:38] VITALS: BP 120/52; BP 144/56; BMI 27.3
== END ==
PROVIDERS: PCP Nurse Practitioner Family
DX: R94.31 Abnormal electrocardiogram [ECG] [EKG] (principal); I25.10 Atherosclerotic heart disease of native coronary artery without angina pectoris
CPT/HCPCS: 78452; 93016; 93018

== ENCOUNTER 2024-12-26 09:31 | Outpatient (AMB) | payer OTHER, SELFPAY ==
[2022-08-29 15:38] VITALS: BP 120/52; BP 144/56; BMI 27.3
--- NOTE | 2024-12-26 09:34 | MHC.PC.OV ---
Vital Signs 12/26/24 09:49 12/26/24 10:04 Height 5 ft 9 in Weight 189 lb 8 oz BMI 28.0 BP 138/61 110/60 Blood Pressure Location Rt brachial Rt brachial Position Sitting Sitting Respiration 16 Pulse 64 Pulse Source Pulse Oximeter Temp 97.4 F Temp Source Oral Pulse Oximetry (%) 98 Oxygen Delivery Method Room Air Intake Visit Reasons: f/U hypertension and Vit D deficiency Intake Note: patient here for follow up on HTN and Vit D deficiency Security Technician Required: No Allergies bee venom protein (honey bee) Allergy (Severe, Verified 12/26/24 09:56) Anaphylaxis povidone-iodine Allergy (Unknown, Verified 12/26/24 09:56) Unknown seafood Allergy (Verified 12/26/24 09:56) Unknown lisinopril Adverse Reaction (Intermediate, Verified 12/26/24 09:56) Cough Medication List - Last Reconciled 12/26/24 by Mikey Feliciano CNP amoxicillin 2,000 mg PO DAILY PRN aspirin 81 mg PO DAILY atorvastatin 80 mg PO BEDTIME 90 days azelastine-fluticasone 137-50 mcg/spray (Dymista) 1 spray intranasal BID 30 days bisacodyl (Dulcolax (bisacodyl)) 20 mg (4 x 5 mg) PO ONCE 1 day budesonide-formoterol 160-4.5 mcg/actuation (Symbicort) 2 puffs inhalation BID 30 days cholecalciferol (vitamin D3) 50 mcg PO DAILY clonazepam 1 mg PO BEDTIME epinephrine (EpiPen 2-Ricardo) 0.3 mg (0.3 mL) IM Q10M PRN fluticasone propionate 50 mcg/actuation 50 mcg intranasal DAILY lamotrigine ER 250 mg PO DAILY levothyroxine 100 mcg PO DAILY 90 days loperamide (Imodium A-D) 2 mg PO Q6H PRN losartan 25 mg PO DAILY methylphenidate HCl 60 mg PO DAILY metoprolol succinate ER 50 mg PO DAILY omeprazole 20 mg PO DAILY polyethylene glycol 3350 (Miralax) 238 grams PO ONCE psyllium husk (with sugar) 3 gram/7 gram (Metamucil (with sugar)) 1 tsp PO DAILY quetiapine (Seroquel) 50 mg PO BEDTIME vitamin B comp and C no.3 (B Complex Plus Vitamin C) 1 cap PO DAILY Tobacco use date assessed: 12/26/24 Fall risk assessment: No Falls in past year Last assessed Fall Risk: 12/26/24 Dental Screening Dental Screen Date: 12/26/24 Did you have a dental visit in the last 12 months?: Yes Did you have a dental problem in the last 6 months where you did not have access to dental care?: No Was dental information given to patient?: Patient has dentist HPI HPI Comments History of Present Illness Details 74-year-old male presents for hypertension and vitamin-D deficiency follow-up. He admits to taking his medications as prescribed without adverse reactions. He notes that he has been making healthy lifestyle changes. No acute symptoms at this time. [facility] Medical History History of rheumatic fever Obstructive airway disease Chronic allergic rhinitis Allergy Prostate cancer Pulmonary hypertension TIA (transient ischemic attack) Aortic stenosis Hypertension Anxiety Bipolar disorder Surgical History Status post double vessel coronary artery bypass Aortic valve replaced Hx of tonsillectomy Hx of appendectomy Hx of vasectomy Hx of endoscopy Hx of colonoscopy Hx of cardiac catheterization Hx of radical prostatectomy History of left shoulder replacement History of total right knee replacement Hx of repair of right rotator cuff Family History (Reviewed 08/31/24 @ 10:12 by Arline Encarnacion [facility] [address]) Sister Heart attack Coronary artery disease Arthritis Lupus Sleep apnea Mother Lupus Heart attack Father Heart attack Coronary artery disease Other Mental health disorder Social History Household Members: Family Housing: Apartment Alcohol intake: current Alcohol intake frequency: a few times a week Alcohol type: hard liquor Patient Tobacco Use Status: Never used Tobacco e-Cigarette/Vaping Use: Never Used Advance Directives Date on File: 11/17/21 service: No Current occupational status: retired Cognitive needs: No Hearing needs: No Vision needs: No Questionnaire Thrive Questionnaire Date Thrive assessed: 04/12/24 I am a: Patient What is your living situation today?: I have a steady place to live Within the past 12 months, did the food you bought not last and you didn't have the money to get more?: Never true Within the past 12 months, did you worry whether your food would run out before you got money to buy more?: Never true Do you have trouble paying for medicines?: No Do you have trouble getting transportation to medical appointments?: No Do you have trouble paying your heating and electricity bill?: No Do you have trouble taking care of your child, family member or friend?: No Do you have trouble with day-to-day activities such as bathing, preparing meals, shopping, managing finances, etc.?: No Are you currently unemployed and looking for a job?: No Are you interested in more education?: No Please select the resources that you would like help with: None Currently or been in a relationship where the following occur: No concerns reported THRIVE Score: 0 LYNDON-7 AMB Questionnaire LYNDON-7 Date LYNDON - 7 assessed: 02/09/24 Source: Developed by Drs. Josh Everett, Cindy Loco, Marcial Castillo and colleagues, with an educational alli from [employer]. Review of Systems Const Details: Const Denies chills, Denies fatigue, Denies fever(s), Denies headache(s) and Denies weakness ENT Denies dizziness and Denies headache(s) Card Denies chest pain, Denies lightheadedness, Denies dyspnea and Denies other (Palpitations) Resp Denies cough, Denies dyspnea, Denies wheezing and Denies other ( shortness of breath) GI Denies abdominal pain, Denies melena, Denies hematochezia, Denies change in bowel habits, Denies dyspepsia and Denies nausea Denies hematuria and Denies dysuria Musc Denies abnormal gait, Denies myalgias, Denies arthralgias, Denies numbness and Denies tingling Skin/Breast Denies rash, Denies unusual bruising and Denies wounds Neuro Denies abnormal gait, Denies dizziness, Denies headache(s), Denies memory loss, Denies numbness, Denies Sensory deficit (Neuro), Denies tingling and Denies weakness Psych Denies anxiety, Denies depression, Denies memory loss Endo Denies cold intolerance, Denies fatigue, Denies heat intolerance, Denies polydipsia and Denies polyuria Aller/Immun Denies wheezing Physical exam (Primary Care) Vital Signs: Last Vital Signs Temp 97.4 F 12/26/24 09:49 Pulse 64 12/26/24 09:49 Resp 16 12/26/24 09:49 BP 138/61 12/26/24 09:49 Pulse Ox 98 12/26/24 09:49 Oxygen Delivery Method Room Air 12/26/24 09:49 BMI result Body Mass Index 28.0 Tobacco/Smoking Status: Tobacco use Status Tobacco use date assessed 04/12/24 12/26/24 09:36 Patient Tobacco Use Status Never used Tobacco 12/26/24 09:36 e-Cigarette/Vaping Use Never Used 12/26/24 09:36 Thrive Assessment: Date of Thrive Assessment Date Thrive assessed 04/12/24 12/26/24 09:36 Currently or been in a relationship where the following occur: No concerns reported Const Other: General: no acute distress and well developed Nutritional Appearance: well nourished Orientation/consciousness: patient oriented x3 HENMT Head: Yes normocephalic and Yes atraumatic Eyes General: appearance normal, both eyes and all related structures Pupils: Equal, round and reactive pupils present EOM: EOMs intact bilaterally Resp Effort & Inspection: normal respiratory effort Auscultation: clear to auscultation bilaterally Cardio Rate: regular rate Rhythm: regular rhythm Heart sounds: S1 normal heart sound present, S2 normal heart sound present, no gallops, no murmurs and no rubs GI Palpation (GI): No Abdominal aortic bruit present, Soft to palpation, nontender, No hepatosplenomegaly present and No Rebound tenderness present Auscultation: normal bowel sounds General: Yes no CVA tenderness Back/Spine/Pelvis Back: no CVA tenderness Cervical Spine: cervical ROM normal and No Cervical spine tenderness Thoracic/Lumbar Spine: thoraco-lumbar ROM normal, No pain with thoraco-lumbar ROM, No thoracic spinal tenderness and No lumbar spinal tenderness Extrem General: Yes normal to inspection, No edema and No calf tenderness Skin General: warm and dry. Normal skin color. Normal skin turgor Neuro General: patient oriented x3, gait normal and no focal neuro deficit Cranial nerves: Yes Equal, round and reactive pupils present Cognition (Neuro): normal cognition Gait exam (Neuro): Normal gait present Sensory Exam: No Sensory deficit (Neuro) Psych Appearance: grossly normal Affect: normal affect Attitude: cooperative Thought process: Normal thought process present Coding Level of Care Code Est Pt Level 3 (62252) Diagnoses Primary hypertension I10 Hypertension type: primary hypertension Vitamin D deficiency E55.9 Laboratory tests ordered as part of a complete physical exam (CPE) Z00.00 Assessment & Plan Assessment & Plan (1) Hypertension: Comment: Goal <130/80 Code(s): I10 - Essential (primary) hypertension Category: Medical Qualifiers: Hypertension type: primary hypertension Qualified Code(s): I10 - Essential (primary) hypertension Plan: Resting blood pressure is 110/60, within goal of less than 130/80. Continue current treatment regimen. Low-sodium diet encouraged. Perform lab work before next visit. Follow-up for an extended physical exam in 6 weeks. Return sooner with symptoms or concerns. Verbalized understanding and agreed with the plan. (2) Vitamin D deficiency: Code(s): E55.9 - Vitamin D deficiency, unspecified Category: Medical Plan: Recent vitamin-D level in April is normal. Continue current treatment regimen. Will recheck vitamin-D level and make changes as needed. Verbalized understanding and agreed with the plan. (3) Laboratory tests ordered as part of a complete physical exam (CPE): Code(s): Z00.00 - Encounter for general adult medical examination without abnormal findings Category: Medical Plan: Fasting labs ordered as part of a complete physical exam. Advised to fast for at least 10 hours before getting labs drawn. May drink water Verbalized understanding and agreed with treatment plan. Orders: Orders Vitamin D 25-OH Total Today Z00.00 - Encounter for general adult medical examination without abnormal findings TSH reflex Free T4 Today Z00.00 - Encounter for general adult medical examination without abnormal findings Lipid Panel Today Z00.00 - Encounter for general adult medical examination without abnormal findings Microalbumin, Random (w Creat) Today Z00.00 - Encounter for general adult medical examination without abnormal findings UA CC w/rflx Micro + Cult Today Z00.00 - Encounter for general adult medical examination without abnormal findings Glucose Fasting Today Z00.00 - Encounter for general adult medical examination without abnormal findings
[2024-12-26 09:49] VITALS: BP 138/61; PULSE 64; RESP 16; TEMP 36.3; O2SAT 98; BMI 28.0
[2024-12-26 10:04] VITALS: BP 110/60
--- OUTSIDE RECORDS SUMMARY | 2024-12-26 10:42 | XMS_ITS | Encounter Summary ---
Author Organization [facility] Address [address] [place] [address] [place] [address] Phone Care Team Providers Care Drive In Teller Name Role Phone Kizzy Willingham MD Primary Care Provider + Mikey Feliciano NP Primary Care Provider +1- [phone] Reason for Referral * MRI/CAT Scan - Closed Specialty Diagnoses / Procedures Referred By Contac t Referred To Contact Radiology Diagnoses Radiculopathy, lumbar region Procedures MRI Lumbar Spine CHG MRI, LUMBAR SPINE CHG MRI, LUMBAR SPINE COMBO CHG MRI, LUMBAR SPINE CONTRAST Irvin Tyson DO [address] [place] [address] Phone: tel: fax: [email or web address] Referral ID Status Reason Start Date Expiration Date Visits Re quested Visits Authorized [id number] Closed 2024 01/01/2025 1 1 Encounter Details Date Type Department Care Team (Latest Contact Info) Description 11/08/2024 Transcribe Orders Virtual Department [address] [place] [address] Irvin Tyson DO [address] [place] [address] [email or web address] Radiculopathy, lumbar region (Primary Dx) Social History Tobacco Use Types Packs/Day Years [...] on file documented as of this encounter Results * MRI LUMBAR SPINE (NEURO) WITHOUT CONTRAST (11/29/2024 7:04 AM EDT) Anatomical Region Laterality Modality L-spine Magnetic Resonan ce 11/29/2024 8:49 AM EDT Impressions 11/29/2024 8:52 AM EDT Moderate multilevel lumbar spondylosis, most notable for moderate right foraminal narrowing from L2-L3 through L4-5. See above for detailed level by level analysis. Narrative 11/29/2024 8:52 AM EDT MRI LUMBAR SPINE (NEURO) WITHOUT CONTRAST Referring clinician's provided indication for this examination in Epic: Outside Radiology Order; radiculopathy TECHNIQUE: MRI LUMBAR SPINE (NEURO) WITHOUT CONTRAST Multi-sequence, multi-planar MRI of the lumbar spine was performed without intravenous contrast. COMPARISON: None. FINDINGS: LUMBAR SPINE: Alignment and Vertebrae: Mild stepwise degenerative retrolisthesis from L1 through L4. 1 mm anterolisthesis of L4 on L5. No acute compression fracture. Marrow: No bone marrow replacing lesion. Discs and Endplates: Moderate disc height loss at L2-L3 with endplate osteophytosis and Modic 1 changes. Conus: Normal. Soft Tissues: Normal. No prevertebral edema. Other Findings: None. Findings by level: T12-L1: Mild diffuse disc bulge and mild bilateral facet arthropathy, without significant canal or foraminal narrowing. L1-L2: Mild diffuse disc bulge and mild bilateral facet arthropathy, without significant canal or foraminal narrowing. L2-L3: Degenerative anterolisthesis. Diffuse disc bulge. Moderate bilateral facet arthropathy. Mild encroachment of the left subarticular zone. Mild left and moderate right foraminal narrowing. L3-L4: Diffuse disc bulge and moderate bilateral facet arthropathy. Mild left and moderate right foraminal narrowing. L4-L5: Diffuse disc bulge. Severe right and moderate left facet arthropathy. Moderate right and mild left foraminal narrowing. L5-S1: Moderate bilateral facet arthropathy. Mild diffuse disc bulge. Mild bilateral foraminal narrowing. Procedure Note Mario Marino MD - 11/29/2024 MRI LUMBAR SPINE (NEURO) WITHOUT CONTRAST Referring clinician's provided indication for this examination in Epic:Outside Radiology Order; radiculopathy TECHNIQUE: MRI LUMBAR SPINE (NEURO) WITHOUT CONTRAST Multi-sequence, multi-planar MRI of the lumbar spine was performed withoutintravenous contrast. COMPARISON: None. FINDINGS: LUMBAR SPINE: Alignment and Vertebrae: Mild stepwise degenerative retrolisthesis fromL1 through L4. 1 mm anterolisthesis of L4 on L5. No acute compressionfracture. Marrow: No bone marrow replacing lesion. Discs and Endplates: Moderate disc height loss at L2-L3 with endplateosteophytosis and Modic 1 changes. Conus: Normal. Soft Tissues: Normal. No prevertebral edema. Other Findings: None. Findings by level: T12-L1: Mild diffuse disc bulge and mild bilateral facet arthropathy,without significant canal or foraminal narrowing. L1-L2: Mild diffuse disc bulge and mild bilateral facet arthropathy,without significant canal or foraminal narrowing. L2-L3: Degenerative anterolisthesis. Diffuse disc bulge. Moderatebilateral facet arthropathy. Mild encroachment of the left subarticularzone. Mild left and moderate right foraminal narrowing. L3-L4: Diffuse disc bulge and moderate bilateral facet arthropathy. Mildleft and moderate right foraminal narrowing. L4-L5: Diffuse disc bulge. Severe right and moderate left facetarthropathy. Moderate right and mild left foraminal narrowing. L5-S1: Moderate bilateral facet arthropathy. Mild diffuse disc bulge. Mildbilateral foraminal narrowing. IMPRESSION: Moderate multilevel lumbar spondylosis, most notable for moderate rightforaminal narrowing from L2-L3 through L4-5. See above for detailed levelby level analysis. Irvin Tyson DO IMG MR XSPECIALTY Final Resu lt documented in this encounter Visit Diagnoses Diagnosis Radiculopathy, lumbar region- Primary Thoracic or lumbosacral neuritis or radiculitis, unspecified Radiculopathy, lumbar region Thoracic or lumbosacral neuritis or radiculitis, unspecified documented in this encounter Care Teams Drive In Teller Relationship Specialty Start Date End Date Kizzy Willingham MD [address] [place] [id number] PCP - General Gastroenterology 05/22/20 11/08/24 Mikey Feliciano NP [address] [place] [address] PCP - General Nurse Practitioner 11/09/24 documented as of this encounter Additional Source Comments The information contained in this document represents components of the legal health record. It is not the complete legal health record.[facility]
--- OUTSIDE RECORDS SUMMARY | 2024-12-26 10:42 | XMS_ITS | Encounter Summary ---
Author Organization [facility] Address [address] [place] [address] [place] [address] Phone Care Team Providers Care Salesperson Surgical Appliances Name Role Phone Kizzy Willingham MD Primary Care Provider + Mikey Feliciano NP Primary Care Provider +1- [phone] Encounter Details Date Type Department Care Team (Late st Contact Info) Description 05/29/2020 Telephone [facility] Otolaryngology General [facility] [address] [place] [address] Poli Willis Social History Tobacco Use Types [...] on filedocumented in this encounter Care Teams Salesperson Surgical Appliances Relationship Specialty Start Date End Date Kizzy Willingham MD [address] [place] [address] PCP - General Gastroenterology 05/22/20 11/08/24 Mikey Feliciano NP [address] [place] [address] PCP - General Nurse Practitioner 11/09/24 documented as of this encounter Additional Source Comments The information contained in this document represents components of the legal health record. It is not the complete legal health record.[facility]
--- OUTSIDE RECORDS SUMMARY | 2024-12-26 10:43 | XMS_ITS | Encounter Summary ---
Author Organization [facility] Address [address] [place] [address] [place] [address] Phone Care Team Providers Care Orderly Name Role Phone Kizzy Willingham MD Primary Care Provider + Mikey Feliciano NP Primary Care Provider +1- [phone] Encounter Details Date Type Department Care Team (Late st Contact Info) Description 11/08/2024 Procedure Pass [facility], [facility] [address] [place] [address] Social History Tobacco Use Types Packs/Day Years [...] on filedocumented in this encounter Care Teams Orderly Relationship Specialty Start Date End Date Kizzy Willingham MD [address] [place] [address] PCP - General Gastroenterology 05/22/20 11/08/24 Mikey Feliciano NP [address] [place] [address] PCP - General Nurse Practitioner 11/09/24 documented as of this encounter Additional Source Comments The information contained in this document represents components of the legal health record. It is not the complete legal health record.[facility]
--- OUTSIDE RECORDS SUMMARY | 2024-12-26 10:44 | XMS_ITS | Clinical Summary ---
Author Organization [facility] Address [address] [place] [address] Phone Care Team Providers Care Forest Firefighter Name Role Phone Mikey Feliciano Aleroderick RADIO FREQUENCY ENGINEER Primary Care Provider +1- [phone] Allergies Active Allergy Reactions Criticality Noted Date [...] minutes as needed for chest pain. 11/29/19 22 Discontinu ed(No longer taking) buPROPion (WELLBUTRIN SR) 150 MG SR 12 hr tablet Take 150 mg by mouth 2 (two) times a day. 11/29/19 22 Discontinu ed(No longer taking) liothyronine (CYTOMEL) 5 MCG tablet Take 5 mcg by mouth daily. 11/29/19 Discontinu ed(No longer taking) amiodarone (PACERONE) 200 [...] polyps; colonoscopy 1999 - benign polyps colonoscopy 2007 - no polyps. Encounters Date Type Department Care Team Description 11/29/2024 6:13 AM EDT - 11/29/2024 11:59 PM EDT Hospital Encounter [address] [address] Irvin Tyson, DO Discharge Disposition: Home or Self Care 11/08/2024 Procedure Pass [address] [address] 11/08/2024 Transcribe Orders Virtual Department [address] [place] [address] Irvin Tyson, Radiculopathy, lumbar region (Primary Dx) 11/01/2024 7:45 AM EDT - 11/01/2024 11:59 PM EDT Hospital Encounter [address] [address] Irvin Tyson, DO Discharge Disposition: Home or Self Care 11/01/2024 Ancillary Orders [address] [address] Irvin Tyson, Radiculopathy of lumbar region (Primary Dx) from Last 3 Months Immunizations Immunization Administration Dates Next Due Pneumococcal [...] EDT Inhaled Oxygen Concentration - - Weight 85.7 kg (189 lb) 11/27/2024 11:32 AM EDT Height 175.3 cm (5' 9 ) 11/27/2024 11:32 AM EDT Body Mass Index 27.91 11/27/2024 11:32 AM EDT Plan of Treatment Health Maintenance [...] Booster 01/23/2012 01/22/2002 BLOOD PRESSURE 06/30/2022 12/31/2021 INFLUENZA VACCINE (#1) 2024 9, 12/20/2016, 01/29/2016, Additional history exists COVID-19 VACCINE (5 - 2024- season) 2024 08/30/2021, 12/26/2020, 05/10/2020, Additional history exists RSV [...] this topic Medical Devices Not on file Procedures Procedure Name Priority Date/Time Associated Diagnosis Comments MRI LUMBAR SPINE (NEURO) WITHOUT CONTRAST Routine 11/29/2024 7:04 AM EDT Radiculopathy, lumbar region XR LUMBOSACRAL SPINE 2-3 VIEWS Routine 11/01/2024 8:10 AM EDT Radiculopathy of lumbar region from Last 3 Months Results * MRI LUMBAR SPINE (NEURO) WITHOUT [...] See above for detailed levelby level analysis. us Irvin Morales Tyson DO IMG MR XSPECIALTY Final Resu lt * XR LUMBOSACRAL SPINE 2-3 VIEWS (11/01/2024 8:10 AM EDT) Anatomical Region Laterality Modality L-spine Computed Radiogr aphy 11/01/2024 8:35 AM EDT Impressions 11/01/2024 8:38 AM EDT No evidence of acute fracture. Degenerative change and retrolisthesis as described above. Narrative 11/01/2024 8:38 AM EDT XR LUMBOSACRAL SPINE 2-3 VIEWS 11/01/2024 7:49 AM Referring clinician's provided indication for this examination in Epic: Pain COMPARISON: None FINDINGS: There is no evidence of acute fracture. There is minimal dextroscoliosis with apex at L1-L2. There is minimal retrolisthesis of L2 on L3 measuring 3 mm, likely degenerative. There is mild anterior degenerative endplate marginal osteophytosis. There is moderate loss of disc space height at L2-L3. The pedicles appear grossly intact. There is degenerative change of the lower lumbar facet joints. The sacroiliac joints are congruent. There is vascular calcification. Procedure Note Michelle Padilla MD - 11/01/2024 XR LUMBOSACRAL SPINE 2-3 VIEWS 11/01/2024 7:49 AM Referring clinician's provided indication for this examination in Epic:Pain COMPARISON: None FINDINGS: There is no evidence of acute fracture. There is minimal dextroscoliosiswith apex at L1-L2. There is minimal retrolisthesis of L2 on L3 measuring3 mm, likely degenerative. There is mild anterior degenerative endplatemarginal osteophytosis. There is moderate loss of disc space height atL2-L3. The pedicles appear grossly intact. There is degenerative change ofthe lower lumbar facet joints. The sacroiliac joints are congruent. Thereis vascular calcification. IMPRESSION: No evidence of acute fracture. Degenerative change and retrolisthesis asdescribed above. Irvin Tyson DO IMG XR SPINE Final Result from Last 3 Months Insurance [employer] PPO MEDICARE REPLACEMENT [employer] P[employer] MEDICARE REPLACEMENT [employer] P[employer] MEDICARE REPLACEMENT [employer] P[employer] MEDICARE REPLACEMENT [employer] P[employer] MEDICARE REPLACEMENT [employer] P[employer] MEDICARE REPLACEMENT [employer] P[employer] MEDICARE REPLACEMENT [employer] P[employer] MEDICARE REPLACEMENT [employer] P[employer] MEDICARE REPLACEMENT Care Teams Forest Firefighter Relationship Specialty Start Date End Date Mikey Feliciano NP [address] [place] [address] PCP - General Nurse Practitioner 11/09/24 Additional Source Comments The information contained in this document represents components of the legal health record. It is not the complete legal health record.[facility]
--- OUTSIDE RECORDS SUMMARY | 2024-12-26 10:44 | XMS_ITS | Encounter Summary ---
Author Organization [facility] Address [address] [place] [address] Phone Care Team Providers Care Full Decator Operator Name Role Phone Kizzy Willingham MD Primary Care Provider + Mikey Feliciano NP Primary Care Provider +1- [phone] Encounter Details Date Type Department Care Team (Latest Contact Info) Description 11/01/2024 Ancillary Orders [facility], X-Ray - [address] [id number] Irvin Tyson, DO [address] [place], [place] [id number] [email or web address] Radiculopathy of lumbar region (Primary Dx) Social History Tobacco [...] documented as of this encounter Results * XR LUMBOSACRAL SPINE 2-3 VIEWS (11/01/2024 [...] fracture. Degenerative change and retrolisthesis asdescribed above. us Irvin Andrew Tyson DO IMG XR SPINE Final Result documented in this encounter Visit Diagnoses Diagnosis Radiculopathy of lumbar region- Primary Radiculopathy of lumbar region documented in this encounter Care Teams Full Decator Operator Relationship Specialty Start Date End Date Kizzy Willingham MD [address] [place] [address] PCP - General Gastroenterology 05/22/20 11/08/24 Mikey Feliciano NP [address] [place] [address] PCP - General Nurse Practitioner 11/09/24 documented as of this encounter Additional Source Comments The information contained in this document represents components of the legal health record. It is not the complete legal health record.[facility]
== END 2024-12-26 10:06 | disposition home or self-care (01) ==
LOC: HO.HMCFM 09:32
PROVIDERS: PCP Nurse Practitioner Family; Visit Provider Nurse Practitioner Family
DX: I10 Essential (primary) hypertension (principal); E55.9 Vitamin D deficiency, unspecified; Z00.00 Encounter for general adult medical examination without abnormal findings

== ENCOUNTER 2025-01-09 08:53 | Outpatient (AMB) | payer OTHER, SELFPAY ==
[2022-08-29 15:38] VITALS: BP 120/52; BP 144/56; BMI 27.3
--- NOTE | 2025-01-09 09:06 | MHC.OFFVIS ---
Vital Signs 01/09/25 09:07 Height 5 ft 9 in Weight 186 lb 1.122 oz BMI 27.5 BP 130/64 Blood Pressure Location Lt brachial Position Sitting Pulse 64 Pulse Source Pulse Oximeter Intake Visit Reasons: 4 mth f/up-MIBI Intake Note: 4 mth f/up-mibi Manager Leasing Required: No Accompanied by: Self / Same As Patient Allergies bee venom protein (honey bee) Allergy (Severe, Verified 12/26/24 09:56) Anaphylaxis povidone-iodine Allergy (Unknown, Verified 12/26/24 09:56) Unknown seafood Allergy (Verified 12/26/24 09:56) Unknown lisinopril Adverse Reaction (Intermediate, Verified 12/26/24 09:56) Cough Medication List - Last Reconciled 01/09/25 by Aime Winn MD amoxicillin 2,000 mg PO DAILY PRN aspirin 81 mg PO DAILY atorvastatin 80 mg PO BEDTIME 90 days azelastine-fluticasone 137-50 mcg/spray (Dymista) 1 spray intranasal BID 30 days bisacodyl (Dulcolax (bisacodyl)) 20 mg (4 x 5 mg) PO ONCE 1 day budesonide-formoterol 160-4.5 mcg/actuation (Symbicort) 2 puffs inhalation BID 30 days cholecalciferol (vitamin D3) 50 mcg PO DAILY clonazepam 1 mg PO BEDTIME epinephrine (EpiPen 2-Ricardo) 0.3 mg (0.3 mL) IM Q10M PRN fluticasone propionate 50 mcg/actuation 50 mcg intranasal DAILY lamotrigine ER 250 mg PO DAILY levothyroxine 100 mcg PO DAILY 90 days loperamide (Imodium A-D) 2 mg PO Q6H PRN losartan 25 mg PO DAILY methylphenidate HCl 60 mg PO DAILY metoprolol succinate ER 50 mg PO DAILY omeprazole 20 mg PO DAILY polyethylene glycol 3350 (Miralax) 238 grams PO ONCE psyllium husk (with sugar) 3 gram/7 gram (Metamucil (with sugar)) 1 tsp PO DAILY quetiapine (Seroquel) 50 mg PO BEDTIME vitamin B comp and C no.3 (B Complex Plus Vitamin C) 1 cap PO DAILY HPI Comments Details: 74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 He has background history of right bundle-branch block and aortic stenosis. He had echocardiography which showed evidence of severe aortic stenosis. He was complaining of dyspnea and chest discomfort. He underwent cardiac catheterization which showed 2 vessel disease. He was admitted after the cardiac catheterization for chest pain and a decision was made to do surgery sooner. He underwent CABG and AVR. He has made good recovery since then. 09/03/22: He is here for follow-up. He has been doing well. He had 1 episode of right-sided sharp chest pain lasting for 3 minutes while at cardiac rehabilitation. He said he has not had further episodes of chest discomfort despite doing physical activity. He is going to be to some dental workup and is asking whether he can get amoxicillin script. He has lower back pain which is limiting him from exercising specially in the morning when he has a lot of stiffness. Previously had some early satiety but it improved after stopping his amiodarone. He is taking medications regularly. He has no exertional symptoms at this point. 01/12/23: He returns for follow-up. He has been doing well. He is physically active. Occasionally gets dyspnea and chest tightness. This usually happens when he is out in cold weather. He is not a smoker. He does not have any history of asthma. He is asking whether he should see pulmonology. He is exercising at cardiac rehabilitation and doing well. He does not have any consistent exertional symptoms. 04/27/2023: He returns for follow-up. He is complaining of fatigue and lethargy ongoing for 2 months. He is saying that he has to take a nap during the day and feels tired quite frequently. He has been using methylphenidate for long time and the dose has not changed. He saw his psychiatrist and his clonazepam and Seroquel dose was decreased. I reviewed his blood workup and his hemoglobin is 16.7 with RBCs of 5.82. Hematocrit is 49.8. Hemoglobin has increased over the last year from 14.3-68.7. 09/21/23: He is here for follow-up. He was referred to hematology and is currently being monitored for erythrocytosis. His JAK2 mutation was negative. He is complaining of heartburn and has been using Tums. He also has been experiencing some chest discomfort which happens randomly. No clear exertional discomfort. No shortness of breath. Echocardiography last year in 05/19/2022 did not show any wall motion abnormality and ejection fraction was completely normal with a normal functioning bioprosthetic aortic valve. 01/25/2024: He is here for follow-up. No chest pains but has been experiencing some shortness of breath. He also has ongoing diarrhea and will be undergoing colonoscopy. He also has some dental workup coming up in March. He is describing some orthopnea like episodes. No PND. 05/04/2024: He is here for follow-up. He had 1 episode of sharp chest pain 4 weeks ago. This lasted for few seconds. No exertional chest pains but he does get some shortness of breath with activities. No orthopnea or PND. No peripheral edema. Blood pressure is well controlled. He is being worked up for diarrhea alternating with constipation. He will need colonoscopy. 08/31/2024: He is here for follow-up. He said he could not do the colonoscopy because his got very sick and unfortunately had diverticulitis and pulmonary embolism and walk in the intensive care unit. She has recovered at this stage. He is saying that he has noticed over the last month or so that he gets chest tightness. These symptoms are not consistently exertional but he has been experiencing central chest tightness. He has anxiety and has been on clonazepam and the dose was decreased recently too. 01/09/2025: He is here for follow-up. He was complaining of some chest discomfort on last visit and we referred him for exercise nuclear perfusion imaging. He exercised to 8.5 Mets and nuclear perfusion imaging was normal. Previous echocardiography in January showed preserved LV function. He is saying the chest discomfort has resolved and he does not have any further symptoms. He is undergoing dental workup and is having multiple teeth removed to get dentures placed. He has been getting antibiotics with dental workup. Blood pressure is stable. [facility] Medical History History of rheumatic fever Obstructive airway disease Chronic allergic rhinitis Allergy Prostate cancer Pulmonary hypertension TIA (transient ischemic attack) Aortic stenosis Hypertension Anxiety Bipolar disorder Surgical History Status post double vessel coronary artery bypass Aortic valve replaced Hx of tonsillectomy Hx of appendectomy Hx of vasectomy Hx of endoscopy Hx of colonoscopy Hx of cardiac catheterization Hx of radical prostatectomy History of left shoulder replacement History of total right knee replacement Hx of repair of right rotator cuff Family History Sister Heart attack Coronary artery disease Arthritis Lupus Sleep apnea Mother Lupus Heart attack Father Heart attack Coronary artery disease Other Mental health disorder Social History Household Members: Family Housing: Apartment Alcohol intake: current Alcohol intake frequency: a few times a week Alcohol type: hard liquor Patient Tobacco Use Status: Never used Tobacco e-Cigarette/Vaping Use: Never Used Advance Directives Date on File: 11/17/21 service: No Current occupational status: retired Cognitive needs: No Hearing needs: No Vision needs: No Review of Systems Const Denies chills, Denies fatigue, Denies fever(s), Denies frequent falls, Denies weakness, Denies weight gain and Denies weight loss ENT Denies dizziness Card Denies chest pain, Denies leg edema, Denies lightheadedness, Denies palpitations, Denies dyspnea and Denies dyspnea on exertion Resp Denies cough, Denies dyspnea and Denies dyspnea on exertion GI Denies hematochezia Musc Denies abnormal gait, Denies muscle weakness, Denies numbness, Denies radiating pain into limb and Denies tingling Neuro Denies abnormal gait, Denies dizziness, Denies frequent falls, Denies numbness, Denies tingling and Denies weakness Endo Denies fatigue and Denies palpitations Physical Exam Vital Signs: Last Vital Signs Pulse 64 01/09/25 09:07 BP 130/64 01/09/25 09:07 BMI result Body Mass Index 27.5 GENERAL APPEARANCE: in no acute distress, pleasant. NECK: Aortic murmur radiating to carotids. SKIN: no suspicious lesions, warm and dry. HEART: Regular rate and rhythm. Grade 1/6 systolic murmur aortic area. LUNGS: clear to auscultation bilaterally. ABDOMEN: soft, nontender. EXTREMITIES: no edema. PERIPHERAL PULSES: equal. NEUROLOGIC: No gross deficits, AAO X 3 Assessment & Plan Assessment & Plan (1) Hypertension: Comment: Goal <130/80 Code(s): I10 - Essential (primary) hypertension Category: Medical Qualifiers: Hypertension type: primary hypertension Qualified Code(s): I10 - Essential (primary) hypertension (2) S/P AVR: Comment: 11/22/2022 AVR, 23 mm Inspiris bioprosthetic Code(s): Z95.2 - Presence of prosthetic heart valve Category: Surgical (3) Chest pain: Code(s): R07.9 - Chest pain, unspecified Category: Medical Plan 74-year-old gentleman who is here for follow-up. He is status post AVR and bypass surgery in the past. Was complaining of chest discomfort when he was under lot of stress due to his 's illness. After some discussion he underwent exercise nuclear perfusion imaging which was normal. He has no chest discomfort on follow-up. Blood pressure well controlled. He will continue to take antibiotics with dental workup. He will see us back in 3 months. Thank you for allowing me to participate in the care of your patient. Please feel free to contact me if you have any questions. Coding Level of Care Code Est Pt Level 4 (27923) Diagnoses Primary hypertension I10 Hypertension type: primary hypertension S/P AVR Z95.2 Chest pain R07.9
[2025-01-09 09:07] VITALS: BP 130/64; PULSE 64; BMI 27.5
--- OUTSIDE RECORDS SUMMARY | 2025-01-09 09:27 | XMS_ITS | Encounter Summary ---
Author Organization [facility] Address [address] [place] [address] [place] [address] Phone Care Team Providers Care Trust Administrator Name Role Phone Kizzy Willingham MD Primary Care Provider + Mikey Feliciano NP Primary Care Provider +1- [phone] Encounter Details Date Type Department Care Team (Late st Contact Info) Description 05/29/2020 Telephone [facility] Otolaryngology General LW [address] [place] [address] Poli Willis Social History Tobacco Use Types [...] on filedocumented in this encounter Care Teams Trust Administrator Relationship Specialty Start Date End Date Kizzy Willingham MD [address] [place] [address] PCP - General Gastroenterology 05/22/20 11/08/24 Mikey Feliciano NP [address] [place] [id number] PCP - General Nurse Practitioner 11/09/24 documented as of this encounter Additional Source Comments The information contained in this document represents components of the legal health record. It is not the complete legal health record.[facility]
--- OUTSIDE RECORDS SUMMARY | 2025-01-09 09:27 | XMS_ITS | Encounter Summary ---
Author Organization [facility] Address [address] [place] [address] [place] [address] Phone Care Team Providers Care Delivery Aide Name Role Phone Kizzy Willingham MD Primary Care Provider + Mikey Feliciano NP Primary Care Provider +1- [phone] Encounter Details Date Type Department Care Team (Late st Contact Info) Description 11/08/2024 Procedure Pass [facility], [facility] [address] [place] [address] Social History Tobacco Use Types Packs/Day Years [...] on filedocumented in this encounter Care Teams Delivery Aide Relationship Specialty Start Date End Date Kizzy Willingham MD [address] [place] [address] PCP - General Gastroenterology 05/22/20 11/08/24 Mikey Feliciano NP [address] [place] [phone] PCP - General Nurse Practitioner 11/09/24 documented as of this encounter Additional Source Comments The information contained in this document represents components of the legal health record. It is not the complete legal health record.[facility]
--- OUTSIDE RECORDS SUMMARY | 2025-01-09 09:27 | XMS_ITS | Encounter Summary ---
Author Organization [facility] Address [address] [place] [address] [place] [address] Phone Care Team Providers Care Medical Csr Name Role Phone Kizzy Willingham MD Primary Care Provider + Mikey Feliciano NP Primary Care Provider +1- [phone] Reason for Referral * MRI/CAT Scan - Closed Specialty Diagnoses / Procedures Referred By Contac t Referred To Contact Radiology Diagnoses Radiculopathy, lumbar region Procedures MRI Lumbar Spine CHG MRI, LUMBAR SPINE CHG MRI, LUMBAR SPINE COMBO CHG MRI, LUMBAR SPINE CONTRAST Irvin Tyson DO [address] [place] [address] Phone: tel: fax: [email or web address] Referral ID Status Reason Start Date Expiration Date Visits Re quested Visits Authorized [id number] Closed 2024 01/01/2025 1 1 Encounter Details Date Type Department Care Team (Latest Contact Info) Description 11/08/2024 Transcribe Orders Virtual Department [address] [place] [address] Irvin Tyson DO [address] [place] [phone] [email or web address] [employer] Radiculopathy, lumbar region (Primary Dx) Social History [...] unspecified documented in this encounter Care Teams Medical Csr Relationship Specialty Start Date End Date Kizzy Willingham MD [address] [place] [address] PCP - General Gastroenterology 05/22/20 11/08/24 Mikey Feliciano NP [address] [place] [address] PCP - General Nurse Practitioner 11/09/24 documented as of this encounter Additional Source Comments The information contained in this document represents components of the legal health record. It is not the complete legal health record.[facility]
--- OUTSIDE RECORDS SUMMARY | 2025-01-09 09:28 | XMS_ITS | Clinical Summary ---
Author Organization [facility] Address [address] [place] [address] Phone Care Team Providers Care Security Agent Name Role Phone Mikey Feliciano Aleroderick POWERHOUSE OPERATOR Primary Care Provider +1- [phone] Allergies Active Allergy Reactions Criticality Noted Date [...] - 11/29/2024 11:59 PM EDT Hospital Encounter [address] [address] Irvin Tyson, DO Discharge Disposition: Home or Self Care 11/08/2024 Procedure Pass [address] [address] 11/08/2024 Transcribe Orders Virtual Department [address] [place] [address] Irvin Tyson, Radiculopathy, lumbar region (Primary Dx) 11/01/2024 7:45 AM EDT - 11/01/2024 11:59 PM EDT Hospital Encounter [address] [address] Irvin Tyson, DO Discharge Disposition: Home or Self Care 11/01/2024 Ancillary Orders [address] [address] Irvin Tyson, Radiculopathy of lumbar region (Primary [...] Health Maintenance Due Date Last Done Comments BLOOD PRESSURE 1949 CREATININE LEVEL 1949 POTASSIUM LEVEL 1949 TSH LEVEL 1949 DEPRESSION SCREENING 1961 HEPATITIS C SCREENING 11/05/1967 COLOGUARD 1994 COLONOSCOPY 1994 COLORECTAL CANCER SCREENING 1994 FIT TEST 1994 FOBT 1994 SIGMOIDOSCOPY 1994 VIRTUAL COLONOSCOPY 1994 PNEUMOCOCCAL VACCINES (50+ years) (2 of 2 - PCV) 01/22/2007 01/22/2006 Adult Td,Tdap Booster 01/23/2012 01/22/2002 INFLUENZA VACCINE (#1) 2024 9, 12/20/2016, 01/29/2016, Additional history exists COVID-19 VACCINE ( - 2024- season) 2024 08/30/2021, 12/26/2020, 05/10/2020, [...] for detailed levelby level analysis. us Irvin Tyson DO IMG MR XSPECIALTY Final [...] PPO MEDICARE REPLACEMENT [employer] PPO MEDICARE REPLACEMENT HUMAN PPO MEDICARE REPLACEMENT [employer] O MEDICARE REPLACEMENT [employer] PPO MEDICARE REPLACEMENT Care Teams Security Agent Relationship Specialty Start Date End Date Mikey Feliciano NP [address] [place] [address] PCP - General Nurse Practitioner 11/09/24 Additional Source Comments The information contained in this document represents components of the legal health record. It is not the complete legal health record.[facility]
--- OUTSIDE RECORDS SUMMARY | 2025-01-09 09:28 | XMS_ITS | Encounter Summary ---
Author Organization [facility] Address [address] [place] [address] Phone Care Team Providers Care Station Air Traffic Control Specialist Name Role Phone Kizzy Willingham MD Primary Care Provider + Mikey Feliciano NP Primary Care Provider +1- [phone] Encounter Details Date Type Department Care Team (Latest Contact Info) Description 11/01/2024 Ancillary Orders [facility], X-Ray - [address] [phone] Irvin Tyson, DO [address] [place], [place] [phone] [email or web address] Radiculopathy of lumbar region (Primary Dx) Social [...] region documented in this encounter Care Teams Station Air Traffic Control Specialist Relationship Specialty Start Date End Date Kizzy Willingham MD [address] [place] [phone] PCP - General Gastroenterology 05/22/20 11/08/24 Mikey Feliciano NP [address] [place] [address] PCP - General Nurse Practitioner 11/09/24 documented as of this encounter Additional Source Comments The information contained in this document represents components of the legal health record. It is not the complete legal health record.[facility]
== END 2025-01-09 09:39 | disposition home or self-care (01) ==
LOC: HO.HCS 08:54
PROVIDERS: PCP Nurse Practitioner Family; Visit Provider Internal Medicine Cardiovascular Disease
DX: I10 Essential (primary) hypertension (principal); Z95.2 Presence of prosthetic heart valve; R07.9 Chest pain, unspecified
CPT/HCPCS: 99214

== ENCOUNTER 2025-01-30 14:04 | Outpatient (AMB) | payer OTHER, SELFPAY ==
[2022-08-29 15:38] VITALS: BP 120/52; BP 144/56; BMI 27.3
[2025-01-30 14:23] VITALS: BP 138/58; PULSE 65; O2SAT 98; BMI 27.8
--- NOTE | 2025-01-30 14:23 | A.OFFVIS_ITS ---
Vital Signs 01/30/25 14:23 Height 5 ft 9 in Weight 188 lb 7.924 oz BMI 27.8 BP 138/58 L Blood Pressure Location Lt brachial Position Sitting Pulse 65 Pulse Source Pulse Oximeter Pulse Oximetry (%) 98 Oxygen Delivery Method Room Air Intake Visit Reasons: Dyspnea Wire Spring Relay Adjuster Required: No Accompanied by: Self / Same As Patient Allergies bee venom protein (honey bee) Allergy (Severe, Verified 01/30/25 14:27) Anaphylaxis povidone-iodine Allergy (Unknown, Verified 01/30/25 14:27) Unknown seafood Allergy (Verified 01/30/25 14:27) Unknown lisinopril Adverse Reaction (Intermediate, Verified 01/30/25 14:27) Cough HPI Comments Details: The patient is a 72-year-old gentleman with a chronic cough. Apparently was in his usual state health until many years ago when he started developing does cough. Although seems to be getting worse the last year or so. The patient had been evaluating the past and was noted to have a elevated left hemidiaphragm. Therefore he underwent a sniff study demonstrated normal movement of the diaphragms. This ruled out a paralyzed diaphragm. Subsequently after that the patient underwent open heart surgery for his aortic valve and also coronary artery bypass. This happened back in the fall of 2021. postoperatively the patient did have a left-sided pleural effusion and significant atelectasis to the left lung. His surgery went well. Now he is recovering at cardiac rehab. The patient states that his cough is more significant. The coughing spells are significant where he can not stop and ultimately ends up either having dry heaves or vomiting. The patient denies any syncopal episodes. Sometimes he is able to expectorate some phlegm. He did undergo a recent chest x-ray which I personally reviewed demonstrating much improved aeration of both lungs. The pleural effusion has subsided and the atelectasis as well. In addition to that the patient did undergo pulmonary function studies which were personally by me. It appears that the during the post bronchodilator numbers the patient became obstructed and then limited airflow movement also appreciated primarily in the inspiratory flow. The suggest that due to the maneuvers it may have exacerbated an obstructive process now with an obstruction suggesting a mild obstruction in addition to some degree of vocal cord dysfunction or laryngeal spasm. On examination he does have some wheezing as well. the patient also complains of a nasal congestion and postnasal drip. This is also contributing to his very sensitive larynx. Will go ahead and treat him for the wheezing with respiratory inhalers. The patient also will have nasal therapy. Will undergo blood work in addition to allergy testing. I do believe that we settled on the cough so will try Tessalon Perles during daytime. If the patient continues to cough will consider speech therapy and also an ENT consultation. 05/06/2023 the patient is here for a pulmonary follow-up visit. The patient overall has been doing a lot better. He is responded well to the Symbicort inhaler. He also has a rescue inhaler. Overall doing a lot better. We again reviewed his imaging studies. 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 Some chronic atelectasis after his heart surgery. Clinically he sounds better he is also and rehabilitation. He is exercising well without any respiratory limitations. His exam is also reassuring. Will go ahead and repeat his chest x-ray in the fall. If he has any worsening symptoms prior to that he will call the office. We also reviewed his allergy testing is all negative. Therefore there isn't any need for any allergy therapies at this time. If the patient has any issues prior to his next visit he will call the office for an earlier assessment. 10/05/2023 the patient is here for a pulmonary follow-up visit. Overall he is doing well. Still has a cough. [id number]-[id number] severity. Does use Symbicort with good response. Still has a postnasal drip. We did talk about nasal rinsing with Neti bottle. He has use it before. I did emphasize the use of distilled water. In addition to that will try to optimize her use his nasal therapy. He did have a chest x-ray which I personally reviewed. Still has an elevation of the left hemidiaphragm but seems to be stable if not a little better. Which is reassuring. He is participating in the cardiac rehabilitation which is excellent continue with Symbicort as this has been helpful. Once a day is fine. If the patient does need twice a day should increase it. Otherwise follow-up in the springtime. If any other issues he will call for an earlier assessment. 01/30/2025 the patient is here for pulmonary follow-up visit. Overall the patient has been doing okay from respiratory status. Inhaler therapy appears to be affecting beneficial. In addition to that continues with the nasal therapy. in the meantime he does complain of daytime drowsiness. He does have an elevated Calhoun score of 11/24. The patient also has cardiovascular risk factors. Will have him get a home sleep study this time. He did also mentioned some concern regarding a graded EF a recent nuclear cardiac stress test demonstrating a decrease in his ejection fraction. I did reassure him that his last echo back in January 2024 demonstrated a normal ejection fracture in the is a better way of measuring the EF. Therefore he will speak to Cardiology re garding this during his next visit. It did reassure him and then to get concerned about this and to continue exercising regularly. In the meantime will follow-up after the sleep study. [facility] Medical History History of rheumatic fever Obstructive airway disease Chronic allergic rhinitis Allergy Prostate cancer Pulmonary hypertension TIA (transient ischemic attack) Aortic stenosis Hypertension Anxiety Bipolar disorder Surgical History Status post double vessel coronary artery bypass Aortic valve replaced Hx of tonsillectomy Hx of appendectomy Hx of vasectomy Hx of endoscopy Hx of colonoscopy Hx of cardiac catheterization Hx of radical prostatectomy History of left shoulder replacement History of total right knee replacement Hx of repair of right rotator cuff Family History Sister Heart attack Coronary artery disease Arthritis Lupus Sleep apnea Mother Lupus Heart attack Father Heart attack Coronary artery disease Other Mental health disorder Social History Household Members: Family Housing: Apartment Alcohol intake: current Alcohol intake frequency: a few times a week Alcohol type: hard liquor Patient Tobacco Use Status: Never used Tobacco e-Cigarette/Vaping Use: Never Used Advance Directives Date on File: 11/17/21 service: No Current occupational status: retired Cognitive needs: No Hearing needs: No Vision needs: No Review of Systems Const Reports daytime sleepiness, Reports difficulty sleeping, Denies fever(s) and Reports snoring ENT Reports dysphagia, Reports nasal congestion, Reports nasal discharge, Reports post nasal drip and Denies throat swelling Card Denies chest pain Resp Denies chest congestion, Reports cough, Denies hemoptysis and Reports snoring GI Reports dysphagia Musc Reports no additional complaints Skin/Breast Denies rash Neuro Reports no additional complaints Ross/Lymph Denies easy bleeding, Denies easy bruising and Denies lymphadenopathy Aller/Immun Denies throat swelling Physical Exam Vital Signs: Last Vital Signs Pulse 65 01/30/25 14:23 BP 138/58 L 01/30/25 14:23 Pulse Ox 98 01/30/25 14:23 Oxygen Delivery Method Room Air 01/30/25 14:23 BMI result Body Mass Index 27.8 Const General: comfortable HEENT Head: Yes normocephalic Neck Neck: Yes supple Chest Chest palpation & inspection: normal inspection of the chest Resp Effort & Inspection: normal respiratory effort and No prolonged expiratory phase Auscultation: no wheezes and diminished lung sounds Cardio Heart sounds: S1 normal heart sound present and S2 normal heart sound present GI Palpation (GI): Soft to palpation Skin General skin exam: no rashes or lesions noted Extrem General: Yes no clubbing, cyanosis or edema Assessment & Plan Assessment & Plan (1) Cough: Comment: Obstructive physiology/wheezing, laryngospasms, post nasal drip, MEDHAT related cough Code(s): R05.9 - Cough, unspecified Category: Medical Qualifiers: Cough type: chronic Qualified Code(s): R05.3 - Chronic cough (2) Chronic allergic rhinitis: Code(s): J30.9 - Allergic rhinitis, unspecified Category: Medical (3) Allergy: Code(s): T78.40XA - Allergy, unspecified, initial encounter Category: Medical Qualifiers: Encounter type: initial encounter Qualified Code(s): T78.40XA - Allergy, unspecified, initial encounter (4) Obstructive airway disease: Code(s): J44.9 - Chronic obstructive pulmonary disease, unspecified Category: Medical (5) HORNE (dyspnea on exertion): Code(s): R06.09 - Other forms of dyspnea Category: Medical (6) LIZETT (obstructive sleep apnea): Code(s): G47.33 - Obstructive sleep apnea (adult) (pediatric) Category: Medical Plan continue Symbicort daily continue Tessalon pearls Dymista neti bottle PM Sleep study ordered F/U 8-12 months Orders: Orders RT home sleep study Today G47.33 - Obstructive sleep apnea (adult) (pediatric) Coding Level of Care Code Complex visit Add On G2211 Diagnoses Chronic cough R05.3 Cough type: chronic Chronic allergic rhinitis J30.9 Allergy, initial encounter T78.40XA Encounter type: initial encounter Obstructive airway disease J44.9 HORNE (dyspnea on exertion) R06.09 LIZETT (obstructive sleep apnea) G47.33 Time Spent (min) 16
--- OUTSIDE RECORDS SUMMARY | 2025-01-30 17:30 | XMS_ITS | Encounter Summary ---
Author Organization [facility] Address [address] [place] [address] Phone Care Team Providers Care Paving Plant Operator Name Role Phone Kizzy Willingham MD Primary Care Provider + Mikey Feliciano NP Primary Care Provider +1- [phone] Encounter Details Date Type Department Care Team (Latest Contact Info) Description 11/01/2024 Ancillary Orders [facility], X-Ray - [address] [id number] Irvin Tyson, DO [address] [place], [place] [id number] [email or web address] Radiculopathy of lumbar region (Primary Dx) Social [...] region documented in this encounter Care Teams Paving Plant Operator Relationship Specialty Start Date End Date Kizzy Willingham MD [address] [place] [address] PCP - General Gastroenterology 05/22/20 11/08/24 Mikey Feliciano NP [address] [place] [address] PCP - General Nurse Practitioner 11/09/24 documented as of this encounter Additional Source Comments The information contained in this document represents components of the legal health record. It is not the complete legal health record.[facility]
--- OUTSIDE RECORDS SUMMARY | 2025-01-30 17:30 | XMS_ITS | Clinical Summary ---
Author Organization [facility] Address [address] [place] [address] Phone Care Team Providers Care Electrical Project Manager Name Role Phone Mikey Feliciano Aleroderick [employer] Primary Care Provider +1- [phone] Allergies Active Allergy Reactions Criticality Noted Date [...] - 11/29/2024 11:59 PM EDT Hospital Encounter [address] [address] Irvin Tyson, DO Discharge Disposition: Home or Self Care 11/08/2024 Procedure Pass [address] [address] 11/08/2024 Transcribe Orders Virtual Department [address] [place] [address] Irvin Tyson, Radiculopathy, lumbar region (Primary Dx) 11/01/2024 7:45 AM EDT - 11/01/2024 11:59 PM EDT Hospital Encounter [address] [address] Irvin Tyson, DO Discharge Disposition: Home or Self Care 11/01/2024 Ancillary Orders [address] [address] Irvin Tyson, Radiculopathy of lumbar region (Primary [...] REPLACEMENT [employer] MEDICARE REPLACEMENT Care Teams Electrical Project Manager Relationship Specialty Start Date End Date Mikey Feliciano NP [address] [place] [address] PCP - General Nurse Practitioner 11/09/24 Additional Source Comments The information contained in this document represents components of the legal health record. It is not the complete legal health record.[facility]
--- OUTSIDE RECORDS SUMMARY | 2025-01-30 17:30 | XMS_ITS | Encounter Summary ---
Author Organization [facility] Address [address] [place] [address] [place] [address] Phone Care Team Providers Care Refining Still Operator Name Role Phone Kizzy Willingham MD Primary Care Provider + Mikey Feliciano NP Primary Care Provider +1- [phone] Encounter Details Date Type Department Care Team (Late st Contact Info) Description 05/29/2020 Telephone [facility] Otolaryngology General [facility] [address] [place] [address] Poli Willis Social History Tobacco Use Types [...] on filedocumented in this encounter Care Teams Refining Still Operator Relationship Specialty Start Date End Date Kizzy Willingham MD [address] [place] [address] PCP - General Gastroenterology 05/22/20 11/08/24 Mikey Feliciano NP [address] [place] [address] PCP - General Nurse Practitioner 11/09/24 documented as of this encounter Additional Source Comments The information contained in this document represents components of the legal health record. It is not the complete legal health record.[facility]
--- OUTSIDE RECORDS SUMMARY | 2025-01-30 17:30 | XMS_ITS | Encounter Summary ---
Author Organization [facility] Address [address] [place] [address] [place] [address] Phone Care Team Providers Care Plastic Straightening Roll Operator Name Role Phone Kizzy Willingham MD Primary Care Provider + Mikey Feliciano NP Primary Care Provider +1- [phone] Reason for Referral * MRI/CAT Scan - Closed Specialty Diagnoses / Procedures Referred By Contac t Referred To Contact Radiology Diagnoses Radiculopathy, lumbar region Procedures MRI Lumbar Spine CHG MRI, LUMBAR SPINE CHG MRI, LUMBAR SPINE COMBO CHG MRI, LUMBAR SPINE CONTRAST Irvin Tyson DO [address] [place] [address] Phone: tel: fax: [email or web address] Referral ID Status Reason Start Date Expiration Date Visits Re quested Visits Authorized [id number] Closed 2024 01/01/2025 1 1 Encounter Details Date Type Department Care Team (Latest Contact Info) Description 11/08/2024 Transcribe Orders Virtual Department [address] [place] [address] Irvin Tyson DO [address] [place] [address] [email or web address] [employer] Radiculopathy, lumbar region (Primary Dx) Social History [...] unspecified documented in this encounter Care Teams Plastic Straightening Roll Operator Relationship Specialty Start Date End Date Kizzy Willingham MD [address] [place] [address] PCP - General Gastroenterology 05/22/20 11/08/24 Mikey Feliciano NP [address] [place] [address] PCP - General Nurse Practitioner 11/09/24 documented as of this encounter Additional Source Comments The information contained in this document represents components of the legal health record. It is not the complete legal health record.[facility]
--- OUTSIDE RECORDS SUMMARY | 2025-01-30 17:30 | XMS_ITS | Encounter Summary ---
Author Organization [facility] Address [address] [place] [address] [place] [address] Phone Care Team Providers Care Torch Brazer Name Role Phone Kizzy Willingham MD Primary Care Provider + Mikey Feliciano NP Primary Care Provider +1- [phone] Encounter Details Date Type Department Care Team (Late st Contact Info) Description 11/08/2024 Procedure Pass [facility] [address] [place] [address] Social History Tobacco Use Types Packs/Day Years [...] on filedocumented in this encounter Care Teams Torch Brazer Relationship Specialty Start Date End Date Kizzy Willingham MD [address] [place] [address] PCP - General Gastroenterology 05/22/20 11/08/24 Mikey Feliciano NP [address] [place] [address] PCP - General Nurse Practitioner 11/09/24 documented as of this encounter Additional Source Comments The information contained in this document represents components of the legal health record. It is not the complete legal health record.[facility]
== END 2025-01-30 15:30 | disposition home or self-care (01) ==
LOC: HO.HPS 14:05
PROVIDERS: PCP Nurse Practitioner Family; Visit Provider Hospitalist
DX: R05.3 Chronic cough (principal); J30.9 Allergic rhinitis, unspecified; T78.40XA Allergy, unspecified, initial encounter; J44.9 Chronic obstructive pulmonary disease, unspecified; R06.09 Other forms of dyspnea; G47.33 Obstructive sleep apnea (adult) (pediatric)
CPT/HCPCS: 99213; G2211

== ENCOUNTER 2025-02-13 11:04 | Outpatient (AMB) | payer OTHER, SELFPAY ==
[2022-08-29 15:38] VITALS: BP 120/52; BP 144/56; BMI 27.3
--- NOTE | 2025-02-13 11:06 | MHC.PC.OV ---
Vital Signs 02/13/25 11:07 Height 5 ft 9 in Weight 187 lb BMI 27.6 BP 128/60 Blood Pressure Location Lt brachial Position Sitting Respiration 18 Pulse 77 Pulse Source Pulse Oximeter Pulse Oximetry (%) 98 Oxygen Delivery Method Room Air Intake Visit Reasons: 6 wks (after 02/08) CPE, labs review Allergies bee venom protein (honey bee) Allergy (Severe, Verified 02/13/25 11:19) Anaphylaxis povidone-iodine Allergy (Unknown, Verified 02/13/25 11:19) Unknown seafood Allergy (Verified 02/13/25 11:19) Unknown lisinopril Adverse Reaction (Intermediate, Verified 02/13/25 11:19) Cough Medication List - Last Reconciled 02/13/25 by Mikey Feliciano CNP amoxicillin 2,000 mg PO DAILY PRN aspirin 81 mg PO DAILY atorvastatin 80 mg PO BEDTIME 90 days azelastine-fluticasone 137-50 mcg/spray (Dymista) 1 spray intranasal BID 30 days bisacodyl (Dulcolax (bisacodyl)) 20 mg (4 x 5 mg) PO ONCE 1 day budesonide-formoterol 160-4.5 mcg/actuation (Symbicort) 2 puffs inhalation BID 30 days cholecalciferol (vitamin D3) 50 mcg PO DAILY clonazepam 1 mg PO BEDTIME epinephrine (EpiPen 2-Ricardo) 0.3 mg (0.3 mL) IM Q10M PRN fluticasone propionate 50 mcg/actuation 50 mcg intranasal DAILY lamotrigine ER 250 mg PO DAILY levothyroxine 100 mcg PO DAILY 90 days loperamide (Imodium A-D) 2 mg PO Q6H PRN losartan 25 mg PO DAILY methylphenidate HCl 60 mg PO DAILY metoprolol succinate ER 50 mg PO DAILY omeprazole 20 mg PO DAILY psyllium husk (with sugar) 3 gram/7 gram (Metamucil (with sugar)) 1 tsp PO DAILY quetiapine (Seroquel) 50 mg PO BEDTIME vitamin B comp and C no.3 (B Complex Plus Vitamin C) 1 cap PO DAILY Tobacco use date assessed: 02/13/25 Fall risk assessment: No Falls in past year Last assessed Fall Risk: 02/13/25 Dental Screening Dental Screen Date: 02/13/25 Did you have a dental visit in the last 12 months?: Yes Did you have a dental problem in the last 6 months where you did not have access to dental care?: No Was dental information given to patient?: Patient has dentist HPI HPI Comments History of Present Illness Details 74-year-old male presents for an extended physical exam. He admits to taking his medications as prescribed without adverse reactions. He notes that his mood is well controlled. He is followed by a psychiatrist. Acute issue(s) - None Past Medical History - Hypertension, hyperlipidemia, myopia, chronic allergic rhinitis, LIZETT, COPD, erythrocytosis, hypothyroidism, RBBB, aortic stenosis, CABG x2 (2021), s/p AVR, heart murmur, hard of hearing in both ears (wears hearing aids), bipolar 2 disorder, ADHD, and anxiety. Social History - Nonsmoker. Does not vape. Drinks 1 shot (1.5 oz) of scotch 3-4 times weekly. Denies recreational drug use - Has been making healthy dietary choices. Exercises routinely. Generally sleep well Health maintenance - Last eye exam was 6 months ago with [facility] : normal - Last dental visit was 2 weeks ago - currently following up for full upper denture - Last Tdap vaccine was in 2023 - Up-to-date on the PNA, shingles vaccines, and flu vaccines - Last colonoscopy was in 2019: normal. Could [place] [facility] [place] [facility] [place] this year d/t being a caregiver of his who was seriously ill early this year. Encouraged to [place] [facility] [place] to [place] a colonoscopy. - He has never had a bone density scan. Dexa scan ordered Specialists - [facility] [place], [place]ology, Gastroenterology, and Hematology/Oncology - Dr. Rivera Sebastian, psychiatrist [facility] Medical History History of rheumatic fever Obstructive airway disease Chronic allergic rhinitis Allergy Prostate cancer Pulmonary hypertension TIA (transient ischemic attack) Aortic stenosis Hypertension Anxiety Bipolar disorder Surgical History Status post double vessel coronary artery bypass Aortic valve replaced Hx of tonsillectomy Hx of appendectomy Hx of vasectomy Hx of endoscopy Hx of colonoscopy Hx of cardiac catheterization Hx of radical prostatectomy History of left shoulder replacement History of total right knee replacement Hx of repair of right rotator cuff Family History Sister Heart attack Coronary artery disease Arthritis Lupus Sleep apnea Mother Lupus Heart attack Father Heart attack Coronary artery disease Other Mental health disorder Social History Household Members: Family Housing: Apartment Alcohol intake: current Alcohol intake frequency: a few times a week Alcohol type: hard liquor Patient Tobacco Use Status: Never used Tobacco e-Cigarette/Vaping Use: Never Used Advance Directives Date on File: 11/17/21 service: No Current occupational status: retired Cognitive needs: No Hearing needs: No Vision needs: No Questionnaire PHQ-9 Over the last 2 weeks, how often have you been bothered by any of the following problems? 1. Little interest or pleasure in doing things: not at all 2. Feeling down, depressed, or hopeless: not at all 3. Trouble falling or staying asleep, or sleeping too much: not at all 4. Feeling tired or having little energy: not at all 5. Poor appetite or overeating: not at all 6. Feeling bad about yourself - or that you are a failure or have let yourself or your family down: not at all 7. Trouble concentrating on things, such as reading the newspaper or watching television: not at all 8. Moving or speaking so slowly that other people could have noticed. Or the opposite - being so fidgety or restless that you have been moving around a lot more than usual: not at all 9. Thoughts that you would be better off or of hurting yourself in some way: not at all Total score: 0 Depression Screening Interpretation: Negative Depression Screening Done: Yes Source: Developed by Drs. Josh Everett, Cindy Loco, Marcial Castillo and colleagues, with an educational alli from [employer]. Thrive Questionnaire Date Thrive assessed: 04/12/24 I am a: Patient What is your living situation today?: I have a steady place to live Within the past 12 months, did the food you bought not last and you didn't have the money to get more?: Never true Within the past 12 months, did you worry whether your food would run out before you got money to buy more?: Never true Do you have trouble paying for medicines?: No Do you have trouble getting transportation to medical appointments?: No Do you have trouble paying your heating and electricity bill?: No Do you have trouble taking care of your child, family member or friend?: No Do you have trouble with day-to-day activities such as bathing, preparing meals, shopping, managing finances, etc.?: No Are you currently unemployed and looking for a job?: No Are you interested in more education?: No Please select the resources that you would like help with: None Currently or been in a relationship where the following occur: No concerns reported THRIVE Score: 0 AUDIT C Alcohol Use Questionnaire (AUDIT-C) 1. How often do you have a drink containing alcohol?: Monthly or less 2. How many drinks containing alcohol do you have on a typical day when you are drinking?: 1 or 2 3. How often do you have six or more drinks on one occasion?: Never Total Score: 1 Score Reviewed/Action Taken: Yes LYNDON-7 AMB Questionnaire LYNDON-7 Date LYNDON - 7 assessed: 04/12/24 Feeling nervous, anxious, or on edge: 1 = Several days Not being able to stop or control worryin = Not at all Worrying too much about different things: 0 = Not at all Trouble relaxin = Not at all Being so restless that it is hard to sit still: 0 = Not at all Becoming easily annoyed or irritable: 0 = Not at all Feeling afraid as if something awful might happen: 0 = Not at all Total LYNDON-7 score (0-4 normal; 5-9 mild; 10-14 moderate; 15-21 severe): 1 Source: Developed by Drs. Josh Everett, Cindy Loco, Marcial Castillo and colleagues, with an educational alli from [employer]. Review of Systems Const Details: Denies chills, Denies fatigue, Denies fever(s), Denies headache(s) and Denies weakness HEENT Denies change in vision, Denies dizziness, Denies headache(s), Denies hearing loss, Denies nasal congestion, Denies sinus pain, Denies sinus pressure and Denies sore throat Card Denies chest pain, Denies lightheadedness, Denies dyspnea and Denies other (palpitations) Resp Denies cough, Denies dyspnea and Denies wheezing GI Denies abdominal pain, Denies melena, Denies hematochezia, Denies change in bowel habits, Denies dyspepsia and Denies nausea Denies hematuria and Denies dysuria Musc Denies abnormal gait, Denies myalgias, Denies arthralgias, Denies numbness and Denies tingling Skin/Breast Denies rash, Denies unusual bruising and Denies wounds Neuro Denies abnormal gait, Denies dizziness, Denies headache(s), Denies memory loss, Denies numbness, Denies Sensory deficit (Neuro), Denies tingling and Denies weakness Psych Denies anxiety, Denies depression and Denies memory loss Endo Denies cold intolerance, Denies fatigue, Denies heat intolerance, Denies polydipsia and Denies polyuria Ross/Lymph Denies easy bleeding and Denies easy bruising Aller/Immun Denies wheezing Physical exam (Primary Care) BMI result Body Mass Index 27.6 Tobacco/Smoking Status: Tobacco use Status Tobacco use date assessed 12/26/24 12/26/24 09:51 Patient Tobacco Use Status Never used Tobacco 12/26/24 09:36 e-Cigarette/Vaping Use Never Used 12/26/24 09:36 Depression Screening Interpretation: Negative Thrive Assessment: Date of Thrive Assessment Date Thrive assessed 04/12/24 12/26/24 09:36 Currently or been in a relationship where the following occur: No concerns reported Const Other: General: no acute distress, well developed, alert and awake Nutritional Appearance: well nourished Orientation/consciousness: patient oriented x3 [facility] Head: Yes normocephalic and Yes atraumatic Ears: hearing grossly normal bilaterally and TM's normal bilaterally General nose exam: Normal external nose present and Normal nares present Mouth: Normal oral and palatal mucosa present and moist mucous membranes Teeth and gingiva: dentition normal to lower gum, no tooth to upper gum Throat: Yes oropharynx normal Eyes Pupils: Equal, round and reactive pupils present and Pupil accommodation reflex normal EOM: EOMs intact bilaterally Neck Neck: Yes normal visual inspection, Yes no lymphadenopathy and Yes trachea midline Thyroid: Thyroid normal Carotids: no bruits Lymphatic: no lymphadenopathy noted Chest Chest palpation & inspection: normal inspection of the chest Resp Effort & Inspection: normal respiratory effort Auscultation: clear to auscultation bilaterally Cardio Rate: regular rate Rhythm: regular rhythm Heart sounds: S1 normal heart sound present, S2 normal heart sound present, no gallops, + murmurs and no rubs Bruits: no abdominal aortic bruits and no carotid bruits GI Palpation (GI): No Abdominal aortic bruit present, Soft to palpation, nontender, No hepatosplenomegaly present and No Rebound tenderness present Auscultation: normal bowel sounds General: Yes no CVA tenderness Back/Spine/Pelvis Back: no CVA tenderness Cervical Spine: cervical ROM normal and No Cervical spine tenderness Thoracic/Lumbar Spine: thoraco-lumbar ROM normal, No pain with thoraco-lumbar ROM, No thoracic spinal tenderness and No lumbar spinal tenderness Skin General: warm and dry. Normal skin color. Normal skin turgor Lesions: no lesions Rashes: no rashes Trauma: no lacerations or abrasions Wounds: no wounds Nails: normal Neuro General: patient oriented x3, gait normal and CN's II-XI intact bilaterally Cranial nerves: Yes Equal, round and reactive pupils present Cognition (Neuro): normal cognition Gait exam (Neuro): Normal gait present Motor exam (neuro): 5/5 motor strength present throughout Sensory Exam: No Sensory deficit (Neuro) Deep tendon reflexes (DTR's): Right patellar reflex intensity grade: 2+ and Left patellar reflex intensity grade: 2+ Extrem General: Yes normal to inspection, No edema and No calf tenderness Psych Appearance: grossly normal Affect: normal affect Attitude: cooperative Thought process: Normal thought process present Coding Level of Care Code Est Pt Prev Care >65y(01372) Diagnoses Normal physical examination, routine Z00.00 Assessment & Plan Assessment & Plan (1) Normal physical examination, routine: Code(s): Z00.00 - Encounter for general adult medical examination without abnormal findings Category: Medical Plan: No significant functional limitations. Continue current treatment regimen. Healthy diet and routine exercise encouraged. Encouraged to perform fasting lab work before next visit. Follow-up for transfer of care with Dr. Velazco as planned early next month. Return sooner with symptoms or concerns. Verbalized understanding and agreed with the plan. Orders: Orders XR DEXA axial skeleton Today M81.0 - Age-related osteoporosis without current pathological fracture
[2025-02-13 11:07] VITALS: BP 128/60; PULSE 77; RESP 18; O2SAT 98; BMI 27.6
--- OUTSIDE RECORDS SUMMARY | 2025-02-13 15:54 | XMS_ITS | Encounter Summary ---
Author Organization [facility] Address [address] [place] [address] [place] [address] Phone Care Team Providers Care Principal Network Architect Name Role Phone Kizzy Willingham MD Primary Care Provider + Mikey Feliciano NP Primary Care Provider [phone]- [phone] Reason for Referral * MRI/CAT Scan - Closed Specialty Diagnoses / Procedures Referred By Contac t Referred To Contact Radiology Diagnoses Radiculopathy, lumbar region Procedures MRI Lumbar Spine CHG MRI, LUMBAR SPINE CHG MRI, LUMBAR SPINE COMBO CHG MRI, LUMBAR SPINE CONTRAST Irvin Tyson DO [address] [place] [address] Phone: tel: fax: [email or web address] Referral ID Status Reason Start Date Expiration Date Visits Re quested Visits Authorized [id number] Closed 2024 01/01/2025 1 1 Encounter Details Date Type Department Care Team (Latest Contact Info) Description 11/08/2024 Transcribe Orders Virtual Department [address] [place] [address] Irvin Tyson DO [address] [place] [phone] [email or web address] Radiculopathy, lumbar region (Primary Dx) Social History [...] unspecified documented in this encounter Care Teams Principal Network Architect Relationship Specialty Start Date End Date Kizzy Willingham MD [address] [place] [address] PCP - General Gastroenterology 05/22/20 11/08/24 Mikey Feliciano NP [address] [place] [address] PCP - General Nurse Practitioner 11/09/24 documented as of this encounter Additional Source Comments The information contained in this document represents components of the legal health record. It is not the complete legal health record.[facility]
--- OUTSIDE RECORDS SUMMARY | 2025-02-13 15:54 | XMS_ITS | Clinical Summary ---
Author Organization [facility] Address [address] [place] [address] Phone Care Team Providers Care Cable Television Installer Name Role Phone Mikey Feliciano [employer] PRODUCTION MACHINE TENDER Primary Care Provider [phone]- [phone] Allergies Active Allergy Reactions Criticality Noted Date [...] - 11/29/2024 11:59 PM EDT Hospital Encounter [address] [address] Irvin Tyson, DO Discharge Disposition: Home or Self Care 11/08/2024 Procedure Pass [address] [address] from Last 3 Months Immunizations Immunization Administration [...] 11/29/2024 7:04 AM EDT Radiculopathy, lumbar region from Last 3 Months Results [...] clinician's provided indication for this examination in [facility]: Outside Radiology Order; radiculopathy TECHNIQUE: MRI LUMBAR [...] DO IMG MR XSPECIALTY Final Resu lt from Last 3 Months Insurance [employer] PPO MEDICARE REPLACEMENT [employer] PPO MEDICARE REPLACEMENT [employer] PPO MEDICARE REPLACEMENT [employer] PPO MEDICARE REPLACEMENT [employer] PPO MEDICARE REPLACEMENT [employer] PPO MEDICARE REPLACEMENT [employer] PPO MEDICARE REPLACEMENT [employer] PPO MEDICARE REPLACEMENT [employer] PPO MEDICARE REPLACEMENT Care Teams Cable Television Installer Relationship Specialty Start Date End Date Mikey Feliciano NP [address] [place] [phone] PCP - General Nurse Practitioner 11/09/24 Additional Source Comments The information contained in this document represents components of the legal health record. It is not the complete legal health record.[facility]
--- OUTSIDE RECORDS SUMMARY | 2025-02-13 15:54 | XMS_ITS | Encounter Summary ---
Author Organization [facility] Address [address] [place] [address] [place] [phone] Phone Care Team Providers Care District Attorney Name Role Phone Kizzy Willingham MD Primary Care Provider + Mikey Feliciano NP Primary Care Provider [phone]- [phone] Encounter Details Date Type Department Care Team (Late st Contact Info) Description 05/29/2020 Telephone [facility] Otolaryngology General [address] [place] [address] Poli Willis Social History Tobacco Use Types [...] on filedocumented in this encounter Care Teams District Attorney Relationship Specialty Start Date End Date Kizzy Willingham MD [address] [place] [address] PCP - General Gastroenterology 05/22/20 11/08/24 Mikey Feliciano NP [address] [place] [address] PCP - General Nurse Practitioner 11/09/24 documented as of this encounter Additional Source Comments The information contained in this document represents components of the legal health record. It is not the complete legal health record.[facility]
--- OUTSIDE RECORDS SUMMARY | 2025-02-13 15:54 | XMS_ITS | Encounter Summary ---
Author Organization [facility] Address [address] [place] [address] [place] [address] Phone Care Team Providers Care Flexographic Printing Machinist Name Role Phone Kizzy Willingham MD Primary Care Provider + Mikey Feliciano NP Primary Care Provider +1- [phone] Encounter Details Date Type Department Care Team (Late st Contact Info) Description 11/08/2024 Procedure Pass [facility] [address] [place] [address] Social History Tobacco Use Types Packs/Day Years [...] on filedocumented in this encounter Care Teams Flexographic Printing Machinist Relationship Specialty Start Date End Date Kizzy Willingham MD [address] [place] [address] PCP - General Gastroenterology 05/22/20 11/08/24 Mikey Feliciano NP [address] [place] [address] PCP - General Nurse Practitioner 11/09/24 documented as of this encounter Additional Source Comments The information contained in this document represents components of the legal health record. It is not the complete legal health record.[facility]
== END 2025-02-13 11:38 | disposition home or self-care (01) ==
LOC: HO.HMCFM 11:05
PROVIDERS: PCP Nurse Practitioner Family; Visit Provider Nurse Practitioner Family
DX: Z00.00 Encounter for general adult medical examination without abnormal findings (principal)